=== PATIENT | male | born 1950 | race Caucasian/White ===

== ENCOUNTER 2020-06-23 15:31 | Outpatient (REF) | payer OTHER, SELFPAY | END 2020-06-23 15:32 | disposition home or self-care (01) | LOC: HO.LAB 15:31 | PROVIDERS: PCP Internal Medicine; Visit Provider Internal Medicine | DX: Z20.828 Contact with and (suspected) exposure to other viral communicable diseases (principal) | CPT/HCPCS: U0003 ==

== ENCOUNTER 2020-06-23 15:45 | Emergency (ER) | payer OTHER, SELFPAY ==
[2020-06-23 15:55] VITALS: BP 119/70; PULSE 88; RESP 16; TEMP 36.8; O2SAT 96; BMI 33.8
--- NOTE | 2020-06-23 16:21 | XR_ITS ---
EXAMINATION: XR CHEST CLINICAL INFORMATION: Cough. COMPARISON: 09/16/2019 chest radiograph. TECHNIQUE: Frontal view of the chest was obtained. FINDINGS: No significant abnormality is noted involving the heart, lungs, mediastinum, bony thorax or soft tissues. XR/XR chest 1V IMPRESSION: No acute cardiopulmonary process.
--- NOTE | 2020-06-23 16:28 | ED.GENADULT ---
HPI - General Adult General Chief complaint: General Medical Stated complaint: FLU LIKE SYMPTOMS Time Seen by Provider: 06/23/20 16:21 Related Data Allergies Allergy/AdvReac Type Severity Reaction Status Date / Time No Known Allergies Allergy Verified 06/23/20 16:03 [No Known Allergies*] [facility] Past Medical History Medical History (Updated 06/24/20 @ 00:00 by Background Daemon) Asthma Diabetic acidosis, type II High cholesterol HTN (hypertension) Insomnia Social History Social History Alcohol intake: never Smoked in Last 30 Days: No Use of substances other than those prescribed or required for medical reasons: No Advance Directives: No Advance Directives Information Provided: No Physical Exam Vital Signs: Vital Signs: Vital Signs Temp Pulse Resp BP Pulse Ox 06/23/20 15:55 98.3 F 88 16 119/70 96 Body Mass Index 33.8 Discharge Plan Discharge Clinical Impression: Acute viral syndrome Patient Disposition: Home, Self-Care Additional Instructions: Chest x-ray was normal We will call you with COVID test results Return to ER any time any worse condition or any concerns Interventions: ED Discharge Assessment Last Done: 06/23/20 17:26 Discharge Date/Time: 06/23/20 17:28
--- NOTE | 2020-06-23 17:20 | ED.GENADULT ---
HPI - General Adult General Chief complaint: General Medical Stated complaint: FLU LIKE SYMPTOMS Time Seen by Provider: 06/23/20 16:21 History of Present Illness HPI narrative: Patient complains of body ache, fatigue, intermittent mild dry cough for the last 3 days, no fever no chills no shortness of breath Related Data Allergies Allergy/AdvReac Type Severity Reaction Status Date / Time No Known Allergies Allergy Verified 06/23/20 16:03 [No Known Allergies*] Review of Systems Review of Systems: No chest pain no abdominal pain no nausea no vomiting no diarrhea no shortness of breath no difficulty breathing, cough is not productive, no headache Yes all other systems are reviewed and are negative PMFSH Past Medical History Source: nursing notes reviewed Medical History (Updated 06/23/20 @ 17:24 by RADHA Calhoun) Asthma Diabetic acidosis, type II High cholesterol HTN (hypertension) Insomnia Social History Social History Alcohol intake: never Smoked in Last 30 Days: No Use of substances other than those prescribed or required for medical reasons: No Advance Directives: No Advance Directives Information Provided: No Physical Exam Vital Signs: Vital Signs: Vital Signs Temp Pulse Resp BP Pulse Ox 06/23/20 15:55 98.3 F 88 16 119/70 96 Body Mass Index 33.8 Patient is A&O x3, no acute distress, comfortable in chair and ambulates easily The head is normocephalic atraumatic The neck is supple The pharynx is clear The chest is clear to auscultation with full symmetrical breath sounds bilaterally, no wheezing no adventitious sounds Cardiac no murmur auscultated Abdomen is soft nontender Extremities no edema, no calf tenderness Skin is normal Neuro A&O x3, no focal deficit Course Course Course Narrative: Patient's chest x-ray was negative with no evidence of pneumonia and was otherwise normal The patient remains comfortable ambulatory with stable vital signs in no distress, speaking full sentences and ambulates without shortness of breath or difficulty Discharge Plan Discharge Clinical Impression: Acute viral syndrome Patient Disposition: Home, Self-Care Additional Instructions: Chest x-ray was normal We will call you with COVID test results Return to ER any time any worse condition or any concerns Interventions: ED Discharge Assessment Last Done: 06/23/20 17:26 Discharge Date/Time: 06/23/20 17:28
== END 2020-06-23 17:28 | disposition home or self-care (01) ==
PROVIDERS: Emergency Provider Emergency Medicine; PCP Internal Medicine
DX: B34.9 Viral infection, unspecified (principal); R05 Cough; Z20.828 Contact with and (suspected) exposure to other viral communicable diseases
CPT/HCPCS: 71045; 99283

== ENCOUNTER 2020-07-11 10:29 | Outpatient (REF) | payer OTHER, SELFPAY | END 2020-07-11 10:30 | disposition home or self-care (01) | LOC: HO.LAB 10:29 | PROVIDERS: PCP Internal Medicine; Visit Provider Internal Medicine | DX: Z20.828 Contact with and (suspected) exposure to other viral communicable diseases (principal) | CPT/HCPCS: C9803; U0003 ==

== ENCOUNTER 2020-07-31 08:07 | Outpatient (REF) | payer MEDICARE, SELFPAY ==
[2020-07-31 09:41] LABS: Creatinine Urine 79.58 mg/dL; Microalbum/Creatinine Ratio Ur 20.1 ug/mg cr
== END 2020-07-31 08:08 | disposition home or self-care (01) ==
LOC: HO.LAB 08:07
PROVIDERS: PCP Internal Medicine; Visit Provider Internal Medicine
DX: E11.8 Type 2 diabetes mellitus with unspecified complications (principal)
CPT/HCPCS: 82043

== ENCOUNTER 2020-08-29 09:14 | Outpatient (REF) | payer MEDICARE, SELFPAY ==
[2020-08-29 10:47] LABS: Alanine Aminotransferase 22 U/L (0-40); Albumin Level 4.6 g/dL (3.5-5.0); Alkaline Phosphatase 80 U/L (39-117); Anion Gap 15 (12-20); Aspartate Amino Transferase 18 U/L (5-37); Bilirubin Total 0.4 mg/dL (0.0-1.0); Blood Urea Nitrogen 23 mg/dL (9-16); Calcium 9.4 mg/dL (8.4-10.2); Carbon Dioxide 24 mmol/L (22-29); Chloride 104 mmol/L (96-108); Cholesterol 207 mg/dL; Estimated Glomerular Filt Rate 53; Glucose Fasting 185 mg/dL (60-99); HDL Cholesterol 39 mg/dL; LDL Cholesterol Calculated 119 mg/dl; Potassium 4.6 mmol/l (3.3-5.1); Sodium 138 mmol/L (135-145); Total Protein 7.2 g/dL (6.5-8.0); Triglycerides 249 mg/dL
[2020-08-29 11:13] LABS: Creatinine Urine 94.99 mg/dL; Microalbum/Creatinine Ratio Ur 43.1 ug/mg cr
== END 2020-08-29 09:15 | disposition home or self-care (01) ==
LOC: HO.LAB 09:14
PROVIDERS: PCP Internal Medicine; Visit Provider Internal Medicine
DX: E11.9 Type 2 diabetes mellitus without complications (principal); E78.5 Hyperlipidemia, unspecified
CPT/HCPCS: 36415; 80053; 80061; 82043

== ENCOUNTER 2020-08-29 09:35 | Outpatient (REF) | payer MEDICARE, SELFPAY | END 2020-08-29 09:36 | disposition home or self-care (01) | LOC: HO.LAB 09:35 | PROVIDERS: Visit Provider Internal Medicine | DX: Z20.828 Contact with and (suspected) exposure to other viral communicable diseases (principal) | CPT/HCPCS: 36415; C9803; U0003 ==

== ENCOUNTER → 2020-10-05 07:40 | Outpatient (REF) | payer MEDICARE, SELFPAY ==
--- NOTE | ~2020-10-05 | NM_ITS ---
Exercise Myocardial perfusion study Indication: Chest pain to evaluate for myocardial ischemia Technique: The patient was brought in for an exercise perfusion study on 10/05/2020. Patient performed exercise as per Silvino protocol and was injected 25 mCi of sestamibi was given intravenously one target HR was achieved. Images were obtained using the SPECT gamma camera interlaced with the gating device. Images were obtained in supine position. Resting perfusion study was performed on 10/06/2020. Patient was administered 25 mCi of sestamibi intravenously at rest. Images were then obtained in supine position. Images obtained with and without CT attenuation. Total DLP 62 mGy-cm. Images were processed with the software and compared side to side in short axis, horizontal long axis and vertical long axis views. Findings: The stress perfusion study showed non attenuated images show moderately reduced uptake in the inferior wall of the LV myocardium. Remainder of the LV myocardium is normally perfused. Attenuation corrected images show normalized uptake in the inferior wall with moderately reduced uptake in the apex of the LV myocardium.. The gated study shows normal LV systolic function with calculated LVEF of 74%. LV cavity is normal in size. The gated study shows normal systolic wall thickening and contraction of all segments. There is no transient ischemic dilation. Resting study shows no change in perfusion pattern compared to stress perfusion study. Gating at rest reveals normal systolic wall motion with ejection fraction at 65%. The findings are consistent with no reversible defect suggestive of ischemia. Most likely suggestive normal myocardial perfusion. NM/NM johanna perf SPECT rest & str Impression: 1. Normal myocardial perfusion 2. Gated LVEF is 65% 3. Transient ischemic dilatation not present Stress EKG is negative for ischemia
--- NOTE | 2020-10-05 08:30 | CA_ITS ---
Acquisition Time: 2020-10-05 07:55:21 Total Exercise Time: 00:05:04 Test Indications: Dyspnea Medications: CITALOPRAM METFORMIN PANTOPRAZOLE PRAVASTATIN GABAPENTIN LORATADINE LOSARTAN Protocol: MAXIMILIANO Max HR: 131 BPM 86% of Pred: 152 BPM Max BP: 140/068 mmHG Max Work Load: 4.6 METS Stress nuclear using Maximiliano protocol Second stage held. Pt tolerated well, denies any anginal sx. METS 4.60, TAPHR up to 86%. EKG without any arrhythmias. No ischemic changes seen during exercise or in recovery. Nuclear images to follow. Normotensive response to exercise. Test reviewed with DR. Ortega Referred By: Mehul Kasper Overread By: Massimo Self
== END ==
LOC: HO.CARD 07:40
PROVIDERS: PCP Internal Medicine; Visit Provider Internal Medicine Cardiovascular Disease
DX: R07.9 Chest pain, unspecified (principal)
CPT/HCPCS: 78452; 93017; A9500; J0280; J2785

== ENCOUNTER → 2020-10-20 14:00 | Outpatient (BNVA) | payer MEDICARE, SELFPAY | PROVIDERS: PCP Internal Medicine; Visit Provider Internal Medicine Pulmonary Disease | DX: J45.30 Mild persistent asthma, uncomplicated (principal) | CPT/HCPCS: 99202 ==

== ENCOUNTER 2020-11-07 13:17 | Outpatient (REF) | payer MEDICARE, SELFPAY ==
--- NOTE | 2020-11-07 17:18 | PFT_ITS ---
Forced vital capacity, FEV1, PQS47-36, and MVV are all normal. Post bronchodilator therapy, there is no significant change. Total lung capacity and residual volume normal. Diffusion capacity normal. CONCLUSION: Normal pulmonary function test. No evidence of obstructive or restrictive pulmonary disorder. Enrico Arevalo MD MSB/MODL / [id number]
== END 2020-11-07 13:18 | disposition home or self-care (01) ==
LOC: HO.RESP 13:17
PROVIDERS: PCP Internal Medicine; Visit Provider Internal Medicine Pulmonary Disease
DX: J45.30 Mild persistent asthma, uncomplicated (principal)
CPT/HCPCS: 94060; 94727; 94729; 99212

== ENCOUNTER 2020-11-28 08:03 | Outpatient (REF) | payer MEDICARE, SELFPAY ==
[2020-11-28 08:38] LABS: MANUAL DIFF FLAG NO
[2020-11-28 08:45] LABS: Basophils Percent Auto 0.5 % (0-2); Eosinophils Absolute Auto 0.2 X10*3/uL (0.0-0.4); Eosinophils Percent Auto 3.2 % (0-4); Hematocrit 37.2 % (42-52); Imm Gran Abs Auto 0.01 X10*3/uL (0.00-0.03); Imm Gran Pct Auto 0.2 % (0.0-0.4); Lymphocytes Absolute Auto 1.8 X10*3/uL (1.2-4.9); Lymphocytes Percent Auto 29.4 % (20-40); Mean Corpuscular HGB Conc 32.3 g/dl (31.0-36.0); Mean Corpuscular Hemoglobin 28.9 pg (27.0-33.0); Mean Corpuscular Volume 89.6 fL (80-98); Monocytes Absolute Auto 0.6 X10*3/uL (0.1-1.2); Monocytes Percent Auto 9.3 % (2-11); Neutrophils Absolute Auto 3.5 X10*3/uL (2.0-8.3); Neutrophils Percent Auto 57.4 % (45-73); Platelet Count 241 X10*3/uL (160-400); Red Blood Count 4.15 X10*6/uL (4.60-5.80); Red Cell Distribution Width 13.7 % (11.0-16.0); White Blood Count 6.2 X10*3/uL (4.8-10.8)
[2020-11-28 09:03] LABS: Alanine Aminotransferase 20 U/L (0-40); Albumin Level 4.3 g/dL (3.5-5.0); Alkaline Phosphatase 75 U/L (39-117); Anion Gap 12 (12-20); Aspartate Amino Transferase 15 U/L (5-37); Bilirubin Total 0.5 mg/dL (0.0-1.0); Blood Urea Nitrogen 23 mg/dL (9-16); Calcium 9.1 mg/dL (8.4-10.2); Carbon Dioxide 27 mmol/L (22-29); Chloride 104 mmol/L (96-108); Cholesterol 156 mg/dL; Estimated Glomerular Filt Rate 52; Glucose Fasting 160 mg/dL (60-99); HDL Cholesterol 36 mg/dL; LDL Cholesterol Calculated 76 mg/dl; Potassium 4.3 mmol/L (3.3-5.1); Sodium 139 mmol/L (135-145); Total Protein 6.9 g/dL (6.5-8.0); Triglycerides 223 mg/dL
[2020-11-28 10:17] LABS: Folate 8.6 ng/mL (> or = 4.0); Vitamin B12 299 pg/mL (200-900)
[2020-11-28 10:23] LABS: Creatinine Urine 127.26 mg/dL; Microalbum/Creatinine Ratio Ur 31.4 ug/mg cr
[2020-12-04 12:51] LABS: Vitamin D 25-OH, D2 <4 ng/mL; Vitamin D 25-OH, D3 44 ng/mL; Vitamin D 25-OH, Total 44 ng/mL (30-100)
== END 2020-11-28 08:04 | disposition home or self-care (01) ==
LOC: HO.LAB 08:03
PROVIDERS: PCP Internal Medicine; Visit Provider Internal Medicine
DX: E11.9 Type 2 diabetes mellitus without complications (principal); R53.82 Chronic fatigue, unspecified; E55.9 Vitamin D deficiency, unspecified; E78.5 Hyperlipidemia, unspecified
CPT/HCPCS: 36415; 80053; 80061; 82043; 82306; 82607; 82746; 85025

== ENCOUNTER 2020-12-14 07:57 | Outpatient (REF) | payer MEDICARE, SELFPAY ==
--- NOTE | ~2020-12-14 | XR_ITS ---
EXAMINATION: XR LUMBAR SPINE CLINICAL INFORMATION: Low back pain COMPARISON: 05/27/2018 TECHNIQUE: AP and lateral views of the lumbar spine and lateral view of the lumbosacral junction. FINDINGS: Prominent facet arthropathy is evident at L5-S1. There is mild multilevel degenerative disc disease with prominent endplate osteophytes. Interbody disc heights appear relatively well preserved. No fractures. Vertebral body heights are normal. Bones are osteopenic. Mild osteoarthritis in the SI joints. Calcific atherosclerosis is present in the abdominal aorta and iliac arteries. XR/XR lumbar spine 2-3V IMPRESSION: Prominent facet arthropathy at L5-S1 and more mild multilevel degenerative disc disease in the lumbar spine. No acute fracture or spondylolisthesis.
== END 2020-12-14 07:58 | disposition home or self-care (01) ==
LOC: HO.XRAY 07:57
PROVIDERS: PCP Internal Medicine; Visit Provider Internal Medicine
DX: M54.5 Low back pain (principal)
CPT/HCPCS: 72100

== ENCOUNTER 2020-12-25 08:03 | Outpatient (REF) | payer MEDICARE, SELFPAY ==
[2020-12-25 08:39] LABS: MANUAL DIFF FLAG NO
[2020-12-25 08:56] LABS: Basophils Percent Auto 0.6 % (0-2); Eosinophils Absolute Auto 0.2 X10*3/uL (0.0-0.4); Eosinophils Percent Auto 2.7 % (0-4); Hematocrit 36.1 % (42-52); Hemoglobin 11.6 g/dl (14.0-18.0); Imm Gran Abs Auto 0.02 X10*3/uL (0.00-0.03); Imm Gran Pct Auto 0.3 % (0.0-0.4); Mean Corpuscular HGB Conc 32.1 g/dl (31.0-36.0); Mean Corpuscular Volume 90.3 fL (80-98); Mean Platelet Volume 10.7 fL (9.4-12.4); Monocytes Absolute Auto 0.6 X10*3/uL (0.1-1.2); Monocytes Percent Auto 7.9 % (2-11); Neutrophils Absolute Auto 4.2 X10*3/uL (2.0-8.3); Neutrophils Percent Auto 59.5 % (45-73); Platelet Count 220 X10*3/uL (160-400); Red Cell Distribution Width 13.9 % (11.0-16.0)
[2020-12-25 09:46] LABS: Folate 8.5 ng/mL (> or = 4.0); Vitamin B12 294 pg/mL (200-900)
[2020-12-25 10:00] LABS: Alanine Aminotransferase 15 U/L (0-40); Albumin Level 4.2 g/dL (3.5-5.0); Alkaline Phosphatase 79 U/L (39-117); Anion Gap 12 (12-20); Aspartate Amino Transferase 12 U/L (5-37); Bilirubin Total 0.4 mg/dL (0.0-1.0); Blood Urea Nitrogen 26 mg/dL (9-16); Calcium 9.4 mg/dL (8.4-10.2); Carbon Dioxide 25 mmol/L (22-29); Chloride 105 mmol/L (96-108); Cholesterol 157 mg/dL; Estimated Glomerular Filt Rate 47; Glucose Fasting 253 mg/dL (60-99); HDL Cholesterol 33 mg/dL; Iron 80 mcg/dL (45-160); LDL Cholesterol Calculated 67 mg/dl; Percent Iron Saturation 27 % (15-50); Sodium 138 mmol/L (135-145); Total Iron Binding Capacity 296 mcg/dL (228-428); Total Protein 6.7 g/dL (6.5-8.0); Triglycerides 288 mg/dL; Unsaturated Iron Binding 216 ug/dL
[2020-12-25 10:04] LABS: Creatinine Urine 205.16 mg/dL; Microalbum/Creatinine Ratio Ur 20.4 ug/mg cr
== END 2020-12-25 08:04 | disposition home or self-care (01) ==
LOC: HO.LAB 08:03
PROVIDERS: PCP Internal Medicine; Visit Provider Internal Medicine
DX: R53.82 Chronic fatigue, unspecified (principal); D64.9 Anemia, unspecified; E78.5 Hyperlipidemia, unspecified; E11.9 Type 2 diabetes mellitus without complications
CPT/HCPCS: 36415; 80053; 80061; 82043; 82607; 82746; 83540; 85025

== ENCOUNTER 2021-01-26 08:03 | Outpatient (REF) | payer MEDICARE, SELFPAY ==
--- NOTE | 2021-04-06 16:16 | HE.ONCSEC ---
Notes of the Meeting with Mr Mohamud Carpenter on 04/06/2021 at 2pm. Language - Maori - Car Rental Agent was present and her name is Robel Morales Mr. Carpenter scheduled to meet with me because he was not happy that Dr. De Los Santos had refused to sign his Insurance papers as he is an Oncology patient. I explained to Mr Carpenter that the reason why Dr De Los Santos did not sign his papers is because he was last in for anemia which was stable. Mr Carpenter then said that every doctor that he has seen since being Dr De Los Santos's patient says that he has cancer. I explained to Mr. 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 Since 2018, patient has been seeing his primary provider.
== END 2021-01-26 08:04 | disposition home or self-care (01) ==
LOC: HO.LAB 08:03
PROVIDERS: Visit Provider Internal Medicine
DX: M47.816 Spondylosis without myelopathy or radiculopathy, lumbar region (principal); G56.03 Carpal tunnel syndrome, bilateral upper limbs; M72.2 Plantar fascial fibromatosis; G62.9 Polyneuropathy, unspecified; Z20.822 Contact with and (suspected) exposure to COVID-19
CPT/HCPCS: 99202; C9803; U0003; U0005

== ENCOUNTER → 2021-03-09 11:05 | Outpatient (BNVA) | payer MEDICARE, SELFPAY | PROVIDERS: PCP Internal Medicine; Visit Provider Internal Medicine | DX: M47.816 Spondylosis without myelopathy or radiculopathy, lumbar region (principal); G56.03 Carpal tunnel syndrome, bilateral upper limbs; G62.9 Polyneuropathy, unspecified | CPT/HCPCS: 99212 ==

== ENCOUNTER → 2021-03-14 12:39 | Outpatient (BNVA) | payer MEDICARE, SELFPAY | PROVIDERS: PCP Internal Medicine; Visit Provider Internal Medicine Pulmonary Disease | DX: J45.30 Mild persistent asthma, uncomplicated (principal); G47.33 Obstructive sleep apnea (adult) (pediatric); Z99.89 Dependence on other enabling machines and devices | CPT/HCPCS: 99212 ==

== ENCOUNTER → 2021-03-28 13:03 | Outpatient (BNVA) | payer MEDICARE, SELFPAY | PROVIDERS: PCP Internal Medicine; Visit Provider Orthopaedic Surgery | DX: G56.01 Carpal tunnel syndrome, right upper limb (principal) | CPT/HCPCS: 99202 ==

== ENCOUNTER 2021-04-05 11:38 | Day surgery (SDC) | payer MEDICARE, SELFPAY ==
[2021-04-05 12:36] VITALS: BMI 33.8
[2021-04-05 12:37] VITALS: BP 126/60; PULSE 62; RESP 18; TEMP 36.7; O2SAT 97
[2021-04-05 12:44] LABS: Glucose, Whole Blood 187 mg/dL (60-115)
--- NOTE | 2021-04-05 14:58 | PC.NURSE ---
PATIENT TRANSFERRED TO PACU. DR. Papo CHENG GAVE THE BLOCK AT BEDSIDE. REPORT TO CONE CLASSIFIER TENDER.
--- NOTE | 2021-04-05 16:08 | MHC.SHP ---
Pre-Procedural Eval Section A Date of Service: 04/05/21 The patient is an INPATIENT: No Changes since office visit: No Cold of Flu in the past 2 weeks, No New Medical Problems, No Changes in Medication and No Patient answered all questions The History & Physical has been completed within 30 days and I have reviewed it.: Yes Section B Chief Complaint: Carpal Tunnel Syndrome Allergies: Allergies Allergy/AdvReac Type Severity Reaction Status Date / Time No Known Allergies Allergy Verified 03/28/21 13:46 [No Known Allergies*] Plan I have reviewed the history and physical and performed a pertinent physical examination on my patient. No changes have occurred unless specified.
--- NOTE | 2021-04-05 16:08 | W.PM.OPN ---
Operative Note Operative Note Date of Service: 04/05/21 Narrative: Preop diagnosis: 1. Right Carpal tunnel syndrome Postop diagnosis: same Procedure: 1. Right Carpal tunnel release Surgeon: Hortencia Lomas MD Anesthesia: local block using 1% lidocaine with epinephrine Findings: Thickened transverse carpal ligament. EBL: Less than 5 mL Specimens: None Complications: None Disposition: Brought to recovery room in stable condition Plan: Follow-up for 7-10 days for wound check and suture removal Indications: The patient is 70 years old, with right carpal tunnel syndrome that has been unresponsive to nonoperative management. The risks and benefits of operative treatment including but not limited to risk of damage to blood vessels, nerves, tendons, infection, persistent pain, persistent symptoms, or possible need for additional surgery were discussed with the patient and the patient wishes to proceed with surgery. Procedure: Once consent was obtained a local block was performed using a combination of 1% lidocaine with epinephrine. The patient was then brought back to the operating suite and placed on the operative table in supine position. A tourniquet was applied to the proximal aspect of the right upper extremity and the limb was prepped and draped in a standard surgical fashion. Once assured that we had a good block, a 1.5 cm longitudinal incision was made centered over the carpal tunnel. The incision was made through the skin to the subcutaneous tissues using a #15 blade. Dissection was made down to the level of the transverse carpal ligament with care being taken to protect the palmar cutaneous nerve. Once the transverse carpal ligament was clearly visualized, a longitudinal incision was made in the transverse carpal ligament 1st using a #15 blade, then using tenotomy scissors under direct visualization. Care was taken to look for and protect the motor branch of the median nerve when seen in this area. Once satisfied with our carpal tunnel release the wound was copiously irrigated with normal saline and hemostasis was obtained with a brief period of local pressure. The skin edges were reapproximated with some 5.0 nylon suture material and a sterile dressing was applied. The patient appears to have tolerated the procedure well and with no complications. All digits were well vascularized at the conclusion of the case.
[2021-04-05 16:35] VITALS: BP 117/78; PULSE 58; RESP 16; TEMP 36.7; O2SAT 96
[2021-04-05 16:55] VITALS: BP 125/69; PULSE 55; RESP 7; TEMP 36.6; O2SAT 98
== END 2021-04-05 17:08 | disposition home or self-care (01) ==
PROVIDERS: PCP Internal Medicine; Visit Provider Orthopaedic Surgery
PROC: (CPT 64721; principal; 2021-04-05 14:00)
DX: G56.01 Carpal tunnel syndrome, right upper limb (principal); I10 Essential (primary) hypertension; E11.10 Type 2 diabetes mellitus with ketoacidosis without coma; Z79.84 Long term (current) use of oral hypoglycemic drugs; J45.909 Unspecified asthma, uncomplicated; R53.82 Chronic fatigue, unspecified; Z86.16 Personal history of COVID-19
CPT/HCPCS: 64721; 82947

== ENCOUNTER → 2021-04-16 11:51 | Outpatient (BNVA) | payer MEDICARE, SELFPAY | PROVIDERS: PCP Internal Medicine; Visit Provider Orthopaedic Surgery | DX: Z09 Encounter for follow-up examination after completed treatment for conditions other than malignant neoplasm (principal); Z86.69 Personal history of other diseases of the nervous system and sense organs | CPT/HCPCS: 99212 ==

== ENCOUNTER 2021-05-01 11:18 | Outpatient (REF) | payer MEDICARE, SELFPAY | END 2021-05-01 11:19 | disposition home or self-care (01) | LOC: HO.LAB 11:18 | PROVIDERS: PCP Internal Medicine; Visit Provider Internal Medicine | DX: Z20.822 Contact with and (suspected) exposure to COVID-19 (principal) | CPT/HCPCS: C9803; U0003; U0005 ==

== ENCOUNTER 2021-05-15 07:04 | Outpatient (REF) | payer MEDICARE, SELFPAY ==
[2021-05-15 08:38] LABS: MANUAL DIFF FLAG NO
[2021-05-15 08:49] LABS: Basophils Percent Auto 0.6 % (0-2); Eosinophils Absolute Auto 0.3 X10*3/uL (0.0-0.4); Eosinophils Percent Auto 4.7 % (0-4); Hematocrit 38.9 % (42-52); Hemoglobin 12.5 g/dl (14.0-18.0); Imm Gran Abs Auto 0.02 X10*3/uL (0.00-0.03); Imm Gran Pct Auto 0.3 % (0.0-0.4); Lymphocytes Absolute Auto 1.9 X10*3/uL (1.2-4.9); Lymphocytes Percent Auto 28.5 % (20-40); Mean Corpuscular HGB Conc 32.1 g/dl (31.0-36.0); Mean Corpuscular Hemoglobin 28.5 pg (27.0-33.0); Mean Corpuscular Volume 88.8 fL (80-98); Mean Platelet Volume 10.9 fL (9.4-12.4); Monocytes Absolute Auto 0.7 X10*3/uL (0.1-1.2); Monocytes Percent Auto 10.2 % (2-11); Neutrophils Absolute Auto 3.8 X10*3/uL (2.0-8.3); Neutrophils Percent Auto 55.7 % (45-73); Platelet Count 262 X10*3/uL (160-400); Red Blood Count 4.38 X10*6/uL (4.60-5.80); Red Cell Distribution Width 13.5 % (11.0-16.0); White Blood Count 6.8 X10*3/uL (4.8-10.8)
[2021-05-15 09:08] LABS: Alanine Aminotransferase 21 U/L (0-40); Albumin Level 4.7 g/dL (3.5-5.0); Alkaline Phosphatase 88 U/L (39-117); Anion Gap 13 (12-20); Aspartate Amino Transferase 15 U/L (5-37); Bilirubin Total 0.6 mg/dL (0.0-1.0); Blood Urea Nitrogen 19 mg/dL (9-16); Calcium 9.9 mg/dL (8.4-10.2); Carbon Dioxide 25 mmol/L (22-29); Chloride 104 mmol/L (96-108); Cholesterol 202 mg/dL; Estimated Glomerular Filt Rate 42; Glucose Fasting 164 mg/dL (60-99); HDL Cholesterol 38 mg/dL; LDL Cholesterol Calculated 97 mg/dl; Potassium 4.3 mmol/L (3.3-5.1); Sodium 138 mmol/L (135-145); Total Protein 7.4 g/dL (6.5-8.0); Triglycerides 338 mg/dL
[2021-05-15 09:36] LABS: Creatinine Urine 87.26 mg/dL; Microalbum/Creatinine Ratio Ur 29.7 ug/mg cr
== END 2021-05-15 07:05 | disposition home or self-care (01) ==
LOC: HO.LAB 07:04
PROVIDERS: PCP Internal Medicine; Visit Provider Internal Medicine
DX: D64.9 Anemia, unspecified (principal); E11.9 Type 2 diabetes mellitus without complications; E78.5 Hyperlipidemia, unspecified
CPT/HCPCS: 36415; 80053; 80061; 82043; 85025

== ENCOUNTER 2021-06-30 13:57 | Emergency (ER) | payer MEDICARE, SELFPAY ==
--- NOTE | ~2021-06-30 | XR_ITS ---
EXAMINATION: XR SHOULDER, LEFT CLINICAL INFORMATION: Left shoulder pain with limited range of motion status post fall. COMPARISON: None TECHNIQUE: AP external rotation, Grashey, scapular Y, and axillary views of the left shoulder. FINDINGS: Moderate left acromioclavicular and mild left glenohumeral degenerative joint changes are seen. There is no acute fracture or dislocation. The soft tissues are unremarkable. XR/XR shoulder LT min 2V IMPRESSION: Degenerative joint changes without overt acute abnormality.
[2021-06-30 14:06] VITALS: BP 136/70; PULSE 99; RESP 19; TEMP 36.6; O2SAT 97; BMI 33.2
--- NOTE | 2021-06-30 15:50 | ED_ITS ---
HPI - Extremity Problem General Chief complaint: Extremity Injury, Upper Stated complaint: fall - arm injury Time Seen by Provider: 06/30/21 15:46 Related Data Previous Rx's Medication Instructions Recorded albuterol sulfate 90 mcg/actuation 2 puff INHALATION Q6H PRN 30 Days 10/25/20 aerosol inhaler #6.7 g alcohol swabs 1 pad TOPICAL DAILY 90 Days #100 ea 10/25/20 betamethasone valerate 0.1 % 1 appl TOPICAL BID 30 Days #45 g 10/25/20 topical cream blood sugar diagnostic #30 ea 10/25/20 citalopram 20 mg tablet 20 mg PO DAILY 90 Days #90 tab 10/25/20 lancets 33 gauge #100 ea 10/25/20 loratadine 10 mg tablet 10 mg PO DAILY 90 Days #90 tab 10/25/20 losartan 50 mg-hydrochlorothiazide 1 tab PO DAILY 90 Days #90 tab 10/25/20 12.5 mg tablet metformin 1,000 mg tablet 1,000 mg PO BID 90 Days #180 tab 10/25/20 pantoprazole 40 mg tablet,delayed 40 mg PO DAILY 90 Days #90 tab 10/25/20 release simethicone 125 mg chewable tablet 125 mg PO QID 90 Days #360 tab 10/25/20 fluticasone 250 mcg-salmeterol 50 1 inh INHALATION BID 30 Days #1 ea 11/07/20 mcg/dose blistr powdr for inhalation (Wixela Inhub) fenofibrate 54 mg tablet 54 mg PO DAILY 90 Days #90 tab 12/26/20 meloxicam 15 mg tablet 15 mg PO DAILY PRN #30 tab 01/21/21 pregabalin 150 mg capsule 150 mg PO BEDTIME #30 cap 03/09/21 hydrocodone 5 mg-acetaminophen 325 1 tab PO Q4-6H PRN #5 tab 04/05/21 mg tablet simvastatin 40 mg tablet 40 mg PO BEDTIME 90 Days #90 tab 05/13/21 diabetic shoes with inserts #1 ea 06/06/21 oxycodone-acetaminophen 5 mg-325 1 tab PO Q6H PRN #10 tab 06/30/21 mg tablet (Percocet) Allergies Allergy/AdvReac Type Severity Reaction Status Date / Time No Known Allergies Allergy Verified 05/21/21 16:15 [No Known Allergies*] [facility] Past Medical History Medical History (Updated 06/30/21 @ 15:52 by RADHA Araujo) Asthma Chronic fatigue CKD (chronic kidney disease) COVID-19 Diabetes mellitus Diabetic acidosis, type II GERD (gastroesophageal reflux disease) High cholesterol HTN (hypertension) Insomnia Lumbar pain Mixed hyperlipidemia Skin lesion Surgical History H/O prostate biopsy History of carpal tunnel surgery of right wrist (~03/2021) History of eye surgery History of knee replacement procedure of left knee Family History Family History (Updated 05/21/21 @ 15:59 by Taylor Scott Dina) Father Diabetes Hypertension Mother Diabetes Hypertension Maternal Grandmother Stomach cancer Social History Social History Housing: Apartment Alcohol intake: never Patient Tobacco Use Status: Never used Tobacco Second Hand Smoke Exposure: No Advance Directives: No service: No Current occupational status: retired and disabled Physical Exam Vital Signs: Vital Signs: Last Vital Signs Temp 98 F 06/30/21 14:06 Pulse 99 06/30/21 14:06 Resp 19 06/30/21 14:06 BP 136/70 06/30/21 14:06 Pulse Ox 97 06/30/21 14:06 Body Mass Index 33.2 Discharge Plan Discharge Clinical Impression: Sprain of left shoulder, Fall Patient Disposition: Home, Self-Care Instructions: Fall Prevention for Older Adults (ED), Shoulder Sprain (ED) Prescriptions: New oxycodone-acetaminophen [Percocet] 5-325 mg tablet 1 tab PO Q6H PRN (Reason: pain) Qty: 10 RF: 0 No Action albuterol sulfate 90 mcg/actuation HFA aerosol inhaler 2 puff inhalation Q6H PRN (Reason: shortness of breath or wheezing) 30 Days Qty: 6.7 RF: 4 alcohol swabs Pads, Medicated 1 pad topical DAILY 90 Days Qty: 100 RF: 3 betamethasone valerate 0.1 % cream 1 appl topical BID 30 Days Qty: 45 RF: 6 (DME) blood sugar diagnostic Strip See Rx Instructions ea .ROUTE DAILY Qty: 30 RF: 11 citalopram 20 mg tablet 20 mg PO DAILY 90 Days Qty: 90 RF: 3 (DME) lancets 33 gauge misc See Rx Instructions ea .ROUTE .MEDSUPPLY Qty: 100 RF: 11 loratadine 10 mg tablet 10 mg PO DAILY 90 Days Qty: 90 RF: 3 simethicone 125 mg tablet,chewable 125 mg PO QID 90 Days Qty: 360 RF: 3 pantoprazole 40 mg tablet,delayed release (DR/EC) 40 mg PO DAILY 90 Days Qty: 90 RF: 3 metformin 1,000 mg tablet 1,000 mg PO BID 90 Days Qty: 180 RF: 3 losartan-hydrochlorothiazide 50-12.5 mg tablet 1 tab PO DAILY 90 Days Qty: 90 RF: 3 meloxicam 15 mg tablet 15 mg PO DAILY PRN (Reason: for pain) Qty: 30 RF: 1 simvastatin 40 mg tablet 40 mg PO BEDTIME 90 Days Qty: 90 RF: 1 (DME) diabetic shoes with inserts 7.5 See Rx Instructions .Route .MEDSUPPLY Qty: 1 RF: 0 hydrocodone-acetaminophen 5-325 mg tablet 1 tab PO Q4-6H PRN (Reason: pain) Qty: 5 RF: 0 fenofibrate 54 mg tablet 54 mg PO DAILY 90 Days Qty: 90 RF: 3 fluticasone propion-salmeterol [Wixela Inhub] 250-50 mcg/dose blister with device 1 inh inhalation BID 30 Days Qty: 1 RF: 6 pregabalin 150 mg capsule 150 mg PO BEDTIME Qty: 30 RF: 0 Referrals: Clara Salgado MD [Primary Care Provider] - 2 days Print Language: [place]
--- NOTE | 2021-06-30 15:54 | ED.FALL ---
HPI - Fall General Chief Complaint: Extremity Injury, Upper Stated Complaint: fall - arm injury Time Seen by Provider: 06/30/21 15:46 Source: patient Mode of arrival: ambulatory Limitations: language barrier (Romanian-speaking) History of Present Illness MD complaint: fall Onset (ago): week(s) (One week ago) Fall from: other (Patient reports he had just got up from his bed and was dark in his room and his leg got call in the rug and he fell onto his left shoulder and since then has been having pain) Fall witnessed: no Place fall occurred: home Loss of consciousness: none Prolonged down time: no Symptoms prior to fall: none Context: tripped/slipped Location of injury - extremities: left: shoulder Severity: moderate Quality: aching Associated symptoms (after fall): denies Related Data Previous Rx's Medication Instructions Recorded albuterol sulfate 90 mcg/actuation 2 puff INHALATION Q6H PRN 30 Days 10/25/20 aerosol inhaler #6.7 g alcohol swabs 1 pad TOPICAL DAILY 90 Days #100 ea 10/25/20 betamethasone valerate 0.1 % 1 appl TOPICAL BID 30 Days #45 g 10/25/20 topical cream blood sugar diagnostic #30 ea 10/25/20 citalopram 20 mg tablet 20 mg PO DAILY 90 Days #90 tab 10/25/20 lancets 33 gauge #100 ea 10/25/20 loratadine 10 mg tablet 10 mg PO DAILY 90 Days #90 tab 10/25/20 losartan 50 mg-hydrochlorothiazide 1 tab PO DAILY 90 Days #90 tab 10/25/20 12.5 mg tablet metformin 1,000 mg tablet 1,000 mg PO BID 90 Days #180 tab 10/25/20 pantoprazole 40 mg tablet,delayed 40 mg PO DAILY 90 Days #90 tab 10/25/20 release simethicone 125 mg chewable tablet 125 mg PO QID 90 Days #360 tab 10/25/20 fluticasone 250 mcg-salmeterol 50 1 inh INHALATION BID 30 Days #1 ea 11/07/20 mcg/dose blistr powdr for inhalation (Wixela Inhub) fenofibrate 54 mg tablet 54 mg PO DAILY 90 Days #90 tab 12/26/20 meloxicam 15 mg tablet 15 mg PO DAILY PRN #30 tab 01/21/21 pregabalin 150 mg capsule 150 mg PO BEDTIME #30 cap 07/16/21 hydrocodone 5 mg-acetaminophen 325 1 tab PO Q4-6H PRN #5 tab 04/05/21 mg tablet simvastatin 40 mg tablet 40 mg PO BEDTIME 90 Days #90 tab 05/13/21 diabetic shoes with inserts #1 ea 06/06/21 oxycodone-acetaminophen 5 mg-325 1 tab PO Q6H PRN #10 tab 06/30/21 mg tablet (Percocet) Allergies Allergy/AdvReac Type Severity Reaction Status Date / Time No Known Allergies Allergy Verified 05/21/21 16:15 [No Known Allergies*] Review of Systems Review of Systems: Constitutional : No Weight loss, No Fever, No Chills, No Night Sweats, No Fatigue, No Malaise ENT/Mouth : No Hearing loss, No Ear Pain, No Nasal Congestion, No Sinus Pain, No Hoarseness, No sore throat, No Rhinorrhea, No Swallowing Difficulty Eyes: No Eye Pain, No Swelling, No Redness, No Foreign Body, No Discharge, No Vision Changes Cardiovascular : No Chest Pain, No SOB, No Dyspnea on Exertion, No Orthopnea, No Edema, No Palpitations Respiratory : No Cough, No Sputum, No Wheezing, No Smoke Exposure, No Dyspnea Gastrointestinal : No Nausea, No Vomiting, No Diarrhea, No Constipation, No abdominal Pain, No Hematochezia, No Melena Genitourinary : no irregular bleeding, No Dysuria, No Urinary Frequency, No Hematuria, No Urinary Incontinence, No Urgency, No Flank Pain, No Urinary Flow Changes, No Hesitancy Musculoskeletal : + left shoulder joint pain, No Myalgias, No Joint Swelling Skin : No Skin Lesions, No rash Neuro : No Weakness, No Numbness, No Paresthesias, No Loss of Consciousness, No Dizziness, No Headache Psych : No Anxiety/Panic, No Depression, No SI/HI/AH/VH, No Social Issues, Heme/Lymph: No Bruising, No Bleeding,No Lymphadenopathy Endocrine : No Polyuria, No Polydipsia, No Temperature Intolerance Yes all other systems are reviewed and are negative [facility] Past Medical History Attestation statement: The following information was validated with the patient. Medical History Asthma Chronic fatigue CKD (chronic kidney disease) COVID-19 Diabetes mellitus Diabetic acidosis, type II GERD (gastroesophageal reflux disease) High cholesterol HTN (hypertension) Insomnia Lumbar pain Mixed hyperlipidemia Skin lesion Surgical History H/O prostate biopsy History of carpal tunnel surgery of right wrist (~03/2021) History of eye surgery History of knee replacement procedure of left knee Family History Family History Father Diabetes Hypertension Mother Diabetes Hypertension Maternal Grandmother Stomach cancer Social History Social History Housing: Apartment Alcohol intake: never Patient Tobacco Use Status: Never used Tobacco Second Hand Smoke Exposure: No Advance Directives: No service: No Current occupational status: retired and disabled Physical Exam Vital Signs: Vital Signs: Last Vital Signs Temp 98 F 06/30/21 14:06 Pulse 99 06/30/21 14:06 Resp 19 06/30/21 14:06 BP 136/70 06/30/21 14:06 Pulse Ox 97 06/30/21 14:06 Body Mass Index 33.2 vital signs have been reviewed as normal and appeared to be correct. Blood pressure normal Heart rate normal. Respiration rate normal. Temperature normal. Oxygen saturation normal. Appearance: Alert. Oriented X3. No acute distress. Head: Normal external exam. Normocephalic. Atraumatic. Eyes: PERRLA. EOMI. Conjunctiva and sclera normal. Eyelids normal. ENT: Pharynx normal. Uvula midline. Moist mucous membranes. Neck: Normal inspection. Neck supple. FROM. CVS: Normal heart rate and rhythm. Respiratory: No respiratory distress. Painless inspiration. Skin: Skin warm and dry. Normal skin color. Normal skin turgor. No rashes/lesions/lacerations noted. Extremities: Patient with tenderness palpation to left AC joint with limited range of motion with flexion/hyper extension/abduction/adduction/outward rotation and inward rotation due to pain although patient reports this is not new. Otherwise all other Extremities exhibit normal range of motion and nontender. Neuro: Oriented X 3. No motor deficit. No sensory deficit. Reflexes normal. Normal steady gait. No focal neuro deficits noted. Vascular: + radial pulses/+ 2 distal pedal pulses/+2 dorsalis pedis b/l. Normal cap refill. No cyanosis noted to upper extremity nails and lower extremity toes nails. Course Course Course Narrative: 70-year-old male presenting to the ED with complaints of left shoulder pain after he had a mechanical fall in his house on 06/24/2021 were he tripped and fell on the rug in his house and landed on his left shoulder and since then has been having pain. He reports that he had chronic limited range of motion this is not new. He denies head injury or loss of consciousness. He is not on any blood thinners. He denies any other injury complaints or concerns at this time. X-ray revealed arthritis to the left shoulder otherwise no other acute processes. Therefore will DC home with symptomatic treatment instructions return if any new or worsening symptoms to follow up with primary care provider. Patient understands agrees with this plan. MDM - Fall Medical Records Attestation: I reviewed the patient's medical records. Imaging Data Left shoulder x-ray: Attestation: I personally reviewed and interpreted this imaging study as follows: Radiologist's impression: FINDINGS: Moderate left acromioclavicular and mild left glenohumeral degenerative joint changes are seen. There is no acute fracture or dislocation. The soft tissues are unremarkable. XR/XR shoulder LT min 2V IMPRESSION: Degenerative joint changes without overt acute abnormality. Discharge Plan Discharge Clinical Impression: Sprain of left shoulder, Fall, Degenerative arthritis of right shoulder region Patient Disposition: Home, Self-Care Instructions: Fall Prevention for Older Adults (ED), Shoulder Sprain (ED) Prescriptions: New oxycodone-acetaminophen [Percocet] 5-325 mg tablet 1 tab PO Q6H PRN (Reason: pain) Qty: 10 RF: 0 No Action albuterol sulfate 90 mcg/actuation HFA aerosol inhaler 2 puff inhalation Q6H PRN (Reason: shortness of breath or wheezing) 30 Days Qty: 6.7 RF: 4 alcohol swabs Pads, Medicated 1 pad topical DAILY 90 Days Qty: 100 RF: 3 betamethasone valerate 0.1 % cream 1 appl topical BID 30 Days Qty: 45 RF: 6 (DME) blood sugar diagnostic Strip See Rx Instructions ea .ROUTE DAILY Qty: 30 RF: 11 citalopram 20 mg tablet 20 mg PO DAILY 90 Days Qty: 90 RF: 3 (DME) lancets 33 gauge misc See Rx Instructions ea .ROUTE .MEDSUPPLY Qty: 100 RF: 11 loratadine 10 mg tablet 10 mg PO DAILY 90 Days Qty: 90 RF: 3 simethicone 125 mg tablet,chewable 125 mg PO QID 90 Days Qty: 360 RF: 3 pantoprazole 40 mg tablet,delayed release (DR/EC) 40 mg PO DAILY 90 Days Qty: 90 RF: 3 metformin 1,000 mg tablet 1,000 mg PO BID 90 Days Qty: 180 RF: 3 losartan-hydrochlorothiazide 50-12.5 mg tablet 1 tab PO DAILY 90 Days Qty: 90 RF: 3 meloxicam 15 mg tablet 15 mg PO DAILY PRN (Reason: for pain) Qty: 30 RF: 1 simvastatin 40 mg tablet 40 mg PO BEDTIME 90 Days Qty: 90 RF: 1 (DME) diabetic shoes with inserts 7.5 See Rx Instructions .Route .MEDSUPPLY Qty: 1 RF: 0 hydrocodone-acetaminophen 5-325 mg tablet 1 tab PO Q4-6H PRN (Reason: pain) Qty: 5 RF: 0 fenofibrate 54 mg tablet 54 mg PO DAILY 90 Days Qty: 90 RF: 3 fluticasone propion-salmeterol [Wixela Inhub] 250-50 mcg/dose blister with device 1 inh inhalation BID 30 Days Qty: 1 RF: 6 pregabalin 150 mg capsule 150 mg PO BEDTIME Qty: 30 RF: 0 Referrals: Clara Salgado MD [Primary Care Provider] - 2 days Print Language: Romanian
== END 2021-06-30 16:10 | disposition home or self-care (01) ==
PROVIDERS: Emergency Provider Emergency Medicine Emergency Medical Services; PCP Internal Medicine
DX: R51.9 Headache, unspecified (principal)
CPT/HCPCS: 73030; 99283

== ENCOUNTER 2021-08-08 06:07 | Outpatient (REF) | payer MEDICARE, SELFPAY ==
--- NOTE | ~2021-08-08 | FL_ITS ---
EXAMINATION: XR FLUOROSCOPY WITH IMAGES CLINICAL INFORMATION: M47.816 - Spondylosis without myelopathy or radiculopathy COMPARISON: Radiographs lumbar spine 12/14/2020 TECHNIQUE: Fluoroscopy performed by Dr. Samuel Gay. Fluoroscopy time: 0.2 minutes DAP: 3.09 Gycm2 Images: 2 FINDINGS: There are spinal needles overlying the outer left L4 and L5 neural foramen. The other projection demonstrates contrast in the nerve sheaths and paraspinal soft tissue. Some early transforaminal epidural extension is suggested. No visible vascular communication. There are degenerative changes spine with multilevel vertebral spurring. FL/FL guidance in treatment room IMPRESSION: Fluoroscopy for pain management procedures.
== END 2021-08-08 06:08 | disposition home or self-care (01) ==
LOC: HO.RADIR 06:07
PROVIDERS: Visit Provider Internal Medicine
DX: M47.816 Spondylosis without myelopathy or radiculopathy, lumbar region (principal)
CPT/HCPCS: 64493; 64494; Q9967

== ENCOUNTER → 2021-08-13 09:04 | Outpatient (BNVA) | payer MEDICARE, SELFPAY | PROVIDERS: PCP Internal Medicine; Visit Provider Internal Medicine | DX: M47.816 Spondylosis without myelopathy or radiculopathy, lumbar region (principal) | CPT/HCPCS: 99212 ==

== ENCOUNTER → 2021-09-05 13:13 | Outpatient (BNVA) | payer MEDICARE, SELFPAY | PROVIDERS: PCP Internal Medicine; Visit Provider Internal Medicine Pulmonary Disease | DX: J45.30 Mild persistent asthma, uncomplicated (principal); G47.33 Obstructive sleep apnea (adult) (pediatric); Z99.89 Dependence on other enabling machines and devices | CPT/HCPCS: 99212 ==

== ENCOUNTER 2021-09-25 08:08 | Outpatient (REF) | payer MEDICARE, SELFPAY ==
[2021-09-25 08:26] LABS: MANUAL DIFF FLAG NO
[2021-09-25 09:04] LABS: Basophils Percent Auto 0.6 % (0-2); Eosinophils Absolute Auto 0.3 X10*3/uL (0.0-0.4); Eosinophils Percent Auto 4.2 % (0-4); Hematocrit 38.3 % (42.0-52.0); Hemoglobin 12.2 g/dl (14.0-18.0); Imm Gran Abs Auto 0.01 X10*3/uL (0.00-0.03); Imm Gran Pct Auto 0.1 % (0.0-0.4); Lymphocytes Absolute Auto 1.9 X10*3/uL (1.2-4.9); Lymphocytes Percent Auto 26.8 % (20-40); Mean Corpuscular HGB Conc 31.9 g/dl (31.0-36.0); Mean Corpuscular Hemoglobin 28.7 pg (27.0-33.0); Mean Corpuscular Volume 90.1 fL (80.0-98.0); Mean Platelet Volume 10.6 fL (9.4-12.4); Monocytes Absolute Auto 0.6 X10*3/uL (0.1-1.2); Neutrophils Absolute Auto 4.1 x10*3/uL (2.0-8.3); Neutrophils Percent Auto 59.3 % (45-73); Platelet Count 230 X10*3/uL (160-400); Red Blood Count 4.25 X10*6/uL (4.60-5.80); Red Cell Distribution Width 13.7 % (11.0-16.0); White Blood Count 6.9 X10*3/uL (4.8-10.8)
[2021-09-25 09:24] LABS: Alanine Aminotransferase 17 U/L (0-40); Albumin Level 4.5 g/dL (3.5-5.0); Alkaline Phosphatase 78 U/L (39-117); Anion Gap 12 (12-20); Aspartate Amino Transferase 16 U/L (5-37); Bilirubin Total 0.4 mg/dL (0.0-1.0); Blood Urea Nitrogen 24 mg/dL (9-16); Calcium 9.8 mg/dL (8.4-10.2); Carbon Dioxide 26 mmol/L (22-29); Chloride 105 mmol/L (96-108); Cholesterol 198 mg/dL; Estimated Glomerular Filt Rate 59; Glucose Fasting 163 mg/dL (60-99); HDL Cholesterol 35 mg/dL; LDL Cholesterol Calculated 98 mg/dl; Potassium 4.4 mmol/L (3.3-5.1); Sodium 139 mmol/L (135-145); Total Protein 7.2 g/dL (6.5-8.0); Triglycerides 326 mg/dL
[2021-09-25 11:08] LABS: Creatinine Urine 96.44 mg/dL; Microalbum/Creatinine Ratio Ur 60.1 ug/mg cr
[2021-09-30 15:51] LABS: Vitamin D 25-OH, D2 <4 ng/mL; Vitamin D 25-OH, D3 48 ng/mL; Vitamin D 25-OH, Total 48 ng/mL (30-100)
== END 2021-09-25 08:09 | disposition home or self-care (01) ==
LOC: HO.LAB 08:08
PROVIDERS: PCP Internal Medicine; Visit Provider Internal Medicine
DX: D64.9 Anemia, unspecified (principal); E11.9 Type 2 diabetes mellitus without complications; E55.9 Vitamin D deficiency, unspecified; E78.5 Hyperlipidemia, unspecified
CPT/HCPCS: 36415; 80053; 80061; 82043; 82306; 85025

== ENCOUNTER 2021-10-10 05:59 | Outpatient (REF) | payer MEDICARE, SELFPAY ==
--- NOTE | ~2021-10-10 | FL_ITS ---
EXAMINATION: XR FLUOROSCOPY WITH IMAGES CLINICAL INFORMATION: M47.816 - Spondylosis without myelopathy or radiculopathy COMPARISON: Radiographs lumbar spine 12/14/2020 TECHNIQUE: Fluoroscopy performed by Dr. Samuel Gay. Fluoroscopy time: 0.5 minutes DAP: 5.12 Gycm2 Images: 3 FINDINGS: There are spinal needles overlying the bilateral outer L3, L4, and L5 neural foramen. There is contrast seen in the respective nerve sheaths. Some early transforaminal epidural extension is suggested. No visible vascular communication. Again, there are degenerative changes with variable mild disc narrowing and vertebral body spurring. FL/FL guidance in treatment room IMPRESSION: Fluoroscopy for pain management procedures.
== END 2021-10-10 06:00 | disposition home or self-care (01) ==
LOC: HO.RADIR 05:59
PROVIDERS: Visit Provider Internal Medicine
DX: M47.816 Spondylosis without myelopathy or radiculopathy, lumbar region (principal)
CPT/HCPCS: 64493; 64494

== ENCOUNTER 2021-10-17 12:49 | Outpatient (REF) | payer MEDICARE, SELFPAY ==
[2021-10-17 13:43] LABS: Hematocrit 37.2 % (42.0-52.0); Mean Corpuscular HGB Conc 32.3 g/dl (31.0-36.0); Mean Corpuscular Hemoglobin 28.7 pg (27.0-33.0); Mean Platelet Volume 10.7 fL (9.4-12.4); Platelet Count 248 X10*3/uL (160-400); Red Blood Count 4.18 X10*6/uL (4.60-5.80); Red Cell Distribution Width 14.1 % (11.0-16.0); White Blood Count 5.4 X10*3/uL (4.8-10.8)
[2021-10-17 14:09] LABS: Anion Gap 13 (12-20); Blood Urea Nitrogen 15 mg/dL (9-16); Carbon Dioxide 24 mmol/L (22-29); Chloride 105 mmol/L (96-108); Estimated Glomerular Filt Rate 54; Glucose Random 135 mg/dL (60-115); Potassium 4.4 mmol/L (3.3-5.1); Sodium 138 mmol/L (135-145)
[2021-10-17 15:15] LABS: Protein/Creatinine Ratio, Ur 0.16 (<0.2); Total Protein Urine Random 18 mg/dL (<12)
== END 2021-10-17 12:50 | disposition home or self-care (01) ==
LOC: HO.LAB 12:49
PROVIDERS: PCP Internal Medicine; Visit Provider Internal Medicine Hypertension Specialist
DX: E11.22 Type 2 diabetes mellitus with diabetic chronic kidney disease (principal); N18.31 Chronic kidney disease, stage 3a
CPT/HCPCS: 36415; 80048; 84156; 85027

== ENCOUNTER → 2021-11-09 10:33 | Outpatient (BNVA) | payer MEDICARE, SELFPAY | PROVIDERS: PCP Internal Medicine; Visit Provider Internal Medicine | DX: M47.816 Spondylosis without myelopathy or radiculopathy, lumbar region (principal); Z98.890 Other specified postprocedural states | CPT/HCPCS: Q3014 ==

== ENCOUNTER 2021-11-19 14:43 | Outpatient (REF) | payer OTHER, SELFPAY ==
[2021-11-19 15:11] LABS: COVID-19 Test Negative (Negative); IDNOW Serial# 08D9AD1C
== END 2021-11-19 14:44 | disposition home or self-care (01) ==
LOC: HO.LAB 14:43
PROVIDERS: Visit Provider Internal Medicine
DX: Z20.822 Contact with and (suspected) exposure to COVID-19 (principal)
CPT/HCPCS: 87635; C9803

== ENCOUNTER → 2021-12-06 12:42 | Outpatient (BNVA) | payer OTHER, SELFPAY | PROVIDERS: PCP Internal Medicine; Referring Provider Internal Medicine; Visit Provider Nurse Practitioner | DX: K59.04 Chronic idiopathic constipation (principal); D12.6 Benign neoplasm of colon, unspecified | CPT/HCPCS: 99202 ==

== ENCOUNTER → 2022-01-03 14:08 | Outpatient (BNVA) | payer OTHER, SELFPAY | PROVIDERS: PCP Internal Medicine; Referring Provider Internal Medicine; Visit Provider Nurse Practitioner | DX: K59.04 Chronic idiopathic constipation (principal); K21.9 Gastro-esophageal reflux disease without esophagitis; D12.6 Benign neoplasm of colon, unspecified | CPT/HCPCS: 99212 ==

== ENCOUNTER 2022-01-29 07:27 | Outpatient (REF) | payer OTHER, SELFPAY ==
[2022-01-29 07:36] LABS: MANUAL DIFF FLAG NO
[2022-01-29 08:17] LABS: Basophils Absolute Auto 0.1 X10*3/uL (0.0-0.2); Basophils Percent Auto 0.8 % (0-2); Eosinophils Absolute Auto 0.3 X10*3/uL (0.0-0.4); Eosinophils Percent Auto 4.8 % (0-4); Hematocrit 39.2 % (42.0-52.0); Hemoglobin 12.7 g/dl (14.0-18.0); Imm Gran Abs Auto 0.01 X10*3/uL (0.00-0.03); Imm Gran Pct Auto 0.2 % (0.0-0.4); Lymphocytes Percent Auto 32.2 % (20-40); Mean Corpuscular HGB Conc 32.4 g/dl (31.0-36.0); Mean Corpuscular Hemoglobin 29.5 pg (27.0-33.0); Mean Platelet Volume 10.7 fL (9.4-12.4); Monocytes Absolute Auto 0.7 X10*3/uL (0.1-1.2); Monocytes Percent Auto 10.7 % (2-11); Neutrophils Absolute Auto 3.2 x10*3/uL (2.0-8.3); Neutrophils Percent Auto 51.3 % (45-73); Platelet Count 243 X10*3/uL (160-400); Red Blood Count 4.31 X10*6/uL (4.60-5.80); Red Cell Distribution Width 13.9 % (11.0-16.0); White Blood Count 6.2 X10*3/uL (4.8-10.8)
[2022-01-29 08:39] LABS: Alanine Aminotransferase 24 U/L (0-40); Albumin Level 4.5 g/dL (3.5-5.0); Alkaline Phosphatase 86 U/L (39-117); Anion Gap 13 (12-20); Aspartate Amino Transferase 18 U/L (5-37); Bilirubin Total 0.3 mg/dL (0.0-1.0); Blood Urea Nitrogen 16 mg/dL (9-16); Calcium 9.8 mg/dL (8.4-10.2); Carbon Dioxide 25 mmol/L (22-29); Chloride 106 mmol/L (96-108); Cholesterol 244 mg/dL; Estimated Glomerular Filt Rate 51; Glucose Fasting 155 mg/dL (60-99); HDL Cholesterol 33 mg/dL; Potassium 4.8 mmol/L (3.3-5.1); Sodium 139 mmol/L (135-145); Total Protein 7.2 g/dL (6.5-8.0); Triglycerides 420 mg/dL
[2022-01-29 08:58] LABS: Creatinine Urine 126.03 mg/dL
== END 2022-01-29 07:28 | disposition home or self-care (01) ==
LOC: HO.LAB 07:27
PROVIDERS: PCP Internal Medicine; Visit Provider Internal Medicine
DX: E11.65 Type 2 diabetes mellitus with hyperglycemia (principal); D64.9 Anemia, unspecified; E78.5 Hyperlipidemia, unspecified
CPT/HCPCS: 36415; 80053; 80061; 82043; 85025

== ENCOUNTER → 2022-01-31 13:40 | Outpatient (BNVA) | payer OTHER, SELFPAY | PROVIDERS: PCP Internal Medicine; Referring Provider Internal Medicine; Visit Provider Nurse Practitioner | DX: K59.04 Chronic idiopathic constipation (principal); K21.9 Gastro-esophageal reflux disease without esophagitis; Z86.010 Personal history of colon polyps | CPT/HCPCS: 99212 ==

== ENCOUNTER 2022-02-14 11:04 | Outpatient (REF) | payer OTHER, SELFPAY ==
[2022-02-14 11:25] LABS: COVID-19 Test Positive (Negative); IDNOW Serial# 08D9AD1C
== END 2022-02-14 11:05 | disposition home or self-care (01) ==
LOC: HO.LAB 11:04
PROVIDERS: Visit Provider Internal Medicine
DX: Z20.822 Contact with and (suspected) exposure to COVID-19 (principal)
CPT/HCPCS: 87635; C9803

== ENCOUNTER 2022-03-05 12:21 | Outpatient (REF) | payer OTHER, SELFPAY ==
[2022-03-05 12:56] LABS: COVID-19 Test Negative (Negative)
== END 2022-03-05 12:22 | disposition home or self-care (01) ==
LOC: HO.LAB 12:21
PROVIDERS: Visit Provider Internal Medicine
DX: Z20.822 Contact with and (suspected) exposure to COVID-19 (principal)
CPT/HCPCS: 87635; C9803

== ENCOUNTER → 2022-03-06 12:44 | Outpatient (BNVA) | payer OTHER, SELFPAY | PROVIDERS: PCP Internal Medicine; Visit Provider Internal Medicine Pulmonary Disease | DX: J45.30 Mild persistent asthma, uncomplicated (principal); G47.33 Obstructive sleep apnea (adult) (pediatric); Z99.89 Dependence on other enabling machines and devices | CPT/HCPCS: 99212 ==

== ENCOUNTER → 2022-03-14 10:42 | Outpatient (BNVA) | payer OTHER, SELFPAY | PROVIDERS: PCP Internal Medicine; Visit Provider Nurse Practitioner | DX: K59.04 Chronic idiopathic constipation (principal); R14.0 Abdominal distension (gaseous); K21.9 Gastro-esophageal reflux disease without esophagitis; R10.13 Epigastric pain; E11.65 Type 2 diabetes mellitus with hyperglycemia; Z86.010 Personal history of colon polyps | CPT/HCPCS: 99212 ==

== ENCOUNTER 2022-04-19 10:07 | Outpatient (REF) | payer OTHER, SELFPAY ==
[2022-04-19 11:22] LABS: Alanine Aminotransferase 21 U/L (0-40); Albumin Level 4.4 g/dL (3.5-5.0); Alkaline Phosphatase 85 U/L (39-117); Anion Gap 14 (12-20); Aspartate Amino Transferase 15 U/L (5-37); Bilirubin Total 0.3 mg/dL (0.0-1.0); Blood Urea Nitrogen 19 mg/dL (9-16); Calcium 9.4 mg/dL (8.4-10.2); Carbon Dioxide 24 mmol/L (22-29); Chloride 106 mmol/L (96-108); Cholesterol 186 mg/dL; Estimated Glomerular Filt Rate 59; Glucose Fasting 145 mg/dL (60-99); HDL Cholesterol 39 mg/dL; LDL Cholesterol Calculated 115 mg/dl; Potassium 4.4 mmol/L (3.3-5.1); Sodium 140 mmol/L (135-145); Total Protein 7.2 g/dL (6.5-8.0); Triglycerides 164 mg/dL
[2022-04-19 12:20] LABS: Microalbum/Creatinine Ratio Ur 58.7 ug/mg cr
== END 2022-04-19 10:08 | disposition home or self-care (01) ==
LOC: HO.LAB 10:07
PROVIDERS: PCP Internal Medicine; Visit Provider Internal Medicine
DX: E11.65 Type 2 diabetes mellitus with hyperglycemia (principal); E78.5 Hyperlipidemia, unspecified
CPT/HCPCS: 36415; 80053; 80061; 82043

== ENCOUNTER 2022-06-26 11:32 | Outpatient (REF) | payer OTHER, SELFPAY ==
[2022-06-26 12:24] LABS: COVID-19 Test Negative (Negative); IDNOW Serial# 16C4AD1C
== END 2022-06-26 11:33 | disposition home or self-care (01) ==
LOC: HO.LAB 11:32
PROVIDERS: Visit Provider Internal Medicine
DX: Z20.822 Contact with and (suspected) exposure to COVID-19 (principal)
CPT/HCPCS: 87635; C9803

== ENCOUNTER 2022-08-28 10:11 | Outpatient (REF) | payer OTHER, SELFPAY ==
[2022-08-28 10:39] LABS: COVID-19 Test Negative (Negative); IDNOW Serial# 16C4AD1C
== END 2022-08-28 10:12 | disposition home or self-care (01) ==
LOC: HO.LAB 10:11
PROVIDERS: Visit Provider Internal Medicine
DX: Z20.822 Contact with and (suspected) exposure to COVID-19 (principal)
CPT/HCPCS: 87635; C9803

== ENCOUNTER 2022-09-17 08:23 | Outpatient (REF) | payer OTHER, SELFPAY ==
[2022-09-17 08:45] LABS: MANUAL DIFF FLAG NO
[2022-09-17 09:24] LABS: Basophils Absolute Auto 0.1 X10*3/uL (0.0-0.2); Eosinophils Absolute Auto 0.2 X10*3/uL (0.0-0.4); Eosinophils Percent Auto 3.4 % (0-4); Hematocrit 39.1 % (42.0-52.0); Hemoglobin 12.9 g/dl (14.0-18.0); Imm Gran Abs Auto 0.03 X10*3/uL (0.00-0.03); Imm Gran Pct Auto 0.5 % (0.0-0.4); Lymphocytes Absolute Auto 1.4 X10*3/uL (1.2-4.9); Lymphocytes Percent Auto 23.3 % (20-40); Mean Corpuscular Hemoglobin 29.1 pg (27.0-33.0); Mean Corpuscular Volume 88.3 fL (80.0-98.0); Mean Platelet Volume 10.7 fL (9.4-12.4); Monocytes Absolute Auto 0.6 X10*3/uL (0.1-1.2); Monocytes Percent Auto 9.2 % (2-11); Neutrophils Absolute Auto 3.9 x10*3/uL (2.0-8.3); Neutrophils Percent Auto 62.6 % (45-73); Platelet Count 246 X10*3/uL (160-400); Red Blood Count 4.43 X10*6/uL (4.60-5.80); Red Cell Distribution Width 13.6 % (11.0-16.0); White Blood Count 6.2 X10*3/uL (4.8-10.8)
[2022-09-17 10:17] LABS: Creatinine Urine 123.41 mg/dL
[2022-09-17 10:41] LABS: Alanine Aminotransferase 25 U/L (0-40); Albumin Level 4.4 g/dL (3.5-5.0); Alkaline Phosphatase 103 U/L (39-117); Anion Gap 14 (12-20); Aspartate Amino Transferase 22 U/L (5-37); Bilirubin Total 0.6 mg/dL (0.0-1.0); Blood Urea Nitrogen 20 mg/dL (9-16); Carbon Dioxide 25 mmol/L (22-29); Chloride 103 mmol/L (96-108); Cholesterol 219 mg/dL; Estimated Glomerular Filt Rate 47; Glucose Fasting 260 mg/dL (60-99); HDL Cholesterol 33 mg/dL; Iron 63 mcg/dL (45-160); LDL Cholesterol Calculated 121 mg/dl; Percent Iron Saturation 22 % (15-50); Potassium 4.4 mmol/L (3.3-5.1); Sodium 138 mmol/L (135-145); Total Iron Binding Capacity 286 mcg/dL (228-428); Triglycerides 326 mg/dL; Unsaturated Iron Binding 223 ug/dL; Vitamin D 25-OH Total 21.1 ng/mL (>30)
== END 2022-09-17 08:24 | disposition home or self-care (01) ==
LOC: HO.LAB 08:23
PROVIDERS: PCP Internal Medicine; Visit Provider Internal Medicine
DX: Z00.00 Encounter for general adult medical examination without abnormal findings (principal); E11.9 Type 2 diabetes mellitus without complications; E55.9 Vitamin D deficiency, unspecified; E78.5 Hyperlipidemia, unspecified; D64.9 Anemia, unspecified
CPT/HCPCS: 36415; 80053; 80061; 82043; 82306; 83540; 85025

== ENCOUNTER 2022-10-09 10:49 | Outpatient (REF) | payer OTHER, SELFPAY | END 2022-10-09 10:50 | disposition home or self-care (01) | LOC: HO.LNP 10:49 | PROVIDERS: PCP Internal Medicine; Visit Provider Surgery | DX: L98.9 Disorder of the skin and subcutaneous tissue, unspecified (principal) | CPT/HCPCS: 11102; 11422; 88304; 88305; 99202 ==

== ENCOUNTER → 2022-10-16 09:46 | Outpatient (BNVA) | payer OTHER, SELFPAY | PROVIDERS: PCP Internal Medicine; Visit Provider Surgery | DX: Z48.817 Encounter for surgical aftercare following surgery on the skin and subcutaneous tissue (principal); Z87.2 Personal history of diseases of the skin and subcutaneous tissue | CPT/HCPCS: 99211 ==

== ENCOUNTER → 2022-11-19 13:15 | Outpatient (BNVA) | payer OTHER, SELFPAY | PROVIDERS: PCP Internal Medicine; Visit Provider Internal Medicine Pulmonary Disease | DX: J45.30 Mild persistent asthma, uncomplicated (principal); G47.33 Obstructive sleep apnea (adult) (pediatric); Z99.89 Dependence on other enabling machines and devices | CPT/HCPCS: 99212 ==

== ENCOUNTER 2023-01-24 08:14 | Outpatient (REF) | payer OTHER, SELFPAY ==
[2023-01-24 09:37] LABS: Anion Gap 14 (12-20); Blood Urea Nitrogen 26 mg/dL (9-16); Carbon Dioxide 25 mmol/L (22-29); Chloride 105 mmol/L (96-108); Estimated Glomerular Filt Rate 37; Glucose Random 168 mg/dL (60-115); Potassium 4.1 mmol/L (3.3-5.1); Sodium 140 mmol/L (135-145)
== END 2023-01-24 08:15 | disposition home or self-care (01) ==
LOC: HO.LAB 08:14
PROVIDERS: Absent Provider Internal Medicine Hypertension Specialist; PCP Internal Medicine; Visit Provider Internal Medicine
DX: N18.31 Chronic kidney disease, stage 3a (principal)
CPT/HCPCS: 36415; 80048

== ENCOUNTER 2023-02-10 12:30 | Outpatient (REF) | payer OTHER, SELFPAY ==
--- NOTE | ~2023-02-10 | US_ITS ---
EXAMINATION: US RETROPERITONEAL LIMITED (RENAL ONLY) CLINICAL INFORMATION: Chronic kidney disease. COMPARISON: Renal ultrasound 11/07/2021 and 06/30/2015. X-ray abdomen KUB 05/05/2020. CT abdomen and pelvis 02/10/2016. TECHNIQUE: Real-time imaging of the kidneys. FINDINGS: RIGHT KIDNEY: 10.6 x 4.9 x 4.0 cm (SAG x AP x TRV). The kidney is normal in size, contour, and echogenicity. Renal cortical thickness is normal. There is a 4 mm lower pole nonobstructing calculus present. No stones were reportedly seen on the right kidney at the time of the prior CT. No focal parenchymal lesions or hydronephrosis. LEFT KIDNEY: 10.2 x 4.6 x 3.9 cm (SAG x AP x TRV). The kidney is normal in size, contour, and echogenicity. Renal cortical thickness is normal. There is a 4 mm lower pole nonobstructing calculus present. At the time of the prior CT scan, a 2 mm calculus was noted. No focal parenchymal lesions or hydronephrosis. US/US retroperitoneal limited IMPRESSION: Bilateral nonobstructing renal calculi.
== END 2023-02-10 12:31 | disposition home or self-care (01) ==
LOC: HO.US 12:30
PROVIDERS: PCP Internal Medicine; Visit Provider Internal Medicine Hypertension Specialist
DX: N18.30 Chronic kidney disease, stage 3 unspecified (principal)
CPT/HCPCS: 76775

== ENCOUNTER 2023-02-27 12:03 | Emergency (ER) | payer OTHER, SELFPAY ==
[2023-02-27 12:15] VITALS: BP 143/68; PULSE 101; RESP 18; TEMP 36.1; O2SAT 96; BMI 31.4
--- NOTE | 2023-02-27 12:16 | ED.GENADULT ---
HPI - General Adult General Chief complaint: Upper Respiratory Symptoms Stated complaint: unknown Time Seen by Provider: 02/27/23 13:01 History of Present Illness HPI narrative: patient complains of runny nose and coughs for several weeks, recently some mild headaches and body aches over the last week His primary doctor did prescribe him doxycycline for sinusitis it 2 weeks ago He has no shortness of breath or chest pain now no vomiting no diarrhea, headache is mild there is no accompanying dizziness no stiff neck, it is gradual onset, no confusion no numbness no weakness no dizziness Related Data Home Medications Medication Instructions Recorded Confirmed citalopram 20 mg tablet (Celexa) 20 mg PO DAILY 10/03/21 02/05/23 pregabalin 150 mg capsule (Lyrica) 150 mg PO BEDTIME 10/03/21 02/05/23 Previous Rx's Medication Instructions Recorded betamethasone valerate 0.1 % 1 appl topical BID 30 days #45 10/25/20 topical cream grams loratadine 10 mg tablet 10 mg PO DAILY 90 days #90 tabs 12/02/21 fenofibrate 160 mg tablet 160 mg PO BEDTIME 90 days #90 tabs 02/06/22 pantoprazole 40 mg tablet,delayed 40 mg PO DAILY 90 days #90 tabs 03/11/22 release losartan 50 mg-hydrochlorothiazide 1 tab PO DAILY 90 days #90 tabs 05/02/22 12.5 mg tablet plecanatide 3 mg tablet (Trulance) 3 mg PO DAILY #30 tabs 05/07/22 diabetic shoes with inserts #1 ea 06/26/22 alcohol swabs 1 pad topical DAILY 90 days #100 ea 08/02/22 blood sugar diagnostic #30 ea 08/02/22 lancets 33 gauge #100 ea 08/02/22 atorvastatin 80 mg tablet 80 mg PO BEDTIME 90 days #90 tabs 08/29/22 cholecalciferol (vitamin D3) 25 25 mcg PO DAILY 90 days #90 caps 09/19/22 mcg (1,000 unit) capsule albuterol sulfate 90 mcg/actuation 2 puff inhalation Q6H PRN 11/19/22 aerosol inhaler shortness of breath or wheezing 30 days #6.7 grams fluticasone 250 mcg-salmeterol 50 1 inh inhalation BID 30 days #1 ea 11/19/22 mcg/dose blistr powdr for inhalation (Wixela Inhub) ipratropium 0.5 mg-albuterol 3 mg 3 ml inhalation Q4-6H PRN wheezing 11/19/22 (2.5 mg base)/3 mL nebulization 30 days #180 mL soln famotidine 40 mg tablet (Pepcid) 40 mg PO BEDTIME #30 tabs 01/30/23 doxycycline hyclate 100 mg tablet 100 mg PO BID 5 days #10 tabs 02/05/23 dulaglutide 0.75 mg/0.5 mL 0.75 mg (0.5 mL) subcut QWEEK 90 02/05/23 subcutaneous pen injector days #6.5 mL (Trulicity) empagliflozin 25 mg tablet 25 mg PO DAILY 90 days #90 tabs 02/05/23 (Jardiance) Allergies Allergy/AdvReac Type Severity Reaction Status Date / Time No Known Allergies Allergy Verified 02/27/23 12:14 [No Known Allergies*] [facility] Past Medical History Source: nursing notes reviewed Medical History Anemia Asthma Chronic fatigue Chronic idiopathic constipation CKD (chronic kidney disease) COVID-19 Diabetes mellitus Diabetic acidosis, type II HTN (hypertension) Insomnia Lumbar pain Mixed hyperlipidemia Polyarthralgia Skin lesion Surgical History H/O colonoscopy H/O prostate biopsy History of carpal tunnel surgery of right wrist (~03/2021) History of eye surgery History of knee replacement procedure of left knee Family History Family History Father Diabetes Hypertension Mother Diabetes Hypertension Maternal Grandmother Stomach cancer Social History Social History Household Members: None Housing: Apartment Are you a primary rn homecare to a significant other at home: No Do you presently have visiting nurse or other home services: No Alcohol intake: former Patient Tobacco Use Status: Never used Tobacco e-Cigarette/Vaping Use: Never Used Second Hand Smoke Exposure: No Advance Directives: No service: No Current occupational status: retired and disabled Cognitive needs: No Hearing needs: No Vision needs: Yes Physical Exam ED Vital Signs: Vital Signs - 24 hr 02/27/23 12:15 Temperature 97 F Pulse Rate 101 H Respiratory Rate 18 Blood Pressure 143/68 H Pulse Oximetry 96 Oxygen Delivery Method Room Air BMI result Body Mass Index 31.4 general appearance is no acute distress Eyes no redness or discharge The neck is supple Voice is normal Chest is clear to auscultation bilateral no adventitious sounds, full symmetric equal breath sounds Heart no murmur Abdomen soft nontender Extremities no edema no calf tenderness or swelling Skin no rash Course Course Course Narrative: This is an RME: Additional HPI, ROS, PE not included below will be deferred to primary provider. This is a [id number] speaking male, with a past medical history of CKD, HTN, DM, and HLD, presenting to the emergency department with complaints of nasal congestion, and cough x 4 weeks. Seen by his primary care physician and was prescribed doxycycline four weeks ago which he completed however his symptoms have not improved. Has had bilateral eye burning and headaches over the last week. No LOC or head strike. Plan: COVID, cxr ordered Well-appearing patient was positive for COVID, chest x-ray negative Lungs were clear no respiratory distress, vitals were stable, pulse initially measured at 101 is repeated and is 95 Patient remains comfortable throughout ER visit, is discharged to follow with primary doctor to discuss whether not his home medications been be adjusted so he can take the Paxlovid Medical Decision Making Lab Data Labs: Lab Results 02/27/23 Range/Units 12:26 COVID-19 (JUANJO) Positive A (Negative) COVID-19 Clin Com See Note Discharge Plan Discharge Clinical Impression: COVID-19 Patient Disposition: Home, Self-Care Additional Instructions: you tested positive for COVID Chest x-ray did not show any pneumonia, your vital signs were normal and her exam was normal so no sign of any dangerous illness at this moment in time Return any time for difficulty breathing any worse condition or any concerns Call your primary doctor to discuss whether or not you should take Paxlovid, the medicine for COVID It has many drug interactions and sometimes the primary doctor can modify home medications so that you can take the Paxlovid, other times they cannot do this so call your primary doctor Prescriptions: No Action betamethasone valerate 0.1 % cream 1 appl topical BID 30 Days Qty: 45 6RF loratadine 10 mg tablet 10 mg PO DAILY 90 Days Qty: 90 3RF pantoprazole 40 mg tablet,delayed release (DR/EC) 40 mg PO DAILY 90 Days Qty: 90 3RF losartan-hydrochlorothiazide 50-12.5 mg tablet 1 tab PO DAILY 90 Days Qty: 90 3RF Trulance 3 mg tablet 3 mg PO DAILY Qty: 30 3RF (DME) diabetic shoes with inserts 7.5 See Rx Instructions .Route .MEDSUPPLY Qty: 1 0RF Rx Instructions: As directed alcohol swabs Pads, Medicated 1 pad topical DAILY 90 Days Qty: 100 3RF (DME) blood sugar diagnostic Strip See Rx Instructions .ROUTE DAILY Qty: 30 11RF Rx Instructions: Use 1 test strip once a day (DME) lancets 33 gauge misc See Rx Instructions .ROUTE .MEDSUPPLY Qty: 100 11RF Rx Instructions: Use 1 lancet once a day atorvastatin 80 mg tablet 80 mg PO BEDTIME 90 Days Qty: 90 1RF famotidine [Pepcid] 40 mg tablet 40 mg PO BEDTIME Qty: 30 6RF citalopram [Celexa] 20 mg tablet 20 mg PO DAILY pregabalin [Lyrica] 150 mg capsule 150 mg PO BEDTIME Trulicity 0.75 mg/0.5 mL pen injector 0.75 mg subcut QWEEK 90 Days Qty: 6.5 1RF Jardiance 25 mg tablet 25 mg PO DAILY 90 Days Qty: 90 1RF doxycycline hyclate 100 mg tablet 100 mg PO BID 5 Days Qty: 10 0RF fenofibrate 160 mg tablet 160 mg PO BEDTIME 90 Days Qty: 90 3RF cholecalciferol (vitamin D3) 25 mcg (1,000 unit) capsule 25 mcg PO DAILY 90 Days Qty: 90 1RF albuterol sulfate 90 mcg/actuation HFA aerosol inhaler 2 puff inhalation Q6H PRN (Reason: shortness of breath or wheezing) 30 Days Qty: 6.7 4RF fluticasone propion-salmeterol [Wixela Inhub] 250-50 mcg/dose blister with device 1 inh inhalation BID 30 Days Qty: 1 6RF ipratropium-albuterol 0.5 mg-3 mg(2.5 mg base)/3 mL solution for nebulization 3 ml inhalation Q4-6H PRN (Reason: wheezing) 30 Days Qty: 180 6RF
== END 2023-02-27 14:18 | disposition home or self-care (01) ==
PROVIDERS: Emergency Provider Emergency Medicine Emergency Medical Services; PCP Internal Medicine
DX: U07.1 COVID-19 (principal)
CPT/HCPCS: 71046; 87635; 99282; 99283

== ENCOUNTER 2023-03-17 11:25 | Outpatient (REF) | payer OTHER, SELFPAY ==
[2023-03-17 12:18] LABS: Anion Gap 10 (12-20); Blood Urea Nitrogen 25 mg/dL (9-16); Calcium 10.1 mg/dL (8.4-10.2); Carbon Dioxide 28 mmol/L (22-29); Chloride 105 mmol/L (96-108); Estimated Glomerular Filt Rate 46; Potassium 3.9 mmol/L (3.3-5.1); Sodium 139 mmol/L (135-145)
== END 2023-03-17 11:26 | disposition home or self-care (01) ==
LOC: HO.LAB 11:25
PROVIDERS: PCP Internal Medicine; Visit Provider Internal Medicine Hypertension Specialist
DX: N18.30 Chronic kidney disease, stage 3 unspecified (principal)
CPT/HCPCS: 36415; 80051; 82310; 82565; 84520

== ENCOUNTER 2023-03-24 13:43 | Outpatient (REF) | payer OTHER, SELFPAY ==
[2023-03-24 14:42] LABS: Creatinine Urine 70.76 mg/dL; Protein/Creatinine Ratio, Ur 0.14 (<0.2); Total Protein Urine Random 10 mg/dL (<12)
== END 2023-03-24 13:44 | disposition home or self-care (01) ==
LOC: HO.LAB 13:43
PROVIDERS: PCP Internal Medicine; Visit Provider Internal Medicine Hypertension Specialist
DX: N18.31 Chronic kidney disease, stage 3a (principal); R82.90 Unspecified abnormal findings in urine
CPT/HCPCS: 84156; 87086

== ENCOUNTER 2023-05-06 12:38 | Outpatient (AMB) | payer OTHER, SELFPAY ==
--- NOTE | 2023-05-06 12:51 | MHC.OFFVIS ---
Intake Vital Signs 05/06/23 12:52 Height 5 ft 1 in Weight 165 lb 5.547 oz BMI 31.2 BP 104/58 L Blood Pressure Location Lt brachial Position Sitting Pulse 81 Pulse Source Doppler Pulse Oximetry (%) 95 Oxygen Delivery Method Room Air Intake Visit Reasons: Ashtma Allergies No Known Allergies [No Known Allergies*] Allergy (Verified 05/06/23 12:54) HPI Ashtma HPI Details 72-year-old gentleman, nonsmoker, ?followed for underlying moderate persistent asthma and LUIGI on CPAP.? After the last office visit he has been restarted on Wixela and albuterol MDI, now with good control of his symptoms. He also continues to use his CPAP with good control of his underlying LUIGI symptoms. He denies any recent exacerbations. REPLACED BY [facility] Medical History Anemia Asthma Chronic fatigue Chronic idiopathic constipation CKD (chronic kidney disease) COVID-19 Diabetes mellitus Diabetic acidosis, type II HTN (hypertension) Insomnia Lumbar pain Mixed hyperlipidemia Polyarthralgia Skin lesion Surgical History H/O colonoscopy H/O prostate biopsy History of carpal tunnel surgery of right wrist (~03/2021) History of eye surgery History of knee replacement procedure of left knee Family History Father Diabetes Hypertension Mother Diabetes Hypertension Maternal Grandmother Stomach cancer Social History Household Members: None Housing: Apartment Are you a primary primary care nurse practitioner to a significant other at home: No Do you presently have visiting nurse or other home services: No Alcohol intake: former Patient Tobacco Use Status: Never used Tobacco e-Cigarette/Vaping Use: Never Used Second Hand Smoke Exposure: No service: No Current occupational status: retired and disabled Cognitive needs: No Hearing needs: No Vision needs: Yes Review of Systems Const Denies daytime sleepiness, Denies excessive sweating, Denies fatigue, Denies fever(s), Denies lethargy, Denies malaise, Denies night sweats, Denies snoring and Denies weight loss Eyes Denies blurry vision and Denies itchy eyes ENT Denies nasal congestion, Denies post nasal drip, Denies sinus pain, Denies sinus pressure and Denies other ( Thrush) Card Denies chest pain, Denies pedal edema, Denies dyspnea, Denies orthopnea and Denies paroxysmal nocturnal dyspnea Resp Denies cough, Denies hemoptysis, Denies excessive phlegm production, Denies dyspnea, Denies snoring and Denies wheezing GI Denies abdominal pain and Denies heartburn Musc Denies myalgias, Denies arthralgias and Denies joint swelling Skin/Breast Denies rash Neuro Denies memory loss and Denies seizure-like activity Psych Denies abnormal sleep pattern, Denies anxiety and Denies memory loss Endo Denies excessive sweating, Denies fatigue and Denies heat intolerance Winston/Lymph Denies easy bruising Aller/Immun Denies itchy eyes, Denies seasonal rhinorrhea and Denies wheezing Physical Exam Vital Signs: Last Vital Signs Pulse 81 05/06/23 12:52 BP 104/58 L 05/06/23 12:52 Pulse Ox 95 05/06/23 12:52 Oxygen Delivery Method Room Air 05/06/23 12:52 BMI result Body Mass Index 31.2 Const General: no acute distress and alert Nutritional Appearance: not obese Orientation/consciousness: Other orientation findings ( oriented) HEENT Head: Yes atraumatic Eyes General: appearance normal, both eyes and all related structures Sclerae: sclerae normal EOM: EOMs intact bilaterally Neck Neck: Yes supple Lymphatic: no lymphadenopathy noted Resp Effort & Inspection: normal respiratory effort and no use of accessory muscles Auscultation: clear to auscultation bilaterally Cardio Rate: regular rate Rhythm: regular rhythm Heart sounds: no gallops, no murmurs and no rubs Skin General skin exam: other ( warm) Extrem General: No clubbing, No cyanosis and No edema Assessment & Plan Assessment & Plan (1) Asthma: Code(s): J45.909 - Unspecified asthma, uncomplicated Qualifiers: Asthma severity: mild Asthma persistence: persistent Asthma complication type: uncomplicated Qualified Code(s): J45.30 - Mild persistent asthma, uncomplicated Plan: Well controlled on current regimen of Wixela and albuterol MDI. Continue current regimen. (2) LUIGI on CPAP: Code(s): G47.33 - Obstructive sleep apnea (adult) (pediatric); Z99.89 - Dependence on other enabling machines and devices Plan: Well controlled on current CPAP therapy. Continue current CPAP therapy. Orders: Orders XR chest 2V Today R05.9 - Cough, unspecified Quality Reporting (2019) Adult ([facility] 138/10/16/68) Smoking risk assessment performed?: Yes Patient Tobacco Use Status: Never used Tobacco Coding Level of Care Code Est Pt Level 4 (65715) Diagnoses Mild persistent asthma without complication J45.30 Asthma severity: mild Asthma persistence: persistent Asthma complication type: uncomplicated LUIGI on CPAP G47.33; Z99.89
[2023-05-06 12:52] VITALS: BP 104/58; PULSE 81; O2SAT 95; BMI 31.2
== END 2023-05-06 14:20 | disposition home or self-care (01) ==
PROVIDERS: PCP Internal Medicine; Visit Provider Internal Medicine Pulmonary Disease
DX: J45.30 Mild persistent asthma, uncomplicated (principal); G47.33 Obstructive sleep apnea (adult) (pediatric); Z99.89 Dependence on other enabling machines and devices
CPT/HCPCS: 99214

== ENCOUNTER 2023-05-06 12:38 | Outpatient (REF) | payer OTHER, SELFPAY ==
--- NOTE | ~2023-05-06 | XR_ITS ---
EXAMINATION: XR CHEST CLINICAL INFORMATION: Reason for Exam R05.9 - Cough, unspecified COMPARISON: Chest radiograph 02/27/2023 TECHNIQUE: 2 views of the chest FINDINGS: Lines and tubes: None. Streaky left basilar airspace opacities likely reflecting atelectasis. No pleural effusion. No pneumothorax. Unchanged cardiomediastinal silhouette. XR/XR chest 2V IMPRESSION: Streaky left basilar airspace opacities likely reflecting atelectasis.
== END 2023-05-06 12:39 | disposition home or self-care (01) ==
LOC: HO.XRAY 12:38
PROVIDERS: PCP Internal Medicine; Visit Provider Internal Medicine Pulmonary Disease
DX: J45.30 Mild persistent asthma, uncomplicated (principal); R05.9 Cough, unspecified
CPT/HCPCS: 71046; 99212

== ENCOUNTER 2023-06-04 08:21 | Outpatient (REF) | payer OTHER, SELFPAY ==
[2023-06-04 08:42] LABS: MANUAL DIFF FLAG NO
[2023-06-04 09:29] LABS: Basophils Absolute Auto 0.1 X10*3/uL (0.0-0.2); Basophils Percent Auto 0.8 % (0-2); Eosinophils Absolute Auto 0.3 X10*3/uL (0.0-0.4); Eosinophils Percent Auto 4.4 % (0-4); Hematocrit 41.7 % (42.0-52.0); Hemoglobin 13.2 g/dl (14.0-18.0); Imm Gran Abs Auto 0.01 X10*3/uL (0.00-0.03); Imm Gran Pct Auto 0.2 % (0.0-0.4); Lymphocytes Absolute Auto 1.8 X10*3/uL (1.2-4.9); Lymphocytes Percent Auto 27.7 % (20-40); Mean Corpuscular HGB Conc 31.7 g/dl (31.0-36.0); Mean Corpuscular Hemoglobin 29.2 pg (27.0-33.0); Mean Corpuscular Volume 92.3 fL (80.0-98.0); Mean Platelet Volume 10.7 fL (9.4-12.4); Monocytes Absolute Auto 0.7 X10*3/uL (0.1-1.2); Monocytes Percent Auto 9.8 % (2-11); Neutrophils Absolute Auto 3.8 x10*3/uL (2.0-8.3); Neutrophils Percent Auto 57.1 % (45-73); Platelet Count 281 X10*3/uL (160-400); Red Blood Count 4.52 X10*6/uL (4.60-5.80); Red Cell Distribution Width 14.2 % (11.0-16.0); White Blood Count 6.7 X10*3/uL (4.8-10.8)
[2023-06-04 10:01] LABS: Alanine Aminotransferase 21 U/L (0-40); Albumin Level 4.7 g/dL (3.5-5.0); Alkaline Phosphatase 78 U/L (39-117); Anion Gap 17 (12-20); Aspartate Amino Transferase 23 U/L (5-37); Bilirubin Total 0.5 mg/dL (0.0-1.0); Blood Urea Nitrogen 29 mg/dL (9-16); Calcium 10.7 mg/dL (8.4-10.2); Carbon Dioxide 23 mmol/L (22-29); Chloride 105 mmol/L (96-108); Cholesterol 167 mg/dL (<200); Estimated Glomerular Filt Rate 39; Glucose Fasting 133 mg/dL (60-99); HDL Cholesterol 41 mg/dL (>40); Iron 63 mcg/dL (45-160); LDL Cholesterol Calculated 101 mg/dL (<100); Percent Iron Saturation 21 % (15-50); Potassium 4.1 mmol/L (3.3-5.1); Sodium 141 mmol/L (135-145); Total Iron Binding Capacity 307 mcg/dL (228-428); Triglycerides 127 mg/dL (<150); Unsaturated Iron Binding 244 ug/dL
[2023-06-04 10:16] LABS: Vitamin D 25-OH Total 35.5 ng/mL (>30)
[2023-06-04 10:29] LABS: Folate 11.6 ng/mL (> or = 4.0); Vitamin B12 478 pg/mL (200-900)
[2023-06-04 11:17] LABS: Creatinine Urine 126.28 mg/dL; Microalbum/Creatinine Ratio Ur 28.5 ug/mg cr (<30)
== END 2023-06-04 08:22 | disposition home or self-care (01) ==
LOC: HO.LAB 08:21
PROVIDERS: PCP Internal Medicine; Visit Provider Internal Medicine
DX: D64.9 Anemia, unspecified (principal); E11.22 Type 2 diabetes mellitus with diabetic chronic kidney disease; N18.30 Chronic kidney disease, stage 3 unspecified; E78.5 Hyperlipidemia, unspecified; E55.9 Vitamin D deficiency, unspecified; E53.8 Deficiency of other specified B group vitamins
CPT/HCPCS: 36415; 80053; 80061; 82043; 82306; 82570; 82607; 82746; 83540; 85025

== ENCOUNTER 2023-06-09 13:12 | Outpatient (AMB) | payer OTHER, SELFPAY ==
[2023-06-09 13:17] VITALS: BP 110/72; PULSE 93; O2SAT 96; BMI 30.6
--- NOTE | 2023-06-09 13:17 | A.OFFPC_ITS ---
Vital Signs 06/09/23 13:17 Height 5 ft 1 in Weight 162 lb BMI 30.6 BP 110/72 Blood Pressure Location Lt brachial Position Sitting Pulse 93 Pulse Source Pulse Oximeter Pulse Oximetry (%) 96 Oxygen Delivery Method Room Air Intake Visit Reasons: dm Intake Note: Patient here for a follow up DM [employer] Curer Required: No Accompanied by: Self / Same As Patient Allergies No Known Allergies [No Known Allergies*] Allergy (Verified 06/09/23 13:36) Medication List - Last Reconciled 06/09/23 by Clara Amaral MD [adult diapers pull-ups Use 1 daiper 3 to 4 times a day] albuterol sulfate 90 mcg/actuation 2 puffs inhalation Q6H PRN 30 days alcohol swabs 1 pad topical DAILY 90 days amoxicillin 2,000 mg (4 x 500 mg) PO ONCE 1 day atorvastatin 80 mg PO BEDTIME 90 days betamethasone valerate 0.1% 1 appl topical BID 30 days blood sugar diagnostic Use 1 test strip once a day cholecalciferol (vitamin D3) 25 mcg PO DAILY 90 days citalopram (Celexa) 20 mg PO DAILY [diabetic shoes with inserts As directed] doxycycline hyclate 100 mg PO BID 5 days dulaglutide (Trulicity) 0.75 mg (0.5 mL) subcut QWEEK 90 days empagliflozin (Jardiance) 25 mg PO DAILY 90 days famotidine (Pepcid) 40 mg PO BEDTIME fenofibrate 160 mg PO BEDTIME 90 days fluticasone propion-salmeterol 250-50 mcg/dose (Wixela Inhub) 1 inh inhalation BID 30 days ipratropium-albuterol 0.5 mg-3 mg(2.5 mg base)/3 mL 3 mL inhalation Q4-6H PRN 30 days lancets Use 1 lancet once a day loratadine 10 mg PO DAILY 90 days losartan-hydrochlorothiazide 50-12.5 mg 1 tab PO DAILY 90 days pantoprazole 40 mg PO DAILY 90 days plecanatide (Trulance) 3 mg PO DAILY pregabalin (Lyrica) 150 mg PO BEDTIME Tobacco use date assessed: 09/19/22 Fall risk assessment: No Falls in past year Last assessed Fall Risk: 06/09/23 Dental Screening Dental Screen Date: 06/09/23 Did you have a dental visit in the last 12 months?: Yes Did you have a dental problem in the last 6 months where you did not have access to dental care?: No Was dental information given to patient?: Patient has dentist HPI HPI Comments History of Present Illness Details This is a 72-year-old male with diabetes mellitus type 2, hypertension, mixed hyperlipidemia and mild depression that comes today for follow-up on his conditions. A1c within goal. Blood pressure stable. LDL not on goal and was advised to follow a low-cholesterol diet. Depression well controlled with medications. No chest pain or shortness of breath. Has precancer in esophagus that is treated by Gastroenterology at [place]. [facility] Medical History Chronic idiopathic constipation Anemia Polyarthralgia CKD (chronic kidney disease) Skin lesion Lumbar pain COVID-19 Mixed hyperlipidemia Chronic fatigue Diabetes mellitus Insomnia HTN (hypertension) Asthma Diabetic acidosis, type II Surgical History H/O colonoscopy History of carpal tunnel surgery of right wrist (~03/2021) History of eye surgery History of knee replacement procedure of left knee H/O prostate biopsy Family History Father Diabetes Hypertension Mother Diabetes Hypertension Maternal Grandmother Stomach cancer Social History Household Members: None Housing: Apartment Are you a primary urgent care technician to a significant other at home: No Do you presently have visiting nurse or other home services: No Alcohol intake: former Patient Tobacco Use Status: Never used Tobacco e-Cigarette/Vaping Use: Never Used Second Hand Smoke Exposure: No service: No Current occupational status: retired and disabled Cognitive needs: No Hearing needs: No Vision needs: Yes Questionnaire Thrive Questionnaire Date Thrive assessed: 09/19/22 DICKSON-7 AMB Questionnaire DICKSON-7 Date DICKSON - 7 assessed: 09/19/22 Source: Developed by Drs. López Faust, Julieta Hurd, Ayo Contreras and colleagues, with an educational lindy from [employer]. Review of Systems Const All systems reviewed & are unremarkable except as noted in HPI and below Eyes Reports no additional complaints, Denies change in vision and Denies other visu al disturbances Card Denies chest pain at rest, Denies chest pain with activity, Denies edema, Denies irregular heart rhythm, Denies claudication, Denies dyspnea, Denies dyspnea on exertion, Denies orthopnea, Denies paroxysmal nocturnal dyspnea and Denies slow heart rate Resp Denies cough, Denies dyspnea and Denies dyspnea on exertion GI Denies abdominal pain, Denies change in bowel habits, Denies excessive flatus, Denies nausea and Denies vomiting Denies urinary hesitancy, Denies urinary incontinence and Denies urinary urgency Musc Denies abnormal gait, Denies atrophy, Denies deformity and Denies limited range of motion Skin/Breast Denies bleeding lesions, Denies changing lesions and Denies rash Neuro Denies abnormal gait and Denies lack of coordination Physical exam (Primary Care) Vital Signs: Last Vital Signs Pulse 93 06/09/23 13:17 BP 110/72 06/09/23 13:17 Pulse Ox 96 06/09/23 13:17 Oxygen Delivery Method Room Air 06/09/23 13:17 BMI result Body Mass Index 30.6 Tobacco/Smoking Status: Tobacco use Status Tobacco use date assessed 09/19/22 06/09/23 13:22 Patient Tobacco Use Status Never used Tobacco 06/09/23 13:22 e-Cigarette/Vaping Use Never Used 06/09/23 13:22 Thrive Assessment: Date of Thrive Assessment Date Thrive assessed 09/19/22 06/09/23 13:22 Eyes General: appearance normal, both eyes and all related structures Eyelids: Yes eyelids normal Conjunctivae: conjunctivae normal Neck Neck: Yes normal visual inspection and Yes supple Resp Effort & Inspection: normal respiratory effort Auscultation: clear to auscultation bilaterally Cardio Jugular venous distension: no JVD Rate: regular rate Rhythm: regular rhythm Heart sounds: S1 normal heart sound present and S2 normal heart sound present Extrem General: Yes full ROM Results AMB Hemoglobin A1c AMB Hemoglobin A1c 6.8 % Last Edit by DEBRA Lin on 06/09/23 13:3 0 Results Reviewed Results Reviewed: Laboratory Last Values Hgb A1c (Clinic) 6.8 % (4.0-6.0) H 06/09/23 13:16 Assessment and Plan Assessment & Plan (1) Mild recurrent major depression: Code(s): F33.0 - Major depressive disorder, recurrent, mild Plan: Continue citalopram. (2) Diabetes mellitus: Code(s): E11.9 - Type 2 diabetes mellitus without complications Qualifiers: Diabetes mellitus type: type 2 Diabetes mellitus [facility] insulin use: without [facility] use Diabetes mellitus complication status: with hyperglycemia Qualified Code(s): E11.65 - Type 2 diabetes mellitus with hyperglycemia Plan: Continue Trulicity and Jardiance. A1c goal is equal or less than 7%. (3) HTN (hypertension): Code(s): I10 - Essential (primary) hypertension Qualifiers: Hypertension type: essential hypertension Qualified Code(s): I10 - Essential (primary) hypertension Plan: Continue losartan-hydrochlorothiazide. Blood pressure goal is equal or less than 130/80. (4) Mixed hyperlipidemia: Code(s): E78.2 - Mixed hyperlipidemia Plan: Continue statins and fibrates. LDL goal is less than 70. Start low-cholesterol diet. Orders: Orders AMB Hemoglobin A1c Today E11.9 - Type 2 diabetes mellitus without complications Lipid Panel 4 Months E78.5 - Hyperlipidemia, unspecified Microalbumin, Random (w Creat) 4 Months E11.9 - Type 2 diabetes mellitus without complications Comprehensive [place]. Panel Fast 4 Months N18.30 - Chronic kidney disease, stage 3 unspecified Medications: Refilled [diabetic shoes with inserts] As directed 1 ea 0RF E11.65 - Type 2 diabetes mellitus with hyperglycemia Coding Level of Care Code Est Pt Level 4 (89311) Diagnoses Mild recurrent major depression F33.0 Type 2 diabetes mellitus with hyperglycemia, without long-term current use of insulin E11.65 Diabetes mellitus type: type 2 Diabetes mellitus [facility] insulin use: without terminal gauger supervisor use Diabetes mellitus complication status: with hyperglycemia Essential hypertension I10 Hypertension type: essential hypertension Mixed hyperlipidemia E78.2 Time Spent (min) 23
== END 2023-06-09 13:43 | disposition home or self-care (01) ==
PROVIDERS: PCP Internal Medicine; Visit Provider Internal Medicine
DX: F33.0 Major depressive disorder, recurrent, mild (principal); E11.65 Type 2 diabetes mellitus with hyperglycemia; I10 Essential (primary) hypertension; E78.2 Mixed hyperlipidemia; E11.9 Type 2 diabetes mellitus without complications
CPT/HCPCS: 83036; 99214

== ENCOUNTER 2023-07-24 15:13 | Outpatient (REF) | payer OTHER, SELFPAY ==
[2023-07-24 17:16] LABS: Influenza A PCR NEGATIVE (Negative); Influenza B PCR NEGATIVE (Negative); Resp Syncy Virus RNA Qual PCR NEGATIVE (Negative); SARS COV2 PCR INHOUSE NEGATIVE (Negative)
== END 2023-07-24 15:14 | disposition home or self-care (01) ==
LOC: HO.LAB 15:13
PROVIDERS: Absent Provider Internal Medicine; PCP Internal Medicine; Visit Provider Internal Medicine Hypertension Specialist
DX: Z11.52 Encounter for screening for COVID-19 (principal); R09.89 Other specified symptoms and signs involving the circulatory and respiratory systems; Z20.822 Contact with and (suspected) exposure to COVID-19; E83.52 Hypercalcemia; I12.9 Hypertensive chronic kidney disease with stage 1 through stage 4 chronic kidney disease, or unspecified chronic kidney disease; N18.30 Chronic kidney disease, stage 3 unspecified
CPT/HCPCS: 0241U; 99212

== ENCOUNTER 2023-07-24 15:13 | Outpatient (AMB) | payer OTHER, SELFPAY ==
--- NOTE | 2023-07-24 15:14 | HO.NEPHOV ---
HPI HPI Comments History of Present Illness Details 72-year-old male with diabetes mellitus type 2, hypertension, mixed hyperlipidemia and mild depression with CKD is here for follow up. Recently Jardiance has been added. He is experiencing increased urination. No polydipsia. [facility] Medical History Chronic idiopathic constipation Anemia Polyarthralgia CKD (chronic kidney disease) Skin lesion Lumbar pain COVID-19 Mixed hyperlipidemia Chronic fatigue Diabetes mellitus Insomnia HTN (hypertension) Asthma Diabetic acidosis, type II Surgical History H/O colonoscopy History of carpal tunnel surgery of right wrist (~03/2021) History of eye surgery History of knee replacement procedure of left knee H/O prostate biopsy Family History Father Diabetes Hypertension Mother Diabetes Hypertension Maternal Grandmother Stomach cancer Social History Household Members: None Housing: Apartment Are you a primary doggy daycare activities director to a significant other at home: No Do you presently have visiting nurse or other home services: No Alcohol intake: former Patient Tobacco Use Status: Never used Tobacco e-Cigarette/Vaping Use: Never Used Second Hand Smoke Exposure: No service: No Current occupational status: retired and disabled Cognitive needs: No Hearing needs: No Vision needs: Yes Vital Signs 07/24/23 15:15 Height 5 ft 1 in Weight 162 lb BMI 30.6 BP 118/62 Blood Pressure Location Lt brachial Position Sitting Pulse 73 Pulse Source Pulse Oximeter Pulse Oximetry (%) 97 Oxygen Delivery Method Room Air Physical Exam Vital Signs: Last Vital Signs Pulse 73 07/24/23 15:15 BP 118/62 07/24/23 15:15 Pulse Ox 97 07/24/23 15:15 Oxygen Delivery Method Room Air 07/24/23 15:15 BMI result Body Mass Index 30.6 Const General: comfortable; No acute distress Orientation/consciousness: patient oriented x3 Eyes General: appearance normal, both eyes and all related structures Visual Gonzales: normal visual gonzales by confrontation Neck Neck: Yes supple and Yes no JVD Resp Effort & Inspection: normal respiratory effort and respiratory effort not decreased Auscultation: rhonchi Cardio Palpation: no palpable S3 and no palpable S4 Heart sounds: no rubs GI Inspection: Yes normal to inspection Palpation (GI): Soft to palpation Percussion: Yes normal to percussion Auscultation: normal bowel sounds General: Yes no CVA tenderness Back/Spine/Pelvis Back: no CVA tenderness Skin General skin exam: no petechiae and no purpura Neuro General: patient oriented x3 and no focal motor deficits Extrem General: No clubbing and No edema Results Reviewed Results Reviewed: Results reviewed. Serum creatinine is bumped up to 1.7 Assessment & Plan Assessment & Plan (1) CKD (chronic kidney disease) stage 3, GFR 30-59 ml/min: Code(s): N18.30 - Chronic kidney disease, stage 3 unspecified Plan: CKD in a setting of hypertension diabetes mellitus. Patient prednisone 1.4-1.3 mg/dL. Has been a bump in serum creatinine to 1.7-1.8. This is most likely due to hypoperfusion. The blood pressure is relatively low. I suspect after the addition of Jardiance he is probably volume depleted. I will discontinue hydrochlorothiazide. Change to losartan hydrochlorothiazide to losartan 20 mg q.d.. (2) HTN (hypertension): Code(s): I10 - Essential (primary) hypertension Qualifiers: Hypertension type: essential hypertension Qualified Code(s): I10 - Essential (primary) hypertension Plan: Blood pressure control. Stay on low-sodium diet. Medication changes as above. (3) Hypercalcemia: Code(s): E83.52 - Hypercalcemia Plan: Gastro is 1-10.7. This is a new finding. I will recheck calcium again if elevated needs further workup including PTH and electrophoresis. Coding Level of Care Code Est Pt Level 4 (41542) Diagnoses CKD (chronic kidney disease) stage 3, GFR 30-59 ml/min N18.30 Essential hypertension I10 Hypertension type: essential hypertension Hypercalcemia E83.52
[2023-07-24 15:15] VITALS: BP 118/62; PULSE 73; O2SAT 97; BMI 30.6
== END 2023-07-24 15:37 | disposition home or self-care (01) ==
LOC: HO.HKA 15:13
PROVIDERS: PCP Internal Medicine; Visit Provider Internal Medicine Hypertension Specialist
DX: N18.30 Chronic kidney disease, stage 3 unspecified (principal); I10 Essential (primary) hypertension; E83.52 Hypercalcemia
CPT/HCPCS: 99214

== ENCOUNTER 2023-09-15 12:54 | Outpatient (AMB) | payer OTHER, SELFPAY ==
--- NOTE | 2023-09-15 13:04 | MHC.PC.OV ---
Vital Signs 09/15/23 13:13 Height 5 ft 1 in Weight 152 lb BMI 28.7 BP 120/64 Blood Pressure Location Lt brachial Position Sitting Intake Visit Reasons: physical exam Intake Note: Patient here for a physical exam Clinical Engineering Manager Required: No Accompanied by: Self / Same As Patient Allergies No Known Allergies [No Known Allergies*] Allergy (Verified 09/15/23 13:45) Medication List - Last Reconciled 09/15/23 by Clara Amaral MD [adult diapers pull-ups Use 1 daiper 3 to 4 times a day] albuterol sulfate 90 mcg/actuation 2 puffs inhalation Q6H PRN 30 days alcohol swabs 1 pad topical DAILY 90 days alum-mag hydroxide-simeth 200-200-20 mg/5 mL (Antacid-[place]ig[place]) mL PO atorvastatin 80 mg PO BEDTIME 90 days betamethasone valerate 0.1% 1 appl topical BID 30 days blood sugar diagnostic Use 1 test strip once a day cholecalciferol (vitamin D3) 25 mcg PO DAILY 90 days citalopram (Celexa) 20 mg PO DAILY [diabetic shoes with inserts As directed] dulaglutide (Trulicity) 0.75 mg (0.5 mL) subcut QWEEK 90 days empagliflozin (Jardiance) 25 mg PO DAILY 90 days fenofibrate 160 mg PO BEDTIME 90 days fluticasone propion-salmeterol 250-50 mcg/dose (Wixela Inhub) 1 inh inhalation BID 30 days ipratropium-albuterol 0.5 mg-3 mg(2.5 mg base)/3 mL 3 mL inhalation Q4-6H PRN 30 days lancets Use 1 lancet once a day loratadine 10 mg PO DAILY 90 days losartan 25 mg PO DAILY pantoprazole 40 mg PO DAILY 90 days plecanatide (Trulance) 3 mg PO DAILY pregabalin (Lyrica) 150 mg PO BEDTIME sucralfate mL PO Tobacco use date assessed: 09/15/23 Fall risk assessment: No Falls in past year Last assessed Fall Risk: 09/15/23 Dental Screening Dental Screen Date: 09/15/23 Did you have a dental visit in the last 12 months?: Yes Did you have a dental problem in the last 6 months where you did not have access to dental care?: No Was dental information given to patient?: Patient has dentist HPI HPI Comments History of Present Illness Details This is a 72-year-old male with diabetes mellitus type 2 that comes for his physical exam. A1c within goal. Last diabetic eye exam was less than a year ago. Last colonoscopy was less than a year ago at [facility] as per patient. Denies any chest pain or shortness of breath. [facility] Medical History (Updated 09/15/23 @ 14:00 by Clara Amaral MD) Mild recurrent major depression Chronic idiopathic constipation Anemia Polyarthralgia CKD (chronic kidney disease) Skin lesion Lumbar pain COVID-19 Mixed hyperlipidemia Chronic fatigue Diabetes mellitus Insomnia HTN (hypertension) Asthma Diabetic acidosis, type II Surgical History H/O colonoscopy History of carpal tunnel surgery of right wrist (~03/2021) History of eye surgery History of knee replacement procedure of left knee H/O prostate biopsy Family History Father Diabetes Hypertension Mother Diabetes Hypertension Maternal Grandmother Stomach cancer Social History Household Members: None Housing: Apartment Are you a primary social worker palliative care to a significant other at home: No Do you presently have visiting nurse or other home services: No Alcohol intake: former Patient Tobacco Use Status: Never used Tobacco e-Cigarette/Vaping Use: Never Used Second Hand Smoke Exposure: No service: No Current occupational status: retired and disabled Cognitive needs: No Hearing needs: No Vision needs: Yes Questionnaire PHQ-9 Over the last 2 weeks, how often have you been bothered by any of the following problems? 1. Little interest or pleasure in doing things: not at all 2. Feeling down, depressed, or hopeless: several days 3. Trouble falling or staying asleep, or sleeping too much: not at all 4. Feeling tired or having little energy: not at all 5. Poor appetite or overeating: not at all 6. Feeling bad about yourself - or that you are a failure or have let yourself or your family down: not at all 7. Trouble concentrating on things, such as reading the newspaper or watching television: not at all 8. Moving or speaking so slowly that other people could have noticed. Or the opposite - being so fidgety or restless that you have been moving around a lot more than usual: not at all 9. Thoughts that you would be better off or of hurting yourself in some way: not at all Total score: 1 Depression Screening Interpretation: Negative Depression Screening Done: Yes 94698 - PHQ-9 Billing: Yes Source: Developed by Drs. López Faust, Julieta Hurd, Ayo Contreras and colleagues, with an educational lindy from [email or web address]. Thrive Questionnaire Date Thrive assessed: 09/15/23 I am a: Patient What is your living situation today?: I have a steady place to live Within the past 12 months, did the food you bought not last and you didn't have the money to get more?: Never true Within the past 12 months, did you worry whether your food would run out before you got money to buy more?: Never true Do you have trouble paying for medicines?: No Do you have trouble getting transportation to medical appointments?: No Do you have trouble paying your heating and electricity bill?: No Do you have trouble taking care of your child, family member or friend?: No Do you have trouble with day-to-day activities such as bathing, preparing meals, shopping, managing finances, etc.?: No Are you currently unemployed and looking for a job?: No Are you interested in more education?: No Please select the resources that you would like help with: None Currently or been in a relationship where the following occur: no concerns reported THRIVE Score: 0 AUDIT C Alcohol Use Questionnaire (AUDIT-C) 1. How often do you have a drink containing alcohol?: Monthly or less 2. How many drinks containing alcohol do you have on a typical day when you are drinking?: 1 or 2 3. How often do you have six or more drinks on one occasion?: Never Total Score: 1 DICKSON-7 AMB Questionnaire DICKSON-7 Date DICKSON - 7 assessed: 09/15/23 Feeling nervous, anxious, or on edge: 1 = Several days Not being able to stop or control worryin = Not at all Worrying too much about different things: 0 = Not at all Trouble relaxin = Not at all Being so restless that it is hard to sit still: 0 = Not at all Becoming easily annoyed or irritable: 0 = Not at all Feeling afraid as if something awful might happen: 0 = Not at all Total DICKSON-7 score (0-4 normal; 5-9 mild; 10-14 moderate; 15-21 severe): 1 Source: Developed by Drs. López Faust, Julieta Hurd, Ayo Contreras and colleagues, with an educational lindy from [email or web address]. DICKSON-7 Assessment Billing DICKSON-7 Assessment Tool: DICKSON-7 Assessment 04840 Review of Systems Const All systems reviewed & are unremarkable except as noted in HPI and below Eyes Reports no additional complaints, Denies change in vision and Denies other visual disturbances Card Denies chest pain at rest, Denies chest pain with activity, Denies edema, Denies irregular heart rhythm, Denies claudication, Denies dyspnea, Denies dyspnea on exertion, Denies orthopnea, Denies paroxysmal nocturnal dyspnea and Denies slow heart rate Resp Denies cough, Denies dyspnea and Denies dyspnea on exertion GI Denies abdominal pain, Denies change in bowel habits, Denies excessive flatus, Denies nausea and Denies vomiting Denies urinary hesitancy, Denies urinary incontinence and Denies urinary urgency Musc Denies abnormal gait, Denies atrophy, Denies deformity and Denies limited range of motion Skin/Breast Denies bleeding lesions, Denies changing lesions and Denies rash Neuro Denies abnormal gait, Denies behavioral changes, Denies confusion and Denies lack of coordination Psych Denies behavioral changes and Denies confusion Physical exam (Primary Care) Vital Signs: Last Vital Signs BP 120/64 09/15/23 13:13 BMI result Body Mass Index 28.7 Tobacco/Smoking Status: Tobacco use Status Tobacco use date assessed 09/15/23 09/15/23 13:19 Patient Tobacco Use Status Never used Tobacco 09/15/23 13:19 e-Cigarette/Vaping Use Never Used 09/15/23 13:19 PHQ-9: PHQ-9 Score PHQ-9: Total score 1 09/15/23 13:47 Depression Screening Interpretation: Negative Thrive Assessment: Date of Thrive Assessment Date Thrive assessed 09/15/23 09/15/23 13:19 Currently or been in a relationship where the following occur: no concerns reported Const General: No confusion Orientation/consciousness: patient oriented x3 and No confusion HENMT Head: Yes normal to inspection, Yes normocephalic and Yes atraumatic Ears: external ears normal Eyes General: appearance normal, both eyes and all related structures Eyelids: Yes eyelids normal Conjunctivae: conjunctivae normal Neck Neck: Yes normal visual inspection and Yes supple Resp Effort & Inspection: normal respiratory effort Auscultation: clear to auscultation bilaterally Cardio Jugular venous distension: no JVD Rate: regular rate Rhythm: regular rhythm Heart sounds: S1 normal heart sound present and S2 normal heart sound present GI Inspection: Yes normal to inspection Palpation (GI): Soft to palpation and nontender Auscultation: normal bowel sounds Skin General skin exam: no rashes or lesions noted Neuro General: patient oriented x3, no focal motor deficits and No confusion Extrem General: Yes full ROM Psych Appearance: grossly normal Results AMB Hemoglobin A1c AMB Hemoglobin A1c 6.4 % Last Edit by DEBRA Lin on 09/15/23 13:21 Results Reviewed Results Reviewed: Laboratory Last Values Hgb A1c (Clinic) 6.4 % (4.0-6.0) H 09/15/23 13:04 Assessment and Plan Assessment & Plan (1) Physical exam: Code(s): Z00.00 - Encounter for general adult medical examination without abnormal findings Plan: Repeat in a year. (2) Diabetes mellitus: Code(s): E11.9 - Type 2 diabetes mellitus without complications Qualifiers: Diabetes mellitus type: type 2 Diabetes mellitus shelter insulin use: without intermediate teacher use Diabetes mellitus complication status: with hyperglycemia Qualified Code(s): E11.65 - Type 2 diabetes mellitus with hyperglycemia Plan: Continue Trulicity and Jardiance. A1c goal is equal or less than 7%. Orders: Orders AMB Hemoglobin A1c Today E11.9 - Type 2 diabetes mellitus without complications Complete Blood Count Auto Diff 4 Months D64.9 - Anemia, unspecified IRON PROFILE 4 Months D64.9 - Anemia, unspecified Vitamin D 25-OH Total 4 Months E55.9 - Vitamin D deficiency, unspecified Vitamin B12 and Folate 4 Months E53.8 - Deficiency of other specified B group vitamins Lipid Panel 4 Months E78.5 - Hyperlipidemia, unspecified Microalbumin, Random (w Creat) 4 Months E11.9 - Type 2 diabetes mellitus without complications Comprehensive [place]. Panel Fast 4 Months N18.30 - Chronic kidney disease, stage 3 unspecified Coding Level of Care Code Est Pt Prev Care >65y(43054) Diagnoses Physical exam Z00.00 Type 2 diabetes mellitus with hyperglycemia, without long-term current use of insulin E11.65 Diabetes mellitus type: type 2 Diabetes mellitus intermediate teacher insulin use: without intermediate teacher use Diabetes mellitus complication status: with hyperglycemia Additional Codes DICKSON-7 Assessment Billing - DICKSON-7 Assessment Tool: DICKSON-7 Assessment 78083 ([id number]) Time Spent (min) 31
[2023-09-15 13:13] VITALS: BP 120/64; BMI 28.7
== END 2023-09-15 13:54 | disposition home or self-care (01) ==
PROVIDERS: PCP Internal Medicine; Visit Provider Internal Medicine
DX: Z00.00 Encounter for general adult medical examination without abnormal findings (principal); E11.65 Type 2 diabetes mellitus with hyperglycemia; E11.9 Type 2 diabetes mellitus without complications
CPT/HCPCS: 83036; 99397

== ENCOUNTER 2023-10-22 13:13 | Outpatient (AMB) | payer OTHER, SELFPAY ==
[2023-10-22 13:16] VITALS: BP 112/62; BMI 29.5
--- NOTE | 2023-10-22 13:16 | MHC.PC.OV ---
Vital Signs 10/22/23 13:16 Height 5 ft 1 in Weight 156 lb BMI 29.5 BP 112/62 Blood Pressure Location Lt brachial Position Sitting Intake Visit Reasons: dm Intake Note: Patient here for a follow up DM Care Management Coordinator Required: No Accompanied by: Self / Same As Patient Allergies No Known Allergies [No Known Allergies*] Allergy (Verified 10/22/23 13:46) Medication List - Last Reconciled 10/22/23 by Clara Amaral MD [adult diapers pull-ups Use 1 daiper 3 to 4 times a day] albuterol sulfate 90 mcg/actuation 2 puffs inhalation Q6H PRN 30 days alcohol swabs 1 pad topical DAILY 90 days alum-mag hydroxide-simeth 200-200-20 mg/5 mL (Antacid-[place]igas) mL PO atorvastatin 80 mg PO BEDTIME 90 days betamethasone valerate 0.1% 1 appl topical BID 30 days blood sugar diagnostic Use 1 test strip once a day cholecalciferol (vitamin D3) 25 mcg PO DAILY 90 days citalopram (Celexa) 20 mg PO DAILY [diabetic shoes with inserts As directed] dulaglutide (Trulicity) 0.75 mg (0.5 mL) subcut QWEEK 90 days empagliflozin (Jardiance) 25 mg PO DAILY 90 days fenofibrate 160 mg PO BEDTIME 90 days fluticasone propion-salmeterol 250-50 mcg/dose 1 ea PO BID ipratropium-albuterol 0.5 mg-3 mg(2.5 mg base)/3 mL 3 mL inhalation Q4-6H PRN 30 days lancets Use 1 lancet once a day loratadine 10 mg PO DAILY 90 days losartan 25 mg PO DAILY pantoprazole 40 mg PO DAILY 90 days plecanatide (Trulance) 3 mg PO DAILY pregabalin (Lyrica) 150 mg PO BEDTIME sucralfate mL PO Tobacco use date assessed: 09/15/23 Fall risk assessment: No Falls in past year Last assessed Fall Risk: 10/22/23 Dental Screening Dental Screen Date: 10/22/23 Did you have a dental visit in the last 12 months?: No Did you have a dental problem in the last 6 months where you did not have access to dental care?: No Was dental information given to patient?: Patient has dentist HPI HPI Comments History of Present Illness Details This is a 72-year-old male with hypertension, diabetes mellitus type 2, mixed hyperlipidemia and mild major depression that comes today for follow-up on his conditions. Blood pressure stable. A1c within goal. Last LDL was elevated and lipid panel will be repeated. Depression somewhat stable with citalopram. No chest pain or shortness of breath. He said he has been treated on audrey for precancer of the esophagus. I have no receive any papers. [facility] Medical History (Updated 10/22/23 @ 15:09 by Clara Amaral MD) CKD (chronic kidney disease) stage 3, GFR 30-59 ml/min Mild recurrent major depression Chronic idiopathic constipation Anemia Polyarthralgia CKD (chronic kidney disease) Skin lesion Lumbar pain COVID-19 Mixed hyperlipidemia Chronic fatigue Diabetes mellitus Insomnia HTN (hypertension) Asthma Diabetic acidosis, type II Surgical History H/O colonoscopy History of carpal tunnel surgery of right wrist (~03/2021) History of eye surgery History of knee replacement procedure of left knee H/O prostate biopsy Family History Father Diabetes Hypertension Mother Diabetes Hypertension Maternal Grandmother Stomach cancer Social History Household Members: None Housing: Apartment Are you a primary manager care management to a significant other at home: No Do you presently have visiting nurse or other home services: No Alcohol intake: former Patient Tobacco Use Status: Never used Tobacco e-Cigarette/Vaping Use: Never Used Second Hand Smoke Exposure: No service: No Current occupational status: retired and disabled Cognitive needs: No Hearing needs: No Vision needs: Yes Questionnaire Thrive Questionnaire Date Thrive assessed: 09/15/23 DICKSON-7 AMB Questionnaire DICKSON-7 Date DICKSON - 7 assessed: 09/15/23 Source: Developed by Drs. López Faust, Julieta Hurd, Ayo Contreras and colleagues, with an educational lindy from [employer] Review of Systems Const All systems reviewed & are unremarkable except as noted in HPI and below Eyes Reports no additional complaints, Denies change in vision and Denies other visual disturbances Card Denies chest pain at rest, Denies chest pain with activity, Denies edema, Denies irregular heart rhythm, Denies claudication, Denies dyspnea, Denies dyspnea on exertion, Denies orthopnea, Denies paroxysmal nocturnal dyspnea and Denies slow heart rate Resp Denies cough, Denies dyspnea and Denies dyspnea on exertion GI Denies abdominal pain, Denies change in bowel habits, Denies excessive flatus, Denies nausea and Denies vomiting Denies urinary hesitancy, Denies urinary incontinence and Denies urinary urgency Musc Denies abnormal gait, Denies atrophy, Denies deformity and Denies limited range of motion Skin/Breast Denies bleeding lesions, Denies changing lesions and Denies rash Neuro Denies abnormal gait and Denies lack of coordination Physical exam (Primary Care) Vital Signs: Last Vital Signs BP 112/62 10/22/23 13:16 BMI result Body Mass Index 29.5 Tobacco/Smoking Status: Tobacco use Status Tobacco use date assessed 09/15/23 10/22/23 13:21 Patient Tobacco Use Status Never used Tobacco 10/22/23 13:21 e-Cigarette/Vaping Use Never Used 10/22/23 13:21 Thrive Assessment: Date of Thrive Assessment Date Thrive assessed 09/15/23 10/22/23 13:21 Eyes General: appearance normal, both eyes and all related structures Eyelids: Yes eyelids normal Conjunctivae: conjunctivae normal Neck Neck: Yes normal visual inspection and Yes supple Resp Effort & Inspection: normal respiratory effort Auscultation: clear to auscultation bilaterally Cardio Jugular venous distension: no JVD Rate: regular rate Rhythm: regular rhythm Heart sounds: S1 normal heart sound present and S2 normal heart sound present Extrem General: Yes full ROM Assessment and Plan Assessment & Plan (1) Diabetes mellitus: Code(s): E11.9 - Type 2 diabetes mellitus without complications Qualifiers: Diabetes mellitus type: type 2 Diabetes mellitus assisted insulin use: without assisted use Diabetes mellitus complication status: with hyperglycemia Qualified Code(s): E11.65 - Type 2 diabetes mellitus with hyperglycemia Plan: Continue Jardiance and Trulicity. A1c goal is equal or less than 7%. (2) HTN (hypertension): Code(s): I10 - Essential (primary) hypertension Qualifiers: Hypertension type: essential hypertension Qualified Code(s): I10 - Essential (primary) hypertension Plan: Continue losartan. Blood pressure goal is equal or less than 130/80. (3) Mixed hyperlipidemia: Code(s): E78.2 - Mixed hyperlipidemia Plan: Continue statins. Repeat lipid panel. LDL goal is less than 70. (4) Mild recurrent major depression: Code(s): F33.0 - Major depressive disorder, recurrent, mild Plan: Continue citalopram. Coding Level of Care Code Est Pt Level 4 (42135) Diagnoses Type 2 diabetes mellitus with hyperglycemia, without long-term current use of insulin E11.65 Diabetes mellitus type: type 2 Diabetes mellitus lobsterman insulin use: without lobsterman use Diabetes mellitus complication status: with hyperglycemia Essential hypertension I10 Hypertension type: essential hypertension Mixed hyperlipidemia E78.2 Mild recurrent major depression F33.0 Time Spent (min) 23
== END 2023-10-22 13:54 | disposition home or self-care (01) ==
PROVIDERS: PCP Internal Medicine; Visit Provider Internal Medicine
DX: E11.65 Type 2 diabetes mellitus with hyperglycemia (principal); I10 Essential (primary) hypertension; E78.2 Mixed hyperlipidemia; F33.0 Major depressive disorder, recurrent, mild
CPT/HCPCS: 99214

== ENCOUNTER 2023-11-06 12:42 | Outpatient (AMB) | payer OTHER, SELFPAY ==
--- NOTE | 2023-11-06 12:51 | A.OFFVIS_ITS ---
Intake Vital Signs 11/06/23 12:53 Height 5 ft 1 in Weight 158 lb BMI 29.9 BP 108/62 Blood Pressure Location Rt brachial Position Sitting Pulse 81 Pulse Source Doppler Pulse Oximetry (%) 97 Oxygen Delivery Method Room Air Intake Visit Reasons: 6 mth f/u asthma News Technical Director Required: Yes News Technical Director Name: Meme Tae Blair Allergies No Known Allergies [No Known Allergies*] Allergy (Verified 11/06/23 12:56) HPI 6 mth f/u asthma HPI Details 73-year-old gentleman, nonsmoker, ?follo wed for underlying moderate persistent asthma and LUIGI on CPAP.? Continue on Wixela and albuterol MDI, now with good control of his symptoms. He also continues to use his CPAP with good control of his underlying LUIGI symptoms. He denies any recent exacerbations. He does complain of some allergy symptoms that he thinks are related to dust in his carpet. [facility] Medical History (Updated 11/06/23 @ 13:09 by Yuri Encarnacion MD) CKD (chronic kidney disease) stage 3, GFR 30-59 ml/min Mild recurrent major depression Chronic idiopathic constipation Anemia Polyarthralgia CKD (chronic kidney disease) Skin lesion Lumbar pain COVID-19 Mixed hyperlipidemia Chronic fatigue Diabetes mellitus Insomnia HTN (hypertension) Asthma Diabetic acidosis, type II Surgical History H/O colonoscopy History of carpal tunnel surgery of right wrist (~03/2021) History of eye surgery History of knee replacement procedure of left knee H/O prostate biopsy Family History Father Diabetes Hypertension Mother Diabetes Hypertension Maternal Grandmother Stomach cancer Social History Household Members: None Housing: Apartment Are you a primary healthcare consulting manager to a significant other at home: No Do you presently have visiting nurse or other home services: No Alcohol intake: former Patient Tobacco Use Status: Never used Tobacco e-Cigarette/Vaping Use: Never Used Second Hand Smoke Exposure: No service: No Current occupational status: retired and disabled Cognitive needs: No Hearing needs: No Vision needs: Yes Review of Systems Const Denies daytime sleepiness, Denies excessive sweating, Denies fatigue, Denies fever(s), Denies lethargy, Denies malaise, Denies night sweats, Denies snoring and Denies weight loss Eyes Denies blurry vision and Denies itchy eyes ENT Denies nasal congestion, Denies post nasal drip, Denies sinus pain, Denies sinus pressure and Denies other ( Thrush) Card Denies chest pain, Denies pedal edema, Denies dyspnea, Denies orthopnea and Denies paroxysmal nocturnal dyspnea Resp Denies cough, Denies hemoptysis, Denies excessive phlegm production, Denies dyspnea, Denies snoring and Denies wheezing GI Denies abdominal pain and Denies heartburn Musc Denies myalgias, Denies arthralgias and Denies joint swelling Skin/Breast Denies rash Neuro Denies memory loss and Denies seizure-like activity Psych Denies abnormal sleep pattern, Denies anxiety and Denies memory loss Endo Denies excessive sweating, Denies fatigue and Denies heat intolerance Winston/Lymph Denies easy bruising Aller/Immun Denies itchy eyes, Denies seasonal rhinorrhea and Denies wheezing Physical Exam Vital Signs: Last Vital Signs Pulse 81 11/06/23 12:53 BP 108/62 11/06/23 12:53 Pulse Ox 97 11/06/23 12:53 Oxygen Delivery Method Room Air 11/06/23 12:53 BMI result Body Mass Index 29.9 Const General: no acute distress and alert Nutritional Appearance: not obese Orientation/consciousness: Other orientation findings ( oriented) HEENT Head: Yes atraumatic Eyes General: appearance normal, both eyes and all related structures Sclerae: sclerae normal EOM: EOMs intact bilaterally Neck Neck: Yes supple Lymphatic: no lymphadenopathy noted Resp Effort & Inspection: normal respiratory effort and no use of accessory muscles Auscultation: clear to auscultation bilaterally Cardio Rate: regular rate Rhythm: regular rhythm Heart sounds: no gallops, no murmurs and no rubs Skin General skin exam: other ( warm) Extrem General: No clubbing, No cyanosis and No edema Assessment & Plan Assessment & Plan (1) Environmental allergies: Code(s): Z91.09 - Other allergy status, other than to drugs and biological substances Plan: Will check IgE level and RAST panel for further evaluation. (2) LUIGI on CPAP: Code(s): G47.33 - Obstructive sleep apnea (adult) (pediatric); Z99.89 - Dependence on other enabling machines and devices Plan: Well controlled on current CPAP therapy. Continue CPAP therapy. (3) Asthma: Code(s): J45.909 - Unspecified asthma, uncomplicated Qualifiers: Asthma severity: mild Asthma persistence: persistent Asthma complication type: uncomplicated Qualified Code(s): J45.30 - Mild persistent asthma, uncomplicated Plan: Well controlled on Wixela and albuterol MDI. Continue current regimen. Orders: Orders Resp Allergy Profile Region I Today J45.30 - Mild persistent asthma, uncomplicated Quality Reporting (2019) Adult ([facility] 138/10/16/68) Smoking risk assessment performed?: Yes Patient Tobacco Use Status: Never used Tobacco Coding Level of Care Code Est Pt Level 4 (47967) Diagnoses Environmental allergies Z91.09 LUIGI on CPAP G47.33; Z99.89 Mild persistent asthma without complication J45.30 Asthma severity: mild Asthma persistence: persistent Asthma complication type: uncomplicated
[2023-11-06 12:53] VITALS: BP 108/62; PULSE 81; O2SAT 97; BMI 29.9
== END 2023-11-06 13:09 | disposition home or self-care (01) ==
PROVIDERS: PCP Internal Medicine; Visit Provider Internal Medicine Pulmonary Disease
DX: Z91.09 Other allergy status, other than to drugs and biological substances (principal); G47.33 Obstructive sleep apnea (adult) (pediatric); Z99.89 Dependence on other enabling machines and devices; J45.30 Mild persistent asthma, uncomplicated
CPT/HCPCS: 99214

== ENCOUNTER 2023-11-06 12:42 | Outpatient (REF) | payer OTHER, SELFPAY ==
[2023-11-06 13:24] LABS: MANUAL DIFF FLAG NO
[2023-11-06 14:14] LABS: Basophils Percent Auto 0.7 % (0-2); Eosinophils Absolute Auto 0.2 X10*3/uL (0.0-0.4); Eosinophils Percent Auto 3.4 % (0-4); Hemoglobin 12.5 g/dl (14.0-18.0); Imm Gran Abs Auto 0.02 X10*3/uL (0.00-0.03); Imm Gran Pct Auto 0.3 % (0.0-0.4); Lymphocytes Absolute Auto 1.8 X10*3/uL (1.2-4.9); Lymphocytes Percent Auto 28.5 % (20-40); Mean Corpuscular HGB Conc 32.9 g/dl (31.0-36.0); Mean Corpuscular Hemoglobin 29.2 pg (27.0-33.0); Mean Corpuscular Volume 88.8 fL (80.0-98.0); Mean Platelet Volume 10.3 fL (9.4-12.4); Monocytes Absolute Auto 0.7 X10*3/uL (0.1-1.2); Monocytes Percent Auto 10.6 % (2-11); Neutrophils Absolute Auto 3.5 x10*3/uL (2.0-8.3); Neutrophils Percent Auto 56.5 % (45-73); Platelet Count 255 X10*3/uL (160-400); Red Blood Count 4.28 X10*6/uL (4.60-5.80); Red Cell Distribution Width 14.1 % (11.0-16.0); White Blood Count 6.2 X10*3/uL (4.8-10.8)
[2023-11-06 14:46] LABS: Alanine Aminotransferase 15 U/L (0-40); Albumin Level 4.6 g/dL (3.5-5.0); Alkaline Phosphatase 59 U/L (39-117); Anion Gap 13 (12-20); Aspartate Amino Transferase 16 U/L (5-37); Bilirubin Total 0.4 mg/dL (0.0-1.0); Blood Urea Nitrogen 22 mg/dL (9-16); Calcium 10.4 mg/dL (8.4-10.2); Carbon Dioxide 25 mmol/L (22-29); Chloride 107 mmol/L (96-108); Cholesterol 131 mg/dL (<200); Estimated Glomerular Filt Rate 46; Glucose Fasting 108 mg/dL (60-99); HDL Cholesterol 50 mg/dL (>40); Iron 73 mcg/dL (45-160); LDL Cholesterol Calculated 63 mg/dL (<100); Percent Iron Saturation 23 % (15-50); Potassium 4.1 mmol/L (3.3-5.1); Sodium 141 mmol/L (135-145); Total Iron Binding Capacity 319 mcg/dL (228-428); Total Protein 7.4 g/dL (6.5-8.0); Triglycerides 94 mg/dL (<150); Unsaturated Iron Binding 246 ug/dL
[2023-11-06 15:01] LABS: Vitamin D 25-OH Total 23.9 ng/mL (>30)
[2023-11-06 15:09] LABS: Creatinine Urine 79.86 mg/dL
[2023-11-06 15:17] LABS: Folate 8.3 ng/mL (> or = 4.0); Vitamin B12 353 pg/mL (200-900)
== END 2023-11-06 12:43 | disposition home or self-care (01) ==
LOC: HO.LAB 12:42
PROVIDERS: PCP Internal Medicine; Visit Provider Internal Medicine Pulmonary Disease
DX: J45.40 Moderate persistent asthma, uncomplicated (principal); G47.33 Obstructive sleep apnea (adult) (pediatric); E55.9 Vitamin D deficiency, unspecified; E53.8 Deficiency of other specified B group vitamins; E11.22 Type 2 diabetes mellitus with diabetic chronic kidney disease; E11.9 Type 2 diabetes mellitus without complications; E78.5 Hyperlipidemia, unspecified; N18.30 Chronic kidney disease, stage 3 unspecified; D63.1 Anemia in chronic kidney disease; Z91.09 Other allergy status, other than to drugs and biological substances; Z99.89 Dependence on other enabling machines and devices
CPT/HCPCS: 36415; 80053; 80061; 82043; 82306; 82570; 82607; 82746; 83540; 85025; 99212

== ENCOUNTER 2023-11-20 12:39 | Outpatient (AMB) | payer OTHER, SELFPAY ==
--- NOTE | 2023-11-20 12:41 | HO.NEPHOV_ITS ---
HPI HPI Comments History of Present Illness Details 72-year-old male with diabetes mellitus type 2, hypertension, mixed hyperlipidemia and mild depression with CKD is here for follow up. Recently Jardiance has been added. He is experiencing increased urination. No polydipsia. Off the diuretic. No new issues [facility] Medical History (Updated 11/06/23 @ 13:09 by Yuri Encarnacion MD) CKD (chronic kidney disease) stage 3, GFR 30-59 ml/min Mild recurrent major depression Chronic idiopathic constipation Anemia Polyarthralgia CKD (chronic kidney disease) Skin lesion Lumbar pain COVID-19 Mixed hyperlipidemia Chronic fatigue Diabetes mellitus Insomnia HTN (hypertension) Asthma Diabetic acidosis, type II Surgical History H/O colonoscopy History of carpal tunnel surgery of right wrist (~03/2021) History of eye surgery History of knee replacement procedure of left knee H/O prostate biopsy Family History Father Diabetes Hypertension Mother Diabetes Hypertension Maternal Grandmother Stomach cancer Social History Household Members: None Housing: Apartment Are you a primary career development counselor to a significant other at home: No Do you presently have visiting nurse or other home services: No Alcohol intake: former Patient Tobacco Use Status: Never used Tobacco e-Cigarette/Vaping Use: Never Used Second Hand Smoke Exposure: No service: No Current occupational status: retired and disabled Cognitive needs: No Hearing needs: No Vision needs: Yes Vital Signs 11/20/23 12:42 Height 5 ft 1 in Weight 159 lb BMI 30.0 BP 110/78 Blood Pressure Location Lt brachial Position Sitting Pulse 76 Pulse Source Pulse Oximeter Pulse Oximetry (%) 98 Oxygen Delivery Method Room Air Physical Exam Vital Signs: Last Vital Signs Pulse 76 11/20/23 12:42 BP 110/78 11/20/23 12:42 Pulse Ox 98 11/20/23 12:42 Oxygen Delivery Method Room Air 11/20/23 12:42 BMI result Body Mass Index 30.0 Const General: comfortable; No acute distress Orientation/consciousness: patient oriented x3 Eyes General: appearance normal, both eyes and all related structures Visual Gonzales: normal visual gonzales by confrontation Neck Neck: Yes supple and Yes no JVD Resp Effort & Inspection: normal respiratory effort and respiratory effort not decreased Auscultation: rhonchi Cardio Palpation: no palpable S3 and no palpable S4 Heart sounds: no rubs GI Inspection: Yes normal to inspection Palpation (GI): Soft to palpation Percussion: Yes normal to percussion Auscultation: normal bowel sounds General: Yes no CVA tenderness Back/Spine/Pelvis Back: no CVA tenderness Skin General skin exam: no petechiae and no purpura Neuro General: patient oriented x3 and no focal motor deficits Extrem General: No clubbing and No edema Assessment & Plan Assessment & Plan (1) CKD (chronic kidney disease) stage 3, GFR 30-59 ml/min: Code(s): N18.30 - Chronic kidney disease, stage 3 unspecified Plan: CKD in a setting of hypertension diabetes mellitus. Patient prednisone 1.4-1.3 mg/dL. Has been a bump in serum creatinine to 1.7-1.8. This is most likely due to hypoperfusion. Improved after stopping HCTZ- Cr down to 1.5 The blood pressure is well controlled No need for hydrochlorothiazide. Keep losartan 25 mg q.d.. (2) HTN (hypertension): Code(s): I10 - Essential (primary) hypertension Qualifiers: Hypertension type: essential hypertension Qualified Code(s): I10 - Essential (primary) hypertension Plan: Blood pressure controlled. Stay on low-sodium diet. (3) Hypercalcemia: Code(s): E83.52 - Hypercalcemia Plan: Ca is 1-10.5 On Vit D3 I will recheck calcium again, including PTH and electrophoresis. Orders: Orders Phosphorus 4 Months N18.9 - Chronic kidney disease, unspecified UA and rflx microscopic 4 Months N18.9 - Chronic kidney disease, unspecified Comprehensive Met. Panel 4 Months N18.9 - Chronic kidney disease, unspecified Parathyroid Hormone Intact 4 Months N18.9 - Chronic kidney disease, unspecified Protein Electrophoresis, Serum 4 Months E83.52 - Hypercalcemia Coding Level of Care Code Est Pt Level 4 (64139) Diagnoses CKD (chronic kidney disease) stage 3, GFR 30-59 ml/min N18.30 Essential hypertension I10 Hypertension type: essential hypertension Hypercalcemia E83.52 Results Reviewed Nephrology Results: Hgb 12.5 g/dl (14.0-18.0) L 11/06/23 WBC 6.2 X10*3/uL (4.8-10.8) 11/06/23 Plt Count 255 X10*3/uL (160-400) 11/06/23 Sodium 141 mmol/L (135-145) 11/06/23 Potassium 4.1 mmol/L (3.3-5.1) 11/06/23 Chloride 107 mmol/L (96-108) 11/06/23 Carbon Dioxide 25 mmol/L (22-29) 11/06/23 BUN 22 mg/dL (9-16) H 11/06/23 Creatinine 1.50 mg/dL (0.5-1.4) H 11/06/23 Calcium 10.4 mg/dL (8.4-10.2) H 11/06/23 Urine Creatinine 79.86 mg/dL 11/06/23 Protein/Creatinin Ratio 0.14 (<0.2) 03/24/23
[2023-11-20 12:42] VITALS: BP 110/78; PULSE 76; O2SAT 98
== END 2023-11-20 12:59 | disposition home or self-care (01) ==
PROVIDERS: PCP Internal Medicine; Visit Provider Internal Medicine Hypertension Specialist
DX: N18.30 Chronic kidney disease, stage 3 unspecified (principal); I10 Essential (primary) hypertension; E83.52 Hypercalcemia
CPT/HCPCS: 99214

== ENCOUNTER → 2023-11-20 12:39 | Outpatient (BNVA) | payer OTHER, SELFPAY | PROVIDERS: PCP Internal Medicine; Visit Provider Internal Medicine Hypertension Specialist | DX: I12.9 Hypertensive chronic kidney disease with stage 1 through stage 4 chronic kidney disease, or unspecified chronic kidney disease (principal); N18.30 Chronic kidney disease, stage 3 unspecified; E83.52 Hypercalcemia | CPT/HCPCS: 99212 ==

== ENCOUNTER 2024-02-09 07:38 | Outpatient (REF) | payer OTHER, SELFPAY ==
[2024-02-09 08:57] LABS: Alanine Aminotransferase 19 U/L (0-40); Albumin Level 4.4 g/dL (3.5-5.0); Alkaline Phosphatase 58 U/L (39-117); Anion Gap 11 (12-20); Aspartate Amino Transferase 21 U/L (5-37); Bilirubin Total 0.4 mg/dL (0.0-1.0); Blood Urea Nitrogen 26 mg/dL (9-16); Calcium 10.2 mg/dL (8.4-10.2); Carbon Dioxide 27 mmol/L (22-29); Chloride 108 mmol/L (96-108); Cholesterol 138 mg/dL (<200); Estimated Glomerular Filt Rate 49; Glucose Fasting 102 mg/dL (60-99); HDL Cholesterol 43 mg/dL (>40); LDL Cholesterol Calculated 76 mg/dL (<100); Potassium 4.3 mmol/L (3.3-5.1); Sodium 142 mmol/L (135-145); Total Protein 7.2 g/dL (6.5-8.0); Triglycerides 97 mg/dL (<150)
[2024-02-09 09:13] LABS: Vitamin D 25-OH Total 26.3 ng/mL (>30)
[2024-02-09 09:54] LABS: Creatinine Urine 50.71 mg/dL; Microalbum/Creatinine Ratio Ur 25.6 ug/mg cr (<30)
== END 2024-02-09 07:39 | disposition home or self-care (01) ==
LOC: HO.LAB 07:38
PROVIDERS: PCP Internal Medicine; Visit Provider Internal Medicine
DX: N18.30 Chronic kidney disease, stage 3 unspecified (principal); E78.5 Hyperlipidemia, unspecified; E11.9 Type 2 diabetes mellitus without complications; E55.9 Vitamin D deficiency, unspecified
CPT/HCPCS: 36415; 80053; 80061; 82043; 82306; 82570

== ENCOUNTER 2024-02-19 14:36 | Outpatient (AMB) | payer OTHER, SELFPAY ==
--- NOTE | 2024-02-19 14:41 | A.OFFPC_ITS ---
Vital Signs 02/19/24 14:42 Height 5 ft 1 in Weight 157 lb BMI 29.7 BP 110/72 Blood Pressure Location Lt brachial Position Sitting Intake Visit Reasons: dm Intake Note: Patient here for a follow up DM Surgical Clinical Reviewer Required: No Accompanied by: Self / Same As Patient Allergies No Known Allergies [No Known Allergies*] Allergy (Verified 02/19/24 14:54) Medication List - Last Reconciled 02/19/24 by Clara Amaral MD acetaminophen-codeine 120-12 mg/5 mL 5 mL PO Q6-8H [adult diapers pull-ups Use 1 daiper 3 to 4 times a day] albuterol sulfate 90 mcg/actuation 2 puffs inhalation Q6H PRN 30 days alcohol swabs 1 pad topical DAILY 90 days alum-mag hydroxide-simeth 200-200-20 mg/5 mL (Antacid-[place]) mL PO atorvastatin 80 mg PO BEDTIME 90 days betamethasone valerate 0.1% 1 appl topical BID 30 days blood sugar diagnostic Use 1 test strip once a day cholecalciferol (vitamin D3) 25 mcg PO DAILY 90 days citalopram (Celexa) 20 mg PO DAILY [diabetic shoes with inserts As directed] dulaglutide (Trulicity) 0.75 mg (0.5 mL) subcut QWEEK 90 days famotidine 40 mg PO BEDTIME 30 days fenofibrate 160 mg PO BEDTIME 90 days fluticasone propion-salmeterol 250-50 mcg/dose 1 ea PO BID ipratropium-albuterol 0.5 mg-3 mg(2.5 mg base)/3 mL 3 mL inhalation Q4-6H PRN 30 days lancets Use 1 lancet once a day loratadine 10 mg PO DAILY 90 days losartan 25 mg PO DAILY pantoprazole 40 mg PO DAILY 90 days plecanatide (Trulance) 3 mg PO DAILY pregabalin (Lyrica) 150 mg PO BEDTIME sucralfate 10 mL PO Tobacco use date assessed: 09/15/23 Fall risk assessment: No Falls in past year Last assessed Fall Risk: 02/19/24 Dental Screening Dental Screen Date: 10/22/23 HPI HPI Comments History of Present Illness Details This is a 73-year-old male with diabetes mellitus type 2, hypertension, mixed hyperlipidemia, chronic kidney disease stage 3 and mild major depression that comes today for follow-up on his conditions. A1c within goal. Blood pressure stable. LDL close to goal. Last GFR of 49 which has been stable. Depression also stable with citalopram. Complains of allergic rhinitis and asthma exacerbated by his carpet at home. [facility] Medical History (Updated 02/19/24 @ 16:19 by Clara Amaral MD) CKD (chronic kidney disease) stage 3, GFR 30-59 ml/min Mild recurrent major depression Chronic idiopathic constipation Anemia Polyarthralgia CKD (chronic kidney disease) Skin lesion Lumbar pain COVID-19 Mixed hyperlipidemia Chronic fatigue Diabetes mellitus Insomnia HTN (hypertension) Asthma Diabetic acidosis, type II Surgical History H/O colonoscopy History of carpal tunnel surgery of right wrist (~03/2021) History of eye surgery History of knee replacement procedure of left knee H/O prostate biopsy Family History Father Diabetes Hypertension Mother Diabetes Hypertension Maternal Grandmother Stomach cancer Social History Household Members: None Housing: Apartment Are you a primary client care specialist to a significant other at home: No Do you presently have visiting nurse or other home services: No Alcohol intake: former Patient Tobacco Use Status: Never used Tobacco e-Cigarette/Vaping Use: Never Used Second Hand Smoke Exposure: No service: No Current occupational status: retired and disabled Cognitive needs: No Hearing needs: No Vision needs: Yes Questionnaire Thrive Questionnaire Date Thrive assessed: 09/15/23 DICKSON-7 AMB Questionnaire DICKSON-7 Date DICKSON - 7 assessed: 09/15/23 Source: Developed by Drs. López Faust, Julieta Hurd, Ayo Contreras and colleagues, with an educational lindy from [employer]. Review of Systems Const All systems reviewed & are unremarkable except as noted in HPI and below Card Denies chest pain at rest, Denies chest pain with activity, Denies edema, Denies irregular heart rhythm, Denies claudication, Denies dyspnea, Denies dyspnea on exertion, Denies orthopnea, Denies paroxysmal nocturnal dyspnea and Denies slow heart rate Resp Denies cough, Denies dyspnea and Denies dyspnea on exertion Physical exam (Primary Care) Vital Signs: Last Vital Signs BP 110/72 02/19/24 14:42 BMI result Body Mass Index 29.7 Tobacco/Smoking Status: Tobacco use Status Tobacco use date assessed 09/15/23 02/19/24 14:49 Patient Tobacco Use Status Never used Tobacco 02/19/24 14:49 e-Cigarette/Vaping Use Never Used 02/19/24 14:49 Thrive Assessment: Date of Thrive Assessment Date Thrive assessed 09/15/23 02/19/24 14:49 Resp Effort & Inspection: normal respiratory effort Auscultation: clear to auscultation bilaterally Cardio Jugular venous distension: no JVD Rate: regular rate Rhythm: regular rhythm Heart sounds: S1 normal heart sound present and S2 normal heart sound present Extrem General: Yes full ROM Results AMB Hemoglobin A1c AMB Hemoglobin A1c 6.2 % Last Edit by DEBRA Lin on 02/19/24 14:5 4 Results Reviewed Results Reviewed: Laboratory Last Values Hgb A1c (Clinic) 6.2 % (4.0-6.0) H 02/19/24 14:41 Assessment and Plan Assessment & Plan (1) Mild recurrent major depression: Code(s): F33.0 - Major depressive disorder, recurrent, mild Plan: Continue citalopram. (2) CKD (chronic kidney disease) stage 3, GFR 30-59 ml/min: Code(s): N18.30 - Chronic kidney disease, stage 3 unspecified Qualifiers: Chronic kidney disease stage 3 subtype: stage 3a (GFR 45-59) Qualified Code(s): N18.31 - Chronic kidney disease, stage 3a Plan: Avoid NSAIDs. Keep blood pressure less than 130/80. (3) Diabetes mellitus: Code(s): E11.9 - Type 2 diabetes mellitus without complications Qualifiers: Diabetes mellitus type: type 2 Diabetes mellitus halfway insulin use: without halfway use Diabetes mellitus complication status: with hyperglycemia Qualified Code(s): E11.65 - Type 2 diabetes mellitus with hyperglycemia Plan: Continue Trulicity. A1c goal is equal or less than 7%. (4) HTN (hypertension): Code(s): I10 - Essential (primary) hypertension Qualifiers: Hypertension type: essential hypertension Qualified Code(s): I10 - Essential (primary) hypertension Plan: Continue losartan. Blood pressure goal is equal or less than 130/80. (5) Mixed hyperlipidemia: Code(s): E78.2 - Mixed hyperlipidemia Plan: Continue statins and fibrates. LDL goal is less than 70. Orders: Orders AMB Hemoglobin A1c Today E11.65 - Type 2 diabetes mellitus with hyperglycemia Medications: New blood-glucose meter (FreeStyle Lite Meter kit) As directed 1 ea 0RF E11.65 - Type 2 diabetes mellitus with hyperglycemia Refilled cholecalciferol (vitamin D3) 25 mcg PO DAILY 90 caps 1RF 90 days dulaglutide (Trulicity) 0.75 mg (0.5 mL) subcut QWEEK 6.5 mL 1RF 90 days E11.9 - Type 2 diabetes mellitus without complications Coding Level of Care Code Est Pt Level 4 (17376) Complex EM visit Add On G2211 Diagnoses Mild recurrent major depression F33.0 Stage 3a chronic kidney disease N18.31 Chronic kidney disease stage 3 subtype: stage 3a (GFR 45-59) Type 2 diabetes mellitus with hyperglycemia, without long-term current use of insulin E11.65 Diabetes mellitus type: type 2 Diabetes mellitus long term care pharmacist insulin use: without halfway use Diabetes mellitus complication status: with hyperglycemia Essential hypertension I10 Hypertension type: essential hypertension Mixed hyperlipidemia E78.2 Time Spent (min) 23
[2024-02-19 14:42] VITALS: BP 110/72; BMI 29.7
== END 2024-02-19 15:05 | disposition home or self-care (01) ==
PROVIDERS: PCP Internal Medicine; Visit Provider Internal Medicine
DX: F33.0 Major depressive disorder, recurrent, mild (principal); I12.9 Hypertensive chronic kidney disease with stage 1 through stage 4 chronic kidney disease, or unspecified chronic kidney disease; N18.31 Chronic kidney disease, stage 3a; E11.65 Type 2 diabetes mellitus with hyperglycemia; E78.2 Mixed hyperlipidemia
CPT/HCPCS: 83036; 99214; G2211

== ENCOUNTER 2024-04-11 14:05 | Emergency (ER) | payer OTHER, SELFPAY ==
--- NOTE | ~2024-04-11 | XR_ITS ---
EXAMINATION: XR CHEST CLINICAL INFORMATION: Cough COMPARISON: Chest x-ray on 05/06/2023 TECHNIQUE: 2 views of the chest were obtained. FINDINGS: No significant abnormality is noted involving the heart, lungs, mediastinum, bony thorax or soft tissues. XR/XR chest 2V IMPRESSION: Unremarkable examination.
--- NOTE | 2024-04-11 14:06 | ECG_ITS ---
Test Reason : CHEST PAIN Blood Pressure : / mmHG Vent. Rate : 090 BPM Atrial Rate : 090 BPM P-R Int : 128 ms QRS Dur : 094 ms QT Int : 358 ms P-R-T Axes : 017 097 021 degrees QTc Int : 437 ms Normal sinus rhythm Rightward axis Borderline ECG When compared with ECG of 16-SEP-2019 20:24, QRS axis Shifted right Criteria for Inferior infarct are no longer Present Referred By: Generic ED Physician Electronically Signed By:RAFAEL CRUZ
[2024-04-11 14:19] VITALS: BP 116/75; PULSE 86; RESP 18; TEMP 37.2; O2SAT 98; BMI 29.0
[2024-04-11 14:35] LABS: MANUAL DIFF FLAG NO
[2024-04-11 14:36] LABS: Basophils Percent Auto 0.4 % (0-2); Eosinophils Absolute Auto 0.2 X10*3/uL (0.0-0.4); Eosinophils Percent Auto 2.3 % (0-4); Hemoglobin 12.5 g/dl (14.0-18.0); Imm Gran Abs Auto 0.03 X10*3/uL (0.00-0.03); Imm Gran Pct Auto 0.4 % (0.0-0.4); Lymphocytes Percent Auto 13.4 % (20-40); Mean Corpuscular HGB Conc 32.9 g/dl (31.0-36.0); Mean Corpuscular Hemoglobin 30.1 pg (27.0-33.0); Mean Corpuscular Volume 91.6 fL (80.0-98.0); Mean Platelet Volume 9.6 fL (9.4-12.4); Monocytes Absolute Auto 1.1 X10*3/uL (0.1-1.2); Monocytes Percent Auto 14.3 % (2-11); Neutrophils Absolute Auto 5.2 x10*3/uL (2.0-8.3); Neutrophils Percent Auto 69.2 % (45-73); Platelet Count 221 X10*3/uL (160-400); Red Blood Count 4.15 X10*6/uL (4.60-5.80); White Blood Count 7.5 X10*3/uL (4.8-10.8)
[2024-04-11 14:52] LABS: Alanine Aminotransferase 19 U/L (0-40); Albumin Level 4.7 g/dL (3.5-5.0); Alkaline Phosphatase 68 U/L (39-117); Anion Gap 17 (12-20); Aspartate Amino Transferase 21 U/L (5-37); Bilirubin Total 0.6 mg/dL (0.0-1.0); Blood Urea Nitrogen 27 mg/dL (9-16); Calcium 10.6 mg/dL (8.4-10.2); Carbon Dioxide 21 mmol/L (22-29); Chloride 106 mmol/L (96-108); Creatinine Clr Calc Pharmacy 29.3; Estimated Glomerular Filt Rate 35; Glucose Random 98 mg/dL (60-115); Potassium 4.2 mmol/L (3.3-5.1); Sodium 140 mmol/L (135-145); Total Protein 7.7 g/dL (6.5-8.0)
[2024-04-11 15:12] LABS: Influenza A PCR NEGATIVE (Negative); Influenza B PCR NEGATIVE (Negative); Resp Syncy Virus RNA Qual PCR NEGATIVE (Negative); SARS COV2 PCR INHOUSE POSITIVE (Negative)
--- NOTE | 2024-04-11 15:33 | ED.GENADULT ---
HPI - General Adult General Chief complaint: Upper Respiratory Symptoms Stated complaint: chest pain Time Seen by Provider: 04/11/24 15:06 Source: patient and RN notes reviewed Mode of arrival: ambulatory Limitations: no limitations History of Present Illness ED Provider: Nereyda Quesada PA-C HPI narrative: This is a 73-year-old male, with a history of CKD, GERD, hypertension, and diabetes, who presents emergency department complaints of cough, congestion, headache, chest pain x 3 days. Patient reports that he was recently exposed to COVID. He states that he has been taking Tylenol with some relief. He states that the cough has been keeping him up at night. States that he does not actively have chest pain right now. He states that the chest pain only occurs with coughing. He states that he last had chest pain last night. He denies any palpitations, shortness for breath, abdominal pain, nausea, vomiting or diarrhea. No other complaints or concerns at this time. MD complaint: Cough, congestion, chest pain Onset (ago): day(s) Relieving factors: none Exacerbating factors: none Associated symptoms: denies other symptoms Treatments prior to arrival: none Related Data Home Medications ?Medication ?Instructions ?Recorded ?Confirmed citalopram 20 mg tablet (Celexa) 20 mg PO DAILY 10/03/21 02/19/24 pregabalin 150 mg capsule (Lyrica) 150 mg PO BEDTIME 10/03/21 02/19/24 aluminum-mag hydroxide-simethicone ml PO 09/15/23 02/19/24 200 mg-200 mg-20 mg/5 mL oral susp (Antacid-Antigas) sucralfate 100 mg/mL oral 10 ml PO 11/20/23 02/19/24 suspension acetaminophen 120 mg-codeine 12 5 ml PO Q6-8H 02/19/24 02/19/24 mg/5 mL oral solution Previous Rx's ?Medication ?Instructions ?Recorded betamethasone valerate 0.1 % 1 appl topical BID 30 days #45 10/25/20 topical cream grams plecanatide 3 mg tablet (Trulance) 3 mg PO DAILY #30 tabs 05/07/22 alcohol swabs 1 pad topical DAILY 90 days #100 ea 08/02/22 albuterol sulfate 90 mcg/actuation 2 puff inhalation Q6H PRN 11/19/22 aerosol inhaler shortness of breath or wheezing 30 days #6.7 grams ipratropium 0.5 mg-albuterol 3 mg 3 ml inhalation Q4-6H PRN wheezing 11/19/22 (2.5 mg base)/3 mL nebulization 30 days #180 mL soln adult diapers pull-ups #120 ea 04/10/23 loratadine 10 mg tablet 10 mg PO DAILY 90 days #90 tabs 04/14/23 pantoprazole 40 mg tablet,delayed 40 mg PO DAILY 90 days #90 tabs 04/28/23 release diabetic shoes with inserts #1 ea 06/09/23 blood sugar diagnostic #30 ea 08/05/23 lancets 33 gauge #100 ea 08/05/23 fluticasone 250 mcg-salmeterol 50 1 ea PO BID #60 ea 10/22/23 mcg/dose blistr powdr for inhalation atorvastatin 80 mg tablet 80 mg PO BEDTIME 90 days #90 tabs 11/05/23 fenofibrate 160 mg tablet 160 mg PO BEDTIME 90 days #90 tabs 11/05/23 losartan 25 mg tablet 25 mg PO DAILY #30 tabs 12/15/23 famotidine 40 mg tablet 40 mg PO BEDTIME 30 days #30 tabs 01/07/24 blood-glucose meter (FreeStyle #1 ea 02/19/24 Lite Meter kit) cholecalciferol (vitamin D3) 25 25 mcg PO DAILY 90 days #90 caps 02/19/24 mcg (1,000 unit) capsule dulaglutide 0.75 mg/0.5 mL 0.75 mg (0.5 mL) subcut QWEEK 90 02/19/24 subcutaneous pen injector days #6.5 mL (Trulicity) benzonatate 100 mg capsule 100 mg PO TID PRN cough #14 caps 04/11/24 Allergies Allergy/AdvReac Type Severity Reaction Status Date / Time No Known Allergies Allergy Verified 04/11/24 14:20 [No Known Allergies*] Review of Systems Review of Systems: Yes all other systems are reviewed and are negative Constitutional: Constitutional: Reports as per [facility] Past Medical History Attestation statement: The following information was validated with the patient. Medical History CKD (chronic kidney disease) stage 3, GFR 30-59 ml/min Mild recurrent major depression Chronic idiopathic constipation Anemia Polyarthralgia CKD (chronic kidney disease) Skin lesion Lumbar pain COVID-19 Mixed hyperlipidemia Chronic fatigue Diabetes mellitus Insomnia HTN (hypertension) Asthma Diabetic acidosis, type II Surgical History H/O colonoscopy History of carpal tunnel surgery of right wrist (~03/2021) History of eye surgery History of knee replacement procedure of left knee H/O prostate biopsy Family History Family History Father Diabetes Hypertension Mother Diabetes Hypertension Maternal Grandmother Stomach cancer Social History Social History Household Members: None Housing: Apartment Are you a primary lead care manager to a significant other at home: No Do you presently have visiting nurse or other home services: No Alcohol intake: former Patient Tobacco Use Status: Never used Tobacco e-Cigarette/Vaping Use: Never Used Second Hand Smoke Exposure: No Advance Directives: Yes Advance Directives Information Provided: Yes Advance Directives on File: No service: No Current occupational status: retired and disabled Cognitive needs: No Hearing needs: No Vision needs: Yes Physical Exam ED Vital Signs: Vital Signs - 24 hr 04/11/24 14:19 04/11/24 18:15 Temperature 98.9 F 98 F Pulse Rate 86 80 Respiratory Rate 18 18 Blood Pressure 116/75 131/56 L Pulse Oximetry 98 97 Oxygen Delivery Method Room Air Room Air BMI result Body Mass Index 29.0 Const General: cooperative, comfortable and no acute distress Orientation/consciousness: patient oriented x3 Limitations: no limitations HENMT Head: Yes normal to inspection, Yes normocephalic and Yes atraumatic Ears: hearing grossly normal bilaterally and TM's normal bilaterally General nose exam: Normal external nose present Face and sinus: Yes normal facial exam Mouth: Normal oral and palatal mucosa present, oropharynx normal and moist mucous membranes Throat: Yes posterior oropharynx normal Eyes General: appearance normal, both eyes and all related structures Eyelids: Yes eyelids normal Conjunctivae: conjunctivae normal Sclerae: sclerae normal Pupils: Equal, round and reactive pupils present EOM: EOMs intact bilaterally Neck Neck: Yes normal visual inspection, Yes full ROM and Yes no lymphadenopathy Lymphatic: no lymphadenopathy noted Chest Chest palpation & inspection: normal inspection of the chest Resp Effort & Inspection: normal respiratory effort and able to speak in complete sentences Auscultation: clear to auscultation bilaterally, no crackles, no rales, no rhonchi and no wheezes Cardio Rate: regular rate Rhythm: regular rhythm Heart sounds: S1 normal heart sound present and S2 normal heart sound present GI Inspection: Yes normal to inspection Skin General skin exam: no rashes or lesions noted Trauma: no lacerations or abrasions Wounds: no wounds Neuro General: patient oriented x3 and moves all extremities Cranial nerves: Yes Equal, round and reactive pupils present Extrem General: Yes normal to inspection Right upper extremity: normal to inspection Left upper extremity: normal to inspection Right lower extremity: normal to inspection Left lower extremity: normal to inspection Medical Decision Making Medical Decision Making [facility] Narrative: This is a 73-year-old male, with a history of diabetes GERD, hypertension, asthma, CKD, who presents emergency department with complaints of cough, congestion, headache, runny nose for the last 3 days. On arrival, vital signs within normal limits. He is under no acute distress. He is not have active chest pain, chest pain only occurs with coughing. Differential diagnoses include viral syndrome, COVID, pneumonia, ACS-unlikely. Labs were obtained, he has no leukocytosis, H&H revealing normocytic anemia, similar to previous. Creatinine is 1.91, baseline around 1.7 through 1.8. Patient tested positive for COVID. Chest x-ray unremarkable, EKG normal sinus rhythm at a ventricular rate of 90 beats per minute, no ST elevation or depression. Discussed findings with patient. Discussed strict return precautions. He understands and agrees with plan. Patient stable for discharge Differential Diagnosis Differential Diagnoses: The differential diagnosis associated with the presentation includes See above Admission/Observation Consideration of admission/observation: Escalation of care including admission/observation considered Lab Data [facility] Lab Attestation statement: I reviewed the patient's lab results. See [facility] 04/11/24 14:31 04/11/24 14:31 Labs: Lab Results 04/11/24 Range/Units 14:31 WBC 7.5 (4.8-10.8) X10*3/uL RBC 4.15 L (4.60-5.80) X10*6/uL Hgb 12.5 L (14.0-18.0) g/dl Hct 38.0 L (42.0-52.0) % MCV 91.6 (80.0-98.0) fL MCH 30.1 (27.0-33.0) pg MCHC 32.9 (31.0-36.0) g/dl RDW 14.0 (11.0-16.0) % Plt Count 221 (160-400) X10*3/uL MPV 9.6 (9.4-12.4) fL Immature Gran % (Auto) 0.4 (0.0-0.4) % Neut % (Auto) 69.2 (45-73) % Lymph % (Auto) 13.4 L (20-40) % [place] % (Auto) 14.3 H (2-11) % Eos % (Auto) 2.3 (0-4) % Baso % (Auto) 0.4 (0-2) % Lymph # (Auto) 1.0 L (1.2-4.9) X10*3/uL [place] # (Auto) 1.1 (0.1-1.2) X10*3/uL Eos # (Auto) 0.2 (0.0-0.4) X10*3/uL Baso # (Auto) 0.0 (0.0-0.2) X10*3/uL Abs Immat Gran (auto) 0.03 (0.00-0.03) X10*3/uL Absolute Neuts (auto) 5.2 (2.0-8.3) x10*3/uL Absolute Nucleated RBC 0.000 (0.0-0.012) X10*3/uL Nucleated RBC % (auto) 0.0 (0.0-0.2) /100WBC Sodium 140 (135-145) mmol/L Potassium 4.2 (3.3-5.1) mmol/L Chloride 106 (96-108) mmol/L Carbon Dioxide 21 L (22-29) mmol/L Anion Gap 17 (12-20) BUN 27 H (9-16) mg/dL Creatinine 1.91 H (0.5-1.4) mg/dL Estim Creat Clear Calc 29.3 Estimated GFR 35 Random Glucose 98 (60-115) mg/dL Calcium 10.6 H (8.4-10.2) mg/dL Total Bilirubin 0.6 (0.0-1.0) mg/dL AST 21 (5-37) U/L ALT 19 (0-40) U/L Alkaline Phosphatase 68 (39-117) U/L Total Protein 7.7 (6.5-8.0) g/dL Albumin 4.7 (3.5-5.0) g/dL Influenza Type A (PCR) NEGATIVE (Negative) Influenza Type B (PCR) NEGATIVE (Negative) RSV RNA Qual (PCR) NEGATIVE (Negative) SARS-CoV-2 RNA (RT-PCR) POSITIVE A (Negative) Independent Interpretation I performed an independent interpretation of an: EKG Interpretation: See MDM Radiology Impression Discussion of test interpretation with radiology: I have reviewed the radiologist's reading. Radiologist Impression: EXAMINATION: XR CHEST CLINICAL INFORMATION: Cough COMPARISON: Chest x-ray on 05/06/2023 TECHNIQUE: 2 views of the chest were obtained. FINDINGS: No significant abnormality is noted involving the heart, lungs, mediastinum, bony thorax or soft tissues. XR/XR chest 2V IMPRESSION: Unremarkable examination. Dictated By: Hoa Lombardi MD Discharge Plan Discharge Clinical Impression: COVID-19 Patient Disposition: Home, Self-Care Instructions: COVID-19 (Coronavirus Disease 2019) (ED) Additional Instructions: You tested positive for COVID today. Your blood work was reassuring. Your EKG was normal. Your chest x-ray does not show a pneumonia. Please drink plenty of fluids and get plenty of rest. Continue taking Tylenol as needed for pain and fevers. You may take Tessalon as needed for cough. Take only as prescribed. If any new or worsening symptoms occur including but not limited to severe chest pain, shortness breath, please return for re-evaluation. Prescriptions: New benzonatate 100 mg capsule 100 mg PO TID PRN (Reason: cough) Qty: 14 0RF No Action betamethasone valerate 0.1 % cream 1 appl topical BID 30 Days Qty: 45 6RF Trulance 3 mg tablet 3 mg PO DAILY Qty: 30 3RF alcohol swabs Pads, Medicated 1 pad topical DAILY 90 Days Qty: 100 3RF (DME) adult diapers pull-ups medium See Rx Instructions .Route .MEDSUPPLY Qty: 120 11RF Rx Instructions: Use 1 daiper 3 to 4 times a day loratadine 10 mg tablet 10 mg PO DAILY 90 Days Qty: 90 3RF pantoprazole 40 mg tablet,delayed release (DR/EC) 40 mg PO DAILY 90 Days Qty: 90 3RF (DME) lancets 33 gauge misc See Rx Instructions .ROUTE .MEDSUPPLY Qty: 100 11RF Rx Instructions: Use 1 lancet once a day (DME) blood sugar diagnostic Strip See Rx Instructions .ROUTE DAILY Qty: 30 11RF Rx Instructions: Use 1 test strip once a day fluticasone propion-salmeterol 250-50 mcg/dose blister with device 1 ea PO BID Qty: 60 6RF atorvastatin 80 mg tablet 80 mg PO BEDTIME 90 Days Qty: 90 1RF fenofibrate 160 mg tablet 160 mg PO BEDTIME 90 Days Qty: 90 3RF losartan 25 mg tablet 25 mg PO DAILY Qty: 30 3RF famotidine 40 mg tablet 40 mg PO BEDTIME 30 Days Qty: 30 6RF citalopram [Celexa] 20 mg tablet 20 mg PO DAILY pregabalin [Lyrica] 150 mg capsule 150 mg PO BEDTIME (DME) diabetic shoes with inserts 7.5 See Rx Instructions .Route .MEDSUPPLY Qty: 1 0RF Rx Instructions: As directed alum-mag hydroxide-simeth [Antacid-Antigas] 200-200-20 mg/5 mL suspension PO sucralfate 100 mg/mL suspension 10 ml PO acetaminophen-codeine 120-12 mg/5 mL solution 5 ml PO Q6-8H cholecalciferol (vitamin D3) 25 mcg (1,000 unit) capsule 25 mcg PO DAILY 90 Days Qty: 90 1RF (DME) blood-glucose meter [FreeStyle Lite Meter] Kit See Rx Instructions .Route Qty: 1 0RF Rx Instructions: As directed Trulicity 0.75 mg/0.5 mL pen injector 0.75 mg subcut QWEEK 90 Days Qty: 6.5 1RF albuterol sulfate 90 mcg/actuation HFA aerosol inhaler 2 puff inhalation Q6H PRN (Reason: shortness of breath or wheezing) 30 Days Qty: 6.7 4RF ipratropium-albuterol 0.5 mg-3 mg(2.5 mg base)/3 mL solution for nebulization 3 ml inhalation Q4-6H PRN (Reason: wheezing) 30 Days Qty: 180 6RF Interventions: ED Discharge Assessment Last Done: 04/11/24 18:15 Discharge Date/Time: 04/11/24 18:16 Print Language: Yoruba
[2024-04-11 18:15] VITALS: BP 131/56; PULSE 80; RESP 18; TEMP 36.6; O2SAT 97
== END 2024-04-11 18:16 | disposition home or self-care (01) ==
PROVIDERS: Emergency Provider Emergency Medicine; PCP Internal Medicine
DX: U07.1 COVID-19 (principal); R07.89 Other chest pain; I10 Essential (primary) hypertension; R05.9 Cough, unspecified; R51.9 Headache, unspecified
CPT/HCPCS: 0241U; 71046; 80053; 85025; 93005; 99284

== ENCOUNTER 2024-04-16 07:23 | Outpatient (REF) | payer OTHER, SELFPAY ==
[2024-04-16 08:22] LABS: Appearance Urine Clear; Color Urine Yellow; Glucose Urine UA >=1000 mg/dL (Negative); Leukocyte Esterase Urine Negative (Negative); Nitrite Urine Negative (Negative); UMIC TRIGGER UA YES; Urine Blood Negative (Negative); Urine Ketones Negative (Negative); Urine Protein Negative (Neg-Trace)
[2024-04-16 08:30] LABS: Alanine Aminotransferase 20 U/L (0-40); Albumin Level 4.3 g/dL (3.5-5.0); Alkaline Phosphatase 71 U/L (39-117); Anion Gap 12 (12-20); Aspartate Amino Transferase 22 U/L (5-37); Bilirubin Total 0.2 mg/dL (0.0-1.0); Blood Urea Nitrogen 17 mg/dL (9-16); Calcium 9.8 mg/dL (8.4-10.2); Carbon Dioxide 23 mmol/L (22-29); Chloride 112 mmol/L (96-108); Estimated Glomerular Filt Rate 49; Glucose Random 88 mg/dL (60-115); Phosphorus 2.6 mg/dL (2.7-4.5); Potassium 4.2 mmol/L (3.3-5.1); Sodium 143 mmol/L (135-145)
[2024-04-16 08:32] LABS: Bacteria Urine None Seen (None Seen); Hyaline Casts Urine 0-2 /LPF (0-2); RBC Urine 0-2 /HPF (0-2); Squamous Epithelial Cell Urine 0-2 /HPF (0-2); WBC Urine 0-5 /HPF (0-5)
[2024-04-16 08:38] LABS: Parathyroid Hormone Intact 37.7 pg/mL (8.7-77.1)
[2024-04-19 23:04] LABS: Prot Elec - Alpha1 0.3 g/dL (0.2-0.3); Prot Elec - Alpha2 0.9 g/dL (0.5-0.9); Prot Elec - Beta 1 0.4 g/dL (0.4-0.6); Prot Elec - Beta 2 0.4 g/dL (0.2-0.5); Prot Elec - Gamma 0.7 g/dL (0.8-1.7); Prot Elec - Total Protein 6.6 g/dL (6.1-8.1)
== END 2024-04-16 07:24 | disposition home or self-care (01) ==
LOC: HO.LAB 07:23
PROVIDERS: PCP Internal Medicine; Visit Provider Internal Medicine Hypertension Specialist
DX: N18.9 Chronic kidney disease, unspecified (principal); E83.52 Hypercalcemia
CPT/HCPCS: 36415; 80053; 81001; 83970; 84100; 84165

== ENCOUNTER 2024-04-23 10:34 | Outpatient (AMB) | payer OTHER, SELFPAY ==
[2024-04-23 10:52] VITALS: PULSE 74; BMI 29.3
--- NOTE | 2024-04-23 10:52 | HO.NEPHOV ---
Vital Signs 04/23/24 10:52 Height 5 ft 1 in Weight 155 lb BMI 29.3 Blood Pressure Location Lt brachial Position Sitting Pulse 74 Intake Visit Reasons: 5 Months/ Conf Intake Note: 5 month follow-up feeling ok Rod Tape Operator Required: Yes Rod Tape Operator Services: Rod Tape Operator Present Rod Tape Operator Name: Meka castellano Allergies No Known Allergies [No Known Allergies*] Allergy (Verified 04/11/24 14:20) Medication List - Last Reconciled 04/23/24 by Saqib Shipley MD acetaminophen-codeine 120-12 mg/5 mL 5 mL PO Q6-8H [adult diapers pull-ups Use 1 daiper 3 to 4 times a day] albuterol sulfate 90 mcg/actuation 2 puffs inhalation Q6H PRN 30 days alcohol swabs 1 pad topical DAILY 90 days alum-mag hydroxide-simeth 200-200-20 mg/5 mL (Antacid-Antigas) mL PO atorvastatin 80 mg PO BEDTIME 90 days benzonatate 100 mg PO TID PRN betamethasone valerate 0.1% 1 appl topical BID 30 days blood sugar diagnostic Use 1 test strip once a day blood-glucose meter (FreeStyle Lite Meter kit) As directed cholecalciferol (vitamin D3) 25 mcg PO DAILY 90 days citalopram (Celexa) 20 mg PO DAILY [diabetic shoes with inserts As directed] dulaglutide (Trulicity) 0.75 mg (0.5 mL) subcut QWEEK 90 days famotidine 40 mg PO BEDTIME 30 days fenofibrate 160 mg PO BEDTIME 90 days fluticasone propion-salmeterol 250-50 mcg/dose 1 ea PO BID ipratropium-albuterol 0.5 mg-3 mg(2.5 mg base)/3 mL 3 mL inhalation Q4-6H PRN 30 days lancets Use 1 lancet once a day loratadine 10 mg PO DAILY 90 days losartan 25 mg PO DAILY nirmatrelvir-ritonavir 300 mg (150 mg x 2)-100 mg (Paxlovid) 3 ea PO PER PKG DIR 5 days pantoprazole 40 mg PO DAILY 90 days plecanatide (Trulance) 3 mg PO DAILY pregabalin (Lyrica) 150 mg PO BEDTIME sucralfate 10 mL PO HPI Comments Details: 72-year-old male with diabetes mellitus type 2, hypertension, mixed hyperlipidemia and mild depression with CKD is here for follow up. He is experiencing increased urination. No polydipsia. Here for regular follow-up. He had COVID 2 weeks ago. He has occasional leg swelling. No shortness of breath. [facility], [facility] Medical History CKD (chronic kidney disease) stage 3, GFR 30-59 ml/min Mild recurrent major depression Chronic idiopathic constipation Anemia Polyarthralgia CKD (chronic kidney disease) Skin lesion Lumbar pain COVID-19 Mixed hyperlipidemia Chronic fatigue Diabetes mellitus Insomnia HTN (hypertension) Asthma Diabetic acidosis, type II Surgical History H/O colonoscopy History of carpal tunnel surgery of right wrist (~03/2021) History of eye surgery History of knee replacement procedure of left knee H/O prostate biopsy Family History Father Diabetes Hypertension Mother Diabetes Hypertension Maternal Grandmother Stomach cancer Social History Household Members: None Housing: Apartment Are you a primary urgent care nurse practitioner to a significant other at home: No Do you presently have visiting nurse or other home services: No Alcohol intake: former Patient Tobacco Use Status: Never used Tobacco e-Cigarette/Vaping Use: Never Used Second Hand Smoke Exposure: No service: No Current occupational status: retired and disabled Cognitive needs: No Hearing needs: No Vision needs: Yes Physical Exam Vital Signs: Last Vital Signs Pulse 74 04/23/24 10:52 BMI result Body Mass Index 29.3 Const General: comfortable; No acute distress Orientation/consciousness: patient oriented x3 Eyes General: appearance normal, both eyes and all related structures Visual Barrett: normal visual barrett by confrontation Neck Neck: Yes supple and Yes no JVD Resp Effort & Inspection: normal respiratory effort and respiratory effort not decreased Auscultation: rhonchi Cardio Palpation: no palpable S3 and no palpable S4 Heart sounds: no rubs GI Inspection: Yes normal to inspection Palpation (GI): Soft to palpation Percussion: Yes normal to percussion Auscultation: normal bowel sounds General: Yes no CVA tenderness Back/Spine/Pelvis Back: no CVA tenderness Skin General skin exam: no petechiae and no purpura Neuro General: patient oriented x3 and no focal motor deficits Extrem General: No clubbing and No edema Results Reviewed Nephrology Results: Hgb 12.5 g/dl (14.0-18.0) L 04/11/24 WBC 7.5 X10*3/uL (4.8-10.8) 04/11/24 Plt Count 221 X10*3/uL (160-400) 04/11/24 Sodium 143 mmol/L (135-145) 04/16/24 Potassium 4.2 mmol/L (3.3-5.1) 04/16/24 Chloride 112 mmol/L (96-108) H 04/16/24 Carbon Dioxide 23 mmol/L (22-29) 04/16/24 BUN 17 mg/dL (9-16) H 04/16/24 Creatinine 1.42 mg/dL (0.5-1.4) H 04/16/24 Calcium 9.8 mg/dL (8.4-10.2) 04/16/24 Phosphorus 2.6 mg/dL (2.7-4.5) L 04/16/24 PTH Intact 37.7 pg/mL (8.7-77.1) 04/16/24 Urine Protein Negative mg/dL (Neg-Trace) 04/16/24 Urine Creatinine 50.71 mg/dL 02/09/24 Assessment & Plan Assessment & Plan (1) CKD (chronic kidney disease) stage 3, GFR 30-59 ml/min: Code(s): N18.30 - Chronic kidney disease, stage 3 unspecified Category: Medical Qualifiers: Chronic kidney disease stage 3 subtype: stage 3a (GFR 45-59) Qualified Code(s): N18.31 - Chronic kidney disease, stage 3a Plan: CKD in a setting of hypertension diabetes mellitus. Patient prednisone 1.4-1.3 mg/dL. Has been a bump in serum creatinine to 1.7-1.8. This is most likely due to hypoperfusion. Improved after stopping HCTZ- Cr down to 1.5 The blood pressure is well controlled Keep losartan (2) HTN (hypertension): Code(s): I10 - Essential (primary) hypertension Category: Medical Qualifiers: Hypertension type: essential hypertension Qualified Code(s): I10 - Essential (primary) hypertension Plan: Blood pressure controlled. Stay on low-sodium diet. (3) Hypercalcemia: Code(s): E83.52 - Hypercalcemia Category: Medical Plan: Ca is 1-10.5 On Vit D3 Repeat calcium was normal. No monoclonal gammopathy Orders: Orders Basic Metabolic Panel 5 Months N18.31 - Chronic kidney disease, stage 3a Coding Level of Care Code Est Pt Level 4 (08067) Diagnoses Stage 3a chronic kidney disease N18.31 Chronic kidney disease stage 3 subtype: stage 3a (GFR 45-59) Essential hypertension I10 Hypertension type: essential hypertension Hypercalcemia E83.52
== END 2024-04-23 11:04 | disposition home or self-care (01) ==
PROVIDERS: PCP Internal Medicine; Visit Provider Internal Medicine Hypertension Specialist
DX: N18.31 Chronic kidney disease, stage 3a (principal); I10 Essential (primary) hypertension; E83.52 Hypercalcemia
CPT/HCPCS: 99214

== ENCOUNTER → 2024-04-23 10:34 | Outpatient (BNVA) | payer OTHER, SELFPAY | PROVIDERS: PCP Internal Medicine; Visit Provider Internal Medicine Hypertension Specialist | DX: E11.22 Type 2 diabetes mellitus with diabetic chronic kidney disease (principal); I12.9 Hypertensive chronic kidney disease with stage 1 through stage 4 chronic kidney disease, or unspecified chronic kidney disease; N18.31 Chronic kidney disease, stage 3a; E78.5 Hyperlipidemia, unspecified; E83.52 Hypercalcemia | CPT/HCPCS: 99212 ==

== ENCOUNTER 2024-05-19 12:28 | Outpatient (AMB) | payer OTHER, SELFPAY ==
[2024-05-19 13:06] VITALS: BP 98/58; PULSE 80; O2SAT 97; BMI 29.5
--- NOTE | 2024-05-19 13:06 | A.OFFVIS_ITS ---
Vital Signs 05/19/24 13:06 Height 5 ft 1 in Weight 156 lb BMI 29.5 BP 98/58 L Blood Pressure Location Rt brachial Position Sitting Pulse 80 Pulse Source Doppler Pulse Oximetry (%) 97 Oxygen Delivery Method Room Air Intake Visit Reasons: Asthma Threshing Department Supervisor Required: Yes Threshing Department Supervisor Name: Meme Strong Johnnie Allergies No Known Allergies [No Known Allergies*] Allergy (Verified 05/19/24 13:11) HPI HPI Asthma: Details: 73-year-old gentleman, nonsmoker, ?followed for underlying moderate persistent asthma and LUIGI on CPAP.? Continue on Wixela and albuterol MDI, now with good control of his symptoms. He also continues to use his CPAP with good control of his underlying LUIGI symptoms, when he can use his machine, unfortunately he does get it off at night unknowningly a lot. He denies any recent exacerbations. He does complain of some allergy symptoms that he thinks are related to dust in his carpet. He did not complete his RAST testing. Patient is undergoing radiation therapy for esophageal cancer and is now complain of chest tightness and difficulty breathing. [facility] Medical History CKD (chronic kidney disease) stage 3, GFR 30-59 ml/min Mild recurrent major depression Chronic idiopathic constipation Anemia Polyarthralgia CKD (chronic kidney disease) Skin lesion Lumbar pain COVID-19 Mixed hyperlipidemia Chronic fatigue Diabetes mellitus Insomnia HTN (hypertension) Asthma Diabetic acidosis, type II Surgical History H/O colonoscopy History of carpal tunnel surgery of right wrist (~03/2021) History of eye surgery History of knee replacement procedure of left knee H/O prostate biopsy Family History Father Diabetes Hypertension Mother Diabetes Hypertension Maternal Grandmother Stomach cancer Social History Household Members: None Housing: Apartment Are you a primary career technical education teacher to a significant other at home: No Do you presently have visiting nurse or other home services: No Alcohol intake: former Patient Tobacco Use Status: Never used Tobacco e-Cigarette/Vaping Use: Never Used Second Hand Smoke Exposure: No service: No Current occupational status: retired and disabled Cognitive needs: No Hearing needs: No Vision needs: Yes Review of Systems Const Denies daytime sleepiness, Denies excessive sweating, Denies fatigue, Denies fever(s), Denies lethargy, Denies malaise, Denies night sweats, Denies snoring and Denies weight loss Eyes Denies blurry vision and Denies itchy eyes ENT Denies nasal congestion, Denies post nasal drip, Denies sinus pain, Denies sinus pressure and Denies other ( Thrush) Card Denies chest pain, Denies pedal edema, Reports dyspnea, Denies orthopnea, Denies paroxysmal nocturnal dyspnea and Reports other ( Chest tightness) Resp Denies cough, Denies hemoptysis, Denies excessive phlegm production, Reports dyspnea, Denies snoring and Denies wheezing GI Denies abdominal pain and Denies heartburn Musc Denies myalgias, Denies arthralgias and Denies joint swelling Skin/Breast Denies rash Neuro Denies memory loss and Denies seizure-like activity Psych Denies abnormal sleep pattern, Denies anxiety and Denies memory loss Endo Denies excessive sweating, Denies fatigue and Denies heat intolerance Winston/Lymph Denies easy bruising Aller/Immun Denies itchy eyes, Denies seasonal rhinorrhea and Denies wheezing Physical Exam Vital Signs: Last Vital Signs Pulse 80 05/19/24 13:06 BP 98/58 L 05/19/24 13:06 Pulse Ox 97 05/19/24 13:06 Oxygen Delivery Method Room Air 05/19/24 13:06 BMI result Body Mass Index 29.5 Const General: no acute distress and alert Nutritional Appearance: not obese Orientation/consciousness: Other orientation findings ( oriented) HEENT Head: Yes atraumatic Eyes General: appearance normal, both eyes and all related structures Sclerae: sclerae normal EOM: EOMs intact bilaterally Neck Neck: Yes supple Lymphatic: no lymphadenopathy noted Resp Effort & Inspection: normal respiratory effort and no use of accessory muscles Auscultation: clear to auscultation bilaterally Cardio Rate: regular rate Rhythm: regular rhythm Heart sounds: no gallops, no murmurs and no rubs Skin General skin exam: other ( warm) Extrem General: No clubbing, No cyanosis and No edema Quality Reporting (2019) Adult ([facility] 138/10/16/68) Smoking risk assessment performed?: Yes Patient Tobacco Use Status: Never used Tobacco Assessment & Plan Assessment & Plan (1) Asthma: Code(s): J45.909 - Unspecified asthma, uncomplicated Category: Medical Qualifiers: Asthma severity: mild Asthma persistence: persistent Asthma complication type: uncomplicated Qualified Code(s): J45.30 - Mild persistent asthma, uncomplicated Plan: well controlled on current regimen of Wixela, duo nebs, and albuterol MDI. Continue current regimen. (2) LUIGI on CPAP: Code(s): G47.33 - Obstructive sleep apnea (adult) (pediatric); Z99.89 - Dependence on other enabling machines and devices Category: Medical Plan: Well controlled on CPAP therapy when patient is able to use CPAP. Patient has been encouraged to use his CPAP consistently. (3) Environmental allergies: Code(s): Z91.09 - Other allergy status, other than to drugs and biological substances Category: Medical Plan: Suboptimal control. Pending RAST testing. (4) Dyspnea: Code(s): R06.00 - Dyspnea, unspecified Category: Medical Plan: With recent initiation of radiation therapy for underlying esophageal cancer in development of chest tightness and dyspnea. Will obtain CT chest and CT neck soft tissue for further evaluation. Orders: Orders CT chest wo IV con Today R06.00 - Dyspnea, unspecified PFT pulmonary function test Today R06.00 - Dyspnea, unspecified CT soft tissue neck wo IV con Today R06.00 - Dyspnea, unspecified Coding Level of Care Code Est Pt Level 4 (31423) Diagnoses Mild persistent asthma without complication J45.30 Asthma severity: mild Asthma persistence: persistent Asthma complication type: uncomplicated LUIGI on CPAP G47.33; Z99.89 Environmental allergies Z91.09 Dyspnea R06.00
== END 2024-05-19 13:25 | disposition home or self-care (01) ==
PROVIDERS: PCP Internal Medicine; Visit Provider Internal Medicine Pulmonary Disease
DX: J45.30 Mild persistent asthma, uncomplicated (principal); G47.33 Obstructive sleep apnea (adult) (pediatric); Z99.89 Dependence on other enabling machines and devices; Z91.09 Other allergy status, other than to drugs and biological substances; R06.00 Dyspnea, unspecified
CPT/HCPCS: 99214

== ENCOUNTER 2024-05-19 12:28 | Outpatient (REF) | payer OTHER, SELFPAY ==
[2024-05-21 22:23] LABS: Class Alternaria alternata 0; Class Aspergillus fumigatus 0; Class Bermuda Grass 0; Class Birch 0; Class Cat Dander 0; Class Cladosporium herbarum 0; Class Cockroach 0; Class Common Ragweed 0; Class Cottonwood 0; Class Derm. pterony 0; Class Dermatophagoides farinae 0; Class Dog Dander 0; Class Elm 0; Class Maple Box Elder 0; Class Mountain Cedar 0; Class Mouse Urine Protein 0; Class Mugwort 0; Class Oak 0; Class Penicillium crysogenum 0; Class Rough Pigweed 0; Class Sheep Sorrel 0; Class Sycamore 0; Class Timothy Grass 0; Class Walnut Tree 0; Class White Ash 0; Class White Mulberry 0; D001 IgE D pteronyssinus <0.10 kU/L; D002 - IgE D farinae <0.10 kU/L; E001 - IgE Cat Dander <0.10 kU/L; E005 - IgE Dog Dander <0.10 kU/L; E072-IgE Mouse Urine <0.10 kU/L; G002 IgE Bermuda Grass <0.10 kU/L; G006 - IgE Timothy Grass <0.10 kU/L; I006-IgE Cockroach, German <0.10 kU/L; Immunoglobulin E 27 kU/L (<OR=114); M001 IgE Penicillium chrysogen <0.10 kU/L; M002 - IgE Cladosporium herbar <0.10 kU/L; M003 - IgE Aspergillus fumigat <0.10 kU/L; M006 - IgE Alternaria alternat <0.10 kU/L; T001 IgE Maple/Box Elder <0.10 kU/L; T003 IgE Common Silver Birch <0.10 kU/L; T006 - IgE Cedar, Mountain <0.10 kU/L; T007 - IgE Oak, White <0.10 kU/L; T008 IgE Elm, American <0.10 kU/L; T010 - IgE Walnut <0.10 kU/L; T011 - IgE Maple Leaf Sycamore <0.10 kU/L; T014 - IgE Cottonwood <0.10 kU/L; T015 - IgE Ash, White <0.10 kU/L; T070 - IgE White Mulberry <0.10 kU/L; W001 - IgE Ragweed, Short <0.10 kU/L; W006 - IgE Mugwort <0.10 kU/L; W014 IgE Pigweed, Common <0.10 kU/L; W018 IgE Sheep Sorrel <0.10 kU/L
== END 2024-05-19 12:29 | disposition home or self-care (01) ==
LOC: HO.LAB 12:28
PROVIDERS: PCP Internal Medicine; Visit Provider Internal Medicine Pulmonary Disease
DX: J45.30 Mild persistent asthma, uncomplicated (principal); G47.33 Obstructive sleep apnea (adult) (pediatric); Z99.89 Dependence on other enabling machines and devices; Z91.09 Other allergy status, other than to drugs and biological substances; R06.00 Dyspnea, unspecified
CPT/HCPCS: 36415; 82785; 86003; 99212

== ENCOUNTER 2024-06-17 12:43 | Outpatient (REF) | payer OTHER, SELFPAY ==
--- NOTE | 2024-06-17 13:05 | PFT_ITS ---
Flows: FEV1: 123 % of predicted at 2.73 L FVC: 119 % of predicted at 3.42 L FEV1/FVC: 80 % Bronchodilator response: Not performed Volumes: Total lung capacity: 101 % of predicted at 5.03 L Residual volume: 86 % of predicted at 1.60 L Slow vital capacity: 110 % of predicted at 3.43 L Expiratory reserve volume: 111 % of predicted at 0.81 L Diffusion capacity: Normal Impression: No obstructive or restrictive ventilatory defect. Bronchodilator testing was not performed. Essentially normal pulmonary function test. MTDD
== END 2024-06-17 12:44 | disposition home or self-care (01) ==
LOC: HO.RESP 12:43
PROVIDERS: PCP Internal Medicine; Visit Provider Hospitalist
DX: R06.00 Dyspnea, unspecified (principal)
CPT/HCPCS: 94010; 94640; 94727; 94729

== ENCOUNTER → 2024-06-17 13:05 | Outpatient (BNV) | payer OTHER, SELFPAY | PROVIDERS: PCP Internal Medicine; Visit Provider Internal Medicine Pulmonary Disease | DX: R06.00 Dyspnea, unspecified (principal) | CPT/HCPCS: 94060; 94727; 94729 ==

== ENCOUNTER 2024-07-02 13:55 | Outpatient (REF) | payer OTHER, SELFPAY ==
--- NOTE | ~2024-07-02 | CT_ITS ---
. EXAMINATION: CT SOFT TISSUE NECK WITHOUT IV CONTRAST.. CLINICAL INFORMATION: Shortness of breath, unspecified. COMPARISON: No priors. TECHNIQUE: Contiguous axial images through the soft tissue neck from the skull base to thoracic inlet using 2 mm collimation without the IV contrast administration. Sagittal and coronal reformatted images acquired. DLP: 321 mG-cm. FINDINGS: Submitted for interpretation on July 29, 2024. Limited examination of the soft tissue structures due to lack of IV contrast. Skull base, nasopharynx, retropharynx, oropharynx, hypopharynx and larynx demonstrated soft tissue fullness centered in the right piriform sinus extending into the posterior para glottic fat.. Oral cavity, sublingual and submandibular compartments demonstrated no gross masses, calcifications or fluid collections. Commissioned Fire Officer spaces, parapharyngeal and carotid compartments demonstrated no gross mass or fluid collection. The thyroid gland is not enlarged. No gross lymphadenopathy. Salivary glands demonstrated no calcifications or gross enlargement.. Calcified plaques in the aortic arch and its main branches. Calcified plaques in the carotid bulbs and both ICA. Multilevel cervical thoracic spondylosis resulting in grade 1 anterolisthesis, C4-5, C5-6 levels. Calcified plaques in the cavernous supracavernous segments both ICA. Calcified plaques in the V4 segments of the vertebral arteries. Multifocal old lacunar infarcts in patchy deep periventricular white matter hypodensities. Poor dentition. CT/CT soft tissue neck wo IV con IMPRESSION: Concerning soft tissue lesion, right piriform sinus. Recommend direct infection. Small vessel occlusive disease. Electronically signed by: Doug Quiroga MD 07/29/2024 03:48 PM LAYLA
--- NOTE | ~2024-07-02 | CT_ITS ---
EXAMINATION: CT CHEST WITHOUT CONTRAST CLINICAL INFORMATION: Dyspnea, unspecified. COMPARISON: None available. TECHNIQUE: Multidetector volumetric CT imaging of the chest was done. Axial MIP volume rendering provided. Sagittal and coronal reformatted images were obtained. This CT examination was performed using dose optimization techniques as appropriate, variously including the following: *Automated exposure control *Adjustment of mA and/or kV according to patient size (this includes techniques or standardized protocols for targeted exams where dose is matched to indication/reason for exam; i.e. extremities or head) *Use of iterative reconstruction technique DLP: 279 mGy-cm FINDINGS: Submitted for interpretation on July 29, 2024. Limited evaluation of the mediastinal structures due to lack of IV contrast. Linear and patchy opacities in the lingula, right middle lobe and lung bases. No gross consolidation, pleural effusion or pneumothorax. No bronchiectasis. No honeycombing. 4 mm thin wall cyst in the apical segment right upper lobe. No gross pulmonary nodule. No gross lymphadenopathy, mediastinum. No aneurysm, thoracic aorta. Calcified plaques in the thoracic aorta wall extending branches and the coronary arteries. No pericardial effusion. The thyroid gland is not enlarged. Multilevel cervical thoracic and upper lumbar spondylosis. There is diffuse syndesmophyte formation and desiccation the anterior longitudinal ligament throughout the axial skeleton. No acute fracture or listhesis. No lytic or blastic lesions. There is a nodular surface of the liver. Small hiatal hernia. Abundant food contents in the stomach. Small accessory spleen. Calcified plaque abdominal aorta wall and the included mesenteric arteries and renal arteries. CT/CT chest wo IV con IMPRESSION: No acute airspace disease. No gross lymphadenopathy. Atherosclerosis disease and coronary artery disease. Concerning hepatocellular disease versus cirrhosis. Fleischner guidelines were followed. Electronically signed by: Doug Quiroga MD 07/29/2024 03:57 PM EST
== END 2024-07-02 13:56 | disposition home or self-care (01) ==
LOC: HO.CT 13:55
PROVIDERS: PCP Internal Medicine; Visit Provider Internal Medicine Pulmonary Disease
DX: R06.00 Dyspnea, unspecified (principal)
CPT/HCPCS: 70490; 71250

== ENCOUNTER → 2024-07-02 13:58 | Outpatient (BNV) | payer OTHER, SELFPAY | PROVIDERS: PCP Internal Medicine; Visit Provider Radiology Diagnostic Radiology | DX: R06.02 Shortness of breath (principal); R06.00 Dyspnea, unspecified | CPT/HCPCS: 70490; 71250 ==

== ENCOUNTER 2024-07-12 12:14 | Outpatient (AMB) | payer OTHER, SELFPAY ==
--- NOTE | 2024-07-12 12:16 | A.OFFPC_ITS ---
Vital Signs 07/12/24 12:20 Height 5 ft 1 in Weight 164 lb BMI 31.0 BP 122/60 Blood Pressure Location Lt brachial Position Sitting Pulse 83 Pulse Source Pulse Oximeter Pulse Oximetry (%) 96 Oxygen Delivery Method Room Air Intake Visit Reasons: 4mth f/u Intake Note: Patient here for a 4 month follow up Paver Layer Required: No Accompanied by: Self / Same As Patient Allergies No Known Allergies [No Known Allergies*] Allergy (Verified 07/12/24 12:47) Medication List - Last Reconciled 07/12/24 by Clara Amaral MD acetaminophen-codeine 120-12 mg/5 mL 5 mL PO Q6-8H [adult diapers pull-ups Use 1 daiper 3 to 4 times a day] albuterol sulfate 90 mcg/actuation 2 puffs inhalation Q6H PRN 30 days alcohol swabs 1 pad topical DAILY 90 days alum-mag hydroxide-simeth 200-200-20 mg/5 mL (Antacid-[place]) mL PO atorvastatin 80 mg PO BEDTIME 90 days betamethasone valerate 0.1% 1 appl topical BID 30 days blood sugar diagnostic Use 1 test strip once a day blood-glucose meter (FreeStyle Lite Meter kit) As directed cholecalciferol (vitamin D3) 25 mcg PO DAILY 90 days citalopram (Celexa) 20 mg PO DAILY [diabetic shoes with inserts As directed] dulaglutide (Trulicity) 0.75 mg (0.5 mL) subcut QWEEK 90 days famotidine 40 mg PO BEDTIME 30 days fenofibrate 160 mg PO BEDTIME 90 days fluticasone propion-salmeterol 250-50 mcg/dose 1 ea PO BID ipratropium-albuterol 0.5 mg-3 mg(2.5 mg base)/3 mL 3 mL inhalation Q4-6H PRN 30 days lancets Use 1 lancet once a day latex gloves (Latex Gloves, Large) As directed loratadine 10 mg PO DAILY 90 days losartan 25 mg PO DAILY pantoprazole 40 mg PO DAILY 90 days plecanatide (Trulance) 3 mg PO DAILY pregabalin (Lyrica) 150 mg PO BEDTIME sucralfate 10 mL PO [wipes As directed] Tobacco use date assessed: 09/15/23 Fall risk assessment: No Falls in past year Last assessed Fall Risk: 07/12/24 Dental Screening Dental Screen Date: 10/22/23 Did you have a dental visit in the last 12 months?: No Did you have a dental problem in the last 6 months where you did not have access to dental care?: No Was dental information given to patient?: Patient has dentist HPI HPI Comments History of Present Illness Details The patient is a 73-year-old male presenting with concerns regarding medication management and ongoing monitoring of chronic health conditions. He is currently managing several chronic conditions, including Type 2 Diabetes Mellitus, with an optimal A1c of 5.6. The patient is on atorvastatin for hy perlipidemia, famotidine and pantoprazole for GERD, and losartan for hypertension. He reports using various inhalers, including albuterol on an as- needed basis, approximately twice a month. He also uses other inhalers daily for respiratory management. Additionally, the patient has a history of Anderson's and pre-cancerous esophageal lesions, for which he is under the care of a neonatal surgeon with a follow-up scheduled. He denies chest pain or dyspnea, suggesting arthritis as a potential source of discomfort. There is ongoing management for dry mouth and insomnia, which he mentions could be related to his medication regimen. He has complained about polypharmacy and the resulting dryness. His medical review includes recent ophthalmologic and pulmonary evaluations as part of his diabetes management and chronic disease surveillance. He also has mild recurrent major depression stable with citalopram and has chronic kidney disease stage 3 in which last GFR was 49 which was markedly impro kari. [facility] Medical History CKD (chronic kidney disease) stage 3, GFR 30-59 ml/min Mild recurrent major depression Chronic idiopathic constipation Anemia Polyarthralgia CKD (chronic kidney disease) Skin lesion Lumbar pain COVID-19 Mixed hyperlipidemia Chronic fatigue Diabetes mellitus Insomnia HTN (hypertension) Asthma Diabetic acidosis, type II Surgical History H/O colonoscopy History of carpal tunnel surgery of right wrist (~03/2021) History of eye surgery History of knee replacement procedure of left knee H/O prostate biopsy Family History Father Diabetes Hypertension Mother Diabetes Hypertension Maternal Grandmother Stomach cancer Social History Household Members: None Housing: Apartment Are you a primary healthcare insurance sales agent to a significant other at home: No Do you presently have visiting nurse or other home services: No Alcohol intake: former Patient Tobacco Use Status: Never used Tobacco e-Cigarette/Vaping Use: Never Used Second Hand Smoke Exposure: No service: No Current occupational status: retired and disabled Cognitive needs: No Hearing needs: No Vision needs: Yes Questionnaire Thrive Questionnaire Date Thrive assessed: 09/15/23 DICKSON-7 AMB Questionnaire DICKSON-7 Date DICKSON - 7 assessed: 09/15/23 Source: Developed by Drs. López Faust, Julieta Hurd, Ayo Contreras and colleagues, with an educational lindy from [employer]. Review of Systems Const All systems reviewed & are unremarkable except as noted in HPI and below Card Denies chest pain at rest, Denies chest pain with activity, Denies edema, Denies irregular heart rhythm, Denies claudication, Denies dyspnea, Denies dyspnea on exertion, Denies orthopnea, Denies paroxysmal nocturnal dyspnea and Denies slow heart rate Resp Denies cough, Denies dyspnea and Denies dyspnea on exertion GI Denies abdominal pain, Denies change in bowel habits, Denies excessive flatus, Denies nausea and Denies vomiting Physical exam (Primary Care) Vital Signs: Last Vital Signs Pulse 83 07/12/24 12:20 BP 122/60 07/12/24 12:20 Pulse Ox 96 07/12/24 12:20 Oxygen Delivery Method Room Air 07/12/24 12:20 BMI result Body Mass Index 31.0 Tobacco/Smoking Status: Tobacco use Status Tobacco use date assessed 09/15/23 07/12/24 12:18 Patient Tobacco Use Status Never used Tobacco 07/12/24 12:18 e-Cigarette/Vaping Use Never Used 07/12/24 12:18 Thrive Assessment: Date of Thrive Assessment Date Thrive assessed 09/15/23 07/12/24 12:18 Resp Effort & Inspection: normal respiratory effort Auscultation: clear to auscultation bilaterally Cardio Jugular venous distension: no JVD Rate: regular rate Rhythm: regular rhythm Heart sounds: S1 normal heart sound present and S2 normal heart sound present Extrem General: Yes full ROM Results AMB Hemoglobin A1c AMB Hemoglobin A1c 5.6 % Last Edit by DEBRA Lin on 07/12/24 12:3 8 Results Reviewed Results Reviewed: Laboratory Last Values Hgb A1c (Clinic) 5.6 % (4.0-6.0) 07/12/24 12:24 Coding Level of Care Code Est Pt Level 4 (83583) Complex EM visit Add On G2211 Diagnoses Stage 3a chronic kidney disease N18.31 Chronic kidney disease stage 3 subtype: stage 3a (GFR 45-59) Mild recurrent major depression F33.0 Type 2 diabetes mellitus with hyperglycemia, without long-term current use of insulin E11.65 Diabetes mellitus type: type 2 Diabetes mellitus longterm insulin use: without longterm use Diabetes mellitus complication status: with hyperglycemia Essential hypertension I10 Hypertension type: essential hypertension Gastroesophageal reflux disease, unspecified whether esophagitis present K21.9 Esophagitis presence: esophagitis presence not specified Time Spent (min) 23 Assessment & Plan Assessment & Plan (1) CKD (chronic kidney disease) stage 3, GFR 30-59 ml/min: Code(s): N18.30 - Chronic kidney disease, stage 3 unspecified Category: Medical Qualifiers: Chronic kidney disease stage 3 subtype: stage 3a (GFR 45-59) Qualified Code(s): N18.31 - Chronic kidney disease, stage 3a Plan: Avoid NSAIDs. Follow-up with nephrology. Keep blood pressure less than 130/80. (2) Mild recurrent major depression: Code(s): F33.0 - Major depressive disorder, recurrent, mild Category: Medical Plan: Continue citalopram. (3) Diabetes mellitus: Code(s): E11.9 - Type 2 diabetes mellitus without complications Category: Medical Qualifiers: Diabetes mellitus type: type 2 Diabetes mellitus termite treater helper insulin use: without longterm use Diabetes mellitus complication status: with hyperglycemia Qualified Code(s): E11.65 - Type 2 diabetes mellitus with hyperglycemia Plan: Continue Jardiance. A1c goal is equal or less than 7%. (4) HTN (hypertension): Code(s): I10 - Essential (primary) hypertension Category: Medical Qualifiers: Hypertension type: essential hypertension Qualified Code(s): I10 - Essential (primary) hypertension Plan: Continue losartan. Blood pressure goal is equal or less than 130/80. (5) GERD (gastroesophageal reflux disease): Code(s): K21.9 - Gastro-esophageal reflux disease without esophagitis Category: Medical Qualifiers: Esophagitis presence: esophagitis presence not specified Qualified Code(s): K21.9 - Gastro-esophageal reflux disease without esophagitis Plan: Continue PPIs. Plan - Type 2 Diabetes Mellitus: Continue current medication regimen, including Trulicity and Jardiance. Regular monitoring of blood glucose levels and appropriate lifestyle modifications are recommended. - Hyperlipidemia: Continue atorvastatin and dietary adjustments as previously advised. - GERD: Maintain current medication plan with famotidine and pantoprazole, and follow any dietary restrictions as recommended. - Hypertension: Maintain losartan regimen, monitor blood pressure regularly. - Respiratory Issues: Continue daily inhaler use as prescribed, albuterol to be used as needed for acute episodes. - Pre-cancerous Esophageal Lesions: Continue follow-up with gastroenterology, next appointment scheduled. - Polypharmacy: Discuss possible medication adjustments with specialists if dry mouth and insomnia persist. - Arthritis: Manage symptoms as necessary with [id number] pain relief if applicable. Patient was informed and verbally consented to the use of an ambient scribe for clinic note documentation during this visit. During the visit, we reviewed the patient's current chronic health condition management, particularly focusing on medication efficacy and side effects, such as dryness of the mouth associated with polypharmacy. We discussed the maintenance of blood glucose levels, reflecting on an optimal A1c level of 5.6, indicating well-controlled diabetes. Additionally, the necessity of continuous follow-ups with the neonatal surgeon and hay sorter was emphasized. The patient was informed about ongoing laboratory tests to monitor kidney, liver, and cholesterol levels. Discussions included the potential influence of his medication regimen on reported symptoms of insomnia and dry mouth, and the possibility of needing adjustments. We also talked about the effective use of rescue inhalers for respiratory issues and the continuation of current medications for hypertension and hyperlipidemia. Orders: Orders Lipid Panel Today E78.5 - Hyperlipidemia, unspecified Microalbumin, Random (w Creat) Today R80.9 - Proteinuria, unspecified Comprehensive [place]. Panel Fast Today N18.31 - Chronic kidney disease, stage 3a Vitamin D 25-OH Total Today E55.9 - Vitamin D deficiency, unspecified AMB Hemoglobin A1c Today E11.65 - Type 2 diabetes mellitus with hyperglycemia Medications: New empagliflozin (Jardiance) 25 mg PO DAILY 90 days 90 tabs 1RF Patient Instructions: - Continue all prescribed medications as directed. - Use the rescue inhaler as needed, but no more than advised by your horizontal boring mill operator. - Complete upcoming lab tests for kidney, liver, and cholesterol monitoring. - Follow dietary recommendations to manage GERD symptoms. - Attend follow-up gastroenterology appointment as scheduled. - Monitor blood pressure and blood glucose levels regularly. - Contact for further evaluation if new symptoms arise or if existing symptoms are exacerbated.
[2024-07-12 12:20] VITALS: BP 122/60; PULSE 83; O2SAT 96; BMI 31.0
== END 2024-07-12 12:57 | disposition home or self-care (01) ==
PROVIDERS: PCP Internal Medicine; Visit Provider Internal Medicine
DX: N18.31 Chronic kidney disease, stage 3a (principal); F33.0 Major depressive disorder, recurrent, mild; E11.65 Type 2 diabetes mellitus with hyperglycemia; I10 Essential (primary) hypertension; K21.9 Gastro-esophageal reflux disease without esophagitis

== ENCOUNTER → 2024-07-12 12:14 | Outpatient (BNVA) | payer OTHER, SELFPAY | PROVIDERS: PCP Internal Medicine; Visit Provider Internal Medicine | DX: I12.9 Hypertensive chronic kidney disease with stage 1 through stage 4 chronic kidney disease, or unspecified chronic kidney disease (principal); E11.22 Type 2 diabetes mellitus with diabetic chronic kidney disease; N18.31 Chronic kidney disease, stage 3a; F33.0 Major depressive disorder, recurrent, mild; K21.9 Gastro-esophageal reflux disease without esophagitis | CPT/HCPCS: 83036; 99212 ==

== ENCOUNTER 2024-07-16 12:40 | Outpatient (AMB) | payer OTHER, SELFPAY ==
[2024-07-16 12:59] VITALS: BP 119/58; PULSE 83; O2SAT 96; BMI 30.8
--- NOTE | 2024-07-16 12:59 | MHC.OFFVIS ---
Vital Signs 07/16/24 12:59 Height 5 ft 1 in Weight 163 lb BMI 30.8 BP 119/58 L Blood Pressure Location Lt brachial Position Sitting Pulse 83 Pulse Source Doppler Pulse Oximetry (%) 96 Oxygen Delivery Method Room Air Intake Visit Reasons: Asthma Test Desk Trouble Locator Required: Yes Test Desk Trouble Locator Name: Meme JamesonDanielleRoberto Allergies No Known Allergies [No Known Allergies*] Allergy (Verified 07/16/24 13:05) HPI HPI Asthma: Details: 73-year-old gentleman, nonsmoker, ?followed for underlying moderate persistent asthma and LUIGI on CPAP.? Continue on Wixela and albuterol MDI, now with good control of his symptoms. He also continues to use his CPAP with good control of his underlying LUIGI symptoms. He denies any recent exacerbations. He does complain of some allergy symptoms that he thinks are related to dust in his carpet. His immunologic testing was essentially negative. Patient is undergoing radiation therapy for esophageal cancer and is now complain of chest tightness and difficulty breathing. [facility] Medical History CKD (chronic kidney disease) stage 3, GFR 30-59 ml/min Mild recurrent major depression Chronic idiopathic constipation Anemia Polyarthralgia CKD (chronic kidney disease) Skin lesion Lumbar pain COVID-19 Mixed hyperlipidemia Chronic fatigue Diabetes mellitus Insomnia HTN (hypertension) Asthma Diabetic acidosis, type II Surgical History H/O colonoscopy History of carpal tunnel surgery of right wrist (~03/2021) History of eye surgery History of knee replacement procedure of left knee H/O prostate biopsy Family History Father Diabetes Hypertension Mother Diabetes Hypertension Maternal Grandmother Stomach cancer Social History Household Members: None Housing: Apartment Are you a primary respiratory care program director to a significant other at home: No Do you presently have visiting nurse or other home services: No Alcohol intake: former Patient Tobacco Use Status: Never used Tobacco e-Cigarette/Vaping Use: Never Used Second Hand Smoke Exposure: No service: No Current occupational status: retired and disabled Cognitive needs: No Hearing needs: No Vision needs: Yes Review of Systems Const Denies daytime sleepiness, Denies excessive sweating, Denies fatigue, Denies fever(s), Denies lethargy, Denies malaise, Denies night sweats, Denies snoring and Denies weight loss Eyes Denies blurry vision and Denies itchy eyes ENT Denies nasal congestion, Denies post nasal drip, Denies sinus pain, Denies sinus pressure and Denies other ( Thrush) Card Denies chest pain, Denies pedal edema, Denies dyspnea, Denies orthopnea and Denies paroxysmal nocturnal dyspnea Resp Denies cough, Denies hemoptysis, Denies excessive phlegm production, Denies dyspnea, Denies snoring and Denies wheezing GI Denies abdominal pain and Denies heartburn Musc Denies myalgias, Denies arthralgias and Denies joint swelling Skin/Breast Denies rash Neuro Denies memory loss and Denies seizure-like activity Psych Denies abnormal sleep pattern, Denies anxiety and Denies memory loss Endo Denies excessive sweating, Denies fatigue and Denies heat intolerance Winston/Lymph Denies easy bruising Aller/Immun Denies itchy eyes, Denies seasonal rhinorrhea and Denies wheezing Physical Exam Vital Signs: Last Vital Signs Pulse 83 07/16/24 12:59 BP 119/58 L 07/16/24 12:59 Pulse Ox 96 07/16/24 12:59 Oxygen Delivery Method Room Air 07/16/24 12:59 BMI result Body Mass Index 30.8 Const General: no acute distress and alert Nutritional Appearance: not obese Orientation/consciousness: Other orientation findings ( oriented) HEENT Head: Yes atraumatic Eyes General: appearance normal, both eyes and all related structures Sclerae: sclerae normal EOM: EOMs intact bilaterally Neck Neck: Yes supple Lymphatic: no lymphadenopathy noted Resp Effort & Inspection: normal respiratory effort and no use of accessory muscles Auscultation: clear to auscultation bilaterally Cardio Rate: regular rate Rhythm: regular rhythm Heart sounds: no gallops, no murmurs and no rubs Skin General skin exam: other ( warm) Extrem General: No clubbing, No cyanosis and No edema Quality Reporting (2019) Adult ([facility] 138/10/16/68) Smoking risk assessment performed?: Yes Patient Tobacco Use Status: Never used Tobacco Assessment & Plan Assessment & Plan (1) Asthma: Code(s): J45.909 - Unspecified asthma, uncomplicated Category: Medical Qualifiers: Asthma severity: mild Asthma persistence: persistent Asthma complication type: uncomplicated Qualified Code(s): J45.30 - Mild persistent asthma, uncomplicated Plan: Well controlled on current regimen of Wixela, duo nebs, and albuterol MDI. Continue current regimen. (2) LUIGI on CPAP: Code(s): G47.33 - Obstructive sleep apnea (adult) (pediatric); Z99.89 - Dependence on other enabling machines and devices Category: Medical Plan: Well controlled on current CPAP therapy. Continue CPAP therapy. Medications: Refilled albuterol sulfate 90 mcg/actuation 2 puffs inhalation Q6H PRN 6.7 grams 4RF shortness of breath or wheezing 30 days Coding Level of Care Code Est Pt Level 4 (94850) Diagnoses Mild persistent asthma without complication J45.30 Asthma severity: mild Asthma persistence: persistent Asthma complication type: uncomplicated LUIGI on CPAP G47.33; Z99.89
== END 2024-07-16 13:21 | disposition home or self-care (01) ==
PROVIDERS: PCP Internal Medicine; Visit Provider Internal Medicine Pulmonary Disease
DX: J45.30 Mild persistent asthma, uncomplicated (principal); G47.33 Obstructive sleep apnea (adult) (pediatric); Z99.89 Dependence on other enabling machines and devices
CPT/HCPCS: 99214

== ENCOUNTER → 2024-07-16 12:40 | Outpatient (BNVA) | payer OTHER, SELFPAY | PROVIDERS: PCP Internal Medicine; Visit Provider Internal Medicine Pulmonary Disease | DX: J45.30 Mild persistent asthma, uncomplicated (principal); G47.33 Obstructive sleep apnea (adult) (pediatric); Z99.89 Dependence on other enabling machines and devices | CPT/HCPCS: 99212 ==

== ENCOUNTER 2024-08-12 13:29 | Outpatient (AMB) | payer OTHER, SELFPAY ==
[2024-08-12 13:32] VITALS: BP 118/58; PULSE 77; O2SAT 99; BMI 31.2
--- NOTE | 2024-08-12 13:32 | MHC.OFFVIS ---
Vital Signs 08/12/24 13:32 Height 5 ft 1 in Weight 165 lb BMI 31.2 BP 118/58 L Blood Pressure Location Rt brachial Position Sitting Pulse 77 Pulse Source Doppler Pulse Oximetry (%) 99 Oxygen Delivery Method Room Air Intake Visit Reasons: Asthma Streetsweeper Operator Required: Yes Streetsweeper Operator Name: Meme Strong SedaRoberto Allergies No Known Allergies [No Known Allergies*] Allergy (Verified 08/12/24 13:36) HPI HPI Asthma: Details: 73-year-old gentleman, nonsmoker, ?followed for underlying moderate persistent asthma and LUIGI on CPAP.? Continue on Wixela and albuterol MDI, now with good control of his symptoms. He also continues to use his CPAP with good control of his underlying LUIGI symptoms. He complains of a mild bronchitic exacerbation symptomatic with cough productive of greenish sputum. He does complain of some allergy symptoms that he thinks are related to dust in his carpet. His immunologic testing was essentially negative. Patient is undergoing radiation therapy for esophageal cancer and is now complain of chest tightness and difficulty breathing. CT soft tissue source an echo was obtained and piriform sinus lesion was noted. Patient now has ENT evaluation pending. [facility] History CKD (chronic kidney disease) stage 3, GFR 30-59 ml/min Mild recurrent major depression Chronic idiopathic constipation Anemia Polyarthralgia CKD (chronic kidney disease) Skin lesion Lumbar pain COVID-19 Mixed hyperlipidemia Chronic fatigue Diabetes mellitus Insomnia HTN (hypertension) Asthma Diabetic acidosis, type II Surgical History H/O colonoscopy History of carpal tunnel surgery of right wrist (~03/2021) History of eye surgery History of knee replacement procedure of left knee H/O prostate biopsy Family History Father Diabetes Hypertension Mother Diabetes Hypertension Maternal Grandmother Stomach cancer Social History Household Members: None Housing: Apartment Are you a primary health care analyst to a significant other at home: No Do you presently have visiting nurse or other home services: No Alcohol intake: former Patient Tobacco Use Status: Never used Tobacco e-Cigarette/Vaping Use: Never Used Second Hand Smoke Exposure: No service: No Current occupational status: retired and disabled Cognitive needs: No Hearing needs: No Vision needs: Yes Review of Systems Const Denies daytime sleepiness, Denies excessive sweating, Denies fatigue, Denies fever(s), Denies lethargy, Denies malaise, Denies night sweats, Denies snoring and Denies weight loss Eyes Denies blurry vision and Denies itchy eyes ENT Denies nasal congestion, Denies post nasal drip, Denies sinus pain, Denies sinus pressure and Denies other ( Thrush) Card Denies chest pain, Denies pedal edema, Denies dyspnea, Denies orthopnea and Denies paroxysmal nocturnal dyspnea Resp Reports cough, Denies hemoptysis, Reports excessive phlegm production, Denies dyspnea, Denies snoring and Denies wheezing GI Denies abdominal pain and Denies heartburn Musc Denies myalgias, Denies arthralgias and Denies joint swelling Skin/Breast Denies rash Neuro Denies memory loss and Denies seizure-like activity Psych Denies abnormal sleep pattern, Denies anxiety and Denies memory loss Endo Denies excessive sweating, Denies fatigue and Denies heat intolerance Winston/Lymph Denies easy bruising Aller/Immun Denies itchy eyes, Denies seasonal rhinorrhea and Denies wheezing Physical Exam Vital Signs: Last Vital Signs Pulse 77 08/12/24 13:32 BP 118/58 L 08/12/24 13:32 Pulse Ox 99 08/12/24 13:32 Oxygen Delivery Method Room Air 08/12/24 13:32 BMI result Body Mass Index 31.2 Const General: no acute distress and alert Nutritional Appearance: not obese Orientation/consciousness: Other orientation findings ( oriented) HEENT Head: Yes atraumatic Eyes General: appearance normal, both eyes and all related structures Sclerae: sclerae normal EOM: EOMs intact bilaterally Neck Neck: Yes supple Lymphatic: no lymphadenopathy noted Resp Effort & Inspection: normal respiratory effort and no use of accessory muscles Auscultation: clear to auscultation bilaterally Cardio Rate: regular rate Rhythm: regular rhythm Heart sounds: no gallops, no murmurs and no rubs Skin General skin exam: other ( warm) Extrem General: No clubbing, No cyanosis and No edema Quality Reporting (2019) Adult ([facility] 138/10/16/68) Smoking risk assessment performed?: Yes Patient Tobacco Use Status: Never used Tobacco Assessment & Plan Assessment & Plan (1) Asthma: Code(s): J45.909 - Unspecified asthma, uncomplicated Category: Medical Qualifiers: Asthma severity: mild Asthma persistence: persistent Asthma complication type: uncomplicated Qualified Code(s): J45.30 - Mild persistent asthma, uncomplicated Plan: Baseline controlled on Wixela, duo nebs and albuterol MDI. Will treat bronchitic exacerbation with a course of Levaquin. (2) LUIGI on CPAP: Code(s): G47.33 - Obstructive sleep apnea (adult) (pediatric); Z99.89 - Dependence on other enabling machines and devices Category: Medical Plan: Patient has difficulties using his CPAP as he does not have replacement water chamber and is not sure which company provides his supplies. Patient advised on establishing who his DME supplier is. Medications: New levofloxacin 750 mg PO DAILY 7 tabs 0RF Refilled ipratropium-albuterol 0.5 mg-3 mg(2.5 mg base)/3 mL 3 mL inhalation Q4-6H 30 days PRN 180 mL 6RF wheezing Coding Level of Care Code Est Pt Level 4 (15630) Complex EM visit Add On G2211 Diagnoses Mild persistent asthma without complication J45.30 Asthma severity: mild Asthma persistence: persistent Asthma complication type: uncomplicated LUIGI on CPAP G47.33; Z99.89
== END 2024-08-12 14:02 | disposition home or self-care (01) ==
PROVIDERS: PCP Internal Medicine; Visit Provider Internal Medicine Pulmonary Disease
DX: J45.30 Mild persistent asthma, uncomplicated (principal); G47.33 Obstructive sleep apnea (adult) (pediatric); Z99.89 Dependence on other enabling machines and devices
CPT/HCPCS: 99214; G2211

== ENCOUNTER → 2024-08-12 13:29 | Outpatient (BNVA) | payer OTHER, SELFPAY | PROVIDERS: PCP Internal Medicine; Visit Provider Internal Medicine Pulmonary Disease | DX: J45.30 Mild persistent asthma, uncomplicated (principal); G47.33 Obstructive sleep apnea (adult) (pediatric); Z99.89 Dependence on other enabling machines and devices | CPT/HCPCS: 99212 ==

== ENCOUNTER 2024-09-14 07:04 | Outpatient (REF) | payer OTHER, SELFPAY ==
[2024-09-14 07:53] LABS: Alanine Aminotransferase 21 U/L (0-40); Albumin Level 4.6 g/dL (3.5-5.0); Alkaline Phosphatase 63 U/L (39-117); Anion Gap 11 (12-20); Aspartate Amino Transferase 23 U/L (5-37); Bilirubin Total 0.5 mg/dL (0.0-1.0); Blood Urea Nitrogen 31 mg/dL (9-16); Calcium 9.1 mg/dL (8.4-10.2); Carbon Dioxide 23 mmol/L (22-29); Chloride 110 mmol/L (96-108); Cholesterol 155 mg/dL (<200); Estimated Glomerular Filt Rate 47; Glucose Fasting 114 mg/dL (60-99); HDL Cholesterol 52 mg/dL (>40); LDL Cholesterol Calculated 82 mg/dL (<100); Potassium 3.8 mmol/L (3.3-5.1); Sodium 140 mmol/L (135-145); Total Protein 7.6 g/dL (6.5-8.0); Triglycerides 106 mg/dL (<150)
[2024-09-14 08:02] LABS: Appearance Urine Clear; Color Urine Yellow; Glucose Urine UA >=1000 mg/dL (Negative); Leukocyte Esterase Urine Negative (Negative); Nitrite Urine Negative (Negative); PH 5.5 (5.0-9.0); Specific Gravity - Urine 1.025 (1.005-1.025); UMIC TRIGGER UA YES; Urine Blood Negative (Negative); Urine Ketones Negative (Negative); Urine Protein Negative (Neg-Trace)
[2024-09-14 08:05] LABS: Vitamin D 25-OH Total 31.2 ng/mL (>30)
[2024-09-14 08:07] LABS: Bacteria Urine None Seen (None Seen); Hyaline Casts Urine 0-2 /LPF (0-2); RBC Urine 0-2 /HPF (0-2); Squamous Epithelial Cell Urine 0-2 /HPF (0-2); WBC Urine 0-5 /HPF (0-5)
[2024-09-14 08:47] LABS: Creatinine Urine 74.92 mg/dL; Microalbum/Creatinine Ratio Ur 50.7 ug/mg cr (<30)
== END 2024-09-14 07:05 | disposition home or self-care (01) ==
LOC: HO.LAB 07:04
PROVIDERS: Internal Medicine Hypertension Specialist; PCP Internal Medicine; Visit Provider Internal Medicine
DX: E11.65 Type 2 diabetes mellitus with hyperglycemia (principal); N18.31 Chronic kidney disease, stage 3a; E78.5 Hyperlipidemia, unspecified; E55.9 Vitamin D deficiency, unspecified
CPT/HCPCS: 36415; 80053; 80061; 81001; 81003; 82043; 82306; 82570

== ENCOUNTER 2024-09-15 11:12 | Outpatient (REF) | payer OTHER, SELFPAY ==
[2024-09-15 12:39] LABS: Appearance Urine Clear; Color Urine Yellow; Glucose Urine UA >=1000 mg/dL (Negative); Leukocyte Esterase Urine Negative (Negative); Nitrite Urine Negative (Negative); PH 5.5 (5.0-9.0); Specific Gravity - Urine 1.025 (1.005-1.025); UMIC TRIGGER UA YES; Urine Blood Negative (Negative); Urine Ketones Negative (Negative); Urine Protein Negative (Neg-Trace)
[2024-09-15 12:45] LABS: Bacteria Urine None Seen (None Seen); Hyaline Casts Urine 0-2 /LPF (0-2); RBC Urine 0-2 /HPF (0-2); Squamous Epithelial Cell Urine 0-2 /HPF (0-2); WBC Urine 0-5 /HPF (0-5)
--- OUTSIDE RECORDS SUMMARY | 2024-09-15 12:48 | XMS_ITS | Clinical Summary ---
Author Organization [facility] Address [address] [place] [address] Care Team Providers Care Office Worker Name Role Phone Wilfredo De Jesus MD Primary Care Provider [phone] Allergies No known active allergies Medications Medication Sig Dispensed Refills Start Date End Date Status albuterol (PROVENTIL HFA; VENTOLIN HFA) 108 (90 Base) MCG/ACT inhaler INHALE 2 PUFFS EVERY 6 HOURS NEEDED FOR WHEEZING AND SHORTNESS OF BREATH. 04/29/2023 Active betamethasone dipropionate (DIPROLENE) 0.05 % cream Apply topically as needed. 04/29/2023 Active Vitamin D High Potency 25 MCG (1000 UT) capsule Take by mouth every morning. 03/24/2023 Active citalopram (CeleXA) 20 MG tablet Take 1 tablet (20 mg total) by mouth every morning. 04/29/2023 Active Trulicity 0.75 MG/0.5ML prefilled pen injection Inject under the skin once a week. Wednesdays04/21/2023 Active Jardiance 25 MG tablet Take 1 tablet (25 mg total) by mouth every morning. 04/29/2023 Active fenofibrate (TRIGLIDE) 160 MG tablet Take 1 tablet (160 mg total) by mouth nightly. 03/24/2023 Active fluticasone-salmet rome (ADVAIR) 250-50 mcg/inh diskus inhaler INHALE 1 PUFF BY MOUTH TWICE DAILY. RINSE MOUTH AFTER USING. 04/29/2023 Active losartan-hydroCHLO ROthiazide (HYZAAR) 50-12.5 MG per tablet Take 1 tablet by mouth every morning. 04/29/2023 Active Myrbetriq 50 MG ER tablet Take 1 tablet (50 mg total) by mouth nightly. 04/21/2023 Active pregabalin (LYRICA) 150 MG capsule Take 1 capsule (150 mg total) by mouth every morning. Active PANTOprazole (PROTONIX) 40 MG EC tabletIndications: Anderson's esophagus with high grade dysplasia,Gastroes ophageal reflux disease, unspecified whether esophagitis present Take 1 tablet (40 mg total) by mouth 2 (two) times a day before breakfast and dinner. 180 tablet 3 05/29/2023 Active Additional Information Patient taking differently:40 mg OralEvery morning, Reason: Other, Informant: Self, Reported on 07/24/2023 atorvastatin (LIPITOR) 80 MG tablet Take 1 tablet (80 mg total) by mouth nightly. 01/01/2023 Active sucralfate (CARAFATE) 1 GM/10ML suspensionIndicati ons:Anderson's esophagus with high grade dysplasia,Gastroes ophageal reflux disease, unspecified whether esophagitis present Take 10 mL (1 g total) by mouth 4 (four) times a day before meals and nightly. On an empty stomach. 420 mL 3 10/07/2023 Active FREESTYLE LITE strip USE DIRECTED TO TEST BLOOD SUGAR EVERY DAY 09/29/2023 Discontinue d(Patient Discharge) Active Problems No known active problems Family History Medical History Relation Name Comments Stomach cancer Brother Throat cancer Brother Diabetes Father Stomach cancer Father Diabetes Mother Stomach cancer Mother Relation Name Status Comments Brother Father Mother Social History Tobacco Use Types Packs/Day Years Used Date Smoking Tobacco: Never Smokeless Tobacco: Never Tobacco Cessation:Counseling Given: Not Answered Alcohol Use Standard Drinks/Week Comments Not Currently 0 (1 standard drink = 0.6 oz pur e alcohol) AUDIT-C Answer Date Recorded Q1: How often do you have a drink containing alcohol? Never 11/27/2023 Q2: How many drinks containi ng alcohol do you have on a typical day when you are drinking? Patient does not drink Q3: How often do you have si x or more drinks on one occasion? Never 11/27/2023 Sex and Gender Information Value Date Recorded Sex Assigned at Male 07/29/2023 7:31 AM EST Gender Identity Male 07/29/2023 7:31 AM EST Sexual Orientation Heterosexual (straight) 07/29 7:31 AM EST Last Filed Vital Signs Vital Sign Reading Time Taken Comments Blood Pressure 126/61 10/07/2023 1:11 PM EST Pulse 64 10/07/2023 1:12 PM EST Temperature 36.3 ??C (97.3 ??F) 10/07/2023 11:[address] Respiratory Rate 18 10/07/2023 1:11 PM EST Oxygen Saturation 95% 10/07/2023 1:12 PM EST Inhaled Oxygen Concentration - - Weight 71.2 kg (157 lb) 11/27/2023 11:20 AM EDT Height 154.9 cm (5' 1 ) 11/27/2023 11:20 AM EDT Body Mass Index 29.66 11/27/2023 11:20 AM EDT Plan of Treatment Health Maintenance Due Date Last Done Comments Hepatitis C Virus Screening 1950 DTaP/Tdap/Td Vaccines (1 - Tdap) 10/31/1970 Colonoscopy 10/31/1996 Pneumococcal Vaccines 50+ (1 of 1 - PCV) 10/31/2001 Zoster (Shingles) Vaccine (1 of 2) 10/31/2001 RSV Vaccine 60 years and older and Patients (1 - Risk 60-74 years 1-dose series) 2011 Influenza Vaccine 03/25/2024 COVID-19 Vaccine ( - 2023-2 5 season) 2024 11/21/2020, 10/24/2020 Hepatitis B Vaccines Aged Out No long er eligible based on patient's age to complete this topic Medical Devices Implanted Type Area Rod Pointer Device Identifier Shelf Expiration Date Model / Serial / Lot Joint Prosthesis Joint Prosthesis Knee Description:left Care Teams Office Worker Relationship Specialty Start Date End Date Wilfredo De Jesus MD [address] [place] [id number] PCP - General 05/07/23
--- OUTSIDE RECORDS SUMMARY | 2024-09-15 12:48 | XMS_ITS | Encounter Summary ---
Author Organization [facility] Address [address] [place] [address] Care Team Providers Care Category Analyst Name Role Phone Wilfredo De Jesus MD Primary Care Provider [phone] Reason for Visit * Reason Comments Med Change Request Encounter Details Date Type Department Care Team (Late st Contact Info) Description 05/30/2023 Refill [facility] [address] [facility] [address] [place] [address] Aleksandr Hill MD [address] [place] [address] [address] [place], [place] [id number] Anderson's esophagus with high grade dysplasia Social History Tobacco Use Types Packs/Day Years Used Date Smoking Tobacco: Never Smokeless Tobacco: Never Alcohol Use Standard Drinks/Week Comments Not Currently 0 (1 standard drink = 0.6 oz pur e alcohol) Sex and Gender Information Value Date Recorded Sex Assigned at Male 07/29/2023 7:31 AM EST Gender Identity Male 07/29/2023 7:31 AM EST Sexual Orientation Heterosexual (straight) 07/29 7:31 AM EST documented as of this encounter Miscellaneous Notes * Telephone Encounter - Rehana Shell MA - 06/02/2023 3:46 PM EDT Spoke with Chela (Pharmacist) at [facility] in [place], [place] stated that Patient's insurance will NOT cover the Maalox Liquid suspension. Patient would have to get it over the counter for $ 8.00. Patient was notified documented in this encounter Plan of Treatment Not on file documented as of this encounter Visit Diagnoses Diagnosis Anderson's esophagus with high grade dysplasia documented in this encounter Care Teams Category Analyst Relationship Specialty Start Date End Date Wilfredo De Jesus MD [address] [place] [id number] PCP - General 05/07/23 documented as of this encounter
--- OUTSIDE RECORDS SUMMARY | 2024-09-15 12:48 | XMS_ITS | Encounter Summary ---
Author Organization [employer] [facility] Address [address] [facility] [address] [place] [address] Care Team Providers Care Toter Name Role Phone Unavailable Primary Care Provider Unavailabl e Encounter Details Date Type Department Care Team (Latest Contact Info) Description 12/18/2018 Abstract C CONVERSIONS Dental, Provider, DDS Social History Tobacco Use Types Packs/Day Years Used Date Smoking Tobacco: Never Assessed Sex and Gender Information Value Date Recorded Sex Assigned at Male 06/24/2022 10:22 AM EDT Legal Sex Male 10:22 AM EDT Gender Identity Male 06/24/2022 10:22 AM EDT Sexual Orientation Straight 06/24/2022 10 :22 AM EDT documented as of this encounter Plan of Treatment Not on file documented as of this encounter Visit Diagnoses Not on filedocumented in this encounter
--- OUTSIDE RECORDS SUMMARY | 2024-09-15 12:48 | XMS_ITS | Encounter Summary ---
Author Organization [facility] Address [address] [place] [address] Care Team Providers Care Records Supervisor Name Role Phone Wilfredo De Jesus MD Primary Care Provider [phone] Encounter Details Date Type Department Care Team (Late st Contact Info) Description 07/10/2023 Telephone [facility] [address] [facility] [place] [address] Aleksandr Hill MD [address] [place] [address] [address] Social History Tobacco Use Types Packs/Day Years [...] encounter Miscellaneous Notes * Telephone Encounter - Nestor Palacios - 07/10/2023 2:02 PM EST Good Afternoon I spoke to Linden Patel At [facility] We are not in network with this plan. This plan ismostly for [place] providers and when being done out of state a prior authorization is required. I submitted auth form faxed to [phone] w/ consult there is a 14 day turn around time.He stated patient may deny and need to see an in state provider. CALL CALL REF # [id number] Please have patient sign an out of network waiver. Thank you documented in this encounter Plan of Treatment Not on file documented as of this encounter Visit Diagnoses Not on filedocumented in this encounter Care Teams Records Supervisor Relationship Specialty Start Date End Date Wilfredo De Jesus MD [address] [place] [id number] PCP - General 05/07/23 documented as of this encounter
--- OUTSIDE RECORDS SUMMARY | 2024-09-15 12:48 | XMS_ITS | Clinical Summary ---
Author Organization [facility] Address [address] [place] [address] [address] [place] [address] Care Team Providers Care Pebble Mill Operator Name Role Phone Unavailable Primary Care Provider Unavailabl e Social History Tobacco Use Types Packs/Day Years Used Date Smoking Tobacco: Never Assessed Sex and Gender Information Value Date Recorded Sex Assigned at Male 06/24/2022 10:22 AM EDT Legal Sex Male 10:22 AM EDT Gender Identity Male 06/24/2022 10:22 AM EDT Sexual Orientation Straight 06/24/2022 10 :22 AM EDT Plan of Treatment Health Maintenance Due Date Last Done Comments CT Colonography 1950 Colonoscopy 1950 Colorectal Cancer Screening 1950 Dental X-Ray: Full Mouth 1950 Depression Screening 1950 FIT DNA/Cologuard 1950 FIT 1950 FOBT 1950 Lipid Panel 1950 SDOH Screening 1950 Sigmoidoscopy 1950 Alcohol/Substance Use Screening 1963 Tobacco Screening 1963 Hepatitis C Screening 10/31/1969 RSV Patients and Patients Aged 60 years or older (1 - Risk 60-74 years 1-dose series) 2011 Dental Oral Exam 07/23/2019 01/19/2019, , 07/05/2016, Additional history exists Dental X-Ray: Bitewings 10/26/2021 10/26/19, 01/19/2019, 06/19/2018, Additional history exists Dental Prophylaxis 08/15/2022 02/12/2022, 0 05/16/2021, 10/25/2020, Additional history exists COVID-19 Vaccine ( season) 2024 01/01/2022, 05/29/2021, 11/21/2020, Additional history exists Influenza Vaccine (#1) 2024 2, 05/01/2021, 05/05/2020, Additional history exists DTaP/Tdap/Td Vaccines (2 - Td or Tdap) 03/21/2027 03/21/2017 Pneumococcal Vaccine: 65+ Years Completed 06/05/2018, 03/21/2017, 05/26/2012 Zoster Vaccines Completed 08/31/2021, 06/22/2021 HIB Vaccines Aged Out No longer eligi ble based on patient's age to complete this topic HPV Vaccines Aged Out No longer eligi ble based on patient's age to complete this topic Hepatitis A Vaccines Aged Out No long er eligible based on patient's age to complete this topic Hepatitis B Vaccines Aged Out No long er eligible based on patient's age to complete this topic IPV Vaccines Aged Out No longer eligi ble based on patient's age to complete this topic Meningococcal Vaccine Aged Out No remedios delvin eligible based on patient's age to complete this topic RSV under 20 months Aged Out No longe r eligible based on patient's age to complete this topic Rotavirus Vaccines Aged Out No longer eligible based on patient's age to complete this topic Procedures Procedure Name Priority Date/Time Associated Diagnosis Comments PROPHYLAXIS - ADULT Routine 02/12/2022 1 2:00 AM EDT BITEWINGS - 4 RADIOGRAPHIC IMAGES Routine 10/25/2020 12:00 AM EST PERIODIC ORAL EVALUATION - ESTABLISHED PATIENT Routine 01/19/2019 12:00 AM EDT from Last 3 Months or Most Recently Relevant to Health Maintenance Insurance DENTAL - [facility] DENTAL - [facility]
--- OUTSIDE RECORDS SUMMARY | 2024-09-15 12:48 | XMS_ITS | Encounter Summary ---
Author Organization [employer] [facility] Address [address] [facility] [address] [place] [address] Care Team Providers Care Spring Clipper Name Role Phone Unavailable Primary Care Provider Unavailabl e Encounter Details Date Type Department Care Team (Latest Contact Info) Description 10/25/2020 Abstract [facility] CONVERSIONS Dental, Provider, DDS Social History Tobacco [...]
--- OUTSIDE RECORDS SUMMARY | 2024-09-15 12:49 | XMS_ITS | Data Portability ---
Author Organization [place] - [facility], Allergy Address [address] [facility] [address] [place] [id number] Assessment Encounter Date Assessment Date Assessment LastModified by Organization Details LastModified Time 08/13/2024 08/13/2024 73 yo M never smoker, currently being treated for esophageal cancer, presents for evaluation of the throat. He had a CT scan of the neck with contrast last month at [facility] showing soft tissue fullness centered in the right piriform sinus extending into the posterior paraglottic fat. I do not have the images to review today. I do not see any ulcerative or friable mass in the piriform sinus, including with provocative maneuvers. However given the concern and his history of the esophageal cancer, I recommended further imaging of this area with MRI. If this is also concerning for mass, would recommend EUA with possible biopsy. [email or web address] Not available 08/19/2024 07:22:21 Plan of Treatment Reminders Order Date Submit Date Provider Last Modified By Organization Details Last Modified Time Details Appointments None recorded. Lab None recorded. Referral None recorded. Procedures None recorded. Surgeries None recorded. Imaging MRI, neck, w/ contrast - attn right piriform sinus, swelling noted on CT at [place], not appreciat ed on physical exam 2023 [email or web address] ([facility]), [address], [place], [address], 4 10:24:16 Medication Orders None recorded. Patient TargetsNo targets recorded. Patient InstructionsNo instructions recorded. Reason for Referral None Reported. Results Created Date Observation Date Name Description Value Unit Range Abnormal Flag Note LastModifiedBy Organization Detail LastModifiedTime 09/01/19 25 08/28/2024 MRI, head + neck + orbit s, w/wo contr ast [facility] Access ion Number : [id number] Sandra chan Name: Mohamud Tovar Record Number : [id number] Date of : 1950 Date of Exam: 2024 Referr ing Physic clem: Cordell Gomez [facility] n [place] [address], [place] [address] [facility] [place] [address] Exam: MR Orbits , Face, Neck (C-/C+ ) CPT 49317 Room Descri ption: [place] Siem Verio 3.0T HISTOR Y: Right pirifo rm sinus lesion . TECHNI QUE: Multip lanar multis equenc e MRI of the neck was obtain ed before and after the admini strati on of 15 cc of Dotare m. COMPAR PHYLLIS: CT scan of the neck 024 perfor med at [facility] . FINDIN GS: * The left pirifo rm sinus remain s better aerate d than the right pirifo rm sinus, but there is no defini te mucosa l or submuc osal mass involv ing the right pirifo rm sinus. There is asymme trical fullne ss of the muscul ature medial to the superi or cornua of the thyroi d cartil age withou t abnorm al enhanc ement. This is normal in signal on the axial T2-shandra ghted images . The nasoph arynx, oral cavity , oropha rynx, and laryng eal struct ures are unrema rkable . The mastic ator space, paraph arynge al space, subman dibula r space, and viscer al space are unrema rkable . There is no cervic al lympha denopa thy or inflam matory change s of the neck. The subman dibula r and paroti d glands are unrema rkable . No marrow edema is noted. The visual ized brain parenc hyma is unrema rkable . Fluid is presen t within the maxill tiffanie sinuse s. IMPRES CAITLYN: 1. There is no discre te mass within the right pirifo rm sinus which remain s efface d. There is asymme trical fullne ss of the right magento web developer ior pharyn geal muscul ature adjace nt to the medial margin of the greate r cornu of the thyroi d cartil age. If there is persis tent pain or sympto matolo gy relate d to this region , follow -up edna samantha is recomm ended. 2. No cervic al lympha denopa thy. 3. Fluid within the maxill tiffanie sinuse s is nonspe cific, but could repres ent acute sinusi tis in the [facility]p [facility]. Electr onical ly Signed By: Donny Bolanos MD [facility] ([facility]) [address], [place], [address], 09/09/2024 09:08:49 Result Notes None recorded. 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 Procedures Surgical History Date Name Laterality Status Provider Name and Address Organization Details Recorded Time 08/13/20 24 Fiberoptic Laryngoscopy (Comprehensive) completed CORDELL RAMIREZ MD [address] [place] [address],[address], [phone], [facility] 08/19/2024 07:19:29 Imaging Results Imaging Date Name Status LastModified by Organiz ation Details LastModified Time 08/28/2024 MRI, head + neck + orbits, w/wo contrast completed [facility] ([facility]) [address], [place], [address], 09/09/2024 09:08:49 Procedure Notes None recorded. Medical Equipment None Reported. Medications Name Sig Start Date Stop Date Status Note LastModified by Organization Details LastModified Time fluticasone 250 mcg-salmete rol 50 mcg/dose blistr powdr for inhalation INHALE 1 PUFF BY MOUTH TWICE DAILY active Not Available Not Available No t Available atorvastati n 80 mg tablet TAKE 1 TABLET BY MOUTH EVERY DAY AT BEDTIME active Not Available Not Available No t Available ipratropium 0.5 mg-albutero l 3 mg (2.5 mg base)/3 mL nebulizatio n soln active Not Available Not Available Not Available acetaminoph en 120 mg-codeine 12 mg/5 mL oral solution TAKE 5 ML BY MOUTH EVERY 6 HOURS NEEDED FOR PAIN DO NOT EXCEED 4000 MG acetamino phen PER DAY TAKE DESPUES ENDOSCOPI A] active Not Available Not Available No t Available sucralfate 100 mg/mL oral suspension TAKE 10 ML BY MOUTH FOUR TIMES DAILY FOR 21 DAYS AFTER endoscopi a active Not Available Not Available No t Available famotidine 40 mg tablet TAKE 1 TABLET BY MOUTH EVERY DAY AT BEDTIME active Not Available Not Available No t Available citalopram 20 mg tablet TAKE 1 TABLET BY MOUTH EVERY DAY active Not Available Not Available No t Available benzonatate 100 mg capsule TAKE 1 CAPSULE BY MOUTH THREE TIMES DAILY NEEDED FOR COUGH 08/13 completed Not Available Not Available Not Available pantoprazol e 40 mg tablet,kim yed release TAKE 1 TABLET BY MOUTH TWICE DAILY active Not Available Not Available No t Available losartan 25 mg tablet TAKE 1 TABLET BY MOUTH EVERY DAY active Not Available Not Available No t Available betamethaso ne dipropionat e 0.05 % topical cream APPLY A THIN LAYER TO AFFECTED AREA(S) TWICE DAILY DIRECTED active Not Available Not Available No t Available lidocaine HCl 2 % mucosal solution TAKE 7.5ml BY MOUTH FOUR TIMES DAILY (EVERY 6 HOURS) NEEDED FOR MILD PAIN WITH maalox active Not Available Not Available No t Available levofloxaci n 750 mg tablet active Not Available Not Available Not Available albuterol sulfate HFA 90 mcg/actuati on aerosol inhaler INHALE 2 PUFFS BY MOUTH EVERY 6 HOURS NEEDED FOR WHEEZING OR SHORTNESS OF BREATH active Not Available Not Available No t Available loratadine 10 mg tablet TAKE 1 TABLET BY MOUTH ONCE DAILY active Not Available Not Available No t Available Vitamin D3 25 mcg (1,000 unit) capsule TAKE 1 CAPSULE BY MOUTH EVERY DAY active Not Available Not Available No t Available fenofibrate 160 mg tablet TAKE 1 TABLET BY MOUTH EVERY DAY AT BEDTIME active Not Available Not Available No t Available FreeStyle Lite Strips USE DIRECTED TO TEST BLOOD SUGAR EVERY DAY active Not Available Not Available No t Available FreeStyle [place] Lite kit USE DIRECTED TO TEST BLOOD SUGAR active Not Available Not Available No t Available Antacid-Ant igas 200 mg-200 mg-20 mg/5 mL oral suspension TAKE 7.5ml BY MOUTH FOUR TIMES DAILY (EVERY 6 HOURS) NEEDED FOR HEARTBURN WITH lidocaine active Not Available Not Available No t Available Myrbetriq 50 mg tablet,exte nded release TAKE 1 TABLET BY MOUTH AT BEDTIME active Not Available Not Available No t Available TRUEplus Lancets 33 gauge USE DIRECTED TO TEST BLOOD SUGAR EVERY DAY active Not Available Not Available No t Available Jardiance 25 mg tablet TAKE 1 TABLET BY MOUTH EVERY DAY active Not Available Not Available No t Available Trulicity 0.75 mg/0.5 mL subcutaneou s pen injector INJECT ONE PEN (=0.75MG) SUBCUTANE OUSLY ONCE A WEEK DIRECTED active Not Available Not Available No t Available Paxlovid 300 mg (150 mg x 2)-100 mg tablets in a dose pack TAKE 2 TABLETS (300 MG) OF NIRMATREL VIR & 1 TABLET (100 MG) OF RITONAVIR BY MOUTH TWICE DAILY FOR 5 DAYS 08/13 completed Not Available Not Available Not Available Vitals Date Recorded Body height Body mass index (BMI) Body weight Provider Name and Address Organization Details Last Updated DateTime 08/13/2024 154.94 cm 31.2 kg/m2 37189.74 g Katie Lindquist [place] - [facility] 08/13/2024 12:58:49 Social History None recorded. Functional Status None recorded. Mental Status None recorded. Family History Nothing Reported Notes:mother - DM father-DM Medical History Condition Response Cancer Y Asthma Y Sleep Disorder Y Past Encounters Encounter ID Performer Location Encounter Start Date Encounter Closed Date Diagnosis/Indication Diagnosis SNOMED-CT Code Diagnosis ICD10 Code Diagnosis Note [id number] CORDELL RAMIREZ MD [facility] [address] [id number] 08/13/2024 12:32:26 08/13/2024 13:22:11 Neoplasm of uncertain behavior of pharynx 62864432 D37.05 Health Concerns Section Related Observation LastModified by Organization Detai ls LastModified Time None Recorded Concern Status LastModified by Organization Details LastModified Time None Recorded Advance Directives Directive None Recorded Payers Encounter Date Sequence Insurance Name Policy Number Policy Dunaway Covered Member ID Dunaway Member ID Guarantor Name 08/13/2024 1 [facility] - DOS ON OR AFTER 2022 - MEDICARE [place]VANTAGE [place] (MEDICARE REPLACEMENT/ADV ANTAGE - PPO) Mohamud Carpenter [id number] Mohamud Carpenter Notes Date Note Type Note Provider Name and Address Organization Details Recorded Time 08/13/2024 text/html 73 yo M presents for evaluation of the throat. He had a CT scan of the neck with contrast last month showing soft tissue fullness centered in the right piriform sinus extending into the posterior paraglottic fat. He has esophageal cancer, has been getting radiation. 08/20/24 scheduled for endoscopy with radiation, related to [place] Some sore throat, has globus. Needs to clear throat. Occasional ear pain. Sometimes trouble swallowing. CORDELL RAMIREZ MD [address] [place] [address], [phone], [place] - [facility] 08/19/2024 07:23:40
--- OUTSIDE RECORDS SUMMARY | 2024-09-15 12:49 | XMS_ITS | Clinical Summary ---
Author Organization [facility] Address [address] [place] [address] Phone Care Team Providers Care On Site Coordinator Name Role Phone Clara Salgado MD Primary Care Provider [phone] Allergies No known active allergies Medications acetaminophen (TYLENOL) 325 MG tablet TAKE 2 TABLETS EVERY 6 HOURS NEEDED FOR PAIN 0 Active albuterol (2.5 MG/3ML) 0.083% nebulizer solution Inhale 2.5 mg 8 Active betamethasone valerate (VALISONE) 0.1 % ointment APPLY TO THE AFFECTED AREA(S) SPARINGLY TWICE DAILY 9 Active citalopram (CeleXA) 20 MG tablet Take 20 mg by mouth 1 (one) time each day 8 Active loratadine (CLARITIN) 10 MG tablet Take 10 mg by mouth 1 (one) time each day 8 Active fluticasone-sa lmeterol (ADVAIR DISKUS) 250-50 MCG/DOSE diskus inhaler INHALE 1 PUFF BY MOUTH TWICE DAILY. RINSE MOUTH AFTER USING. 2 Active pantoprazole (PROTONIX) 40 MG EC tablet Take 40 mg by mouth 1 (one) time each day 2 Active Trulance 3 MG tablet Take 1 tablet by mouth 1 (one) time each day 2 Active atorvastatin (LIPITOR) 80 MG tablet Take 80 mg by mouth at bed time 3 Active Vitamin D High Potency 25 MCG (1000 UT) capsule Take 1 capsule by mouth 1 (one) time each day 3 Active Jardiance 10 MG tablet Take 10 mg by mouth 1 (one) time each day 3 Active famotidine (PEPCID) 40 MG tablet Take 40 mg by mouth at bed time 3 Active fenofibrate (TRIGLIDE) 160 MG tablet Take 160 mg by mouth at bed time 3 Active pregabalin (LYRICA) 150 MG capsule Take 150 mg by mouth at bed time Active Trulicity 0.75 MG/0.5ML solution pen-injector INJECT ONE PEN (=0.75MG) SUBCUTANEOUSLY ONCE A WEEK DIRECTED 3 Active Active Problems Problem Noted Date Diagnosed Date Asthma 10/09/2021 Chronic kidney disease stage 3 10/09/2021 Insomnia 10/09/2021 Abdominal bloating 09/24/2021 Bilateral myopia of eyes 09/24/2021 Depressive disorder 09/24/2021 Overview (09/24/2021): Follows with Dr. Perez from psychiatry Epigastric discomfort 09/24/2021 Hypertension 09/24/2021 Hypercholesterolemia 09/24/2021 History of gastroesophageal reflux disease 09/24 Rectal hemorrhage 09/24/2021 Gastro-esophageal reflux disease without esophag itis 09/17/2019 Nodule of lung 09/02/2019 Overview (09/24/2021): CT chest pending 08/2019 Mild persistent asthma with acute exacerbation 0 03/17/2018 Atypical chest pain 12/01/2017 Overview (09/24/2021): Normal TTE 11/2017, follows with [facility]. Follows on a 6-month basis. Body mass index 30+ - obesity 11/05/2017 Anderson's esophagus 05/15/2017 Overview (09/24/2021): EGD 12/2017: No dysplasia. Next endoscopy indicated approximately 2020. 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 Rec f/u 5-7 yrs Osteoarthritis 05/15/2017 Overview (09/24/2021): C5-C7, R shoulder complete rotator cuff tear- unrepairable Obstructive sleep apnea syndrome 03/21/2017 Overview (09/24/2021): No diagnostic study on file. [facility] Polysomnogram treatment study. Date 08/16/2017. SE 64% SM 71 %; spent 10 % of the study in REM. At the optimal pressure of CPAP @ 11; RDI 0.9 (AHI 0.9), Central apneas 0; Obstructive apneas 1; Mixed apneas 0; hypopneas 0; RERAs 0; and, average oxygen saturation was 95%. For the entire study, PLMs ~52. Normocytic anemia 02/24/2017 Overview (09/24/2021): Normal iron studies, normal folate and B12. 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 02/24/2017 Overview (09/24/2021): Parasthesias of hands, h/o carpal tunnel History of alcohol abuse 02/21/2017 Overview (09/24/2021): Last drink 2013 Resolved Problems Problem Noted Date Diagnosed Date Resolved Date Type 2 diabetes mellitus without complication 09/24/19 22 01/30/2023 Immunizations Name Administration Dates Next Due Influenza Split High Dose Preservative Free IM 1 Moderna SARS-COV-2 11/21/2020,10/24/2020 Pneumococcal Conjugate 13-Valent 06/05/2018 Pneumococcal Polysaccharide 03/21/2017 Tdap 03/21/2017 Family History Medical History Relation Comments Diabetes Father Hypertension Father Cancer Maternal Grandmother Diabetes Mother Hypertension Mother Relation Status Comments Father Maternal Grandmother Mother Social History Tobacco Use Types Packs/Day Years Used Date Smoking Tobacco: Never Smokeless Tobacco: Never Tobacco Cessation:Counseling Given: Not Answered Alcohol Use Standard Drinks/Week Comments Never 0 (1 standard drink = 0.6 oz pur e alcohol) Sex and Gender Information Value Date Recorded Sex Assigned at Not on file Legal Sex Male 4:35 PM EST Gender Identity Not on file Sexual Orientation Not on file Last Filed Vital Signs Vital Sign Reading Time Taken Comments Blood Pressure 139/65 03/24/2023 1:27 PM EDT Pulse 74 03/24/2023 1:27 PM EDT Temperature - - Respiratory Rate - - Oxygen Saturation 98% 03/24/2023 1:27 PM EDT Inhaled Oxygen Concentration - - Weight 74.8 kg (164 lb 12.8 oz) 03/24/2023 1:27 PM EDT Height - - Body Mass Index - - Plan of Treatment Health Maintenance Due Date Last Done Comments Colorectal Cancer Screening: Annual FOBT 10/31/2000 Colorectal Cancer Screening: Colonoscopy 10/31/2000 Colorectal Cancer Screening: Sigmoidoscopy 10/31/2000 Diabetes: Hemoglobin A1C 08/30/2021 Diabetes: Pedal Pulse Checked 08/30/2021 Diabetes: Sensory Foot Exam 08/30/2021 Diabetes: Visual Foot Exam 08/30/2021 Diabetes: Ophthalmology Exam 12/03/202305/2023, 05/10/2022, 11/05/2021, Additional history exists Influenza Vaccine (#1) 2024 06/05/2018 Pneumococcal Vaccine: 65+ Years Completed 06/05/2018, 03/21/2017 Hepatitis B Vaccine Aged Out No longe r eligible based on patient's age to complete this topic Insurance [facility] ([id number]) [facility] ([id number]) Care Teams On Site Coordinator Relationship Specialty Start Date End Date Clara Salgado MD [address] [place], [place] PCP - General Internal Medicine 08/30/21
[2024-09-15 13:57] LABS: Creatinine Urine 58.25 mg/dL; Microalbum/Creatinine Ratio Ur 56.6 ug/mg cr (<30)
== END 2024-09-15 11:13 | disposition home or self-care (01) ==
LOC: HO.LAB 11:12
PROVIDERS: PCP Internal Medicine; Visit Provider Internal Medicine Hypertension Specialist
DX: E11.9 Type 2 diabetes mellitus without complications (principal)
CPT/HCPCS: 81001; 82043; 82570

== ENCOUNTER 2024-09-16 14:14 | Outpatient (AMB) | payer OTHER, SELFPAY ==
[2024-09-16 14:25] VITALS: BP 126/62; BMI 31.6
--- NOTE | 2024-09-16 14:25 | A.OFFPC_ITS ---
Vital Signs 09/16/24 14:25 Height 5 ft 1 in Weight 167 lb BMI 31.6 BP 126/62 Blood Pressure Location Lt brachial Position Sitting Intake Visit Reasons: Annual Exam Intake Note: Patient here for an annual physical exam Doll Dresser Required: Yes Doll Dresser Language: Watch Parts Grinder Name: Clara Amaral MD Information Interpreted: non-clinical & clinical Accompanied by: Daughter Allergies No Known Allergies [No Known Allergies*] Allergy (Verified 09/16/24 14:45) Medication List - Last Reconciled 09/16/24 by Clara Amaral MD acetaminophen-codeine 120-12 mg/5 mL 5 mL PO Q6-8H [adult diapers pull-ups Use 1 daiper 3 to 4 times a day] albuterol sulfate 90 mcg/actuation 2 puffs inhalation Q6H PRN 30 days alcohol swabs 1 pad topical DAILY 90 days alum-mag hydroxide-simeth 200-200-20 mg/5 mL (Antacid-Antigas) mL PO atorvastatin 80 mg PO BEDTIME 90 days betamethasone valerate 0.1% 1 appl topical BID 30 days blood sugar diagnostic Use 1 test strip once a day blood-glucose meter (FreeStyle Lite Meter kit) As directed cholecalciferol (vitamin D3) 25 mcg PO DAILY 90 days citalopram (Celexa) 20 mg PO DAILY [diabetic shoes with inserts As directed] dulaglutide (Trulicity) 0.75 mg (0.5 mL) subcut QWEEK 90 days empagliflozin (Jardiance) 25 mg PO DAILY 90 days famotidine 40 mg PO BEDTIME 30 days fenofibrate 160 mg PO BEDTIME 90 days fluticasone propion-salmeterol 250-50 mcg/dose 1 ea PO BID ipratropium-albuterol 0.5 mg-3 mg(2.5 mg base)/3 mL 3 mL inhalation Q4-6H PRN 30 days lancets Use 1 lancet once a day latex gloves (Latex Gloves, Large) As directed levofloxacin 750 mg PO DAILY loratadine 10 mg PO DAILY 90 days losartan 25 mg PO DAILY pantoprazole 40 mg PO DAILY 90 days plecanatide (Trulance) 3 mg PO DAILY pregabalin (Lyrica) 150 mg PO BEDTIME sucralfate 10 mL PO [wipes As directed] Tobacco use date assessed: 09/16/24 Fall risk assessment: No Falls in past year Last assessed Fall Risk: 09/16/24 Dental Screening Dental Screen Date: 09/16/24 Did you have a dental visit in the last 12 months?: No Did you have a dental problem in the last 6 months where you did not have access to dental care?: No Was dental information given to patient?: Patient has dentist HPI HPI Comments History of Present Illness Details The patient is a 73-year-old male presenting with for his physical exam. The patient has a history of type 2 diabetes mellitus, currently managed with Trulicity 0.75 mg once weekly and Jardiance 25 mg. The patient's hyperlipidemia is treated with fenofibrate, and his hypertension is controlled with losartan 25 mg. The patient also reports a history of carpal tunnel syndrome, which was previously surgically corrected. In terms of renal health, the patient's GFR has been stable at 47, with a previous decline to 35, and he asserts having a birthing nurse for kidney function monitoring. Additionally, there is a history of GERD, for which famotidine is utilized. The patient underwent an MRI at the ENT regarding sinusitis concerns, noting symptoms more prevalent on the right side. He maintains regular urology consultations as part of ongoing care. The patient's LDL level is documented at 82, and hemoglobin remains stable at 12.5. No new symptoms or changes in his chronic conditions have been noted. The patient's parents had a history of diabetes and hypertension. Depression and anxiety are managed with Citalopram. There have been no significant new events exacerbating chronic conditions, and the medicat ion regimen has remained stable. He has Anderson's esophagus with dysplasia treated by [facility]. Has chronic kidney disease with last GFR of 47 which is stage III. This will be monitor. Last colonoscopy was 2018 and was normal. Patient up-to-date with his vaccines including pneumonia, Tdap and zoster. He complains of paresthesias but more prominent in the left hand that has been present for few months. Nerve conduction study will be ordered. - Pneumonia and tetanus vaccines are cur rent. - Colonoscopy completed in 2018; next co lonoscopy due in 2028. - Vitamin D levels are normal and supple mentation is ongoing. - Hemoglobin stable at 12.5. - Recent MRI performed with no acute fac ial abnormalities. Sinus findings noted. - GFR is 47, monitored at nephrology johanne ointments. - LDL cholesterol measured at 82, closel y monitored. [facility] Medical History CKD (chronic kidney disease) stage 3, GFR 30-59 ml/min Mild recurrent major depression Chronic idiopathic constipation Anemia Polyarthralgia CKD (chronic kidney disease) Skin lesion Lumbar pain COVID-19 Mixed hyperlipidemia Chronic fatigue Diabetes mellitus Insomnia HTN (hypertension) Asthma Diabetic acidosis, type II Surgical History H/O colonoscopy History of carpal tunnel surgery of right wrist (~03/2021) History of eye surgery History of knee replacement procedure of left knee H/O prostate biopsy Family History Father Diabetes Hypertension Mother Diabetes Hypertension Maternal Grandmother Stomach cancer Social History Household Members: None Housing: Apartment Are you a primary nursing care attendant to a significant other at home: No Do you presently have visiting nurse or other home services: No Alcohol intake: former Patient Tobacco Use Status: Never used Tobacco e-Cigarette/Vaping Use: Never Used Second Hand Smoke Exposure: No service: No Current occupational status: retired and disabled Cognitive needs: No Hearing needs: No Vision needs: Yes Questionnaire PHQ-9 Over the last 2 weeks, how often have you been bothered by any of the following problems? 1. Little interest or pleasure in doing things: not at all 2. Feeling down, depressed, or hopeless: not at all 3. Trouble falling or staying asleep, or sleeping too much: not at all 4. Feeling tired or having little energy: not at all 5. Poor appetite or overeating: not at all 6. Feeling bad about yourself - or that you are a failure or have let yourself or your family down: not at all 7. Trouble concentrating on things, such as reading the newspaper or watching television: not at all 8. Moving or speaking so slowly that other people could have noticed. Or the opposite - being so fidgety or restless that you have been moving around a lot more than usual: not at all 9. Thoughts that you would be better off or of hurting yourself in some way: not at all Total score: 0 Depression Screening Interpretation: Negative Depression Screening Done: Yes 93956 - PHQ-9 Billing: Yes Source: Developed by Drs. López Faust, Julieta Hurd, Ayo Contreras and colleagues, with an educational lindy from [employer]. Thrive Questionnaire Date Thrive assessed: 09/16/24 I am a: Patient What is your living situation today?: I have a steady place to live Within the past 12 months, did the food you bought not last and you didn't have the money to get more?: Never true Within the past 12 months, did you worry whether your food would run out before you got money to buy more?: Never true Do you have trouble paying for medicines?: No Do you have trouble getting transportation to medical appointments?: No Do you have trouble paying your heating and electricity bill?: No Do you have trouble taking care of your child, family member or friend?: No Do you have trouble with day-to-day activities such as bathing, preparing meals, shopping, managing finances, etc.?: No Are you currently unemployed and looking for a job?: No Are you interested in more education?: No Please select the resources that you would like help with: None Currently or been in a relationship where the following occur: No concerns reported THRIVE Score: 0 AUDIT C Alcohol Use Questionnaire (AUDIT-C) 1. How often do you have a drink containing alcohol?: Never Total Score: 0 Score Reviewed/Action Taken: No DICKSON-7 AMB Questionnaire DICKSON-7 Date DICKSON - 7 assessed: 09/16/24 Feeling nervous, anxious, or on edge: 0 = Not at all Not being able to stop or control worryin = Not at all Worrying too much about different things: 0 = Not at all Trouble relaxin = Not at all Being so restless that it is hard to sit still: 0 = Not at all Becoming easily annoyed or irritable: 0 = Not at all Feeling afraid as if something awful might happen: 0 = Not at all Total DICKSON-7 score (0-4 normal; 5-9 mild; 10-14 moderate; 15-21 severe): 0 Source: Developed by Drs. López Faust, Julieta Hurd, Ayo Contreras and colleagues, with an educational lindy from [employer]. DICKSON-7 Assessment Billing DICKSON-7 Assessment Tool: DICKSON-7 Assessment 93335 Review of Systems Const All systems reviewed & are unremarkable except as noted in HPI and below Card Denies chest pain at rest, Denies chest pain with activity, Denies edema, Denies irregular heart rhythm, Denies claudication, Denies dyspnea, Denies dyspnea on exertion, Denies orthopnea, Denies paroxysmal nocturnal dyspnea and Denies slow heart rate Resp Denies cough, Denies dyspnea and Denies dyspnea on exertion Neuro Denies lack of coordination Physical exam (Primary Care) Vital Signs: Last Vital Signs BP 126/62 09/16/24 14:25 BMI result Body Mass Index 31.6 BMI Assessment/Plan discussion: High BMI High, discussed plan: lifestyle, weight reduction, dietary and physical activity Tobacco/Smoking Status: Tobacco use Status Tobacco use date assessed 09/16/24 09/16/24 14:30 Patient Tobacco Use Status Never used Tobacco 09/16/24 14:30 e-Cigarette/Vaping Use Never Used 09/16/24 14:30 PHQ-9: PHQ-9 Score PHQ-9: Total score 0 09/16/24 14:48 Depression Screening Interpretation: Negative Thrive Assessment: Date of Thrive Assessment Date Thrive assessed 09/16/24 09/16/24 14:30 Currently or been in a relationship where the following occur: No concerns reported [facility] Head: Yes normal to inspection, Yes normocephalic and Yes atraumatic Ears: external ears normal Eyes General: appearance normal, both eyes and all related structures Eyelids: Yes eyelids normal Conjunctivae: conjunctivae normal Neck Neck: Yes normal visual inspection and Yes supple Resp Effort & Inspection: normal respiratory effort Auscultation: clear to auscultation bilaterally Cardio Jugular venous distension: no JVD Rate: regular rate Rhythm: regular rhythm Heart sounds: S1 normal heart sound present and S2 normal heart sound present GI Inspection: Yes normal to inspection Palpation (GI): Soft to palpation and nontender Auscultation: normal bowel sounds Skin General skin exam: no rashes or lesions noted Neuro General: no focal motor deficits Extrem General: Yes full ROM Psych Appearance: grossly normal Coding Level of Care Code Est Pt Level 4 (52569) Est Pt Prev Care >65y(49514) Diagnoses Physical exam Z00.00 Type 2 diabetes mellitus with hyperglycemia, without long-term current use of insulin E11.65 Diabetes mellitus type: type 2 Diabetes mellitus truck terminal manager insulin use: without chcf use Diabetes mellitus complication status: with hyperglycemia Mild recurrent major depression F33.0 Stage 3a chronic kidney disease N18.31 Chronic kidney disease stage 3 subtype: stage 3a (GFR 45-59) Paresthesia R20.2 Additional Codes DICKSON-7 Assessment Billing - DICKSON-7 Assessment Tool: DICKSON-7 Assessment 28680 ([id number]) PHQ-9 - 46313 - PHQ-9 Billing: Yes ([id number]) Time Spent (min) 38 Assessment & Plan Assessment & Plan (1) Physical exam: Code(s): Z00.00 - Encounter for general adult medical examination without abnormal findings Category: Medical (2) Diabetes mellitus: Code(s): E11.9 - Type 2 diabetes mellitus without complications Category: Medical Qualifiers: Diabetes mellitus type: type 2 Diabetes mellitus truck terminal manager insulin use: without chcf use Diabetes mellitus complication status: with hyperglycemia Qualified Code(s): E11.65 - Type 2 diabetes mellitus with hyperglycemia (3) Mild recurrent major depression: Code(s): F33.0 - Major depressive disorder, recurrent, mild Category: Medical (4) CKD (chronic kidney disease) stage 3, GFR 30-59 ml/min: Code(s): N18.30 - Chronic kidney disease, stage 3 unspecified Category: Medical Qualifiers: Chronic kidney disease stage 3 subtype: stage 3a (GFR 45-59) Qualified Code(s): N18.31 - Chronic kidney disease, stage 3a (5) Paresthesia: Code(s): R20.2 - Paresthesia of skin Category: Medical Plan - Continue current medications for diabetes: Trulicity and Jardiance. - Maintain fenofibrate for hyperlipidemia, reassess lipid panel as needed. - Losartan to continue for hypertension management. - Monitor renal function closely, continue nephrology consultations. - Famotidine for GERD to be continued. - Vitamin D supplementation to be maintained for bone health. - Psychological support for depression and anxiety; ongoing assessment of treatment response. - Follow-up MRI results for sinusitis; may require ENT re-evaluation if symptoms persist. - Regular follow-up with all specialists recommended to ensure comprehensive management of chronic conditions. Patient was informed and verbally consented to the use of an ambient scribe for clinic note documentation during this visit. During this visit, I discussed with the patient the importance of maintaining adherence to the current medication regimen, which is effectively managing his chronic conditions. We reviewed the stability in renal function and the significance of ongoing nephrology appointments. I explained the importance of following the specialist's recommendations, particularly concerning diabetes, hypertension, and lipid levels. We reviewed the role of regular monitoring through lab tests and imaging studies, emphasizing the necessity of routine evaluations. The risks and benefits of current therapies were outlined, and the patient expressed understanding and agreement with the current management strategy. We confirmed timely completion of preventative health measures such as vaccinations and screenings, with plans for future tests appropriately scheduled. Orders: Orders Lipid Panel 4 Months E78.5 - Hyperlipidemia, unspecified Vitamin D 25-OH Total 4 Months E55.9 - Vitamin D deficiency, unspecified Comprehensive [place]. Panel Fast 4 Months N18.31 - Chronic kidney disease, stage 3a NE nerve conduction velocity Today R20.2 - Paresthesia of skin Microalbumin, Random (w Creat) 4 Months R80.9 - Proteinuria, unspecified Patient Instructions: - Continue all medications as prescribed. - Take Vitamin D supplements regularly. - Follow up with your birthing nurse as previously scheduled. - Schedule and attend your next colonoscopy in 2028. - Maintain routine ENT evaluations for sinus symptoms. - Monitor for any new symptoms or changes in health. - Ensure to follow up with specialists as advised.
== END 2024-09-16 15:00 | disposition home or self-care (01) ==
PROVIDERS: PCP Internal Medicine; Visit Provider Internal Medicine
DX: Z00.00 Encounter for general adult medical examination without abnormal findings (principal); E11.65 Type 2 diabetes mellitus with hyperglycemia; F33.0 Major depressive disorder, recurrent, mild; N18.31 Chronic kidney disease, stage 3a; R20.2 Paresthesia of skin

== ENCOUNTER → 2024-09-16 14:14 | Outpatient (BNVA) | payer OTHER, SELFPAY | PROVIDERS: PCP Internal Medicine; Visit Provider Internal Medicine | DX: Z00.00 Encounter for general adult medical examination without abnormal findings (principal); E11.65 Type 2 diabetes mellitus with hyperglycemia; F33.0 Major depressive disorder, recurrent, mild; N18.31 Chronic kidney disease, stage 3a; R20.2 Paresthesia of skin | CPT/HCPCS: 96127; 99397 ==

== ENCOUNTER 2024-09-23 09:13 | Outpatient (AMB) | payer OTHER, SELFPAY ==
[2024-09-23 09:16] VITALS: BP 112/52; PULSE 95; O2SAT 90; BMI 31.4
--- NOTE | 2024-09-23 09:16 | HO.NEPHOV ---
Vital Signs 09/23/24 09:16 Height 5 ft 1 in Weight 166 lb BMI 31.4 BP 112/52 L Blood Pressure Location Lt brachial Position Sitting Pulse 95 Pulse Source Pulse Oximeter Pulse Oximetry (%) 90 L Oxygen Delivery Method Room Air Intake Visit Reasons: CKD/ Conf Forestry Farm Laborer Required: Yes Forestry Farm Laborer Name: manas [id number] Accompanied by: Self / Same As Patient Allergies No Known Allergies [No Known Allergies*] Allergy (Verified 09/23/24 09:18) Medication List - Last Reconciled 09/23/24 by Saqib Shipley MD acetaminophen-codeine 120-12 mg/5 mL 5 mL PO Q6-8H [adult diapers pull-ups Use 1 daiper 3 to 4 times a day] albuterol sulfate 90 mcg/actuation 2 puffs inhalation Q6H PRN 30 days alcohol swabs 1 pad topical DAILY 90 days alum-mag hydroxide-simeth 200-200-20 mg/5 mL (Antacid-Antigas) mL PO atorvastatin 80 mg PO BEDTIME 90 days betamethasone valerate 0.1% 1 appl topical BID 30 days blood sugar diagnostic Use 1 test strip once a day blood-glucose meter (FreeStyle Lite Meter kit) As directed cholecalciferol (vitamin D3) 25 mcg PO DAILY 90 days citalopram (Celexa) 20 mg PO DAILY [diabetic shoes with inserts As directed] dulaglutide (Trulicity) 0.75 mg (0.5 mL) subcut QWEEK 90 days empagliflozin (Jardiance) 25 mg PO DAILY 90 days famotidine 40 mg PO BEDTIME 30 days fenofibrate 160 mg PO BEDTIME 90 days fluticasone propion-salmeterol 250-50 mcg/dose 1 ea PO BID ipratropium-albuterol 0.5 mg-3 mg(2.5 mg base)/3 mL 3 mL inhalation Q4-6H PRN 30 days lancets Use 1 lancet once a day latex gloves (Latex Gloves, Large) As directed levofloxacin 750 mg PO DAILY loratadine 10 mg PO DAILY 90 days losartan 25 mg PO DAILY pantoprazole 40 mg PO DAILY 90 days plecanatide (Trulance) 3 mg PO DAILY pregabalin (Lyrica) 150 mg PO BEDTIME sucralfate 10 mL PO [wipes As directed] HPI Comments Details: 72-year-old male with diabetes mellitus type 2, hypertension, mixed hyperlipidemia and mild depression with CKD is here for follow up. He is experiencing increased urination. No polydipsia. Here for regular follow-up. He has occasional leg swelling. No shortness of breath. 09/23/24 Had vague back pain - resolved No related urinary symptoms PFSH Medical History CKD (chronic kidney disease) stage 3, GFR 30-59 ml/min Mild recurrent major depression Chronic idiopathic constipation Anemia Polyarthralgia CKD (chronic kidney disease) Skin lesion Lumbar pain COVID-19 Mixed hyperlipidemia Chronic fatigue Diabetes mellitus Insomnia HTN (hypertension) Asthma Diabetic acidosis, type II Surgical History H/O colonoscopy History of carpal tunnel surgery of right wrist (~03/2021) History of eye surgery History of knee replacement procedure of left knee H/O prostate biopsy Family History Father Diabetes Hypertension Mother Diabetes Hypertension Maternal Grandmother Stomach cancer Social History Household Members: None Housing: Apartment Are you a primary medical care manager to a significant other at home: No Do you presently have visiting nurse or other home services: No Alcohol intake: former Patient Tobacco Use Status: Never used Tobacco e-Cigarette/Vaping Use: Never Used Second Hand Smoke Exposure: No service: No Current occupational status: retired and disabled Cognitive needs: No Hearing needs: No Vision needs: Yes Physical Exam Vital Signs: Last Vital Signs Pulse 95 09/23/24 09:16 BP 112/52 L 09/23/24 09:16 Pulse Ox 90 L 09/23/24 09:16 Oxygen Delivery Method Room Air 09/23/24 09:16 BMI result Body Mass Index 31.4 Comfortable Neck supple no JVD. Lungs entry equal no rales. Heart S1-S2 heard no gallop or rub. Abdomen soft nontender. Neuro alert awake oriented. No asterixis. Extremities no edema. Results Reviewed Nephrology Results: Sodium 140 mmol/L (135-145) 09/14/24 Potassium 3.8 mmol/L (3.3-5.1) 09/14/24 Chloride 110 mmol/L (96-108) H 09/14/24 Carbon Dioxide 23 mmol/L (22-29) 09/14/24 BUN 31 mg/dL (9-16) H 09/14/24 Creatinine 1.46 mg/dL (0.5-1.4) H 09/14/24 Calcium 9.1 mg/dL (8.4-10.2) 09/14/24 Urine Protein Negative mg/dL (Neg-Trace) 09/15/24 Urine Creatinine 58.25 mg/dL 09/15/24 Assessment & Plan Assessment & Plan (1) CKD (chronic kidney disease) stage 3, GFR 30-59 ml/min: Code(s): N18.30 - Chronic kidney disease, stage 3 unspecified Category: Medical Qualifiers: Chronic kidney disease stage 3 subtype: stage 3a (GFR 45-59) Qualified Code(s): N18.31 - Chronic kidney disease, stage 3a Plan: CKD in a setting of hypertension diabetes mellitus. Baselien creatinine is around 1.4-1.3 mg/dL. Microalbumin Cr ration of 56 Had been a bump in serum creatinine to 1.7-1.8. This is most likely due to hypoperfusion. Improved after stopping HCTZ- Cr down to 1.5 The blood pressure is well controlled Keep losartan and Jardiance for cardiorenal protection (2) HTN (hypertension): Code(s): I10 - Essential (primary) hypertension Category: Medical Qualifiers: Hypertension type: essential hypertension Qualified Code(s): I10 - Essential (primary) hypertension Plan: Blood pressure controlled. Stay on low-sodium diet. (3) Hypercalcemia: Code(s): E83.52 - Hypercalcemia Category: Medical Plan: Ca was 10.5 Repeat calcium was normal. No monoclonal gammopathy (4) Anemia: Code(s): D64.9 - Anemia, unspecified Category: Medical Plan: Mild and stable No indication for Epogen. Orders: Orders Basic Metabolic Panel 4 Months N18.31 - Chronic kidney disease, stage 3a Coding Level of Care Code Est Pt Level 4 (49355) Diagnoses Stage 3a chronic kidney disease N18.31 Chronic kidney disease stage 3 subtype: stage 3a (GFR 45-59) Essential hypertension I10 Hypertension type: essential hypertension Hypercalcemia E83.52 Anemia D64.9
--- OUTSIDE RECORDS SUMMARY | 2024-09-23 12:17 | XMS_ITS | Encounter Summary ---
Author Organization [facility] Address [address] [place] [address] Care Team Providers Care Ton Container Filler Name Role Phone Community, Pcp Unavailable Unavailable Wilfredo De Jesus MD Primary Care Provider [phone] Encounter Details Date Type Department Care Team Description 08/14/2023 Dancer Or Choreographer Report Medical Records [address] [place] [id number] Oralia French PA-C Social History Tobacco Use Types Packs/Day Years Used Date Smoking Tobacco: Never Smokeless Tobacco: Never Alcohol Use Standard Drinks/Week Comments No 0 (1 standard drink = 0.6 oz pure alcohol) used to be an alcohol (last EtoH was 2013) Sex Assigned at Date Recorded Not on file Job Start Date Occupation Industry Not on file Not on file Not on file documented as of this encounter Plan of Treatment Not on file documented as of this encounter Visit Diagnoses Not on filedocumented in this encounter Care Teams Ton Container Filler Relationship Specialty Start Date End Date Wilfredo De Jesus MD [address] [place] [address] [id number] PCP - General Internal Medicine 09/01/19 [facility], Pcp Internal Medicine 11/23/16 documented as of this encounter
--- OUTSIDE RECORDS SUMMARY | 2024-09-23 12:17 | XMS_ITS | Encounter Summary ---
Author Organization [facility] Address [address] [place] [address] Care Team Providers Care Health And Safety Tech Name Role Phone Community, Pcp Unavailable Unavailable Wilfredo De Jesus MD Primary Care Provider [phone] Encounter Details Date Type Department Care Team Description 07/29/2023 Hospital Medical Records [address] [place] [address] Abstract, Provider Social History Tobacco Use Types Packs/Day Years [...] on filedocumented in this encounter Care Teams Health And Safety Tech Relationship Specialty Start Date End Date Wilfredo De Jesus MD [address] [place] [address] [id number] PCP - General Internal Medicine 09/01/19 [facility], Pcp Internal Medicine 11/23/16 documented as of this encounter
--- OUTSIDE RECORDS SUMMARY | 2024-09-23 12:17 | XMS_ITS | Encounter Summary ---
Author Organization [facility] Address [address] [place] [address] Care Team Providers Care Blood Bank Manager Name Role Phone Claudio Quach MD Primary Care Provider [phone] Community, Pcp Unavailable Unavailable Valeria George MD Primary Care Provider Unavail able Negrita Rehman MD Primary Care Provider Un available Valeria George MD Primary Care Provider Unavail able Wilfredo De Jesus MD Primary Care Provider [phone] Encounter Details Date Type Department Care Team Description 02/24/2017 Refill Adult Medicine [address] [id number] Claudio Quach MD [address] [place] [phone] Social History Tobacco Use Types Packs/Day Years Used Date Smoking Tobacco: Never Alcohol Use Standard Drinks/Week Comments [...] on filedocumented in this encounter Care Teams Blood Bank Manager Relationship Specialty Start Date End Date Claudio Quach MD [address] [place] [address] [id number] PCP - General Internal Medicine 11/23/16 06/05/17 Valeria George MD [address] [place] [id number] PCP - General Internal Medicine 06/06/17 10/26/18 Negrita Rehman MD [address] [place] [address] PCP - General Internal Medicine 10/27/18 12/09/18 Valeria George MD [address] [place] [address] PCP - General Internal Medicine 12/10/18 08/31/19 Wilfredo De Jesus MD [address] [place] [address] PCP - General Internal Medicine 09/01/19 [facility] [place] [address] Internal Medicine 11/23/16 documented as of this encounter
--- OUTSIDE RECORDS SUMMARY | 2024-09-23 12:17 | XMS_ITS | Encounter Summary ---
Author Organization [facility] Address [address] [place] [address] Care Team Providers Care Content Development Manager Name Role Phone Community, Pcp Unavailable Unavailable Wilfredo De Jesus MD Primary Care Provider [phone] Encounter Details Date Type Department Care Team Description 12/12/2022 Hospital Medical Records [address] [place] [address] Ritika Mclain MD [address] [place], [place] [id number] Social History Tobacco Use Types Packs/Day Years Used Date Smoking Tobacco: Never Smokeless Tobacco: Never Alcohol Use Standard Drinks/Week Comments No 0 (1 standard drink = 0.6 oz pure alcohol) used to be an alcohol (last EtoH was 2013) Sex Assigned at Date Recorded Not on file Job Start Date Occupation Industry Not on file Not on file Not on file COVID-19 Exposure Response Date Recorded In the last 10 days, have yo u been in contact with someone who was confirmed or suspected to have Coronavirus/COVID-19? No / Unsure 11/22/2022 12:16 PM EDT documented as of this encounter Plan of Treatment Not on file documented as of this encounter Visit Diagnoses Not on filedocumented in this encounter Care Teams Content Development Manager Relationship Specialty Start Date End Date Wilfredo De Jesus MD [address] [place] [id number] PCP - General Internal Medicine 09/01/19 [facility], Pcp Internal Medicine 11/23/16 documented as of this encounter
--- OUTSIDE RECORDS SUMMARY | 2024-09-23 12:17 | XMS_ITS | Encounter Summary ---
Author Organization [facility] Address [address] [place] [address] Care Team Providers Care Rn Circulating Name Role Phone Community, Pcp Unavailable Unavailable Wilfredo De Jesus MD Primary Care Provider [phone] Reason for Visit * Reason Onset Date Comments APPOINTMENT 09/03/2019 Encounter Details Date Type Department Care Team Description 09/03/2019 Telephone Gastroenterology - [address] [place] [address] Bryce Power MD APPOINTMENT Social History Tobacco Use Types Packs/Day Years [...] on file documented as of this encounter Miscellaneous Notes * Telephone Encounter - Kassie Alvarado - 09/06/2019 10:13 AM EST Called patient and left a voice message to call office to schedule followup appointment. 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 My notes indicate follow-up endoscopy is not indicateduntil next year. Please schedule this patient for an office visit with me routinely to discuss this. * Telephone Encounter - Valentina Rangel - 09/03/2019 1:55 PM EST Please advise and let me know if patient needs the EGD. * Telephone Encounter - Tessie Goodson - 09/03/2019 1:26 PM EST Follow up appointment not available. Please call patient to book-no open NON PUBLIC SLOTS. Appointment needed Patient states that Dr. Power did his colonoscopy in March 2019, states that they were suppose to do his upper GI as well but they were unable to do it the same day. He stopped in by the office because he would like this scheduled. Please call and advise. Patient is spanishspeaking will need an tax accounting assistant. documented in this encounter Plan of Treatment Not on file documented as of this encounter Visit Diagnoses Not on filedocumented in this encounter Care Teams Rn Circulating Relationship Specialty Start Date End Date Wilfredo De Jesus MD [address] [place] [address] [phone] PCP - General Internal Medicine 09/01/19 [facility], Pcp Internal Medicine 11/23/16 documented as of this encounter
--- OUTSIDE RECORDS SUMMARY | 2024-09-23 12:17 | XMS_ITS | Encounter Summary ---
Author Organization [facility] Address [address] [place] [address] Care Team Providers Care Hospital Clinic Assistant Name Role Phone Community, Pcp Unavailable Unavailable Valeria George MD Primary Care Provider Unavail able Negrita Rehman MD Primary Care Provider Un available Valeria George MD Primary Care Provider Unavail able Wilfredo De Jesus MD Primary Care Provider [phone] Reason for Referral * Non JACK (Routine) - Authorized/Booked Specialty Diagnoses / Procedures Referred By Contac t Referred To Contact Pulmonology Procedures REFERRAL TO PULMONOLOGY Valeria George MD [address] [place] [address] [place] [address] Referral ID Status Reason Start Date Expiration Date V isits Requested Visits Authorized [id number] Authorized/B ooked 08/27/2017 08/27/2018 1 1 Encounter Details Date Type Department Care Team Description 08/27/2017 [place] [address] Valeria George MD Social History Tobacco Use Types Packs/Day Years [...] on filedocumented in this encounter Care Teams Hospital Clinic Assistant Relationship Specialty Start Date End Date Valeria George MD PCP - General Internal Medicine 06/06/17 10/26/18 Negrita Rehman MD PCP - General Internal Medicine 10/27/18 Valeria George MD PCP - General Internal Medicine 12/10/18 08/31/19 Wilfredo De Jesus MD [address] [place] [id number] PCP - General Internal Medicine 09/01/19 [facility], Pcp Internal Medicine 11/23/16 documented as of this encounter
--- OUTSIDE RECORDS SUMMARY | 2024-09-23 12:17 | XMS_ITS | Encounter Summary ---
Author Organization [facility] Address [address] [place] [address] Care Team Providers Care Leasing Representative Name Role Phone Community, Pcp Unavailable Unavailable Wilfredo De Jesus MD Primary Care Provider Encounter Details Date Type Department Care Team Description 09/30/2019 Hospital Medical Records [address] [place] [address] Ritika Mclain MD [address] [place] [address] [id number] Social History Tobacco Use Types Packs/Day Years [...] on filedocumented in this encounter Care Teams Leasing Representative Relationship Specialty Start Date End Date Wilfredo De Jesus MD [address] [place] [address] [phone] PCP - General Internal Medicine 09/01/19 [facility], Pcp Internal Medicine 11/23/16 documented as of this encounter
--- OUTSIDE RECORDS SUMMARY | 2024-09-23 12:17 | XMS_ITS | Encounter Summary ---
Author Organization [facility] Address [address] [place] [address] Care Team Providers Care Library Services Assistant Name Role Phone Community, Pcp Unavailable Unavailable Wilfredo De Jesus MD Primary Care Provider [phone] Encounter Details Date Type Department Care Team Description 02/09/2020 Online Merchandising Manager Report Medical Records [address] [place] [address] Mehul Kasper MD Social History Tobacco Use Types Packs/Day [...] on filedocumented in this encounter Care Teams Library Services Assistant Relationship Specialty Start Date End Date Wilfredo De Jesus MD [address] [place] [address] [id number] PCP - General Internal Medicine 09/01/19 [facility], Pcp Internal Medicine 11/23/16 documented as of this encounter
--- OUTSIDE RECORDS SUMMARY | 2024-09-23 12:17 | XMS_ITS | Encounter Summary ---
Author Organization [facility] Address [address] [place] [address] Care Team Providers Care Superintendent Greens Name Role Phone Community, Pcp Unavailable Unavailable iWlfredo De Jesus MD Primary Care Provider [phone] Encounter Details Date Type Department Care Team Description 05/16/2020 Splicing Technician Report Medical Records [address] [place] [address] Sravan Leon, PARMJITC Social History Tobacco Use Types Packs/Day Years [...] on filedocumented in this encounter Care Teams Superintendent Greens Relationship Specialty Start Date End Date Wilfredo De Jesus MD [address] [place] [address] [id number] PCP - General Internal Medicine 09/01/19 [facility], Pcp Internal Medicine 11/23/16 documented as of this encounter
--- OUTSIDE RECORDS SUMMARY | 2024-09-23 12:17 | XMS_ITS | Encounter Summary ---
Author Organization [facility] Address [address] [place] [address] Care Team Providers Care Culinary Artist Name Role Phone Community, Pcp Unavailable Unavailable Valeria George MD Primary Care Provider Unavail able Negrita Rehman MD Primary Care Provider Un available Valeria George MD Primary Care Provider Unavail able Wilfredo De Jesus MD Primary Care Provider [phone] Encounter Details Date Type Department Care Team Description 01/14/2018 Landscape Drafter Report Medical Records [address] [place] [address] Abstract, Provider Social History Tobacco Use Types [...] on filedocumented in this encounter Care Teams Culinary Artist Relationship Specialty Start Date End Date Valeria George MD PCP - General Internal Medicine 06/06/17 10/26/18 Negrita Rehman MD PCP - General Internal Medicine 10/27/18 Valeria George MD PCP - General Internal Medicine 12/10/18 08/31/19 Wilfredo De Jesus MD [address] [place] [address] [id number] PCP - General Internal Medicine 09/01/19 [facility], Pcp Internal Medicine 11/23/16 documented as of this encounter
--- OUTSIDE RECORDS SUMMARY | 2024-09-23 12:17 | XMS_ITS | Encounter Summary ---
Author Organization [facility] Address [address] [place] [address] Care Team Providers Care State Editor Name Role Phone Claudio Quach MD Primary Care Provider [phone] Community, Pcp Unavailable Unavailable Valeria George MD Primary Care Provider Unavail able Negrita Rehman MD Primary Care Provider Un available Valeria George MD Primary Care Provider Unavail able Wilfredo De Jesus MD Primary Care Provider [phone] Encounter Details Date Type Department Care Team Description 02/27/2017 Release of Information Medical Records [address] [place] [id number] Abstract, Provider Social History Tobacco Use Types [...] on filedocumented in this encounter Care Teams State Editor Relationship Specialty Start Date End Date Claudio Quach MD [address] [place] [address] [id number] PCP - General Internal Medicine 11/23/16 06/05/17 Valeria George MD [address] [place] [id number] PCP - General Internal Medicine 06/06/17 10/26/18 Negrita Rehman MD [address] [place] [id number] PCP - General Internal Medicine 10/27/18 12/09/18 Valeria George MD [address] [place] [address] PCP - General Internal Medicine 12/10/18 08/31/19 Wilfredo De Jesus MD [address] [place] [address] PCP - General Internal Medicine 09/01/19 [facility], [place] [address] Internal Medicine 11/23/16 documented as of this encounter
--- OUTSIDE RECORDS SUMMARY | 2024-09-23 12:17 | XMS_ITS | Encounter Summary ---
Author Organization [facility] Address [address] [place] [address] Care Team Providers Care Hot Metal Mixer Operator Name Role Phone Community, Pcp Unavailable Unavailable Wilfredo De Jesus MD Primary Care Provider [phone] Encounter Details Date Type Department Care Team Description 03/15/2020 Personal Security Specialist Report Medical Records [address] [place] [address] Mehul Kasper MD Social History Tobacco Use [...] on filedocumented in this encounter Care Teams Hot Metal Mixer Operator Relationship Specialty Start Date End Date Wilfredo De Jesus MD [address] [place] [address] [id number] PCP - General Internal Medicine 09/01/19 [facility], Pcp Internal Medicine 11/23/16 documented as of this encounter
--- OUTSIDE RECORDS SUMMARY | 2024-09-23 12:17 | XMS_ITS | Encounter Summary ---
Author Organization [facility] Address [address] [place] [address] Care Team Providers Care Analytical Technician Name Role Phone Community, Pcp Unavailable Unavailable Wilfredo De Jesus MD Primary Care Provider [phone] Encounter Details Date Type Department Care Team Description 10/20/2020 Coal Mine Inspector Report Medical Records [address] [place] [address] Mehul Kasper MD Social History Tobacco Use [...] on filedocumented in this encounter Care Teams Analytical Technician Relationship Specialty Start Date End Date Wilfredo De Jesus MD [address] [place] [address] [id number] PCP - General Internal Medicine 09/01/19 [facility], Pcp Internal Medicine 11/23/16 documented as of this encounter
--- OUTSIDE RECORDS SUMMARY | 2024-09-23 12:17 | XMS_ITS | Encounter Summary ---
Author Organization [facility] Address [address] [place] [address] Care Team Providers Care Pitch Flaker Name Role Phone Community, Pcp Unavailable Unavailable Valeria George MD Primary Care Provider Unavail able Negrita Rehman MD Primary Care Provider Un available aVleria George MD Primary Care Provider Unavail able Wilfredo De Jesus MD Primary Care Provider [phone] Reason for Visit * Reason Onset Date Comments refill request 04/21/2018 Encounter Details Date Type Department Care Team Description 04/21/2018 Refill Gastroenterology - [address] [phone] Bryce Power MD refill request Social History Tobacco Use Types Packs/Day Years [...] on filedocumented in this encounter Care Teams Pitch Flaker Relationship Specialty Start Date End Date Valeria George MD PCP - General Internal Medicine 06/06/17 10/26/18 Negrita Rehman MD PCP - General Internal Medicine 10/27/18 Valeria George MD PCP - General Internal Medicine 12/10/18 08/31/19 Wilfredo De Jesus MD [address] [place] [id number] PCP - General Internal Medicine 09/01/19 [facility], Pcp Internal Medicine 11/23/16 documented as of this encounter
--- OUTSIDE RECORDS SUMMARY | 2024-09-23 12:17 | XMS_ITS | Encounter Summary ---
Author Organization [facility] Address [address] [place] [address] Care Team Providers Care Dry Color Mixer Name Role Phone Community, Pcp Unavailable Unavailable Valeria George MD Primary Care Provider Unavail able Negrita Rehman MD Primary Care Provider Un available Valeria George MD Primary Care Provider Unavail able Wilfredo De Jesus MD Primary Care Provider Encounter Details Date Type Department Care Team Description 09/08/2018 Licensed Esthetician Report Medical Records [address] [place] [address] Nathanael Mcneil MD Social History Tobacco Use Types Packs/Day [...] on filedocumented in this encounter Care Teams Dry Color Mixer Relationship Specialty Start Date End Date Valeria George MD PCP - General Internal Medicine 06/06/17 10/26/18 Negrita Rehman MD PCP - General Internal Medicine 10/27/18 Valeria George MD PCP - General Internal Medicine 12/10/18 08/31/19 Wilfredo De Jesus MD [address] [place] [address] [id number] PCP - General Internal Medicine 09/01/19 [facility], Pcp Internal Medicine 11/23/16 documented as of this encounter
--- OUTSIDE RECORDS SUMMARY | 2024-09-23 12:17 | XMS_ITS | Encounter Summary ---
Author Organization [facility] Address [address] [place] [address] Care Team Providers Care Dental Equipment Repairer Name Role Phone Community, Pcp Unavailable Unavailable Valeria George MD Primary Care Provider Unavail able Negrita Rehman MD Primary Care Provider Un available Valeria George MD Primary Care Provider Unavail able Wilfredo De Jesus MD Primary Care Provider [phone] Encounter Details Date Type Department Care Team Description 03/04/2018 Technical Solutions Consultant Report Medical Records [address] [place] [address] Mehul Kasper MD Social History Tobacco Use [...] on filedocumented in this encounter Care Teams Dental Equipment Repairer Relationship Specialty Start Date End Date Valeria George MD PCP - General Internal Medicine 06/06/17 10/26/18 Negrita Rehman MD PCP - General Internal Medicine 10/27/18 Valeria George MD PCP - General Internal Medicine 12/10/18 08/31/19 Wilfredo De Jesus MD [address] [place] [address] [id number] PCP - General Internal Medicine 09/01/19 [facility], Pcp Internal Medicine 11/23/16 documented as of this encounter
--- OUTSIDE RECORDS SUMMARY | 2024-09-23 12:17 | XMS_ITS | Encounter Summary ---
Author Organization [facility] Address [address] [place] [address] Care Team Providers Care Insole And Heel Stiffener Name Role Phone Community, Pcp Unavailable Unavailable Wilfredo De Jesus MD Primary Care Provider [phone] Encounter Details Date Type Department Care Team Description 09/20/2020 Blank Driller Report Medical Records [address] [place] [address] Mehul Kasper MD Social History Tobacco Use [...] on filedocumented in this encounter Care Teams Insole And Heel Stiffener Relationship Specialty Start Date End Date Wilfredo De Jesus MD [address] [place] [address] [id number] PCP - General Internal Medicine 09/01/19 [facility], Pcp Internal Medicine 11/23/16 documented as of this encounter
--- OUTSIDE RECORDS SUMMARY | 2024-09-23 12:17 | XMS_ITS | Encounter Summary ---
Author Organization [facility] Address [address] [place] [address] Care Team Providers Care De Icer Kit Assembler Name Role Phone Community, Pcp Unavailable Unavailable Valeria George MD Primary Care Provider Unavail able Negrita Rehman MD Primary Care Provider Un available Valeria George MD Primary Care Provider Unavail able Wilfredo De Jesus MD Primary Care Provider [phone] Encounter Details Date Type Department Care Team Description 06/24/2018 Boat Builder And Repairer Report Medical Records [address] [place] [address] Mehul Kasper MD Social History Tobacco Use [...] on filedocumented in this encounter Care Teams De Icer Kit Assembler Relationship Specialty Start Date End Date Valeria George MD PCP - General Internal Medicine 06/06/17 10/26/18 Negrita Rehman MD PCP - General Internal Medicine 10/27/18 Valeria George MD PCP - General Internal Medicine 12/10/18 08/31/19 Wilfredo De Jesus MD [address] [place] [address] [id number] PCP - General Internal Medicine 09/01/19 [facility], Pcp Internal Medicine 11/23/16 documented as of this encounter
--- OUTSIDE RECORDS SUMMARY | 2024-09-23 12:17 | XMS_ITS | Encounter Summary ---
Author Organization [facility] Address [address] [place] [address] Care Team Providers Care Vamp Cut Out Worker Name Role Phone Community, Pcp Unavailable Unavailable Valeria George MD Primary Care Provider Unavail able Negrita Rehman MD Primary Care Provider Un available Valeria George MD Primary Care Provider Unavail able Wilfredo De Jesus MD Primary Care Provider [phone] Reason for Visit * Reason Onset Date Comments REFERRAL 01/13/2018 Provider Call Back 01/13/2018 Encounter Details Date Type Department Care Team Description 01/13/2018 Telephone Adult Medicine [address] [phone] Valeria George MD REFERRAL; Provider Call Back Social History Tobacco Use Types Packs/Day Years [...] encounter Miscellaneous Notes * Telephone Encounter - Valeria George MD - 01/13/2018 3:22 PM EDT Referral placed * Telephone Encounter - Kenna Crain M.A. - 01/13/2018 3:12 PM EDT Pt is scheduled to see pcp 02/02/18, will you refer pt to derm? * Telephone Encounter - Lisa Garcia - 01/13/2018 3:05 PM EDT Caller requesting call back from provider: Is the caller the patient? YES If caller is not the patient, what is the callers name? N/A Callers relationship to patient? N/A If person calling is not the patient themselves, is there a verbal release in FYI or permanent comments for this person: YES Reason for call back: Patient asking for a Referral to Derm either in 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 Message forwarded to nurse. documented in this encounter Plan of Treatment Not on file documented as of this encounter Visit Diagnoses Not on filedocumented in this encounter Care Teams Vamp Cut Out Worker Relationship Specialty Start Date End Date Valeria George MD PCP - General Internal Medicine 06/06/17 10/26/18 Negrita Rehman MD PCP - General Internal Medicine 10/27/18 Valeria George MD PCP - General Internal Medicine 12/10/18 08/31/19 Wilfredo De Jesus MD [address] [place] [id number] PCP - General Internal Medicine 09/01/19 [facility] Pcp Internal Medicine 11/23/16 documented as of this encounter
--- OUTSIDE RECORDS SUMMARY | 2024-09-23 12:17 | XMS_ITS | Encounter Summary ---
Author Organization [facility] [employer] [facility] Address [address] [facility] [address] [place] [address] Care Team Providers Care Serging Machine Operator Name Role Phone Unavailable Primary Care [...]
--- OUTSIDE RECORDS SUMMARY | 2024-09-23 12:17 | XMS_ITS | Clinical Summary ---
Author Organization [facility] Address [address] [place] [address] [address] [place] [address] Care Team Providers Care Treatment Coordinator Name Role Phone Unavailable Primary Care Provider [...] Td or Tdap) 03/21/2027 03/21/2017 Pneumococcal Vaccine: 50+ Years Completed 06/05/2018, 03/21/2017, 05/26/2012 Zoster Vaccines [...] Relevant to Health Maintenance Insurance DENTAL - [facility] DENTAL - [facility]
--- OUTSIDE RECORDS SUMMARY | 2024-09-23 12:17 | XMS_ITS | Encounter Summary ---
Author Organization [facility] Address [address] [place] [address] Care Team Providers Care Drive Shaft And Steering Post Repairer Name Role Phone Community, Pcp Unavailable Unavailable Cj George MD Primary Care Provider Unavail able Negrita Rehman MD Primary Care Provider Un available Cj George MD Primary Care Provider Unavail able Wilfredo De Jesus MD Primary Care Provider [phone] Reason for Visit * Reason Onset Date Comments numbness 04/15/2018 Encounter Details Date Type Department Care Team Description 04/15/2018 Telephone Adult Medicine [address] [id number] Cj George MD numbness Social History Tobacco Use Types Packs/Day Years [...] encounter Miscellaneous Notes * Telephone Encounter - Herzog Zach CostaNLizandro - 04/15/2018 3:56 PM EDT Telephone Information: Work Phone Not on file. Spoke with Steffany from [facility] she wants a sooner appt for patient he told her at times he has headachesand for the past few month when is bed he feels paralyzed for a few seconds unable to move Called patient appt moved to 04/21 at 2:[address] Lema date and time was provided in senegalese * Telephone Encounter - Analilia Vivar - 04/15/2018 3:48 PM EDT Steffany returning call. * Telephone Encounter - Mino Serrano L.P.N. - 04/15/2018 1:56 PM EDT Called Steffany Left a message for her to call triage nurse * Telephone Encounter - Geni Mccollum - 04/15/2018 1:15 PM EDT Symptoms patient is presenting: the pt is havng headaches and numbness in his extremeties he has a tumor and setffany from [facility] is wondering if it could be growing pt needs to be seen by CJ LEMA If pain or injury related was it due to an accident at work or from a motor vehicle accident? NO If yes, gather 3rd libertarian insurance information Date of accident/Injury: How long has patient had these symptoms?: PCP: CJ LEMA Payor: [facility] MCR / Plan: HMO $0 [facility] [id number] / Product Type: HMO [id number] documented in this encounter Plan of Treatment Not on file documented as of this encounter Visit Diagnoses Not on filedocumented in this encounter Care Teams Drive Shaft And Steering Post Repairer Relationship Specialty Start Date End Date Cj George MD PCP - General Internal Medicine 06/06/17 10/26/18 Negrita Rehman MD PCP - General Internal Medicine 10/27/18 Cj George MD PCP - General Internal Medicine 12/10/18 08/31/19 Wilfredo De Jesus MD [address] [place] [id number] PCP - General Internal Medicine 09/01/19 [facility], Pcp Internal Medicine 11/23/16 documented as of this encounter
--- OUTSIDE RECORDS SUMMARY | 2024-09-23 12:17 | XMS_ITS ---
Author Name [facility] Organization Unknown History of Medication Use Medication Directions Dispensed Refills Start Date End Date Stat us citalopram (CeleXA) 20 MG tablet Take 1 tablet (20 mg total) by mouth every morning. 04/29/2023 active FREESTYLE LITE strip USE DIRECTED TO TEST BLOOD SUGAR EVERY DAY 09/29/2023 active aluminum-magnesium hydroxide (MAALOX) 200-200 mg/5 mL suspension Take 7.5 mL by mouth 4 times daily (every 6 hours) as needed for heartburn. Take 15ml maalox and lidocaine mixture q6hrs prn 05/29/2023 10/15/2023 active Jardiance 25 MG tablet Take 1 tablet by mouth daily. 04/29/2023 active PANTOprazole (PROTONIX) 40 MG EC tablet Take 1 tablet (40 mg total) by mouth 2 (two) times a day before breakfast and dinner. 04/29/2023 05/29/2023 active Vitamin D High Potency 25 MCG (1000 UT) capsule Take by mouth every morning. 03/24/2023 active clotrimazole (MYCELEX) 10 MG phyllis DISSOLVE 1 LOZENGE IN MOUTH FIVE TIMES DAILY FOR 10 DAYS 04/09/2023 active
--- OUTSIDE RECORDS SUMMARY | 2024-09-23 12:17 | XMS_ITS | Encounter Summary ---
Author Organization [facility] Address [address] [place] [address] Care Team Providers Care Brewer Helper Name Role Phone Community, Pcp Unavailable Unavailable Valeria George MD Primary Care Provider Unavail able Wilfredo De Jesus MD Primary Care Provider [phone] Reason for Visit * Reason Onset Date Comments Prior Authorization 01/06/2019 colonoscopy Encounter Details Date Type Department Care Team Description 01/06/2019 Telephone Gastroenterology - [place] [address] [facility] [address] [place] [address] Bryce Power MD Prior Authorization (colonoscopy) Social History Tobacco Use Types Packs/Day Years [...] encounter Miscellaneous Notes * Telephone Encounter - Chela Kinsey - 01/06/2019 2:48 PM EDT Pre-auth needed Patient is scheduled for an Colonoscopy on 04/21/19 Patients insurance: [employer] Appointment is with Bryce Power MD Code to process pre-auth for: [id number] Location of procedure: [facility] documented in this encounter Plan of Treatment Not on file documented as of this encounter Visit Diagnoses Not on filedocumented in this encounter Care Teams Brewer Helper Relationship Specialty Start Date End Date Valeria George MD PCP - General Internal Medicine 12/10/18 08/31/19 Wilfredo De Jesus MD [address] [place] [address] PCP - General Internal Medicine 09/01/19 [facility], [facility] Internal Medicine 11/23/16 documented as of this encounter
--- OUTSIDE RECORDS SUMMARY | 2024-09-23 12:17 | XMS_ITS | Data Portability ---
Author Organization [place] [facility], Allergy Address [address] [facility] [address] [place] [address] Assessment Encounter Date Assessment Date Assessment LastModified by Organization Details LastModified Time 08/13/2024 08/13/2024 73 yo M never smoker, currently being treated for esophageal cancer, presents for evaluation of the throat. He had a CT scan of the neck with contrast last month at [facility] showing soft tissue fullness centered in the [...] piriform sinus, swelling noted on CT at [facility], not appreciat ed on physical exam 2023 [facility] ([facility]), [address] [facility], [place], [address], 4 10:24:16 Medication Orders None recorded. Patient TargetsNo targets recorded. Patient InstructionsNo instructions recorded. Reason for Referral None Reported. Results Created Date Observation Date Name Description Value Unit Range Abnormal Flag Note LastModifiedBy Organization Detail LastModifiedTime 09/01/19 25 08/28/2024 MRI, head + neck + orbit s, w/wo contr ast [facility] Access ion Number : [id number] Sandra chan Name: Mohamud Tovar Record Number : [id number] Date of : 1950 Date of Exam: 2024 Referr ing Physic clem: Cordell Gomez [facility] [place] [address], [place] [address] [place] [address] Exam: MR Orbits , Face, Neck (C-/C+ ) CPT 95200 Room Descri ption: Pyatt Siem Verio 3.0T HISTOR Y: Right pirifo rm sinus lesion . TECHNI QUE: Multip lanar multis equenc e MRI of the neck was obtain ed before and after the admini strati on of 15 cc of Dotare m. COMPAR PHYLLIS: CT scan of the neck 024 perfor med at [facility] . FINDIN GS: * The [...] asymme trical fullne ss of the right helpdesk analyst ior pharyn geal muscul ature adjace nt [...] ent acute sinusi tis [facility] lakeisha singh. Electr onical ly Signed By: Donny Bolanos MD [facility] ([facility]) [address], [place], [address], 09/09/2024 09:08:49 Result Notes None recorded. 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 Procedures Surgical History Date Name Laterality Status Provider Name and Address Organization Details Recorded Time 08/13/20 24 Fiberoptic Laryngoscopy (Comprehensive) completed CORDELL RAMIREZ MD [address] [place] [address],[address], [address], [facility] 08/19/2024 07:19:29 Imaging Results Imaging Date Name Status LastModified by Organiz ation Details LastModified Time 08/28/2024 MRI, head + neck + orbits, w/wo contrast completed [facility] ([facility]) [address], [place], [address], 09/09/2024 09:08:49 Procedure Notes None recorded. Medical [...] Available Not Available No t Available FreeStyle [place] Lite kit USE DIRECTED TO TEST BLOOD [...] Updated DateTime 08/13/2024 154.94 cm 31.2 kg/m2 26935.74 g Katie Lindquist [place] - [facility] 08/13/2024 12:58:49 Social History None recorded. Functional Status None recorded. Mental Status None recorded. 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 Sometimes trouble swallowing. CORDELL RAMIREZ MD [address] [place] [address], [phone], [place] - [facility] 08/19/2024 07:23:40
--- OUTSIDE RECORDS SUMMARY | 2024-09-23 12:17 | XMS_ITS | Encounter Summary ---
Author Organization [facility] Address [address] [place] [address] Care Team Providers Care Diploma Dental Assistant Name Role Phone Community, Pcp Unavailable Unavailable Valeria George MD Primary Care Provider Unavail able Wilfredo De Jesus MD Primary Care Provider [phone] Encounter Details Date Type Department Care Team Description 03/25/2019 Trading Manager Report Medical Records [address] [place] [address] Nathanael Mcneil MD Social History Tobacco Use [...] on filedocumented in this encounter Care Teams Diploma Dental Assistant Relationship Specialty Start Date End Date Valeria George MD PCP - General Internal Medicine 12/10/18 08/31/19 Wilfredo De Jesus MD [address] [place] [address] [id number] PCP - General Internal Medicine 09/01/19 Community, [facility] Internal Medicine 11/23/16 documented as of this encounter
--- OUTSIDE RECORDS SUMMARY | 2024-09-23 12:17 | XMS_ITS | Encounter Summary ---
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) Social History Tobacco Use Types Packs/Day Years [...] as of this encounter Visit Diagnoses Diagnosis Diabetes mellitus type 2 with neurological manifestations (HCC)- Primary Type II or unspecified type diabetes mellitus with neurological manifestations, not stated as uncontrolled documented in this encounter Care Teams Tool Maker Bench Relationship Specialty Start Date End Date Valeria George MD PCP - General Internal Medicine 06/06/17 10/26/18 Negrita Rehman MD PCP - General Internal Medicine 10/27/18 Valeria George MD PCP - General Internal Medicine 12/10/18 08/31/19 Wilfredo De Jesus MD [address] [place] [address] PCP - General Internal Medicine 09/01/19 [facility], Pcp Internal Medicine 11/23/16 documented as of this encounter
--- OUTSIDE RECORDS SUMMARY | 2024-09-23 12:17 | XMS_ITS | Encounter Summary ---
Author Organization [facility] Address [address] [place] [address] Care Team Providers Care Wrecking Crane Engine Operator Name Role Phone Community, Pcp Unavailable Unavailable Valeria George MD Primary Care Provider Unavail able Negrita Rehman MD Primary Care Provider Un available Valeria George MD Primary Care Provider Unavail able Wilfredo De Jesus MD Primary Care Provider Encounter Details Date Type Department Care Team Description 01/26/2018 Orders Only Adult Medicine [address] [phone] Valeria George MD Social History Tobacco Use [...] on filedocumented in this encounter Care Teams Wrecking Crane Engine Operator Relationship Specialty Start Date End Date Valeria George MD PCP - General Internal Medicine 06/06/17 10/26/18 Negrita Rehman MD PCP - General Internal Medicine 10/27/18 Valeria George MD PCP - General Internal Medicine 12/10/18 08/31/19 Wilfredo De Jesus MD [address] [place] [address] [phone] PCP - General Internal Medicine 09/01/19 Community, Pcp Internal Medicine 11/23/16 documented as of this encounter
--- OUTSIDE RECORDS SUMMARY | 2024-09-23 12:17 | XMS_ITS | Encounter Summary ---
Author Organization [facility] Address [address] [place] [address] Care Team Providers Care Used Car Manager Name Role Phone Community, Pcp Unavailable Unavailable Valeria George MD Primary Care Provider Unavail able Negrita Rehman MD Primary Care Provider Un available Valeria George MD Primary Care Provider Unavail able Wilfredo De Jesus MD Primary Care Provider [phone] Reason for Referral * EXTERNAL (Priority) - Closed Specialty Diagnoses / Procedures Referred By Abdirizak chan Referred To Contact Dermatology Procedures REFERRAL TO DERMATOLOGY Valeria George MD [address] [place] [address] External Dermatology Referral ID Status Reason Start Date Expiration Date V isits Requested Visits Authorized SEE REVIEW 01/15/2018 Closed 01/13/2018 1 1 Encounter Details Date Type Department Care Team Description 01/13/2018 Orders Only Adult Medicine [address] [address] Valeria George MD Social History Tobacco Use [...] on filedocumented in this encounter Care Teams Used Car Manager Relationship Specialty Start Date End Date Valeria George MD PCP - General Internal Medicine 06/06/17 10/26/18 Negrita Rehman MD PCP - General Internal Medicine 10/27/18 Valeria George MD PCP - General Internal Medicine 12/10/18 08/31/19 Wilfredo De Jesus MD [address] [place] [address] PCP - General Internal Medicine 09/01/19 [facility], Pcp Internal Medicine 11/23/16 documented as of this encounter
--- OUTSIDE RECORDS SUMMARY | 2024-09-23 12:17 | XMS_ITS | Encounter Summary ---
Author Organization [facility] Address [address] [place] [address] Care Team Providers Care Property Management Specialist Name Role Phone Wilfredo De Jesus MD Primary Care Provider [phone] Reason for Visit * Reason Comments Med Change Request Encounter Details Date Type Department Care Team (Late st Contact Info) Description 05/30/2023 Refill [facility] [address] [facility] [address] [place] [address] Aleksandr Hill MD [address] [place] [address] [address] [place], [place] [id number] Anderson's esophagus with high grade dysplasia Social [...] PM EDT Spoke with Chela (Pharmacist) at [facility] in [place], [place] stated that Patient's insurance will NOT cover the Maalox Liquid suspension. Patient would have to get it over the counter for $ 8.00. Patient was notified documented in this encounter Plan of Treatment Not on file documented as of this encounter Visit Diagnoses Diagnosis Anderson's esophagus with high grade dysplasia documented in this encounter Care Teams Property Management Specialist Relationship Specialty Start Date End Date Wilfredo De Jesus MD [address] [place] [id number] PCP - General 05/07/23 documented as of this encounter
--- OUTSIDE RECORDS SUMMARY | 2024-09-23 12:17 | XMS_ITS | Encounter Summary ---
Author Organization [facility] Address [address] [place] [address] Care Team Providers Care Director Of Corporate Strategy Name Role Phone Community, Pcp Unavailable Unavailable Valeria George MD Primary Care Provider Unavail able Wilfredo De Jesus MD Primary Care Provider [phone] Reason for Visit * Reason Onset Date Comments Provider Call Back 01/20/2019 REFERRAL 01/20/2019 Encounter Details Date Type Department Care Team Description 01/20/2019 Telephone Adult Medicine [address] [address] Valeria George MD Provider Call Back; REFERRAL Social History Tobacco Use Types Packs/Day Years [...] encounter Miscellaneous Notes * Telephone Encounter - Belle Willoughby M.A. - 01/20/2019 2:58 PM EDT Spoke with pt and he stated that he was seen in [facility] office about a year ago does not remember the doctor name, just remembers that doctor wanted pt to have carpal tunnel surgery and he did not want to proceed with surgery. Was notified to look around to see where he wanted to be seen and make sure they accept his insurance then contact the office with the information. * Telephone Encounter - Belle Willoughby M.A. - 01/20/2019 2:39 PM EDT Please read message below and advise * Telephone Encounter - Valeria George MD - 01/20/2019 2:27 PM EDT Referral was placed 01/11 has he already followed up with them or is it that he does not want to follow with reagan. Our cylinder inspector and tester has retired. They accept his insurance. * Telephone Encounter - Elaine Riley M.A. - 01/20/2019 2:[address] George. Will you changed referral? * Telephone Encounter - Gayatri Herron - 01/20/2019 2:03 PM EDT Pt states he was referred to [facility] and he is requesting for it to be another office because he does not want to see that provider again. Pt only speaks amharic. documented in this encounter Plan of Treatment Not on file documented as of this encounter Visit Diagnoses Not on filedocumented in this encounter Care Teams Director Of Corporate Strategy Relationship Specialty Start Date End Date Valeria George MD PCP - General Internal Medicine 12/10/18 08/31/19 Wilfredo De Jesus MD [address] [place] [address] PCP - General Internal Medicine 09/01/19 [facility] Pcp Internal Medicine 11/23/16 documented as of this encounter
--- OUTSIDE RECORDS SUMMARY | 2024-09-23 12:17 | XMS_ITS | Encounter Summary ---
Author Organization [facility] Address [address] [facility] 7[address] [place] [address] Care Team Providers Care Quality Control Inspector Heading Name Role Phone Unavailable Primary Care Provider [...]
--- OUTSIDE RECORDS SUMMARY | 2024-09-23 12:17 | XMS_ITS | Encounter Summary ---
Author Organization [facility] Address [address] [place] [address] Care Team Providers Care General Foreman Name Role Phone Community, Pcp Unavailable Unavailable Wilfredo De Jesus MD Primary Care Provider [phone] Encounter Details Date Type Department Care Team Description 05/29/2023 Sandwich Artist Report Medical Records [address] [place] [address] Aleksandr Hill MD Social History Tobacco Use Types Packs/Day [...] on filedocumented in this encounter Care Teams General Foreman Relationship Specialty Start Date End Date Wilfredo De Jesus MD [address] [place] [address] [id number] PCP - General Internal Medicine 09/01/19 [facility], Pcp Internal Medicine 11/23/16 documented as of this encounter
--- OUTSIDE RECORDS SUMMARY | 2024-09-23 12:17 | XMS_ITS | Encounter Summary ---
Author Organization [facility] Address [address] [place] [address] Care Team Providers Care Marker Machine Name Role Phone Community, Pcp Unavailable Unavailable Wilfredo De Jesus MD Primary Care Provider [phone] Encounter Details Date Type Department Care Team Description 10/07/2023 Hospital Medical Records [address] [place] [address] Aleksandr Hill MD Social History Tobacco Use [...] on filedocumented in this encounter Care Teams Marker Machine Relationship Specialty Start Date End Date Wilfredo De Jesus MD [address] [place] [address] [id number] PCP - General Internal Medicine 09/01/19 [facility], Pcp Internal Medicine 11/23/16 documented as of this encounter
--- OUTSIDE RECORDS SUMMARY | 2024-09-23 12:17 | XMS_ITS | Encounter Summary ---
Author Organization [facility] Address [address] [place] [address] Care Team Providers Care Cable Tool Driller Name Role Phone Wilfredo De Jesus MD Primary Care Provider [phone] Encounter Details Date Type Department Care Team (Late st Contact Info) Description 07/10/2023 Telephone [facility] [address] [facility] [place] [address] Aleksandr Hill MD [address] [place] [address] [address] Social History Tobacco Use Types Packs/Day Years [...] Afternoon I spoke to Linden Patel At [facility] We are not in network with this plan. This plan ismostly for [place] providers and when being done out of state a prior authorization is required. I submitted auth form faxed to [phone] w/ consult there is a 14 day turn around time.He stated patient may deny and need to see an in state provider. CALL CALL REF # [id number] Please have patient sign an out of network waiver. Thank you documented in this encounter Plan of Treatment Not on file documented as of this encounter Visit Diagnoses Not on filedocumented in this encounter Care Teams Cable Tool Driller Relationship Specialty Start Date End Date Wilfredo De Jesus MD [address] [place] [address] PCP - General 05/07/23 documented as of this encounter
--- OUTSIDE RECORDS SUMMARY | 2024-09-23 12:17 | XMS_ITS | Encounter Summary ---
Author Organization [facility] Address [address] [place] [address] Care Team Providers Care Go Go Dancer Name Role Phone Community, Pcp Unavailable Unavailable Valeria George MD Primary Care Provider Unavail able Wilfredo De Jesus MD Primary Care Provider [phone] Encounter Details Date Type Department Care Team Description 04/23/2019 Orders Only Medical Records [address] [place] [address] Bryce Power MD Social History Tobacco Use Types Packs/Day [...] on file documented as of this encounter Procedures Procedure Name Priority Date/Time Associated Diagnosis Comments OUTSIDE PATHOLOGY Routine 04/21/2019 documented in this encounter Results * OUTSIDE PATHOLOGY (04/21/2019) Bryce Power MD OUTSIDE LAB documented in this encounter Visit Diagnoses Not on filedocumented in this encounter Care Teams Go Go Dancer Relationship Specialty Start Date End Date Valeria George MD PCP - General Internal Medicine 12/10/18 08/31/19 Wilfredo De Jesus MD [address] [place] [address] PCP - General Internal Medicine 09/01/19 [facility], [facility] Internal Medicine 11/23/16 documented as of this encounter
--- OUTSIDE RECORDS SUMMARY | 2024-09-23 12:17 | XMS_ITS | Encounter Summary ---
Author Organization [facility] Address [address] [place] [address] Care Team Providers Care Awning Assembler Name Role Phone Claudio Quach MD Primary Care Provider [phone] Community, Pcp Unavailable Unavailable Valeria George MD Primary Care Provider Unavail able Negrita Rehman MD Primary Care Provider Un available Valeria George MD Primary Care Provider Unavail able Wilfredo De Jesus MD Primary Care Provider [phone] Encounter Details Date Type Department Care Team Description 02/24/2017 Orders Only Adult Medicine [address] [phone] Valeria George MD Social History Tobacco Use [...] on filedocumented in this encounter Care Teams Awning Assembler Relationship Specialty Start Date End Date Claudio Quach MD [address] [place] [address] [phone] PCP - General Internal Medicine 11/23/16 06/05/17 Valeria George MD [address] [place] [address] PCP - General Internal Medicine 06/06/17 10/26/18 Negrita Rehman MD [address] [place] [address] PCP - General Internal Medicine 10/27/18 12/09/18 Valeria George MD [address] [place] [address] PCP - General Internal Medicine 12/10/18 08/31/19 Wilfredo De Jesus MD [address] [place] [address] PCP - General Internal Medicine 09/01/19 [facility], [place] [address] Internal Medicine 11/23/16 documented as of this encounter
--- OUTSIDE RECORDS SUMMARY | 2024-09-23 12:18 | XMS_ITS | Encounter Summary ---
Author Organization [facility] Address [address] [place] [address] Care Team Providers Care Consumer Studies Professor Name Role Phone Community, Pcp Unavailable Unavailable Wilfredo De Jesus MD Primary Care Provider [phone] Encounter Details Date Type Department Care Team Description 08/03/2021 Reversing Mill Roller Report Medical Records [address] [place] [address] Dale Zapien Social History Tobacco Use Types Packs/Day Years [...] on filedocumented in this encounter Care Teams Consumer Studies Professor Relationship Specialty Start Date End Date Wilfredo De Jesus MD [address] [place] [address] [phone] PCP - General Internal Medicine 09/01/19 [facility], Pcp Internal Medicine 11/23/16 documented as of this encounter
--- OUTSIDE RECORDS SUMMARY | 2024-09-23 12:18 | XMS_ITS | Clinical Summary ---
Author Organization [facility] Address [address] [place] [address] Phone Care Team Providers Care Industrial Education Teacher Name Role Phone Clara Salgado MD Primary Care Provider [phone] Allergies No known active allergies Medications acetaminophen [...] Overview (09/24/2021): Normal TTE 11/2017, follows with [facility]. Follows on a 6-month basis. Body [...] Overview (09/24/2021): No diagnostic study on file. [facility] Polysomnogram treatment study. Date 08/16/2017. SE 64% [...] patient's age to complete this topic Insurance [facility] ([id number]) [facility] ([id number]) Care Teams Industrial Education Teacher Relationship Specialty Start Date End Date Clara Salgado MD [address] [place], [place] PCP - General Internal Medicine 08/30/21
--- OUTSIDE RECORDS SUMMARY | 2024-09-23 12:18 | XMS_ITS | Clinical Summary ---
Author Organization [facility] Address [address] [place] [address] Care Team Providers Care Ophthalmic Dispenser Name Role Phone Wilfredo De Jesus MD Primary Care Provider [phone] Allergies No known active allergies Medications Medication [...] this topic Medical Devices Implanted Type Area Cage Supervisor Device Identifier Shelf Expiration Date Model / Serial / Lot Joint Prosthesis Joint Prosthesis Knee Description:left Care Teams Ophthalmic Dispenser Relationship Specialty Start Date End Date Wilfredo De Jesus MD [address] [place] [address] PCP - General 05/07/23
== END 2024-09-23 09:29 | disposition home or self-care (01) ==
PROVIDERS: PCP Internal Medicine; Visit Provider Internal Medicine Hypertension Specialist
DX: N18.31 Chronic kidney disease, stage 3a (principal); I10 Essential (primary) hypertension; E83.52 Hypercalcemia; D64.9 Anemia, unspecified
CPT/HCPCS: 99214

== ENCOUNTER → 2024-09-23 09:13 | Outpatient (BNVA) | payer OTHER, SELFPAY | PROVIDERS: PCP Internal Medicine; Visit Provider Internal Medicine Hypertension Specialist | DX: E11.22 Type 2 diabetes mellitus with diabetic chronic kidney disease (principal); I12.9 Hypertensive chronic kidney disease with stage 1 through stage 4 chronic kidney disease, or unspecified chronic kidney disease; E78.2 Mixed hyperlipidemia; N18.31 Chronic kidney disease, stage 3a; E83.52 Hypercalcemia; D63.1 Anemia in chronic kidney disease | CPT/HCPCS: 99212 ==

== ENCOUNTER 2024-10-26 10:37 | Outpatient (AMB) | payer OTHER, SELFPAY ==
--- NOTE | 2024-10-26 10:46 | A.OFFVIS_ITS ---
Vital Signs 10/26/24 10:57 Height 5 ft 1 in Weight 166 lb BMI 31.4 Intake Visit Reasons: Newpro-CTS left hand/wrist pain Intake Note: Mohamud 73 yr old right hand dominant Faroese speaking male presents today for a new problem visit for his left hand CTS. States symptoms started about 1 year ago and has not improved. States CTS occurs daily, on and off through out the d ay and worse at night time. EMG done. Right CTS surgery on 04/24/[address] Lomas. Patient is diabetic. On 07/12/24 his A1C was at 5.6. States he has cancer in his esophagus and is receiving radiation every 3 months. 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 He complains of numbness in his left median nerve distribution. Symptoms intermittent, but daily, worse at night. He has a Hx of a right carpal tunnel release, DOS: 04/05/21. He says his sensation improved and he is happy with the results of his surgery. He is a Diabetic, he says this is well-controlled. He has esophageal cancer and receives radiation treatment every 3 months. His next is scheduled for 11/30/24. [facility] Medical History CKD (chronic kidney disease) stage 3, GFR 30-59 ml/min Mild recurrent major depression Chronic idiopathic constipation Anemia Polyarthralgia CKD (chronic kidney disease) Skin lesion Lumbar pain COVID-19 Mixed hyperlipidemia Chronic fatigue Diabetes mellitus Insomnia HTN (hypertension) Asthma Diabetic acidosis, type II Surgical History H/O colonoscopy History of carpal tunnel surgery of right wrist (~03/2021) History of eye surgery History of knee replacement procedure of left knee H/O prostate biopsy Family History Father Diabetes Hypertension Mother Diabetes Hypertension Maternal Grandmother Stomach cancer Social History Household Members: None Housing: Apartment Are you a primary overnight caregiver to a significant other at home: No Do you presently have visiting nurse or other home services: No Alcohol intake: former Patient Tobacco Use Status: Never used Tobacco e-Cigarette/Vaping Use: Never Used Second Hand Smoke Exposure: No service: No Current occupational status: retired and disabled Cognitive needs: No Hearing needs: No Vision needs: Yes Review of Systems Const All systems reviewed & are unremarkable except as noted in HPI and below Physical Exam Vital Signs: BMI result Body Mass Index 31.4 Const General: no acute distress and alert Orientation/consciousness: patient oriented x3 Neuro General: patient oriented x3 Extrem Other: Evaluation of Left Upper Extremity: The patient is alert, oriented, and in no acute distress Neuro: Normal sensation in the median nerve distribution today in clinic. 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 Roberto Zimmerman MD Psych Appearance: grossly normal Affect: normal affect Attitude: cooperative Quality Reporting (2019) Adult ([facility] 138/10/16/68) Smoking risk assessment performed?: Yes Patient Tobacco Use Status: Never used Tobacco Assessment & Plan Assessment & Plan (1) Carpal tunnel syndrome of left wrist: Code(s): G56.02 - Carpal tunnel syndrome, left upper limb Category: Medical (2) CKD (chronic kidney disease) stage 3, GFR 30-59 ml/min: Code(s): N18.30 - Chronic kidney disease, stage 3 unspecified Category: Medical Qualifiers: Chronic kidney disease stage 3 subtype: stage 3a (GFR 45-59) Qualified Code(s): N18.31 - Chronic kidney disease, stage 3a (3) Diabetes mellitus: Code(s): E11.9 - Type 2 diabetes mellitus without complications Category: Medical Qualifiers: Diabetes mellitus complication status: with hyperglycemia Diabetes mellitus manager intermediate insulin use: without senior care use Diabetes mellitus type: type 2 Qualified Code(s): E11.65 - Type 2 diabetes mellitus with hyperglycemia Plan Assessment and plan: 1. Left carpal tunnel syndrome, moderate-severe Symptoms intermittent, but daily, worse at night I educated her about this condition I discussed operative and non-operative treatment options The patient would like to proceed with surgery The risks and benefits of operative treatment were discussed with the patient and the patient wishes to proceed with surgery. These risks include, but are not limited to risk of damage to blood vessels, nerves, tendons, infection, recurrence, incomplete relief of preoperative symptoms, persistent pain, possible need for further surgery and the risks associated with regional blocks and anesthesia. The plan is to take the patient to the operating room sometime in the next few months for the following procedures: 1. Left carpal tunnel release, under local All of the preoperative paperwork including the consent was reviewed today. All the patient's questions were answered. The patient understands that they will be contacted by our maintenance scheduler soon to schedule this procedure. Due to his radiation therapy he would like this to be done no sooner than December or perhaps January. He denies blood thinners, asthma, heart, lung issues He has esophageal cancer and receives radiation treatment every 3 months.His next is scheduled for 11/30/24. He is a Diabetic, his most recent HgA1c was 5.6% on 07/12/24. An updated HgA1c we will need to be <8.1% in order to proceed with surgery, and they expressed understanding He would like to wait until December or January for surgery. He has CKD-III 2. Right carpal tunnel syndrome, S/P release DOS: 04/24/21 Preoperatively with dense numbness and early thenar wasting Now with improving but not yet normal sensation Scribe Plan - Not visible on output: Scribed for Hortencia Lomas MD by Timur Salinas, medical record technician, on [ ] at [ ], EST. Coding Level of Care Code Est Pt Level 4 (89842) Diagnoses Carpal tunnel syndrome of left wrist G56.02 Stage 3a chronic kidney disease N18.31 Chronic kidney disease stage 3 subtype: stage 3a (GFR 45-59) Type 2 diabetes mellitus with hyperglycemia, without long-term current use of insulin E11.65 Diabetes mellitus complication status: with hyperglycemia Diabetes mellitus senior care insulin use: without senior care use Diabetes mellitus type: type 2
[2024-10-26 10:57] VITALS: BMI 31.4
--- OUTSIDE RECORDS SUMMARY | 2024-10-26 12:58 | XMS_ITS | Encounter Summary ---
Author Organization [facility] Address [address] [place] [address] Care Team Providers Care Packaging Operator Name Role Phone Wilfredo De Jesus MD Primary Care Provider [phone] Encounter Details Date Type Department Care Team (Late st Contact Info) Description 07/10/2023 Telephone [facility] [address] [place] [address] Aleksandr Hill MD [address] [place] [address] [address] Social History Tobacco Use Types Packs/Day Years [...] Afternoon I spoke to Linden Patel At [facility] We are not in network with this plan. This plan ismostly for [place] providers and when being done out of state a prior authorization is required. I submitted auth form faxed to [phone] w/ consult there is a 14 day turn around time.He stated patient may deny and need to see an in state provider. CALL CALL REF # [id number] Please have patient sign an out of network waiver. Thank you documented in this encounter Plan of Treatment Not on file documented as of this encounter Visit Diagnoses Not on filedocumented in this encounter Care Teams Packaging Operator Relationship Specialty Start Date End Date Wilfredo De Jesus MD [address] [place] [address] PCP - General 05/07/23 documented as of this encounter
--- OUTSIDE RECORDS SUMMARY | 2024-10-26 12:58 | XMS_ITS | Encounter Summary ---
Author Organization [employer] [facility] Address [address] 7t [place] [address] Care Team Providers Care Metal Roofing Mechanic Name Role Phone Unavailable Primary Care Provider [...]
--- OUTSIDE RECORDS SUMMARY | 2024-10-26 12:58 | XMS_ITS | Clinical Summary ---
Author Organization [facility] Address [address] [place] [address] Phone Care Team Providers Care Planned Giving Officer Name Role Phone Clara Salgado MD Primary Care Provider [phone] Allergies No known active allergies Medications acetaminophen [...] Overview (09/24/2021): Normal TTE 11/2017, follows with [facility]. Follows on a 6-month basis. Body [...] Overview (09/24/2021): No diagnostic study on file. [facility] Polysomnogram treatment study. Date 08/16/2017. SE 64% [...] patient's age to complete this topic Insurance [facility] ([id number]) [facility] ([id number]) Care Teams Planned Giving Officer Relationship Specialty Start Date End Date Clara Salgado MD [address] [place], [place] PCP - General Internal Medicine 08/30/21
--- OUTSIDE RECORDS SUMMARY | 2024-10-26 12:58 | XMS_ITS | Encounter Summary ---
Author Organization [facility] [employer] Address [address] [facility] 7t [place] [address] Care Team Providers Care Social Media Community Manager Name Role Phone Unavailable Primary Care Provider [...]
--- OUTSIDE RECORDS SUMMARY | 2024-10-26 12:58 | XMS_ITS | Clinical Summary ---
Author Organization [facility] Address [address] [place] [address] 7t [place] [address] Care Team Providers Care Director Of Operations Home Health Name Role Phone Unavailable Primary Care Provider [...] Relevant to Health Maintenance Insurance [facility]ENTAL - [facility] DENTAL - [facility]
--- OUTSIDE RECORDS SUMMARY | 2024-10-26 12:58 | XMS_ITS | Data Portability ---
Author Organization [place] [facility] Address [address] [facility] [address] [place] [address] Assessment Encounter Date Assessment Date Assessment LastModified by Organization Details LastModified Time 08/13/2024 08/13/2024 73 yo M never smoker, currently being treated for esophageal cancer, presents for evaluation of the throat. He had a CT scan of the neck with contrast last month at [facility] showing soft tissue fullness centered in the [...] piriform sinus, swelling noted on CT at [place], not appreciat ed on physical exam 2023 [facility] ([facility]), [address], [place], [address], 10:24:16 Medication Orders None recorded. Patient TargetsNo targets recorded. Patient InstructionsNo instructions recorded. Reason for Referral None Reported. Results Created Date Observation Date Name Description Value Unit Range Abnormal Flag Note LastModifiedBy Organization Detail LastModifiedTime 09/01/19 25 08/28/2024 MRI, head + neck + orbit s, w/wo contr ast [facility] Access ion Number : [id number] Sandra chan Name: Mohamud Tovar Record Number : [id number] Date of : 1950 Date of Exam: 2024 Referr ing Physic clem: Cordell Gomez [facility] [place] [address], [place] [address] [facility] [place] [address] Exam: MR Orbits , Face, Neck (C-/C+ ) CPT 65645 Room Descri ption: [place] Siem Verio 3.0T HISTOR Y: Right pirifo rm sinus lesion . TECHNI QUE: Multip lanar multis equenc e MRI of the neck was obtain ed before and after the admini strati on of 15 cc of Dotare m. COMPAR PHYLLIS: CT scan of the neck 024 perfor med at [facility] . FINDIN GS: * The left [...] asymme trical fullne ss of the right seasonal tax preparer ior pharyn geal muscul ature adjace nt [...] ent acute sinusi tis [facility]isha singh. Electr onical ly Signed By: Donny Bolanos MD [facility] ([facility]) [address], [place], [address], 09/09/2024 09:08:49 Result Notes None recorded. 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 Procedures Surgical History Date Name Laterality Status Provider Name and Address Organization Details Recorded Time 08/13/20 24 Fiberoptic Laryngoscopy (Comprehensive) completed CORDELL RAMIREZ MD [address] [place] [address],[address], [phone], [facility] 08/19/2024 07:19:29 Imaging Results Imaging Date Name Status LastModified by Organiz ation Details LastModified Time 08/28/2024 MRI, head + neck + orbits, w/wo contrast completed [facility] ([facility]) [address], [place], [address], 09/09/2024 09:08:49 Procedure Notes None recorded. Medical [...] Available Not Available No t Available FreeStyle Orick Lite kit USE DIRECTED TO TEST BLOOD [...] Updated DateTime 08/13/2024 154.94 cm 31.2 kg/m2 65871.74 g Katie Lindquist [place] - [facility] 08/13/2024 12:58:49 Social History None recorded. Functional Status None recorded. Mental Status None recorded. 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 Sometimes trouble swallowing. CORDELL RAMIREZ MD [address] [place] [address], [phone], [place] - [facility] 08/19/2024 07:23:40
--- OUTSIDE RECORDS SUMMARY | 2024-10-26 12:58 | XMS_ITS | Clinical Summary ---
Author Organization [facility] Address [address] [place] [address] Care Team Providers Care Junior Account Manager Name Role Phone Wilfredo De Jesus MD Primary Care Provider [phone] Allergies No known active allergies Medications Medication [...] this topic Medical Devices Implanted Type Area Wire Mill Operator Device Identifier Shelf Expiration Date Model / Serial / Lot Joint Prosthesis Joint Prosthesis Knee Description:left Care Teams Junior Account Manager Relationship Specialty Start Date End Date Wilfredo De Jesus MD [address] [place] [address] PCP - General 05/07/23
--- OUTSIDE RECORDS SUMMARY | 2024-10-26 12:58 | XMS_ITS | Encounter Summary ---
Author Organization [facility] Address [address] [place] [address] Care Team Providers Care Dye Tub Tender Name Role Phone Wilfredo De Jesus MD Primary Care Provider [phone] Reason for Visit * Reason Comments Med Change Request Encounter Details Date Type Department Care Team (Late st Contact Info) Description 05/30/2023 Refill [facility] [address] [facility] [address] [place] [address] Aleksandr Hill MD [address] [place] [address] [address] [place], [place] [id number] Anderson's esophagus with high grade dysplasia Social [...] PM EDT Spoke with Chela (Pharmacist) at [facility] in [place], [place] stated that Patient's insurance will NOT cover the Maalox Liquid suspension. Patient would have to get it over the counter for $ 8.00. Patient was notified documented in this encounter Plan of Treatment Not on file documented as of this encounter Visit Diagnoses Diagnosis Anderson's esophagus with high grade dysplasia documented in this encounter Care Teams Dye Tub Tender Relationship Specialty Start Date End Date Wilfredo De Jesus MD [address] [place] [address] PCP - General 05/07/23 documented as of this encounter
== END 2024-10-26 11:22 | disposition home or self-care (01) ==
PROVIDERS: PCP Internal Medicine; Visit Provider Orthopaedic Surgery
DX: G56.02 Carpal tunnel syndrome, left upper limb (principal); N18.31 Chronic kidney disease, stage 3a; E11.65 Type 2 diabetes mellitus with hyperglycemia
CPT/HCPCS: 99214

== ENCOUNTER → 2024-10-26 10:37 | Outpatient (BNVA) | payer OTHER, SELFPAY | PROVIDERS: PCP Internal Medicine; Visit Provider Orthopaedic Surgery | DX: G56.02 Carpal tunnel syndrome, left upper limb (principal); I12.9 Hypertensive chronic kidney disease with stage 1 through stage 4 chronic kidney disease, or unspecified chronic kidney disease; E11.22 Type 2 diabetes mellitus with diabetic chronic kidney disease; N18.31 Chronic kidney disease, stage 3a; E11.65 Type 2 diabetes mellitus with hyperglycemia | CPT/HCPCS: 99212 ==

== ENCOUNTER 2024-11-04 07:40 | Outpatient (REF) | payer OTHER, SELFPAY ==
--- OUTSIDE RECORDS SUMMARY | 2024-11-04 07:46 | XMS_ITS | Encounter Summary ---
Author Organization [facility] Address [address] [place] [address] Care Team Providers Care Md Ophthalmologist Name Role Phone Wilfredo De Jesus MD Primary Care Provider Unavaila ble Reason for Visit * Reason Comments Med Change Request Encounter Details Date Type Department Care Team ([facility] st Contact Info) Description 05/30/2023 [address]ill [facility] [facility] [address] [facility] [address] [place] [address] Aleksandr Hill MD [address] [facility] [address] [place], [place] [id number] Anderson's esophagus with high grade dysplasia Social [...] EDT Spoke with Chela (Pharmacist) at [facility] in [place], [place] stated that Patient's insurance will NOT cover the Maalox Liquid suspension. Patient would have to get it over the counter for $ 8.00. Patient was notified documented in this encounter Plan of Treatment Not on file documented as of this encounter Visit Diagnoses Diagnosis Anderson's esophagus with high grade dysplasia documented in this encounter Care Teams Md Ophthalmologist Relationship Specialty Start Date End Date Wilfredo De Jesus MD PCP - General 05/07/23 documented as of this encounter
--- OUTSIDE RECORDS SUMMARY | 2024-11-04 07:46 | XMS_ITS | Clinical Summary ---
Author Organization [facility] Address [address] [place] [address] Care Team Providers Care Adjunct Political Science Instructor Name Role Phone Wilfredo De Jesus MD Primary Care Provider Unavaila ble Allergies No known active allergies Medications Medication [...] series) 2011 Influenza Vaccine 03/25/2024 COVID-19 Vaccine (3 - 2023-2 5 season) 2024 11/21/2020, 10/24/2020 Hepatitis B Vaccines Aged Out No long er eligible based on patient's age to complete this topic Medical Devices Implanted Type Area Roll Scale Worker Device Identifier Shelf Expiration Date Model / Serial / Lot Joint Prosthesis Joint Prosthesis Knee Description:left Care Teams Adjunct Political Science Instructor Relationship Specialty Start Date End Date Wilfredo De Jesus MD PCP - General 05/07/23
--- OUTSIDE RECORDS SUMMARY | 2024-11-04 07:46 | XMS_ITS | Encounter Summary ---
Author Organization [facility] Address [address] [place] [address] Care Team Providers Care Dust Operator Name Role Phone Wilfredo De Jesus MD Primary Care Provider Sabrina adame Encounter Details Date Type Department Care Team (Late st Contact Info) Description 07/10/2023 Telephone [facility], [address] [place] [phone] Aleksandr Hill MD [address] [place] [address] [address] Social History Tobacco Use Types Packs/Day Years [...] Miscellaneous Notes * Telephone Encounter - Nestor Suzanne - 07/10/2023 2:02 PM EST Good Afternoon I spoke to Linden Patel At [facility] We are not in network with this plan. This plan ismostly for [place] providers and when being done out of state a prior authorization is required. I submitted auth form faxed to [phone] w/ consult there is a 14 day turn around time.He stated patient may deny and need to see an in state provider. CALL CALL REF # [id number] Please have patient sign an out of network waiver. Thank you documented in this encounter Plan of Treatment Not on file documented as of this encounter Visit Diagnoses Not on filedocumented in this encounter Care Teams Dust Operator Relationship Specialty Start Date End Date Wilfredo De Jesus MD PCP - General 05/07/23 documented as of this encounter
--- OUTSIDE RECORDS SUMMARY | 2024-11-04 07:46 | XMS_ITS | Clinical Summary ---
Author Organization [facility] Address [address] [place] [address] 7t [place] [address] Care Team Providers Care Hot Press Operator Name Role Phone Unavailable Primary Care [...] Relevant to Health Maintenance Insurance [facility] - [facility] DENTAL - [facility]
--- OUTSIDE RECORDS SUMMARY | 2024-11-04 07:46 | XMS_ITS | Encounter Summary ---
Author Organization [employer] [facility] Address [address] [facility] 7t [place] [address] Care Team Providers Care Car Usher Name Role Phone Unavailable Primary Care Provider [...]
--- OUTSIDE RECORDS SUMMARY | 2024-11-04 07:46 | XMS_ITS | Clinical Summary ---
Author Organization [facility] Address [address] [place] [address] Phone Care Team Providers Care Travel Registered Nurse Pacu Name Role Phone Clara Salgado MD Primary Care Provider [phone] Allergies No known active allergies Medications acetaminophen [...] Overview (09/24/2021): Normal TTE 11/2017, follows with [facility]. Follows on a 6-month basis. Body [...] Overview (09/24/2021): No diagnostic study on file. [facility] Polysomnogram treatment study. Date 08/16/2017. SE 64% [...] patient's age to complete this topic Insurance [facility] ([id number]) [facility] ([id number]) Care Teams Travel Registered Nurse Pacu Relationship Specialty Start Date End Date Clara Salgado MD [address] [place], [place] PCP - General Internal Medicine 08/30/21
--- OUTSIDE RECORDS SUMMARY | 2024-11-04 07:46 | XMS_ITS | Data Portability ---
Author Organization [place] [facility], [facility] Address [address] [facility] [address] [place] [address] Assessment Encounter Date Assessment Date Assessment LastModified by Organization Details LastModified Time 08/13/2024 08/13/2024 73 yo M never smoker, currently being treated for esophageal cancer, presents for evaluation of the throat. He had a CT scan of the neck with contrast last month at [facility] showing soft tissue fullness centered in the [...] piriform sinus, swelling noted on CT at [place], not appreciat ed on physical exam 2023 [facility] ([facility]), [address] [facility] [facility], [place], [address], 4 10:24:16 Medication Orders None recorded. Patient TargetsNo targets recorded. Patient InstructionsNo instructions recorded. Reason for Referral None Reported. Results Created Date Observation Date Name Description Value Unit Range Abnormal Flag Note LastModifiedBy Organization Detail LastModifiedTime 09/01/19 25 08/28/2024 MRI, head + neck + orbit s, w/wo contr ast [facility] Access ion Number : [id number] Sandra chan Name: Mohamud Tovar Record Number : [id number] Date of : 1950 Date of Exam: 2024 Referr ing Physic clem: Cordell Gomez [facility] n [place] [address], [place] [address] [place] [address] Exam: MR Orbits , Face, Neck (C-/C+ ) CPT 47775 Room Descri ption: [place] Siem Verio 3.0T HISTOR Y: Right pirifo rm sinus lesion . TECHNI QUE: Multip lanar multis equenc e MRI of the neck was obtain ed before and after the admini strati on of 15 cc of Dotare m. COMPAR PHYLLIS: CT scan of the neck 024 perfor med at [facility] . FINDIN GS: * The [...] asymme trical fullne ss of the right a p manager ior pharyn geal muscul ature adjace nt [...] ent acute sinusi tis [facility] the [facility]. Electr onical ly Signed By: Donny Bolanos MD [facility] ([facility]) [address], [place], [address], 09/09/2024 09:08:49 Result Notes None recorded. 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 Procedures Surgical History Date Name Laterality Status Provider Name and Address Organization Details Recorded Time 08/13/20 24 Fiberoptic Laryngoscopy (Comprehensive) completed CORDELL RAMIREZ MD [address] [place] [address],[address], [phone], [facility] 08/19/2024 07:19:29 Imaging Results Imaging Date Name Status LastModified by Organiz ation Details LastModified Time 08/28/2024 MRI, head + neck + orbits, w/wo contrast completed [facility] ([facility]) [address], [place], [address], 09/09/2024 09:08:49 Procedure Notes None recorded. Medical [...] Available Not Available No t Available FreeStyle Madeline Lite kit USE DIRECTED TO TEST BLOOD [...] Updated DateTime 08/13/2024 154.94 cm 31.2 kg/m2 83979.74 g Katie Lindquist [place] - [facility] 08/13/2024 12:58:49 Social History None recorded. Functional Status None recorded. Mental Status None recorded. 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 Sometimes trouble swallowing. CORDELL RAMIREZ MD [address] [place] [address], [phone], [place] - [facility] 08/19/2024 07:23:40
--- OUTSIDE RECORDS SUMMARY | 2024-11-04 07:46 | XMS_ITS | Encounter Summary ---
Author Organization [facility] [facility] Address [address] [facility] 7t [place] [address] Care Team Providers Care Principal Examiner Name Role Phone Unavailable Primary Care Provider [...]
[2024-11-04 08:44] LABS: Appearance Urine Clear; Color Urine Yellow; Glucose Urine UA Negative (Negative); Leukocyte Esterase Urine Negative (Negative); Nitrite Urine Negative (Negative); Specific Gravity - Urine 1.015 (1.005-1.025); Urine Blood Negative (Negative); Urine Ketones Negative (Negative); Urine Protein Trace mg/dL (Neg-Trace)
[2024-11-04 09:16] LABS: Alanine Aminotransferase 28 U/L (0-40); Albumin Level 4.4 g/dL (3.5-5.0); Alkaline Phosphatase 61 U/L (39-117); Anion Gap 11 (12-20); Aspartate Amino Transferase 24 U/L (5-37); Bilirubin Total 0.5 mg/dL (0.0-1.0); Blood Urea Nitrogen 21 mg/dL (9-16); Calcium 9.9 mg/dL (8.4-10.2); Carbon Dioxide 24 mmol/L (22-29); Chloride 110 mmol/L (96-108); Cholesterol 160 mg/dL (<200); Estimated Glomerular Filt Rate 45; Glucose Fasting 116 mg/dL (60-99); HDL Cholesterol 51 mg/dL (>40); LDL Cholesterol Calculated 87 mg/dL (<100); Potassium 4.1 mmol/L (3.3-5.1); Sodium 141 mmol/L (135-145); Total Protein 7.5 g/dL (6.5-8.0); Triglycerides 110 mg/dL (<150)
[2024-11-04 09:32] LABS: Vitamin D 25-OH Total 32.5 ng/mL (>30)
[2024-11-04 09:39] LABS: Creatinine Urine 137.82 mg/dL; Microalbum/Creatinine Ratio Ur 38.4 ug/mg cr (<30)
== END 2024-11-04 07:41 | disposition home or self-care (01) ==
LOC: HO.LAB 07:40
PROVIDERS: Internal Medicine Hypertension Specialist; PCP Internal Medicine; Visit Provider Internal Medicine
DX: N18.9 Chronic kidney disease, unspecified (principal); E78.5 Hyperlipidemia, unspecified; N18.30 Chronic kidney disease, stage 3 unspecified; E55.9 Vitamin D deficiency, unspecified; R80.9 Proteinuria, unspecified
CPT/HCPCS: 36415; 80053; 80061; 81003; 82043; 82306; 82570

== ENCOUNTER 2024-11-10 15:12 | Outpatient (AMB) | payer OTHER, SELFPAY ==
--- NOTE | 2024-11-10 15:17 | A.OFFPC_ITS ---
Vital Signs 11/10/24 15:18 Height 5 ft 1 in Weight 167 lb BMI 31.6 BP 132/70 Blood Pressure Location Lt brachial Position Sitting Intake Visit Reasons: dm Intake Note: Patient here for a follow up DM Cardiovascular Sonographer Required: Yes Cardiovascular Sonographer Language: Tool Programmer Name: Clara Amaral MD Information Interpreted: non-clinical & clinical Accompanied by: Self / Same As Patient Allergies No Known Allergies [No Known Allergies*] Allergy (Verified 11/10/24 15:31) Medication List - Last Reconciled 11/10/24 by Clara Amaral MD acetaminophen-codeine 120-12 mg/5 mL 5 mL PO Q6-8H [adult diapers pull-ups Use 1 daiper 3 to 4 times a day] albuterol sulfate 90 mcg/actuation 2 puffs inhalation Q6H PRN 30 days alcohol swabs 1 pad topical DAILY 90 days alum-mag hydroxide-simeth 200-200-20 mg/5 mL (Antacid-Antigas) mL PO atorvastatin 80 mg PO BEDTIME 90 days betamethasone valerate 0.1% 1 appl topical BID 30 days blood sugar diagnostic Use 1 test strip once a day blood-glucose meter (FreeStyle Lite Meter kit) As directed cholecalciferol (vitamin D3) 25 mcg PO DAILY 90 days citalopram (Celexa) 20 mg PO DAILY [diabetic shoes with inserts As directed] dulaglutide (Trulicity) 0.75 mg (0.5 mL) subcut QWEEK 90 days empagliflozin (Jardiance) 25 mg PO DAILY 90 days famotidine 40 mg PO BEDTIME 30 days fenofibrate 160 mg PO BEDTIME 90 days fluticasone propion-salmeterol 250-50 mcg/dose 1 ea PO BID ipratropium-albuterol 0.5 mg-3 mg(2.5 mg base)/3 mL 3 mL inhalation Q4-6H PRN 30 days lancets Use 1 lancet once a day latex gloves (Latex Gloves, Large) As directed levofloxacin 750 mg PO DAILY loratadine 10 mg PO DAILY 90 days losartan 25 mg PO DAILY pantoprazole 40 mg PO DAILY 90 days plecanatide (Trulance) 3 mg PO DAILY pregabalin (Lyrica) 150 mg PO BEDTIME sucralfate 10 mL PO [wipes As directed] Tobacco use date assessed: 09/16/24 Fall risk assessment: No Falls in past year Last assessed Fall Risk: 11/10/24 Dental Screening Dental Screen Date: 09/16/24 HPI HPI Comments History of Present Illness Details The patient is a 74-year-old male presenting for a follow-up appointment for chronic condition management. He has Type 2 Diabetes Mellitus, recently reflected by an A1c of 6.8%, requiring a potential dose adjustment of Trulicity. Chronic Renal Disease presents with a stable GFR at 45, necessitating continuous monitoring. Hyperlipidemia is managed with atorvastatin, but current LDL levels slightly exceed target parameters. The patient's hypertension is stable under current treatment. He continues management for Major Depressive Disorder and Anxiety Disorder, alongside GERD with Anderson's Esophagus without recent medication changes. Anemia is noted, but no specific interventions were discussed. Overall, the patient's current medication regimen involves several medications, including vitamin supplements and various other antihypertensives and lipid-lowering agents. [facility] Medical History CKD (chronic kidney disease) stage 3, GFR 30-59 ml/min Mild recurrent major depression Chronic idiopathic constipation Anemia Polyarthralgia CKD (chronic kidney disease) Skin lesion Lumbar pain COVID-19 Mixed hyperlipidemia Chronic fatigue Diabetes mellitus Insomnia HTN (hypertension) Asthma Diabetic acidosis, type II Surgical History H/O colonoscopy History of carpal tunnel surgery of right wrist (~03/2021) History of eye surgery History of knee replacement procedure of left knee H/O prostate biopsy Family History Father Diabetes Hypertension Mother Diabetes Hypertension Maternal Grandmother Stomach cancer Social History Household Members: None Housing: Apartment Are you a primary manager home healthcare to a significant other at home: No Do you presently have visiting nurse or other home services: No Alcohol intake: former Patient Tobacco Use Status: Never used Tobacco e-Cigarette/Vaping Use: Never Used Second Hand Smoke Exposure: No service: No Current occupational status: retired and disabled Cognitive needs: No Hearing needs: No Vision needs: Yes Questionnaire Thrive Questionnaire Date Thrive assessed: 09/16/24 DICKSON-7 AMB Questionnaire DICKSON-7 Date DICKSON - 7 assessed: 09/16/24 Source: Developed by Drs. López Faust, Julieta Hurd, Ayo Contreras and colleagues, with an educational lindy from [employer]. Review of Systems Const All systems reviewed & are unremarkable except as noted in HPI and below Card Denies chest pain at rest, Denies chest pain with activity, Denies edema, Denies irregular heart rhythm, Denies claudication, Denies dyspnea, Denies dyspnea on exertion, Denies orthopnea, Denies paroxysmal nocturnal dyspnea and Denies slow heart rate Resp Denies cough, Denies dyspnea and Denies dyspnea on exertion GI Denies abdominal pain, Denies change in bowel habits, Denies excessive flatus, Denies nausea and Denies vomiting Denies urinary hesitancy, Denies urinary incontinence and Denies urinary urgency Physical exam (Primary Care) Vital Signs: Last Vital Signs BP 132/70 11/10/24 15:18 BMI result Body Mass Index 31.6 BMI Assessment/Plan discussion: High BMI High, discussed plan: lifestyle, weight reduction, dietary and physical activity Tobacco/Smoking Status: Tobacco use Status Tobacco use date assessed 09/16/24 11/10/24 15:24 Patient Tobacco Use Status Never used Tobacco 11/10/24 15:24 e-Cigarette/Vaping Use Never Used 11/10/24 15:24 Thrive Assessment: Date of Thrive Assessment Date Thrive assessed 09/16/24 11/10/24 15:24 Resp Effort & Inspection: normal respiratory effort Auscultation: clear to auscultation bilaterally Cardio Jugular venous distension: no JVD Rate: regular rate Rhythm: regular rhythm Heart sounds: S1 normal heart sound present and S2 normal heart sound present Extrem General: Yes full ROM Results AMB Hemoglobin A1c AMB Hemoglobin A1c 6.8 % Last Edit by DEBRA Lin on 11/10/24 15:2 9 Results Reviewed Results Reviewed: Laboratory Last Values Hgb A1c (Clinic) 6.8 % (4.0-6.0) H 11/10/24 15:17 Coding Level of Care Code Est Pt Level 4 (17478) Complex EM visit Add On G2211 Diagnoses Stage 3a chronic kidney disease N18.31 Chronic kidney disease stage 3 subtype: stage 3a (GFR 45-59) Mild recurrent major depression F33.0 Type 2 diabetes mellitus with hyperglycemia, without long-term current use of insulin E11.65 Diabetes mellitus type: type 2 Diabetes mellitus adjunct faculty for medical terminology insulin use: without intermediate use Diabetes mellitus complication status: with hyperglycemia Essential hypertension I10 Hypertension type: essential hypertension Gastroesophageal reflux disease, unspecified whether esophagitis present K21.9 Esophagitis presence: esophagitis presence not specified Mixed hyperlipidemia E78.2 Time Spent (min) 23 Assessment & Plan Assessment & Plan (1) CKD (chronic kidney disease) stage 3, GFR 30-59 ml/min: Code(s): N18.30 - Chronic kidney disease, stage 3 unspecified Category: Medical Qualifiers: Chronic kidney disease stage 3 subtype: stage 3a (GFR 45-59) Qualified Code(s): N18.31 - Chronic kidney disease, stage 3a (2) Mild recurrent major depression: Code(s): F33.0 - Major depressive disorder, recurrent, mild Category: Medical (3) Diabetes mellitus: Code(s): E11.9 - Type 2 diabetes mellitus without complications Category: Medical Qualifiers: Diabetes mellitus type: type 2 Diabetes mellitus adjunct faculty for medical terminology insulin use: without intermediate use Diabetes mellitus complication status: with hyperglycemia Qualified Code(s): E11.65 - Type 2 diabetes mellitus with hyperglycemia (4) HTN (hypertension): Code(s): I10 - Essential (primary) hypertension Category: Medical Qualifiers: Hypertension type: essential hypertension Qualified Code(s): I10 - Essential (primary) hypertension (5) GERD (gastroesophageal reflux disease): Code(s): K21.9 - Gastro-esophageal reflux disease without esophagitis Category: Medical Qualifiers: Esophagitis presence: esophagitis presence not specified Qualified Code(s): K21.9 - Gastro-esophageal reflux disease without esophagitis (6) Mixed hyperlipidemia: Code(s): E78.2 - Mixed hyperlipidemia Category: Medical Plan Management for Type 2 Diabetes Mellitus involves increasing Trulicity dosage due to recent A1c findings. Chronic Kidney Disease monitoring will persist with regular renal assessments. Hyperlipidemia will be addressed by adding Ezetimibe to reach desired lipid targets. The current hypertension regimen remains stable. Psychiatric management for depressive and anxiety symptoms continues unchanged. The current GERD treatment plan is sustained, with scheduled follow-ups through Gastroenterology for Anderson's Esophagus. Anemia monitoring continues, with further lab evaluations anticipated as necessary. Continued engagement with specialists is planned. Patient was informed and verbally consented to the use of an ambient scribe for clinic note documentation during this visit. During the consultation, I discussed the rationale for increasing the Trulicity dosage to improve glycemic control with the patient's current A1c level. Hyperlipidemia management included the addition of Ezetimibe to help achieve lower LDL levels, with a discussion on the importance of lipid control. The stability of blood pressure and chronic renal function were noted, and ongoing monitoring was emphasized. We reviewed maintaining the current psychiatric treatment plan, as there are no current exacerbations of symptoms. The conversation also covered the continued use of existing medications to manage GERD and Anderson's Esophagus, with Gastroenterology follow-ups highlighted. The patient was advised of scheduled follow-ups and the importance of adhering to prescribed treatment plans. Orders: Orders Lipid Panel 4 Months E78.5 - Hyperlipidemia, unspecified Microalbumin, Random (w Creat) 4 Months R80.9 - Proteinuria, unspecified Complete Blood Count Auto Diff 4 Months D64.9 - Anemia, unspecified AMB Hemoglobin A1c Today E11.65 - Type 2 diabetes mellitus with hyperglycemia IRON PROFILE 4 Months D64.9 - Anemia, unspecified Vitamin B12 and Folate 4 Months E53.8 - Deficiency of other specified B group vitamins Vitamin D 25-OH Total 4 Months E55.9 - Vitamin D deficiency, unspecified Comprehensive [place]. Panel Fast 4 Months N18.31 - Chronic kidney disease, stage 3a Medications: New dulaglutide (Trulicity) 1.5 mg (0.5 mL) subcut QWEEK 2 mL 6RF 4 weeks ezetimibe 10 mg PO DAILY 90 tabs 1RF 90 days Refilled fenofibrate 160 mg PO BEDTIME 90 tabs 3RF 90 days E78.2 - Mixed hyperlipidemia atorvastatin 80 mg PO BEDTIME 90 tabs 1RF 90 days E78.2 - Mixed hyperlipidemia cholecalciferol (vitamin D3) 25 mcg PO DAILY 90 caps 1RF 90 days Discontinued levofloxacin Discontinued Reason: Order 750 mg PO DAILY 7 tabs 0RF dulaglutide (Trulicity) Discontinued Reason: Patient Completed Course 0.75 mg (0.5 mL) subcut QWEEK 90 days 6.5 mL 1RF E11.9 - Type 2 diabetes mellitus without complications famotidine Discontinued Reason: Patient Completed Course 40 mg PO BEDTIME 30 days 30 tabs 6RF Patient Instructions: - Increase Trulicity dosage as prescribed. - Continue current medications for hypertension and psychiatric conditions. - Start Ezetimibe 10 mg for cholesterol management. - Follow up with Gastroenterology as scheduled. - Contact office with any new or worsening symptoms. - Maintain regular follow-up appointments for ongoing condition management.
[2024-11-10 15:18] VITALS: BP 132/70; BMI 31.6
--- OUTSIDE RECORDS SUMMARY | 2024-11-10 17:14 | XMS_ITS | Clinical Summary ---
Author Organization [facility] Address [address] [place] [address] Care Team Providers Care Telephone Solicitor Name Role Phone Wilfredo De Jesus MD Primary Care Provider [phone] Allergies No known active allergies Medications Medication [...] this topic Medical Devices Implanted Type Area Telephone Engineer Device Identifier Shelf Expiration Date Model / Serial / Lot Joint Prosthesis Joint Prosthesis Knee Description:left Care Teams Telephone Solicitor Relationship Specialty Start Date End Date Wilfredo De Jesus MD PCP - General 05/07/23
--- OUTSIDE RECORDS SUMMARY | 2024-11-10 17:14 | XMS_ITS | Clinical Summary ---
Author Organization [facility] Address [address] [place] [address] Phone Care Team Providers Care Ornamental Rail Installer Name Role Phone Clara Salgado MD Primary Care Provider [phone] Allergies No known active allergies Medications acetaminophen [...] Overview (09/24/2021): Normal TTE 11/2017, follows with [facility]. Follows on a 6-month basis. Body [...] Overview (09/24/2021): No diagnostic study on file[place] [facility] [place]. Date 08/16/2017. SE 64% [...] patient's age to complete this topic Insurance [facility] ([id number]) [facility] ([id number]) Care Teams Ornamental Rail Installer Relationship Specialty Start Date End Date Clara Salgado MD [address] [place], [place] PCP - General Internal Medicine 08/30/21
--- OUTSIDE RECORDS SUMMARY | 2024-11-10 17:14 | XMS_ITS | Encounter Summary ---
Author Organization [facility] [facility] Address [address] [facility] 7[address] [place] [address] Care Team Providers Care Patent Legal Assistant Name Role Phone Unavailable Primary Care Provider [...]
--- OUTSIDE RECORDS SUMMARY | 2024-11-10 17:14 | XMS_ITS | Clinical Summary ---
Author Organization [employer] [facility] Address [address] [place] [address] 7[address] [place] [address] Care Team Providers Care Power Hammer Operator Name Role Phone Unavailable Primary Care [...] Relevant to Health Maintenance Insurance [facility] - [facility] DENTAL - [facility]
--- OUTSIDE RECORDS SUMMARY | 2024-11-10 17:14 | XMS_ITS | Encounter Summary ---
Author Organization [facility] Address [address] [place] [address] Care Team Providers Care Tread Cutter Name Role Phone Wilfredo De Jesus MD Primary Care Provider [phone] Encounter Details Date Type Department Care Team (Late st Contact Info) Description 07/10/2023 Telephone [facility] [address] [place] [address] Aleksandr Hill MD [address] [place] [address] [address] Social History Tobacco Use Types Packs/Day Years [...] Afternoon I spoke to Linden Patel At [facility] We are not in network with this plan. This plan ismostly for [place] providers and when being done out of state a prior authorization is required. I submitted auth form faxed to [phone] w/ consult there is a 14 day turn around time.He stated patient may deny and need to see an in state provider. CALL CALL REF # [id number] Please have patient sign an out of network waiver. Thank you documented in this encounter Plan of Treatment Not on file documented as of this encounter Visit Diagnoses Not on filedocumented in this encounter Care Teams Tread Cutter Relationship Specialty Start Date End Date Wilfredo De Jesus MD PCP - General 05/07/23 documented as of this encounter
--- OUTSIDE RECORDS SUMMARY | 2024-11-10 17:14 | XMS_ITS | Encounter Summary ---
Author Organization [facility] Address [address] [place] [address] Care Team Providers Care Five Roll Refiner Batch Mixer Name Role Phone Wilfredo De Jesus MD Primary Care Provider [phone] Reason for Visit * Reason Comments Med Change Request Encounter Details Date Type Department Care Team (Late st Contact Info) Description 05/30/2023 Refill [facility] [address] [facility] [address] [place] [address] Aleksandr Hill MD [address] [place] [address] [address] [place], [place] [id number] Anderson's esophagus with high grade dysplasia Social [...] PM EDT Spoke with Chela (Pharmacist) at [facility] in [place], [place] stated that Patient's insurance will NOT cover the Maalox Liquid suspension. Patient would have to get it over the counter for $ 8.00. Patient was notified documented in this encounter Plan of Treatment Not on file documented as of this encounter Visit Diagnoses Diagnosis Anderson's esophagus with high grade dysplasia documented in this encounter Care Teams Five Roll Refiner Batch Mixer Relationship Specialty Start Date End Date Wilfredo De Jesus MD PCP - General 05/07/23 documented as of this encounter
--- OUTSIDE RECORDS SUMMARY | 2024-11-10 17:14 | XMS_ITS | Encounter Summary ---
Author Organization [employer] [facility] Address [address] [facility] 7t [place] [address] Care Team Providers Care Sumac Tanner Name Role Phone Unavailable Primary Care Provider [...]
--- OUTSIDE RECORDS SUMMARY | 2024-11-10 17:14 | XMS_ITS | Data Portability ---
Author Organization [place] [facility], Allergy Address [address] [facility] [address] [place] [phone] Assessment Encounter Date Assessment Date Assessment LastModified by Organization Details LastModified Time 08/13/2024 08/13/2024 73 yo M never smoker, currently being treated for esophageal cancer, presents for evaluation of the throat. He had a CT scan of the neck with contrast last month at [facility] showing soft tissue fullness [...] piriform sinus, swelling noted on CT at [place], not appreciat ed on physical exam 2023 024 [facility] ([facility]), [address] [facility], [place], [address], 4 10:24:16 Medication Orders None recorded. Patient TargetsNo targets recorded. Patient InstructionsNo instructions recorded. Reason for Referral None Reported. Results Created Date Observation Date Name Description Value Unit Range Abnormal Flag Note LastModifiedBy Organization Detail LastModifiedTime 09/01/19 25 08/28/2024 MRI, head + neck + orbit s, w/wo contr ast [facility] Access ion Number : [id number] Sandra chan Name: Mohamud Tovar Record Number : [id number] Date of : 1950 Date of Exam: 2024 Referr ing Physic clem: Cordell Gomez [facility] n [place] [address], [place] [address] [place] [address] Exam: MR Orbits , Face, Neck (C-/C+ ) CPT 47347 Room Descri ption: [place] Siem Verio 3.0T HISTOR Y: Right pirifo rm sinus lesion . TECHNI QUE: Multip lanar multis equenc e MRI of the neck was obtain ed before and after the admini strati on of 15 cc of Dotare m. COMPAR PHYLLIS: CT scan of the neck 024 perfor med at [facility] . FINDIN GS: * The [...] asymme trical fullne ss of the right dumping machine operator ior pharyn geal muscul ature adjace nt [...] ent acute sinusi tis [facility] the [facility]p [facility] lakeisha singh. Electr onical ly Signed By: Donny Bolanos MD [facility] ([facility]) [address], [place], [address], 09/09/2024 09:08:49 Result Notes None recorded. 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 Procedures Surgical History Date Name Laterality Status Provider Name and Address Organization Details Recorded Time 08/13/20 24 Fiberoptic Laryngoscopy (Comprehensive) completed CORDELL RAMIREZ MD [address] [place] [address],[address], [address], [facility] 08/19/2024 07:19:29 Imaging Results Imaging Date Name Status LastModified by Organiz ation Details LastModified Time 08/28/2024 MRI, head + neck + orbits, w/wo contrast completed [facility] ([facility]) [address], [place], [address], 09/09/2024 09:08:49 Procedure Notes None recorded. Medical [...] Available Not Available No t Available FreeStyle [place] Lite kit USE DIRECTED TO TEST BLOOD [...] Updated DateTime 08/13/2024 154.94 cm 31.2 kg/m2 85383.74 g Katie Lindquist [place] - [facility] 08/13/2024 12:58:49 Social History None recorded. Functional Status None recorded. Mental Status None recorded. Family History Nothing Reported Notes:mother - DM father-DM Medical History Condition Response Cancer Y Asthma Y Sleep Disorder Y Past Encounters Encounter ID Performer Location Encounter Start Date Encounter Closed Date Diagnosis/Indication Diagnosis SNOMED-CT Code Diagnosis ICD10 Code Diagnosis Note [id number] CORDELL RAMIREZ MD [facility] [address] [address] 08/13/2024 12:32:26 08/13/2024 13:22:11 Neoplasm of uncertain behavior of pharynx 15382085 D37.05 Health Concerns Section Related Observation LastModified by Organization Detai ls LastModified Time None Recorded Concern Status LastModified by Organization Details LastModified Time None Recorded Advance Directives Directive None Recorded Payers Encounter Date Sequence Insurance Name Policy Number Policy Dunaway Covered Member ID Dunaway Member ID Guarantor Name 08/13/2024 1 [facility] - DOS ON OR AFTER 2022 - MEDICARE ADVANTAGE [place] (MEDICARE REPLACEMENT/ADV ANTAGE - PPO) Mohamud Carpenter [id number] Mohamud Carpenter Notes Date Note Type Note [...] pain. Sometimes trouble swallowing. CORDELL RAMIREZ MD [address] [place] [address], [address], [place] - [facility] 08/19/2024 07:23:40
== END 2024-11-10 15:43 | disposition home or self-care (01) ==
LOC: HO.HMCH 15:12
PROVIDERS: PCP Internal Medicine; Visit Provider Internal Medicine
DX: N18.31 Chronic kidney disease, stage 3a (principal); F33.0 Major depressive disorder, recurrent, mild; E11.65 Type 2 diabetes mellitus with hyperglycemia; I10 Essential (primary) hypertension; K21.9 Gastro-esophageal reflux disease without esophagitis; E78.2 Mixed hyperlipidemia

== ENCOUNTER → 2024-11-10 15:12 | Outpatient (BNVA) | payer OTHER, SELFPAY | PROVIDERS: PCP Internal Medicine; Visit Provider Internal Medicine | DX: I12.9 Hypertensive chronic kidney disease with stage 1 through stage 4 chronic kidney disease, or unspecified chronic kidney disease (principal); E11.22 Type 2 diabetes mellitus with diabetic chronic kidney disease; N18.31 Chronic kidney disease, stage 3a; E11.65 Type 2 diabetes mellitus with hyperglycemia; F33.0 Major depressive disorder, recurrent, mild; K21.9 Gastro-esophageal reflux disease without esophagitis; E78.2 Mixed hyperlipidemia | CPT/HCPCS: 83036; 99212 ==

== ENCOUNTER 2025-01-03 10:02 | Day surgery (SDC) | payer OTHER, SELFPAY ==
--- OUTSIDE RECORDS SUMMARY | 2024-12-23 15:25 | XMS_ITS | Encounter Summary ---
Author Organization [facility] Address [address] [facility] 7[address] [place] [address] Care Team Providers Care Enterprise Architect Manager Name Role Phone Unavailable Primary Care [...]
--- OUTSIDE RECORDS SUMMARY | 2024-12-23 15:25 | XMS_ITS | Data Portability ---
Author Organization [place] [facility], Allergy Address [address] [facility] [address] [place] [phone] Assessment Encounter Date Assessment Date Assessment LastModified by Organization Details LastModified Time 08/13/2024 08/13/2024 73 yo M never smoker, currently being treated for esophageal cancer, presents for evaluation of the throat. He had a CT scan of the neck with contrast last month at [facility] showing soft tissue [...] piriform sinus, swelling noted on CT at [place], not appreciat ed on physical exam 2023 0[facility] ([facility]), [address] [facility], [place], [address], 4 10:24:16 Medication Orders None recorded. Patient TargetsNo targets recorded. Patient InstructionsNo instructions recorded. Reason for Referral None Reported. Results Created Date Observation Date Name Description Value Unit Range Abnormal Flag Note LastModifiedBy Organization Detail LastModifiedTime 09/01/19 25 08/28/2024 MRI, head + neck + orbit s, w/wo contr ast [facility] Access ion Number : [id number] Sandra chan Name: Mohamud Tovar Record Number : [id number] Date of : 1950 Date of Exam: 2024 Referr ing Physic clem: Cordell Gomez [facility] n [place] [address], [place] [address] [place] [address] Exam: MR Orbits , Face, Neck (C-/C+ ) CPT 32848 Room Descri ption: [place] Siem Verio 3.0T HISTOR Y: Right pirifo rm sinus lesion . TECHNI QUE: Multip lanar multis equenc e MRI of the neck was obtain ed before and after the admini strati on of 15 cc of Dotare m. COMPAR PHYLLIS: CT scan of the neck 024 perfor med at [facility] . FINDIN GS: * The [...] asymme trical fullne ss of the right manufacturing mechanic ior pharyn geal muscul ature adjace nt [...] ent acute sinusi tis [facility]. Electr onical ly Signed By: Donny Bolanos MD [facility] ([facility]) [address], [place], [address], 09/09/2024 09:08:49 Result Notes None recorded. Problems Name Problem SNOMED Code Status Onset Date Resolution Date Notes Provider Name and Address Organization Details Recorded Time Neoplasm of uncertain behavior of pharynx 96898397 Active 024 CORDELL RAMIREZ MD [address] [place] [address],[place] [address], [place], [address] , [place] - [facility] 13:15:00 Problem Notes None recorded. Procedures Surgical History Date Name Laterality Status Provider Name and Address Organization Details Recorded Time 08/13/20 24 Fiberoptic Laryngoscopy (Comprehensive) completed CORDELL RAMIREZ MD [address] [place] [address],[address], [address], [facility] 08/19/2024 07:19:29 Imaging Results Imaging Date Name Status LastModified by Organiz ation Details LastModified Time 08/28/2024 MRI, head + neck + orbits, w/wo contrast completed [facility] ([facility]) [address], [place], [address], 09/09/2024 09:08:49 Procedure Notes None recorded. Medical [...] Available Not Available No t Available FreeStyle [place] Lite kit USE DIRECTED TO TEST BLOOD [...] Updated DateTime 08/13/2024 154.94 cm 31.2 kg/m2 63167.74 g Katie Lindquist [place] - [facility] 08/13/2024 12:58:49 Social History None recorded. Functional Status None recorded. Mental Status None recorded. Family History Nothing Reported Notes:mother - DM father-DM Medical History Condition Response Cancer Y Asthma Y Sleep Disorder Y Past Encounters Encounter ID Performer Location Encounter Start Date Encounter Closed Date Diagnosis/Indication Diagnosis SNOMED-CT Code Diagnosis ICD10 Code Diagnosis Note [id number] CORDELL RAMIREZ MD [facility] [address] [address] 08/13/2024 12:32:26 08/13/2024 13:22:11 Neoplasm of uncertain behavior of pharynx 09181080 D37.05 Health Concerns Section Related Observation LastModified by Organization Detai ls LastModified Time None Recorded Concern Status LastModified by Organization Details LastModified Time None Recorded Advance Directives Directive None Recorded Payers Encounter Date Sequence Insurance Name Policy Number Policy Dunaway Covered Member ID Dunaway Member ID Guarantor Name 08/13/2024 1 [facility] - DOS ON OR AFTER 2022 - MEDICARE [place]ANTAGE [place] ([place]ARE [place]ACEMENT/ADV ANTAGE - PPO) Mohamud Carpenter [id number] Mohamud Carpenter Notes Date Note Type Note [...] pain. Sometimes trouble swallowing. CORDELL RAMIREZ MD [address] [place] [address], [address], [place] [facility] 08/19/2024 07:23:40
--- OUTSIDE RECORDS SUMMARY | 2024-12-23 15:25 | XMS_ITS | Encounter Summary ---
Author Organization [facility] Address [address] [facility] 7t [place] [address] Care Team Providers Care Case Management Associate Name Role Phone Unavailable Primary Care Provider [...]
--- OUTSIDE RECORDS SUMMARY | 2024-12-23 15:25 | XMS_ITS | Clinical Summary ---
Author Organization [facility] Address [address] [place] [address] 7t [place] [address] Care Team Providers Care Hearing Impaired Teacher Name Role Phone Unavailable Primary Care Provider [...] Relevant to Health Maintenance Insurance DENTAL - [facility] DENTAL - [facility]
--- OUTSIDE RECORDS SUMMARY | 2024-12-23 15:26 | XMS_ITS | Clinical Summary ---
Author Organization [facility] Address [address] [place] [address] Care Team Providers Care Pediatric Dietician Name Role Phone Wilfredo De Jesus MD Primary Care Provider Unavaila ble Allergies No known active allergies Medications albuterol (PROVENTIL HFA; VENTOLIN HFA) 108 (90 Base) MCG/ACT inhaler INHALE 2 PUFFS EVERY 6 HOURS NEEDED FOR WHEEZING AND SHORTNESS OF BREATH. 04/29/20 23 Active betamethasone dipropionate (DIPROLENE) 0.05 % cream Apply topically as needed. 04/29/20 Active Vitamin D High Potency 25 MCG (1000 UT) capsule Take by mouth every morning. 03/24/20 23 Active citalopram (CeleXA) 20 MG tablet Take 1 tablet (20 mg total) by mouth every morning. 04/29/20 23 Active Trulicity 0.75 MG/0.5ML prefilled pen injection Inject under the skin once a week. Wednesdays04/21/20 23 Active Jardiance 25 MG tablet Take 1 tablet (25 mg total) by mouth every morning. 04/29/20 Active fenofibrate (TRIGLIDE) 160 MG tablet Take 1 tablet (160 mg total) by mouth nightly. 03/24/20 Active fluticasone-salm eterol (ADVAIR) 250-50 mcg/inh diskus inhaler INHALE 1 PUFF BY MOUTH TWICE DAILY. RINSE MOUTH AFTER USING. 04/29/20 Active losartan-hydroCH LOROthiazide (HYZAAR) 50-12.5 MG per tablet Take 1 tablet by mouth every morning. 04/29/20 Active Myrbetriq 50 MG ER tablet Take 1 tablet (50 mg total) by mouth nightly. 04/21/20 Active pregabalin (LYRICA) 150 MG capsule Take 1 capsule (150 mg total) by mouth every morning. Active PANTOprazole (PROTONIX) 40 MG EC tabletIndication s:Anderson's esophagus with high grade dysplasia,Gastro esophageal reflux disease, unspecified whether esophagitis present Take 1 tablet (40 mg total) by mouth 2 (two) times a day before breakfast and dinner. 180 tablet 3 05/29/20 Active Additional Information Patient taking differently:40 mg OralEvery morning, Reason: Other, Informant: Self, Reported on 07/24/2023 atorvastatin (LIPITOR) 80 MG tablet Take 1 tablet (80 mg total) by mouth nightly. 01/02/20 Active sucralfate (CARAFATE) 1 GM/10ML suspensionIndica tions:Anderson's esophagus with high grade dysplasia,Gastro esophageal reflux disease, unspecified whether esophagitis present Take 10 mL (1 g total) by mouth 4 (four) times a day before meals and nightly. On an empty stomach. 420 mL 3 10/07/19 Active FREESTYLE LITE strip USE DIRECTED TO TEST BLOOD SUGAR EVERY DAY 09/29/19 024 Discontin ued(Patie nt Discharge ) Active Problems No known active problems Family [...] Assigned at Male 07/29/2023 7:31 AM EST Legal Sex Male 7:49 AM EDT Gender Identity Male 07/29/2023 7:31 AM EST [...] this topic Medical Devices Implanted Type Area Die Reamer Device Identifier Shelf Expiration Date Model / Serial / Lot Joint Prosthesis Joint Prosthesis Knee Description:left Insurance [id number] [place] [address] [facility] MEDICARE OUT OF NETWORK RADHA VAUGHN [id number] MISC MGD MEDICARE OUT OF NETWORK RADHA VAUGHN [id number] Care Teams Pediatric Dietician Relationship Specialty Start Date End Date Wilfredo De Jesus MD PCP - General 05/07/23
--- OUTSIDE RECORDS SUMMARY | 2024-12-23 15:26 | XMS_ITS | Encounter Summary ---
Author Organization [facility] Address [address] [place] [address] Care Team Providers Care Hem Inspector Name Role Phone Wilfredo De Jesus MD Primary Care Provider Sabrina adame Encounter Details Date Type Department Care Team (Late st Contact Info) Description 07/10/2023 Telephone [facility], [address] [place] [phone] Aleksandr Hill MD [address] [place] [address] [address] Social History Tobacco Use Types Packs/Day Years [...] encounter Miscellaneous Notes * Telephone Encounter - Nesotr Palacios - 07/10/2023 2:02 PM EST Good Afternoon I spoke to Linden Patel At [facility] We are not in network with this plan. This plan ismostly for [place] providers and when being done out of state a prior authorization is required. I submitted auth form faxed to [phone] w/ consult there is a 14 day turn around time.He stated patient may deny and need to see an in state provider. CALL CALL REF # [id number] Please have patient sign an out of network waiver. Thank you documented in this encounter Plan of Treatment Not on file documented as of this encounter Visit Diagnoses Not on filedocumented in this encounter Care Teams Hem Inspector Relationship Specialty Start Date End Date Wilfredo De Jesus MD PCP - General 05/07/23 documented as of this encounter
--- OUTSIDE RECORDS SUMMARY | 2024-12-23 15:26 | XMS_ITS | Encounter Summary ---
Author Organization [facility] Address [address] [place] [address] Care Team Providers Care Prenatal Genetic Counselor Name Role Phone Wilfredo De Jesus MD Primary Care Provider Unavaila ble Reason for Visit * Reason Comments Med Change Request Encounter Details Date Type Department Care Team (Late st Contact Info) Description 05/30/2023 Refill [facility] [address] [facility] [address] [place] [address] Aleksandr Hill MD [address] [facility] [address] [place], [place] [phone] Anderson's esophagus with high grade dysplasia Social [...] EDT Spoke with Chela (Pharmacist) at [facility] in [place], [place] stated that Patient's insurance will NOT cover the Maalox Liquid suspension. Patient would have to get it over the counter for $ 8.00. Patient was notified documented in this encounter Plan of Treatment Not on file documented as of this encounter Visit Diagnoses Diagnosis Anderson's esophagus with high grade dysplasia documented in this encounter Care Teams Prenatal Genetic Counselor Relationship Specialty Start Date End Date Wilfredo De Jesus MD PCP - General 05/07/23 documented as of this encounter
--- OUTSIDE RECORDS SUMMARY | 2024-12-23 15:26 | XMS_ITS | Clinical Summary ---
Author Organization [facility] Address [address] [place] [address] Phone Care Team Providers Care Soil Biology Teacher Name Role Phone Clara Salgado MD Primary Care Provider [phone] Allergies No known active allergies Medications acetaminophen [...] Overview (09/24/2021): Normal TTE 11/2017, follows with [facility]. Follows on a 6-month basis. Body [...] Overview (09/24/2021): No diagnostic study on file. [facility] Polysomnogram treatment study. Date 08/16/2017. SE 64% [...] mellitus without complication 09/24/19 22 01/30/2023 Immunizations Immunization Administration Dates Next Due Influenza Split High [...] 05/10/2022, 11/05/2021, Additional history exists Influenza Vaccine (Season Ended) 2025 06/05/2018 Pneumococcal Vaccine: 50+ Years Completed 06/05/2018, 03/21/2017 Hepatitis B Vaccine Aged Out No longe r eligible based on patient's age to complete this topic Insurance [facility] ([id number]) [facility] ([id number]) Care Teams Soil Biology Teacher Relationship Specialty Start Date End Date Clara Salgado MD [address] [place], [place] PCP - General Internal Medicine 08/30/21
[2025-01-03 11:17] VITALS: BMI 31.4
[2025-01-03 11:23] VITALS: BP 139/65; PULSE 67; RESP 18; TEMP 36.8; O2SAT 97
--- NOTE | 2025-01-03 13:36 | P.OP_ITS ---
Operative Note Operative Note Date of Service: 01/03/25 Narrative: Preop diagnosis: 1. Left Carpal tunnel syndrome Postop diagnosis: same Procedure: 1. Left Carpal tunnel release Surgeon: Hortencia Lomas MD Drupal Php Developer: None Anesthesia: local block using 1% lidocaine with epinephrine Findings: Thickened transverse carpal ligament. EBL: Less than 5 mL Specimens: None Complications: None Disposition: Brought to recovery room in stable condition Plan: Follow-up for 10-14 days for wound check and suture removal Indications: The patient is a 74 years old, with left carpal tunnel syndrome that has been unresponsive to nonoperative management. The risks and benefits of operative treatment including but not limited to risk of damage to blood vessels, nerves, tendons, infection, persistent pain, persistent symptoms, or possible need for additional surgery were discussed with the patient and the patient wishes to proceed with surgery. Procedure: Once consent was obtained a local block was performed using a combination of 1% lidocaine with epinephrine. The patient was then brought back to the operating suite and placed on the operative table in supine position. The left upper extremity was prepped and draped in a standard surgical fashion. Once assured that we had a good block, a 2.0 cm longitudinal incision was made centered over the carpal tunnel. The incision was made through the skin to the subcutaneous tissues using a #15 blade. Dissection was made down to the level of the transverse carpal ligament with care being taken to protect the palmar cutaneous nerve. Once the transverse carpal ligament was clearly visualized, a longitudinal incision was made in the transverse carpal ligament 1st using a #15 blade, then using tenotomy scissors under direct visualization. Care was taken to look for and protect the motor branch of the median nerve when seen in this area. Once satisfied with our carpal tunnel release the wound was copiously irrigated with normal saline and hemostasis was obtained with a brief period of local pressure. The skin edges were reapproximated with some 5.0 nylon suture material and a sterile dressing was applied. The patient appears to have tolerated the procedure well and with no complicat ions. All digits were well vascularized at the conclusion of the case.
--- NOTE | 2025-01-03 13:36 | MHC.SHP ---
Pre-Procedural Eval Section A - 24 Hr Update-Section A only Date of Service: 01/03/25 The patient is an INPATIENT: No Changes since office visit: No Cold of Flu in the past 2 weeks, No New Medical Problems, No Changes in Medication and No Patient answered all questions The patient has been examined within 24 hours of the surgical procedure. The History & Physical has been completed within 30 days and I have reviewed it.: Yes Section B - Complete if H&P > 30 days Chief Complaint: Carpal tunnel syndrome, left upper limb Allergies: Allergies Allergy/AdvReac Type Severity Reaction Status Date / Time No Known Allergies Allergy Verified 01/03/25 11:26 [No Known Allergies*] Plan Diagnosis/Plan: Unchanged I have reviewed the history and physical and performed a pertinent physical examination on my patient. No changes have occurred unless specified. Time Spent With Patient Time: Total time managing care of this patient today ____ minutes.
[2025-01-03 14:02] VITALS: BP 133/70; PULSE 65; RESP 16; O2SAT 98
== END 2025-01-03 14:25 | disposition home or self-care (01) ==
PROVIDERS: PCP Internal Medicine; Visit Provider Orthopaedic Surgery
PROC: (CPT 64721; principal; 2025-01-03 12:30)
DX: G56.02 Carpal tunnel syndrome, left upper limb (principal); R20.0 Anesthesia of skin; E11.65 Type 2 diabetes mellitus with hyperglycemia; E11.10 Type 2 diabetes mellitus with ketoacidosis without coma; E11.22 Type 2 diabetes mellitus with diabetic chronic kidney disease; I12.9 Hypertensive chronic kidney disease with stage 1 through stage 4 chronic kidney disease, or unspecified chronic kidney disease; N18.31 Chronic kidney disease, stage 3a; C15.9 Malignant neoplasm of esophagus, unspecified; Z51.0 Encounter for antineoplastic radiation therapy; E78.2 Mixed hyperlipidemia; J45.909 Unspecified asthma, uncomplicated; F33.0 Major depressive disorder, recurrent, mild; Z98.890 Other specified postprocedural states
CPT/HCPCS: 64721; J0171; J2003

== ENCOUNTER → 2025-01-03 10:02 | Outpatient (BNV) | payer OTHER, SELFPAY | PROVIDERS: PCP Internal Medicine; Visit Provider Orthopaedic Surgery | DX: G56.02 Carpal tunnel syndrome, left upper limb (principal) | CPT/HCPCS: 64721 ==

== ENCOUNTER 2025-01-18 10:58 | Outpatient (AMB) | payer OTHER, SELFPAY ==
--- NOTE | 2025-01-18 11:33 | A.OFFVIS_ITS ---
Vital Signs 01/18/25 11:34 Height 5 ft 1 in Weight 166 lb BMI 31.4 Intake Visit Reasons: PO-Lt CTR 01/03/25 Intake Note: Mohamud 74yr old male presents today for his PO visit for his left CTR 01/03/[address] Lomas. States symptoms have improved and is doing well. Denies numbness or tingling. Sutures removed and steri strips applied. Deputy Sheriff Building Guard Required: Yes Deputy Sheriff Building Guard Language: Custom Shoe Designer And Maker Services: Deputy Sheriff Building Guard Present Deputy Sheriff Building Guard Name: Yaquelin DEBRA/RITU Allergies No Known Allergies [No Known Allergies*] Allergy (Verified 01/18/25 11:34) HPI HPI PO-Lt CTR 01/03/25: Details: Mohamud 74yr old male presents today for his PO visit for his left CTR 01/03/[address] Lomas. States symptoms have improved and is doing well. Denies redness or discharge of incision site on left wrist. Denies numbness or tingling. Sutures removed and steri strips applied. [facility] Medical History CKD (chronic kidney disease) stage 3, GFR 30-59 ml/min Mild recurrent major depression Chronic idiopathic constipation Anemia Polyarthralgia CKD (chronic kidney disease) Skin lesion Lumbar pain COVID-19 Mixed hyperlipidemia Chronic fatigue Diabetes mellitus Insomnia HTN (hypertension) Asthma Diabetic acidosis, type II Surgical History H/O colonoscopy History of carpal tunnel surgery of right wrist (~03/2021) History of eye surgery History of knee replacement procedure of left knee H/O prostate biopsy Family History Father Diabetes Hypertension Mother Diabetes Hypertension Maternal Grandmother Stomach cancer Social History Household Members: None Housing: Apartment Are you a primary health care facilities inspector to a significant other at home: No Do you presently have visiting nurse or other home services: No Alcohol intake: former Comment: counts correct Patient Tobacco Use Status: Never used Tobacco e-Cigarette/Vaping Use: Never Used Second Hand Smoke Exposure: No service: No Current occupational status: retired and disabled Cognitive needs: No Hearing needs: No Vision needs: Yes Review of Systems Const All systems reviewed & are unremarkable except as noted in HPI and below Physical Exam Vital Signs: BMI result Body Mass Index 31.4 Const General: no acute distress and alert Orientation/consciousness: patient oriented x3 Neuro General: patient oriented x3 Extrem Other: Evaluation of Left Upper Extremity: The patient is alert, oriented, and in no acute distress Neuro: Normal sensation in the median nerve distribution today in clinic. Normal sensation in the ulnar nerve distribution No thenar or intrinsic wasting Good APB muscle belly firing and good finger cross Vascular: Cap refill brisk Skin: Well approximated and well healing incision site noted over the volar left wrist No erythema, ecchymosis noted No discharge ROM: He can make a fist and extend all his digits No locking or catching Psych Appearance: grossly normal Affect: normal affect Attitude: cooperative Assessment & Plan Assessment & Plan (1) Carpal tunnel syndrome of left wrist: Code(s): G56.02 - Carpal tunnel syndrome, left upper limb Category: Medical Plan 1. Status post left carpal tunnel release With complete symptom resolution postoperatively DOS 01/03/2025 Patient appears to be recovering well postoperatively Patient is educated about the typical recovery course No acute follow-up needed, as patient is recovering very well Patient is amenable to this plan Follow-up as needed Coding Level of Care Code Global (79808) Diagnoses Carpal tunnel syndrome of left wrist G56.02
[2025-01-18 11:34] VITALS: BMI 31.4
== END 2025-01-18 11:45 | disposition home or self-care (01) ==
LOC: HO.HOS 10:59
PROVIDERS: PCP Internal Medicine
DX: G56.02 Carpal tunnel syndrome, left upper limb (principal)
CPT/HCPCS: 99024

== ENCOUNTER → 2025-01-18 10:58 | Outpatient (BNVA) | payer OTHER, SELFPAY | PROVIDERS: PCP Internal Medicine | DX: Z48.811 Encounter for surgical aftercare following surgery on the nervous system (principal); Z98.890 Other specified postprocedural states | CPT/HCPCS: 99212 ==

== ENCOUNTER 2025-01-24 07:23 | Outpatient (REF) | payer OTHER, SELFPAY ==
--- OUTSIDE RECORDS SUMMARY | 2025-01-24 07:26 | XMS_ITS | Encounter Summary ---
Author Organization [facility] Address [address] [place] [address] Care Team Providers Care Steam Flattener Name Role Phone Claudio Quach MD Primary Care Provider [phone] Community, Pcp Unavailable Unavailable Valeria George MD Primary Care Provider Unavail able Negrita Rehman MD Primary Care Provider Un available Valeria George MD Primary Care Provider Unavail able Wilfredo De Jesus MD Primary Care Provider [phone] Encounter Details Date Type Department Care Team Description 03/25/2017 Business Doc Medical Records [address] [place] [address] [id number] Abstract, Provider Social History Tobacco Use Types [...] on filedocumented in this encounter Care Teams Steam Flattener Relationship Specialty Start Date End Date Claudio Quach MD [address] [place] [address] [phone] PCP - General Internal Medicine 11/23/16 06/05/17 Valeria George MD [address] [place] [address] [id number] PCP - General Internal Medicine 06/06/17 10/26/18 Negrita Rehman MD [address] [place] [address] [id number] PCP - General Internal Medicine 10/27/18 12/09/18 Valeria George MD [address] [place], [place] [id number] PCP - General Internal Medicine 12/10/18 08/31/19 Wilfredo De Jesus MD [address] [place] [address] PCP - General Internal Medicine 09/01/19 [place] [address] Internal Medicine 11/23/16 documented as of this encounter
[2025-01-24 08:47] LABS: Alanine Aminotransferase 17 U/L (0-40); Albumin Level 4.6 g/dL (3.5-5.0); Alkaline Phosphatase 62 U/L (39-117); Anion Gap 13 (12-20); Aspartate Amino Transferase 20 U/L (5-37); Bilirubin Total 0.3 mg/dL (0.0-1.0); Blood Urea Nitrogen 32 mg/dL (9-16); Calcium 10.1 mg/dL (8.4-10.2); Carbon Dioxide 23 mmol/L (22-29); Chloride 110 mmol/L (96-108); Cholesterol 150 mg/dL (<200); Estimated Glomerular Filt Rate 43; Glucose Fasting 138 mg/dL (60-99); Glucose Random 139 mg/dL (60-115); HDL Cholesterol 46 mg/dL (>40); LDL Cholesterol Calculated 81 mg/dL (<100); Potassium 4.1 mmol/L (3.3-5.1); Sodium 142 mmol/L (135-145); Total Protein 7.2 g/dL (6.5-8.0); Triglycerides 117 mg/dL (<150)
[2025-01-24 08:52] LABS: Creatinine Urine 59.81 mg/dL; Microalbum/Creatinine Ratio Ur 50.1 ug/mg cr (<30)
[2025-01-24 09:06] LABS: Vitamin D 25-OH Total 32.3 ng/mL (>30)
== END 2025-01-24 07:24 | disposition home or self-care (01) ==
LOC: HO.LAB 07:23
PROVIDERS: PCP Internal Medicine; Visit Provider Internal Medicine Hypertension Specialist
DX: N18.31 Chronic kidney disease, stage 3a (principal); E55.9 Vitamin D deficiency, unspecified; E78.5 Hyperlipidemia, unspecified; R80.9 Proteinuria, unspecified
CPT/HCPCS: 36415; 80048; 80053; 80061; 82043; 82306; 82570

== ENCOUNTER 2025-01-26 12:45 | Outpatient (AMB) | payer OTHER, SELFPAY ==
--- OUTSIDE RECORDS SUMMARY | 2025-01-26 13:12 | XMS_ITS | Encounter Summary ---
Author Organization [facility] Address [address] [place] [address] Care Team Providers Care High Raw Sugar Boiler Name Role Phone Claudio Quach MD Primary Care Provider [phone] Community, Pcp Unavailable Unavailable Valeria George MD Primary Care Provider Unavail able Negrita Rehman MD Primary Care Provider Un available Valeria George MD Primary Care Provider Unavail able Wilfredo De Jesus MD Primary Care Provider [phone] Encounter Details Date Type Department Care Team Description 03/25/2017 Business Doc Medical Records [address] [place] [address] [id number] Abstract, Provider Social History Tobacco Use Types [...] on filedocumented in this encounter Care Teams High Raw Sugar Boiler Relationship Specialty Start Date End Date Claudio Quach MD [address] [place] [address] [phone] PCP - General Internal Medicine 11/23/16 06/05/17 Valeria George MD [address] [place] [phone] PCP - General Internal Medicine 06/06/17 10/26/18 Negrita Rehman MD [address] [place] [address] [phone] PCP - General Internal Medicine 10/27/18 12/09/18 Valeria George MD [address] [place], [place] [phone] PCP - General Internal Medicine 12/10/18 08/31/19 Wilfredo De Jesus MD [address] [place] [address] PCP - General Internal Medicine 09/01/19 [place] [address] Internal Medicine 11/23/16 documented as of this encounter
[2025-01-26 13:16] VITALS: BP 122/58; PULSE 62; O2SAT 95; BMI 31.9
--- NOTE | 2025-01-26 13:16 | A.OFFVIS_ITS ---
Vital Signs 01/26/25 13:16 Height 5 ft 1 in Weight 169 lb BMI 31.9 BP 122/58 L Blood Pressure Location Lt brachial Position Sitting Pulse 62 Pulse Source Pulse Oximeter Pulse Oximetry (%) 95 Oxygen Delivery Method Room Air Intake Visit Reasons: luigi Anchorman Required: Yes Anchorman Name: Meme Strong Johnnie Allergies No Known Allergies [No Known Allergies*] Allergy (Verified 01/18/25 11:34) HPI HPI luigi: Details: 73-year-old gentleman, nonsmoker, ?followed for underlying moderate persistent asthma and LUIGI on CPAP.? Patient continues on Wixela and albuterol MDI, now with good control of his symptoms. He previously was using CPAP with good control of his underlying obstructive sleep apnea, however recently his machine stopped working symptoms are not well controlled. His last sleep study has been over 3 years prior and his weight has significantly changed since. [facility] Medical History CKD (chronic kidney disease) stage 3, GFR 30-59 ml/min Mild recurrent major depression Chronic idiopathic constipation Anemia Polyarthralgia CKD (chronic kidney disease) Skin lesion Lumbar pain COVID-19 Mixed hyperlipidemia Chronic fatigue Diabetes mellitus Insomnia HTN (hypertension) Asthma Diabetic acidosis, type II Surgical History H/O colonoscopy History of carpal tunnel surgery of right wrist (~03/2021) History of eye surgery History of knee replacement procedure of left knee H/O prostate biopsy Family History Father Diabetes Hypertension Mother Diabetes Hypertension Maternal Grandmother Stomach cancer Social History Household Members: None Housing: Apartment Are you a primary client care specialist to a significant other at home: No Do you presently have visiting nurse or other home services: No Alcohol intake: former Comment: counts correct Patient Tobacco Use Status: Never used Tobacco e-Cigarette/Vaping Use: Never Used Second Hand Smoke Exposure: No service: No Current occupational status: retired and disabled Cognitive needs: No Hearing needs: No Vision needs: Yes Review of Systems Const Denies daytime sleepiness, Denies excessive sweating, Denies fatigue, Denies fever(s), Denies lethargy, Denies malaise, Denies night sweats, Denies snoring and Denies weight loss Eyes Denies blurry vision and Denies itchy eyes ENT Denies nasal congestion, Denies post nasal drip, Denies sinus pain, Denies sinus pressure and Denies other ( Thrush) Card Denies chest pain, Denies pedal edema, Denies dyspnea, Denies orthopnea and Denies paroxysmal nocturnal dyspnea Resp Denies cough, Denies hemoptysis, Denies excessive phlegm production, Denies dyspnea, Denies snoring and Denies wheezing GI Denies abdominal pain and Denies heartburn Musc Denies myalgias, Denies arthralgias and Denies joint swelling Skin/Breast Denies rash Neuro Denies memory loss and Denies seizure-like activity Psych Denies abnormal sleep pattern, Denies anxiety and Denies memory loss Endo Denies excessive sweating, Denies fatigue and Denies heat intolerance Winston/Lymph Denies easy bruising Aller/Immun Denies itchy eyes, Denies seasonal rhinorrhea and Denies wheezing Physical Exam Vital Signs: Last Vital Signs Pulse 62 01/26/25 13:16 BP 122/58 L 01/26/25 13:16 Pulse Ox 95 01/26/25 13:16 Oxygen Delivery Method Room Air 01/26/25 13:16 BMI result Body Mass Index 31.9 Const General: no acute distress and alert Nutritional Appearance: not obese Orientation/consciousness: Other orientation findings ( oriented) HEENT Head: Yes atraumatic Eyes General: appearance normal, both eyes and all related structures Sclerae: sclerae normal EOM: EOMs intact bilaterally Neck Neck: Yes supple Lymphatic: no lymphadenopathy noted Resp Effort & Inspection: normal respiratory effort and no use of accessory muscles Auscultation: clear to auscultation bilaterally Cardio Rate: regular rate Rhythm: regular rhythm Heart sounds: no gallops, no murmurs and no rubs Skin General skin exam: other ( warm) Extrem General: No clubbing, No cyanosis and No edema Assessment & Plan Assessment & Plan (1) Asthma: Code(s): J45.909 - Unspecified asthma, uncomplicated Category: Medical Qualifiers: Asthma severity: mild Asthma persistence: persistent Asthma complication type: uncomplicated Qualified Code(s): J45.30 - Mild persistent asthma, uncomplicated Plan: Well controlled on current regimen of Wixela, duo nebs, and albuterol MDI. C ontinue current regimen. (2) LUIGI (obstructive sleep apnea): Code(s): G47.33 - Obstructive sleep apnea (adult) (pediatric) Category: Medical Plan: Previously well controlled on CPAP, now his CPAP machine is no longer working. Patient also had his last sleep study over 3 years prior and he had significant weight changes. Will obtain new sleep study. Orders: Orders 2 RT home sleep study Today G47.33 - Obstructive sleep apnea (adult) (pediatric) Coding Level of Care Code Est Pt Level 4 (30376) Diagnoses Mild persistent asthma without complication J45.30 Asthma severity: mild Asthma persistence: persistent Asthma complication type: uncomplicated LUIGI (obstructive sleep apnea) G47.33
== END 2025-01-26 13:41 | disposition home or self-care (01) ==
LOC: HO.HPS 12:46
PROVIDERS: PCP Internal Medicine; Visit Provider Internal Medicine Pulmonary Disease
DX: J45.30 Mild persistent asthma, uncomplicated (principal); G47.33 Obstructive sleep apnea (adult) (pediatric)
CPT/HCPCS: 99214

== ENCOUNTER → 2025-01-26 12:45 | Outpatient (BNVA) | payer OTHER, SELFPAY | PROVIDERS: PCP Internal Medicine; Visit Provider Internal Medicine Pulmonary Disease | DX: J45.30 Mild persistent asthma, uncomplicated (principal); G47.33 Obstructive sleep apnea (adult) (pediatric) | CPT/HCPCS: 99212 ==

== ENCOUNTER 2025-02-01 10:38 | Outpatient (AMB) | payer OTHER, SELFPAY ==
[2025-02-01 10:44] VITALS: BP 118/62; PULSE 87; O2SAT 97; BMI 31.9
--- NOTE | 2025-02-01 10:44 | HO.NEPHOV_ITS ---
Vital Signs 02/01/25 10:44 Height 5 ft 1 in Weight 169 lb BMI 31.9 BP 118/62 Blood Pressure Location Lt brachial Position Sitting Pulse 87 Pulse Source Pulse Oximeter Pulse Oximetry (%) 97 Oxygen Delivery Method Room Air Intake Visit Reasons: January follow-up w/labs Conf Splitting Machine Tender Required: Yes Splitting Machine Tender Name: jae [id number] Accompanied by: Self / Same As Patient Allergies No Known Allergies [No Known Allergies*] Allergy (Verified 02/01/25 10:47) Medication List - Last Reconciled 02/01/25 by Saqib Shipley MD acetaminophen-codeine 120-12 mg/5 mL 5 mL PO Q6-8H [adult diapers pull-ups Use 1 daiper 3 to 4 times a day] albuterol sulfate 90 mcg/actuation 2 puffs inhalation Q6H PRN 30 days alcohol swabs 1 pad topical DAILY 90 days alum-mag hydroxide-simeth 200-200-20 mg/5 mL (Antacid-Antigas) mL PO atorvastatin 80 mg PO BEDTIME 90 days betamethasone valerate 0.1% 1 appl topical BID 30 days blood sugar diagnostic Use 1 test strip once a day blood-glucose meter (FreeStyle Lite Meter kit) As directed cholecalciferol (vitamin D3) 25 mcg PO DAILY 90 days citalopram (Celexa) 20 mg PO DAILY [diabetic shoes with inserts As directed] dulaglutide (Trulicity) 1.5 mg (0.5 mL) subcut QWEEK 4 weeks empagliflozin (Jardiance) 25 mg PO DAILY 90 days ezetimibe 10 mg PO DAILY 90 days fenofibrate 160 mg PO BEDTIME 90 days fluticasone propion-salmeterol 250-50 mcg/dose 1 ea PO BID ipratropium-albuterol 0.5 mg-3 mg(2.5 mg base)/3 mL 3 mL inhalation Q4-6H PRN 30 days lancets Use 1 lancet once a day latex gloves (Latex Gloves, Large) As directed loratadine 10 mg PO DAILY 90 days losartan 25 mg PO DAILY mirabegron ER (Myrbetriq) 50 mg PO DAILY pantoprazole 40 mg PO DAILY 90 days plecanatide (Trulance) 3 mg PO DAILY pregabalin (Lyrica) 150 mg PO BEDTIME sucralfate 10 mL PO [wipes As directed] HPI Comments Details: 72-year-old male with diabetes mellitus type 2, hypertension, mixed hyperlipidemia and mild depression with CKD is here for follow up. He is experiencing increased urination. No polydipsia. Here for regular follow-up. He has occasional leg swelling. No shortness of breath. 09/23/24 Had vague back pain - resolved;No related urinary symptoms 02/01/25 No new issues Meds noted PFSH Medical History CKD (chronic kidney disease) stage 3, GFR 30-59 ml/min Mild recurrent major depression Chronic idiopathic constipation Anemia Polyarthralgia CKD (chronic kidney disease) Skin lesion Lumbar pain COVID-19 Mixed hyperlipidemia Chronic fatigue Diabetes mellitus Insomnia HTN (hypertension) Asthma Diabetic acidosis, type II Surgical History H/O colonoscopy History of carpal tunnel surgery of right wrist (~03/2021) History of eye surgery History of knee replacement procedure of left knee H/O prostate biopsy Family History Father Diabetes Hypertension Mother Diabetes Hypertension Maternal Grandmother Stomach cancer Social History Household Members: None Housing: Apartment Are you a primary medicare sales executive to a significant other at home: No Do you presently have visiting nurse or other home services: No Alcohol intake: former Comment: counts correct Patient Tobacco Use Status: Never used Tobacco e-Cigarette/Vaping Use: Never Used Second Hand Smoke Exposure: No service: No Current occupational status: retired and disabled Cognitive needs: No Hearing needs: No Vision needs: Yes Physical Exam Vital Signs: Last Vital Signs Pulse 87 02/01/25 10:44 BP 118/62 02/01/25 10:44 Pulse Ox 97 02/01/25 10:44 Oxygen Delivery Method Room Air 02/01/25 10:44 BMI result Body Mass Index 31.9 Comfortable Neck supple no JVD. Lungs entry equal no rales. Heart S1-S2 heard no gallop or rub. Abdomen soft nontender. Neuro alert awake oriented. No asterixis. Extremities no edema. Results Reviewed Nephrology Results: Sodium 142 mmol/L (135-145) 01/24/25 Potassium 4.1 mmol/L (3.3-5.1) 01/24/25 Chloride 110 mmol/L (96-108) H 01/24/25 Carbon Dioxide 23 mmol/L (22-29) 01/24/25 BUN 32 mg/dL (9-16) H 01/24/25 Creatinine 1.58 mg/dL (0.5-1.4) H 01/24/25 Calcium 10.1 mg/dL (8.4-10.2) 01/24/25 Urine Creatinine 59.81 mg/dL 01/24/25 Assessment & Plan Assessment & Plan (1) CKD (chronic kidney disease) stage 3, GFR 30-59 ml/min: Code(s): N18.30 - Chronic kidney disease, stage 3 unspecified Category: Medical Qualifiers: Chronic kidney disease stage 3 subtype: stage 3a (GFR 45-59) Qualified Code(s): N18.31 - Chronic kidney disease, stage 3a Plan: CKD in a setting of hypertension diabetes mellitus. Baselien creatinine is around 1.4-1.3 mg/dL. Microalbumin Cr ratio of 56 Had been a bump in serum creatinine to 1.7-1.8. This is most likely due to hypoperfusion. Improved after stopping HCTZ- Cr down to 1.5 The blood pressure is well controlled Keep losartan and Jardiance for cardiorenal protection (2) HTN (hypertension): Code(s): I10 - Essential (primary) hypertension Category: Medical Qualifiers: Hypertension type: essential hypertension Qualified Code(s): I10 - Essential (primary) hypertension Plan: Blood pressure controlled. Stay on low-sodium diet. (3) Hypercalcemia: Code(s): E83.52 - Hypercalcemia Category: Medical Plan: Ca was 10.5 Repeat calcium was normal. No monoclonal gammopathy (4) Anemia: Code(s): D64.9 - Anemia, unspecified Category: Medical Plan: Mild and stable No indication for Epogen. Orders: Orders Creatinine Urine 4 Months N18.31 - Chronic kidney disease, stage 3a Basic Metabolic Panel 4 Months N18.31 - Chronic kidney disease, stage 3a Total Protein Urine Random 4 Months N18.31 - Chronic kidney disease, stage 3a UA and rflx microscopic 4 Months N18.31 - Chronic kidney disease, stage 3a Coding Level of Care Code Est Pt Level 4 (61777) Diagnoses Stage 3a chronic kidney disease N18.31 Chronic kidney disease stage 3 subtype: stage 3a (GFR 45-59) Essential hypertension I10 Hypertension type: essential hypertension Hypercalcemia E83.52 Anemia D64.9
--- OUTSIDE RECORDS SUMMARY | 2025-02-01 12:30 | XMS_ITS | Encounter Summary ---
Author Organization [facility] Address [address] [place] [address] Care Team Providers Care Subsurface Augmentee Operator Name Role Phone Claudio Quach MD Primary Care Provider Community, Pcp Unavailable Unavailable Valeria George MD Primary Care Provider Unavail able Negrita Rehman MD Primary Care Provider Un available Valeria George MD Primary Care Provider Unavail able Wilfredo De Jesus MD Primary Care Provider [phone] Encounter Details Date Type Department Care Team Description 03/25/2017 Business Doc Medical Records [address] [place] [address] [id number] Abstract, Provider Social History Tobacco Use Types [...] on filedocumented in this encounter Care Teams Subsurface Augmentee Operator Relationship Specialty Start Date End Date Claudio Quach MD [address] [place] [address] [phone] PCP - General Internal Medicine 11/23/16 06/05/17 Valeria George MD [address] [place] [address] [id number] PCP - General Internal Medicine 06/06/17 10/26/18 Negrita Rehman MD [address] [place] [address] 10106 PCP - General Internal Medicine 10/27/18 12/09/18 Valeria George MD [address] [place], [place] [phone] PCP - General Internal Medicine 12/10/18 08/31/19 Wilfredo De Jesus MD [address] [place] [address] PCP - General Internal Medicine 09/01/19 [place] [address] Internal Medicine 11/23/16 documented as of this encounter
== END 2025-02-01 10:56 | disposition home or self-care (01) ==
LOC: HO.HKA 10:39
PROVIDERS: PCP Internal Medicine; Visit Provider Internal Medicine Hypertension Specialist
DX: N18.31 Chronic kidney disease, stage 3a (principal); I10 Essential (primary) hypertension; E83.52 Hypercalcemia; D64.9 Anemia, unspecified
CPT/HCPCS: 99214

== ENCOUNTER → 2025-02-01 10:38 | Outpatient (BNVA) | payer OTHER, SELFPAY | PROVIDERS: PCP Internal Medicine; Visit Provider Internal Medicine Hypertension Specialist | DX: N18.31 Chronic kidney disease, stage 3a (principal); I10 Essential (primary) hypertension; E83.52 Hypercalcemia; D64.9 Anemia, unspecified | CPT/HCPCS: 99212 ==

== ENCOUNTER 2025-03-14 06:57 | Outpatient (REF) | payer OTHER, SELFPAY ==
--- OUTSIDE RECORDS SUMMARY | 2025-03-14 07:00 | XMS_ITS | Clinical Summary ---
Author Organization [facility] Address [address] [facility] [address] [place] [address] Phone Care Team Providers Care Chopping Machine Operator Name Role Phone Unknown, Unknown MD Primary Care Provider Unavai lable Allergies No known active allergies Medications senna (SENOKOT) 8.6 mg tablet Take 17.2 mg by mouth. 12/16/19 19 Active loratadine (CLARITIN) 10 mg tablet Take 10 mg by mouth. 07/07/20 18 Active pantoprazole (PROTONIX) 20 MG tablet Take 20 mg by mouth. 06/23/20 18 Active citalopram (CELEXA) 20 MG tablet Take 20 mg by mouth. 06/09/20 18 Active gabapentin (NEURONTIN) 300 MG capsule Take 300 mg by mouth. 06/05/20 18 Active metFORMIN (GLUCOPHAGE) 1000 MG tablet Take 1,000 mg by mouth. 10/08/19 19 Active ferrous furamate 324 mg (106 mg elemental) Tab Take by mouth. Active oxybutynin (DITROPAN-XL) 10 MG 24 hr tablet Take 10 mg by mouth. 01/21/20 19 Active pravastatin (PRAVACHOL) 40 MG tablet Take 40 mg by mouth. 10/08/19 19 Active multivitamin (TAB-A-BRITTA) per tablet Take 1 tablet by mouth. 10/08/19 19 Active dulaglutide (TRULICITY) 0.75 mg/0.5 mL subcutaneous injection INJECT ONE PEN (=0.75MG) SUBCUTANEOUSLY ONCE A WEEK DIRECTED 10/02/19 22 Active simethicone (MYLICON) 125 MG chewable tablet CHEW 1 TABLET BY MOUTH FOUR TIMES DAILY 05/29/20 20 Active TRUEPLUS LANCETS 33 gauge Misc TEST BLOOD SUGAR ONCE DAILY 09/13/19 22 Active simvastatin (ZOCOR) 40 MG tablet Take 40 mg by mouth daily. 09/13/19 Active losartan-hydroCH LOROthiazide (HYZAAR) 50-12.5 mg per tablet Take 1 tablet by mouth daily. 09/13/19 Active fluticasone propion-salmeter oL (ADVAIR DISKUS) 250-50 mcg/dose DISKUS INHALE 1 PUFF BY MOUTH TWICE DAILY. RINSE MOUTH AFTER USING. 09/13/19 Active fenofibrate (LOFIBRA) 54 MG tablet Take 54 mg by mouth. 09/13/19 Active albuterol 90 mcg/actuation inhaler INHALE 2 PUFFS BY MOUTH EVERY 6 HOURS NEEDED SHORTNESS OF BREATH OR FOR WHEEZING 09/13/19 Active betamethasone valerate 0.1 % ointment APPLY A THIN LAYER TO AFFECTED AREA(S) TWICE DAILY ONLY NEEDED. USE SPARINGLY 09/13/19 Active Active Problems Problem Noted Date Diagnosed Date Necrotizing scleritis of right eye Type 2 diabetes mellitus wit hout complication, without long-term current use of insulin Myopia with presbyopia, bilateral Social History Tobacco Use Types Packs/Day Years Used Date Smoking Tobacco: Never Smokeless Tobacco: Never Alcohol Use Standard Drinks/Week Comments Yes 0 (1 standard drink = 0.6 oz pur e alcohol) Education Answer Date Recorded Are you interested in more education? Not on lj e 12/20/2022 Are you concerned about learning? Not on file 12/20/2022 No 12/20/2022 No 12/20/2022 Digital Access Answer Date Recorded No 01/18/2023 No 01/18/2023 Reliable internet access at home? Not on file 01/18/2023 Device with a working camera? Not on file Sex and Gender Information Value Date Recorded Sex Assigned at Not on file Legal Sex Male 8:57 AM EDT Gender Identity Not on file Sexual Orientation Not on file Plan of Treatment Health Maintenance Due Date Last Done Comments BLOOD PRESSURE 1951 CREATININE LEVEL 1951 POTASSIUM LEVEL 1951 DEPRESSION SCREENING 1963 HEPATITIS C SCREENING 10/31/1969 COLOGUARD 10/31/1996 COLONOSCOPY 10/31/1996 COLORECTAL CANCER SCREENING 10/31/1996 FIT TEST 10/31/1996 FOBT 10/31/1996 SIGMOIDOSCOPY 10/31/1996 VIRTUAL COLONOSCOPY 10/31/1996 HEMOGLOBIN A1C 08/19/2020 02/18/2020 COVID-19 VACCINE ( season) 2024 05/29/2021, 11/21/2020, 10/24/2020 DIABETIC EYE EXAM 08/09/2025 08/09/2024, , 06/23/2023, Additional history exists RSV VACCINE (1 - 1-dose 75+ series) 10/31/2026 Adult Td,Tdap Booster 03/21/2027 03/21/2017 PNEUMOCOCCAL VACCINES (50+ years) Completed 06/05/2018, 03/21/2017, 05/26/2012 ZOSTER VACCINES Completed 08/31/2021, 06/22/2021 SMOKING STATUS SCREENING (Once After 26 Yrs) Completed 08/09/2024 HEPATITIS A VACCINES Aged Out No long er eligible based on patient's age to complete this topic HIB VACCINES Aged Out No longer eligi ble based on patient's age to complete this topic MENINGOCOCCAL VACCINES (ACWY) Aged Out No longer eligible based on patient's age to complete this topic MENINGOCOCCAL VACCINES (B) Aged Out N o longer eligible based on patient's age to complete this topic Medical Devices Not on file Insurance [facility] REPLACEMENT MEDICARE REPLACEMENT MEDICARE REPLACEMENT MEDICARE REPLACEMENT MEDICARE REPLACEMENT MEDICARE REPLACEMENT MEDICARE REPLACEMENT MEDICARE REPLACEMENT MEDICARE REPLACEMENT Care Teams Chopping Machine Operator Relationship Specialty Start Date End Date Unknown, Unknown, PCP - General 12/05/17 Additional Source Comments The information contained in this document represents components of the legal health record. It is not the complete legal health record.[facility]
--- OUTSIDE RECORDS SUMMARY | 2025-03-14 07:00 | XMS_ITS | Clinical Summary ---
Author Organization [facility] Address [address] [place] [address] Phone Care Team Providers Care Application Development Director Name Role Phone Clara Salgado MD Primary Care Provider [phone] Allergies No known active allergies Medications acetaminophen [...] Overview (09/24/2021): Normal TTE 11/2017, follows with [facility]. Follows on a 6-month basis. Body [...] Overview (09/24/2021): No diagnostic study on file. [facility] Polysomnogram treatment study. Date 08/16/2017. SE 64% [...] 11/05/2021, Additional history exists Influenza Vaccine (#1) 2025 06/05/2018 Pneumococcal Vaccine: 50+ Years Completed 06/05/2018, 03/21/2017 Hepatitis B Vaccine Aged Out No longe r eligible based on patient's age to complete this topic Insurance [facility] ([id number]) [facility] ([id number]) Care Teams Application Development Director Relationship Specialty Start Date End Date Clara Salgado MD [address] [place], [place] PCP - General Internal Medicine 08/30/21
--- OUTSIDE RECORDS SUMMARY | 2025-03-14 07:00 | XMS_ITS | Clinical Summary ---
Author Organization [facility] Address [address] [place] [address] Care Team Providers Care Dredge Pumper Name Role Phone Wilfredo De Jesus MD Primary Care Provider Unavaila ble Allergies No known active allergies Medications albuterol (PROVENTIL HFA; VENTOLIN HFA) 108 (90 Base) MCG/ACT inhaler INHALE 2 PUFFS EVERY 6 HOURS NEEDED FOR WHEEZING AND SHORTNESS OF BREATH. 04/29/20 23 Active betamethasone dipropionate (DIPROLENE) 0.05 % cream Apply topically as needed. 04/29/20 23 Active Vitamin D High Potency 25 MCG [...] 1 tablet by mouth every morning. 04/29/20 23 Active Myrbetriq 50 MG ER tablet Take [...] 64 10/07/2023 1:12 PM EST Temperature 36.3 C (97.3 F) 10/07/2023 11:59 AM EST Respiratory Rate 18 10/07/2023 1:11 PM EST [...] - Risk 60-74 years 1-dose series) 2011 COVID-19 Vaccine (3 - 2023-2 5 season) 2024 11/21/2020, 10/24/2020 Influenza Vaccine 03/25/2025 Hepatitis B Vaccines Aged Out No long er eligible based on patient's age to complete this topic Medical Devices Implanted Type Area Wide Area Network Systems Administrator Device Identifier Shelf Expiration Date Model / Serial / Lot Joint Prosthesis Joint Prosthesis Knee Description:left Insurance [id number] [place] [id number] [facility] [place] OUT OF NETWORK RADHA VAUGHN [id number] [facility] MEDICARE OUT OF NETWORK Care Teams Dredge Pumper Relationship Specialty Start Date End Date Wilfredo De Jesus MD PCP - General 05/07/23
--- OUTSIDE RECORDS SUMMARY | 2025-03-14 07:00 | XMS_ITS | Data Portability ---
Author Organization [place] [facility], [facility] Address [address] [address] Assessment Encounter Date Assessment Date Assessment LastModified by Organization Details LastModified Time 08/13/2024 08/13/2024 73 yo M never smoker, currently being treated for esophageal cancer, presents for evaluation of the throat. He had a CT scan of the neck with contrast last month at [facility] showing soft tissue fullness centered in the [...] piriform sinus, swelling noted on CT at [facility], not appreciat ed on physical exam 2023 [facility] ([facility] [address] [place], [address], 4 10:24:16 Medication Orders None recorded. Patient TargetsNo targets recorded. Patient InstructionsNo instructions recorded. Reason for Referral None Reported. Results Created Date Observation Date Name Description Value Unit Range Abnormal Flag Note LastModifiedBy Organization Detail LastModifiedTime 01/0808/28/2024 MRI, head + neck + orbit s, w/wo contr ast [facility] Access ion Number : [id number] Sandra chan Name: Suleman Carpenter Edwin Huangjosiane ely Record Number : [id number] Date of : 1950 Date of Exam: 2024 Referr ing Physic clem: Cordell Gomez [facility] [place] [address], [place] [address] [facility] [address] Exam: MR Orbits , Face, Neck (C-/C+ ) CPT 01827 Room Descri ption: [facility] 3.0T HISTOR Y: Right pirifo rm sinus lesion . TECHNI QUE: Multip lanar multis equenc e MRI of the neck was obtain ed before and after the admini strati on of 15 cc of Dotare m. COMPAR PHYLLIS: CT scan of the neck 024 formerly [facility] at [facility] . FINDIN GS: * The [...] asymme trical fullne ss of the right finishing supervisor ior pharyn geal muscul ature adjace nt to the medial margin of the greate r cornu of the thyroi d cartil age. If there is persis tent pain or sympto matolo gy relate d to this region , follow -up imagin g is recomm ended. 2. No cervic al lympha denopa thy. 3. Fluid within the maxill tiffanie sinuse s is nonspe cific, but could repres ent acute sinusi tis in the [facility]. Electr onical ly Signed By: Donny saucedo [facility] ([facility]) [address] [facility], [place], [address], 09/09/2024 09:08:49 Result Notes Documentation Provider Name and Address Organization Details Recorded Time Mri, Head + Neck + Orbits, W/wo Contrast : [facility] Accession Number: [id number] Patient Name: Mohamud Tovar Date of : 1950 Date of Exam: 08-28-2024 Referring Physician: Cordell Ramirez [facility] [address] [facility], [facility] [address] [place] [address] Exam: MR Orbits, Face, Neck (C-/C+) CPT 12005 Room Description: [facility] 3.0T HISTORY: Right piriform sinus lesion. TECHNIQUE: Multiplanar multisequence MRI of the neck was obtained before and after the administration of 15 cc of Dotarem. COMPARISON: CT scan of the neck 07/02/2024 performed at [facility]. FINDINGS: * The left piriform sinus remains better aerated than the right piriform sinus, but there is no definite mucosal or submucosal mass involving the right piriform sinus. There is asymmetrical fullness of the musculature medial to the superior cornua of the thyroid cartilage without abnormal enhancement. This is normal in signal on the axial T2-weighted images. The nasopharynx, oral cavity, oropharynx, and laryngeal structures are unremarkable. The government professor space, parapharyngeal space, submandibular space, and visceral space are unremarkable. There is no cervical lymphadenopathy or inflammatory changes of the neck. The submandibular and parotid glands are unremarkable. No marrow edema is noted. The visualized brain parenchyma is unremarkable. Fluid is present within the maxillary sinuses. IMPRESSION: 1. There is no discrete mass within the right piriform sinus which remains effaced. There is asymmetrical fullness of the right posterior pharyngeal musculature adjacent to the medial margin of the greater cornu of the thyroid cartilage. If there is persistent pain or symptomatology related to this region, follow-up imaging is recommended. 2. No cervical lymphadenopathy. 3. Fluid within the maxillary sinuses is nonspecific, but could represent acute sinusitis in the appropriate clinical setting. 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 Procedures Surgical History Date Name Laterality Status Provider Name and Address Organization Details Recorded Time 08/13/20 24 Fiberoptic Laryngoscopy (Comprehensive) completed CORDELL RAMIREZ MD [address] [place] [address],[place] [address], [place], [address], [facility] 08/19/2024 07:19:29 Imaging Results None recorded. Procedure Notes None recorded. Medical Equipment None [...] Available Not Available No t Available FreeStyle [place] Lite kit USE DIRECTED TO TEST BLOOD [...] Updated DateTime 08/13/2024 154.94 cm 31.2 kg/m2 91833.74 g Katie Lindquist [place] - [facility] 08/13/2024 12:58:49 Social History None recorded. Functional Status None recorded. Mental Status None recorded. Family History Nothing Reported Notes:mother - DM father-DM Medical History Condition Response Cancer Y Asthma Y Sleep Disorder Y Past Encounters Encounter ID Performer Location Encounter Start Date Encounter Closed Date Diagnosis/Indication Diagnosis SNOMED-CT Code Diagnosis ICD10 Code Diagnosis Note [id number] CORDELL RAMIREZ MD [facility] [address] [address] 08/13/2024 12:32:26 08/13/2024 13:22:11 Neoplasm of uncertain behavior of pharynx 26643710 D37.05 Health Concerns Section Related Observation LastModified by Organization Detai ls LastModified Time None Recorded Concern Status LastModified by Organization Details LastModified Time None Recorded Advance Directives Directive None Recorded Payers Insurance Date Sequence Insurance Name Policy Number Policy Dunaway Covered Member ID Dunaway Member ID Guarantor Name 08/19/2024 1 [facility] - DOS ON OR AFTER 2022 - MEDICARE ADVANTAGE [place] (MEDICARE REPLACEMENT/ADV ANTAGE - PPO) Mohamud Carpenter [id number] Mohamud Carpenter Notes Date Note Type Note [...] pain. Sometimes trouble swallowing. CORDELL RAMIREZ MD [address] [place] [address], [place], [address], [place] - [facility] 08/19/2024 07:23:40
--- OUTSIDE RECORDS SUMMARY | 2025-03-14 07:00 | XMS_ITS ---
Author Name [facility] Organization Unknown History of Medication Use Medication Directions Dispensed Refills Start Date End Date Stat FREESTYLE LITE strip USE DIRECTED TO TEST BLOOD SUGAR EVERY DAY 09/29/2023 active aluminum-magnesium hydroxide (MAALOX) 200-200 mg/5 mL suspension Take 7.5 mL by mouth 4 times daily (every 6 hours) as needed for heartburn. Take 15ml maalox and lidocaine mixture q6hrs prn 05/29/2023 10/15/2023 active PANTOprazole (PROTONIX) 40 MG EC tablet Take 1 tablet (40 mg total) by mouth 2 (two) times a day before breakfast and dinner. 04/29/2023 05/29/2023 active citalopram (CeleXA) 20 MG tablet Take 1 tablet (20 mg total) by mouth every morning. 04/29/2023 active Jardiance 25 MG tablet Take 1 tablet by mouth daily. 04/29/2023 active clotrimazole (MYCELEX) 10 MG phyllis DISSOLVE 1 LOZENGE IN MOUTH FIVE TIMES DAILY FOR 10 DAYS 04/09/2023 active Vitamin D High Potency 25 MCG (1000 UT) capsule Take by mouth every morning. 03/24/2023 active Encounters Encounter Type Encounter Reason Primary Diagnosis Location Date Ambulatory Anderson's esophagus with dysplasia, unspecified [facility]'s esophagus with dysplasia, unspecified [facility] 10/07/2023 Ambulatory Anderson's esophagus with dysplasia, unspecified Anderson's esophagus with dysplasia, unspecified [facility] 07/29/2023 Ambulatory [facility]'s esophagus with high grade dysplasia Anderson's esophagus with high grade dysplasia [facility] 05/29/2023 Ambulatory Anderson's esophagus with high grade dysplasia Anderson's esophagus with high grade dysplasia [facility] 05/12/2023 Care Team Organization Name Specialty Phone Email Start Date End Da te [facility] 05/12/2023 11/10/2024 [facility] 05/12/2023 05/12/2023 [facility]
[2025-03-14 07:13] LABS: MANUAL DIFF FLAG NO
[2025-03-14 07:33] LABS: Hematocrit 36.3 % (42.0-52.0); Hemoglobin 11.7 g/dl (14.0-18.0); Imm Gran Abs Auto 0.01 X10*3/uL (0.00-0.03); Imm Gran Pct Auto 0.2 % (0.0-0.4); Lymphocytes Absolute Auto 1.8 X10*3/uL (1.2-4.9); Mean Corpuscular HGB Conc 32.2 g/dl (31.0-36.0); Mean Corpuscular Hemoglobin 29.0 pg (27.0-33.0); Mean Corpuscular Volume 90.1 fL (80.0-98.0); NRBC Abs Auto 0.000 X10*3/uL (0.0-0.012); NRBC Pct Auto 0.0 /100WBC (0.0-0.2); Platelet Count 244 X10*3/uL (160-400); Red Blood Count 4.03 X10*6/uL (4.60-5.80); White Blood Count 5.4 X10*3/uL (4.8-10.8)
[2025-03-14 08:26] LABS: Alanine Aminotransferase 26 U/L (0-40); Albumin Level 4.3 g/dL (3.5-5.0); Alkaline Phosphatase 71 U/L (39-117); Anion Gap 12 (12-20); Aspartate Amino Transferase 22 U/L (5-37); Blood Urea Nitrogen 20 mg/dL (9-16); Calcium 9.2 mg/dL (8.4-10.2); Carbon Dioxide 22 mmol/L (22-29); Chloride 113 mmol/L (96-108); Cholesterol 187 mg/dL (<200); Estimated Glomerular Filt Rate 53; HDL Cholesterol 37 mg/dL (>40); Iron 64 mcg/dL (45-160); Percent Iron Saturation 24 % (15-50); Potassium 4.2 mmol/L (3.3-5.1); Sodium 143 mmol/L (135-145); Total Iron Binding Capacity 266 mcg/dL (228-428); Total Protein 7.0 g/dL (6.5-8.0); Triglycerides 239 mg/dL (<150); Unsaturated Iron Binding 202 ug/dL
[2025-03-14 08:29] LABS: Microalbum/Creatinine Ratio Ur 29.1 ug/mg cr (<30)
[2025-03-14 08:49] LABS: Folate 9.2 ng/mL (> or = 4.0); Vitamin B12 371 pg/mL (200-900)
== END 2025-03-14 06:58 | disposition home or self-care (01) ==
LOC: HO.LAB 06:57
PROVIDERS: PCP Internal Medicine; Visit Provider Internal Medicine
DX: E78.5 Hyperlipidemia, unspecified (principal); R80.9 Proteinuria, unspecified; D64.9 Anemia, unspecified; E53.8 Deficiency of other specified B group vitamins; E55.9 Vitamin D deficiency, unspecified; N18.31 Chronic kidney disease, stage 3a
CPT/HCPCS: 36415; 80053; 80061; 82043; 82306; 82570; 82607; 82746; 83540; 85025

== ENCOUNTER 2025-03-21 14:47 | Outpatient (AMB) | payer OTHER, SELFPAY ==
--- NOTE | 2025-03-21 14:52 | A.OFFPC_ITS ---
Vital Signs 03/21/25 14:53 Height 5 ft 1 in Weight 167 lb BMI 31.6 BP 122/72 Blood Pressure Location Lt brachial Position Sitting Intake Visit Reasons: dm Intake Note: Patient here for a follow up DM, referral requests Transport Analyst Required: No Accompanied by: Self / Same As Patient Allergies No Known Allergies (No Known Allergies*) Allergy (Verified 03/21/25 15:09) Medication List - Last Reconciled 03/21/25 by Clara Amaral MD acetaminophen-codeine 120-12 mg/5 mL 5 mL PO Q6-8H [adult diapers pull-ups Use 1 daiper 3 to 4 times a day] albuterol sulfate 90 mcg/actuation 2 puffs inhalation Q6H PRN 30 days alcohol swabs 1 pad topical DAILY 90 days alum-mag hydroxide-simeth 200-200-20 mg/5 mL (Antacid-Antigas) mL PO atorvastatin 80 mg PO BEDTIME 90 days betamethasone valerate 0.1% 1 appl topical BID 30 days blood sugar diagnostic Use 1 test strip once a day blood-glucose meter (FreeStyle Lite Meter kit) As directed cholecalciferol (vitamin D3) 25 mcg PO DAILY 90 days citalopram (Celexa) 20 mg PO DAILY [diabetic shoes with inserts As directed] dulaglutide (Trulicity) 1.5 mg (0.5 mL) subcut QWEEK 4 weeks empagliflozin (Jardiance) 25 mg PO DAILY 90 days ezetimibe 10 mg PO DAILY 90 days fenofibrate 160 mg PO BEDTIME 90 days fluticasone propion-salmeterol 250-50 mcg/dose 1 ea PO BID ipratropium-albuterol 0.5 mg-3 mg(2.5 mg base)/3 mL 3 mL inhalation Q4-6H PRN lancets Use 1 lancet once a day latex gloves (Latex Gloves, Large) As directed loratadine 10 mg PO DAILY 90 days losartan 25 mg PO DAILY mirabegron ER (Myrbetriq) 50 mg PO DAILY pantoprazole 40 mg PO DAILY 90 days plecanatide (Trulance) 3 mg PO DAILY pregabalin (Lyrica) 150 mg PO BEDTIME sucralfate 10 mL PO [wipes As directed] Tobacco use date assessed: 09/16/24 Fall risk assessment: No Falls in past year Last assessed Fall Risk: 03/21/25 Dental Screening Dental Screen Date: 03/21/25 Did you have a dental visit in the last 12 months?: No Did you have a dental problem in the last 6 months where you did not have access to dental care?: No Was dental information given to patient?: Patient has dentist HPI HPI Comments History of Present Illness Details The patient is a 74-year-old male presenting with a follow-up on his chronic conditions, including diabetes, hyperlipidemia, and hypertension. The patient has a history of Type 2 Diabetes Mellitus, which is currently well- controlled with a hemoglobin A1c of 6.4%. He is on Jardiance 25 mg for diabetes management. The patient also has hyperlipidemia, for which he is taking atorvastatin 80 mg and ezetimibe 10 mg. Despite medication, his LDL cholesterol remains slightly elevated. He has a diagnosis of depression and is currently managed with citalopram 20 mg. The patient has Anderson's Esophagus, which is being monitored with regular endoscopies. Recent endoscopy and biopsy results indicate improvement in his condition. He is also being treated for hypertension with losartan 25 mg. The patient reports symptoms of gastroesophageal reflux disease, for which he is taking pantoprazole and Carafate. COUNTS INCLUDE 234 BEDS AT THE [facility] Medical History (Updated 03/21/25 @ 15:41 by Clara Amaral MD) CKD (chronic kidney disease) stage 3, GFR 30-59 ml/min Mild recurrent major depression Chronic idiopathic constipation Anemia Polyarthralgia CKD (chronic kidney disease) Skin lesion Lumbar pain COVID-19 Mixed hyperlipidemia Chronic fatigue Diabetes mellitus Insomnia HTN (hypertension) Asthma Diabetic acidosis, type II Surgical History H/O colonoscopy History of carpal tunnel surgery of right wrist (~03/2021) History of eye surgery History of knee replacement procedure of left knee H/O prostate biopsy Family History Father Diabetes Hypertension Mother Diabetes Hypertension Maternal Grandmother Stomach cancer Social History Household Members: None Housing: Apartment Are you a primary customer care agent to a significant other at home: No Do you presently have visiting nurse or other home services: No Alcohol intake: former Comment: counts correct Patient Tobacco Use Status: Never used Tobacco e-Cigarette/Vaping Use: Never Used Second Hand Smoke Exposure: No service: No Current occupational status: retired and disabled Cognitive needs: No Hearing needs: No Vision needs: Yes Questionnaire PHQ-9 Over the last 2 weeks, how often have you been bothered by any of the following problems? 1. Little interest or pleasure in doing things: several days 2. Feeling down, depressed, or hopeless: more than half the days 3. Trouble falling or staying asleep, or sleeping too much: more than half the days 4. Feeling tired or having little energy: more than half the days 5. Poor appetite or overeating: more than half the days 6. Feeling bad about yourself - or that you are a failure or have let yourself or your family down: several days 7. Trouble concentrating on things, such as reading the newspaper or watching television: several days 8. Moving or speaking so slowly that other people could have noticed. Or the opposite - being so fidgety or restless that you have been moving around a lot more than usual: several days 9. Thoughts that you would be better off or of hurting yourself in some way: not at all Total score: 12 Depression Screening Interpretation: Positive Depression Screening Follow-up: Existing condition and Follow-up Visit Requested Depression Screening Done: Yes 69500 - PHQ-9 Billing: Yes Source: Developed by Drs. López Faust, Julieta Hurd, Ayo Contreras and colleagues, with an educational lindy from [employer]. Thrive Questionnaire Date Thrive assessed: 03/21/25 I am a: Patient What is your living situation today?: I have a steady place to live Within the past 12 months, did the food you bought not last and you didn't have the money to get more?: Often true Within the past 12 months, did you worry whether your food would run out before you got money to buy more?: Sometimes True Do you have trouble paying for medicines?: No Do you have trouble getting transportation to medical appointments?: No Do you have trouble paying your heating and electricity bill?: No Do you have trouble taking care of your child, family member or friend?: No Do you have trouble with day-to-day activities such as bathing, preparing meals, shopping, managing finances, etc.?: No Are you currently unemployed and looking for a job?: Yes Are you interested in more education?: No Please select the resources that you would like help with: None Currently or been in a relationship where the following occur: I choose not to answer THRIVE Score: 2 AUDIT C Alcohol Use Questionnaire (AUDIT-C) 1. How often do you have a drink containing alcohol?: Never Total Score: 0 Score Reviewed/Action Taken: No DICKSON-7 AMB Questionnaire DICKSON-7 Date DICKSON - 7 assessed: 03/21/25 Feeling nervous, anxious, or on edge: 2 = More than half the days Not being able to stop or control worryin = Several days Worrying too much about different things: 1 = Several days Trouble relaxin = Several days Being so restless that it is hard to sit still: 1 = Several days Becoming easily annoyed or irritable: 1 = Several days Feeling afraid as if something awful might happen: 1 = Several days Total DICKSON-7 score (0-4 normal; 5-9 mild; 10-14 moderate; 15-21 severe): 8 Source: Developed by Drs. López Faust, Julieta Hurd, Ayo Contreras and colleagues, with an educational lindy from [employer]. DICKSON-7 Assessment Billing DICKSON-7 Assessment Tool: DICKSON-7 Assessment 39932 Review of Systems Const All systems reviewed & are unremarkable except as noted in HPI and below Card Denies chest pain at rest, Denies chest pain with activity, Denies edema, Denies irregular heart rhythm, Denies claudication, Denies dyspnea, Denies dyspnea on exertion, Denies orthopnea, Denies paroxysmal nocturnal dyspnea and Denies slow heart rate Resp Denies cough, Denies dyspnea and Denies dyspnea on exertion GI Denies abdominal pain, Denies change in bowel habits, Denies excessive flatus, Denies nausea and Denies vomiting Denies urinary hesitancy, Denies urinary incontinence and Denies urinary urgency Musc Denies abnormal gait, Denies atrophy, Denies deformity and Denies limited range of motion Skin/Breast Denies bleeding lesions, Denies changing lesions and Denies rash Neuro Denies abnormal gait and Denies lack of coordination Physical exam (Primary Care) Vital Signs: Last Vital Signs BP 122/72 03/21/25 14:53 BMI result Body Mass Index 31.6 BMI Assessment/Plan discussion: High BMI High, discussed plan: lifestyle, weight reduction, dietary and physical activity Tobacco/Smoking Status: Tobacco use Status Tobacco use date assessed 09/16/24 03/21/25 14:54 Patient Tobacco Use Status Never used Tobacco 03/21/25 14:54 e-Cigarette/Vaping Use Never Used 03/21/25 14:54 PHQ-9: PHQ-9 Score PHQ-9: Total score 12 03/21/25 15:13 Depression Screening Interpretation: Positive Depression Screening Follow-up: Existing condition and Follow-up Visit Requested Thrive Assessment: Date of Thrive Assessment Date Thrive assessed 03/21/25 03/21/25 14:54 Currently or been in a relationship where the following occur: I choose not to answer Resp Effort & Inspection: normal respiratory effort Auscultation: clear to auscultation bilaterally Cardio Jugular venous distension: no JVD Rate: regular rate Rhythm: regular rhythm Heart sounds: S1 normal heart sound present and S2 normal heart sound present Extrem General: Yes full ROM Results AMB Hemoglobin A1c AMB Hemoglobin A1c 6.4 % Last Edit by DEBRA Lin on 03/21/25 15:0 6 Results Reviewed Results Reviewed: Laboratory Last Values Hgb A1c (Clinic) 6.4 % (4.0-6.0) H 03/21/25 14:50 Coding Level of Care Code Est Pt Level 4 (75135) Complex EM visit Add On G2211 Diagnoses Mild recurrent major depression F33.0 Essential hypertension I10 Type 2 diabetes mellitus with hyperglycemia, without long-term current use of insulin E11.65 Diabetes mellitus type: type 2 Diabetes mellitus correction insulin use: without buttermaker continuous churn use Diabetes mellitus complication status: with hyperglycemia Mixed hyperlipidemia E78.2 Gastroesophageal reflux disease, unspecified whether esophagitis present K21.9 Esophagitis presence: esophagitis presence not specified Additional Codes DICKSON-7 Assessment Billing - DICKSON-7 Assessment Tool: DICKSON-7 Assessment 98113 ([id number]) PHQ-9 - 12144 - PHQ-9 Billing: Yes ([id number]) Time Spent (min) 23 Assessment & Plan Assessment & Plan (1) Mild recurrent major depression: Code(s): F33.0 - Major depressive disorder, recurrent, mild Category: Medical (2) Essential hypertension: Code(s): I10 - Essential (primary) hypertension Category: Medical (3) Diabetes mellitus: Code(s): E11.9 - Type 2 diabetes mellitus without complications Category: Medical Qualifiers: Diabetes mellitus type: type 2 Diabetes mellitus correction insulin use: without buttermaker continuous churn use Diabetes mellitus complication status: with hyperglycemia Qualified Code(s): E11.65 - Type 2 diabetes mellitus with hyperglycemia (4) Mixed hyperlipidemia: Code(s): E78.2 - Mixed hyperlipidemia Category: Medical (5) GERD (gastroesophageal reflux disease): Code(s): K21.9 - Gastro-esophageal reflux disease without esophagitis Category: Medical Qualifiers: Esophagitis presence: esophagitis presence not specified Qualified Code(s): K21.9 - Gastro-esophageal reflux disease without esophagitis Plan The patient will continue with his current regimen for diabetes management, including Jardiance 25 mg, as his hemoglobin A1c is well-controlled. For hyperlipidemia, the patient will continue atorvastatin 80 mg and ezetimibe 10 mg, with a plan to monitor LDL levels closely. The patient will maintain his current treatment for depression with citalopram 20 mg. Regular monitoring of Anderson's Esophagus will continue with follow-up endoscopies as needed. Hypertension management will continue with losartan 25 mg. For gastroesophageal reflux disease, the patient will continue pantoprazole and Carafate, with a recommendation to monitor symptoms and adjust treatment if necessary. Patient was informed and verbally consented to the use of an ambient scribe for clinic note documentation during this visit. Orders: Orders Lipid Panel 6 Months E78.5 - Hyperlipidemia, unspecified AMB Hemoglobin A1c Today E11.65 - Type 2 diabetes mellitus with hyperglycemia Microalbumin, Random (w Creat) 6 Months R80.9 - Proteinuria, unspecified Vitamin D 25-OH Total 6 Months E55.9 - Vitamin D deficiency, unspecified Comprehensive [place]. Panel Fast 6 Months N18.31 - Chronic kidney disease, stage 3a Referrals Ophthalmology Referral E11.65 - Type 2 diabetes mellitus with hyperglycemia Medications: Refilled ezetimibe 10 mg PO DAILY 90 tabs 1RF 90 days fenofibrate 160 mg PO BEDTIME 90 tabs 3RF 90 days E78.2 - Mixed hyperlipidemia
[2025-03-21 14:53] VITALS: BP 122/72; BMI 31.6
--- OUTSIDE RECORDS SUMMARY | 2025-03-21 15:20 | XMS_ITS | Clinical Summary ---
Author Organization [employer] Address [address] [place] [address] [address] [place] [address] Care Team Providers Care Boiler Attendant Name Role Phone Unavailable Primary Care Provider [...] 11/21/2020, Additional history exists Influenza Vaccine (#1) 2025 2, 05/01/2021, 05/05/2020, Additional history exists DTaP/Tdap/Td [...] patient's age to complete this topic Meningococcal B Vaccine Aged Out No l onger eligible based on patient's age to complete [...] Relevant to Health Maintenance Insurance DENTAL - [facility] ALLIANCE DENTAL - [facility]
--- OUTSIDE RECORDS SUMMARY | 2025-03-21 15:20 | XMS_ITS | Clinical Summary ---
Author Organization [facility] Address [address] [facility] [facility] [address] [place] [address] Phone Care Team Providers Care Palliative Nurse Name Role Phone Unknown, Unknown MD Primary [...] topic Medical Devices Not on file Insurance [facility] MEDICARE REPLACEMENT MEDICARE REPLACEMENT MEDICARE REPLACEMENT MEDICARE REPLACEMENT MEDICARE REPLACEMENT MEDICARE REPLACEMENT MEDICARE REPLACEMENT MEDICARE REPLACEMENT MEDICARE REPLACEMENT Care Teams Palliative Nurse Relationship Specialty Start Date End Date Unknown, Unknown, PCP - General 12/05/17 Additional Source Comments The information contained in this document represents components of the legal health record. It is not the complete legal health record.[facility]
--- OUTSIDE RECORDS SUMMARY | 2025-03-21 15:21 | XMS_ITS | Clinical Summary ---
Author Organization [facility] Address [address] [place] [address] Care Team Providers Care Tobacco Educator Name Role Phone Wilfredo De Jesus MD Primary Care Provider Unavaila ble Allergies No known active allergies Medications albuterol (PROVENTIL HFA; VENTOLIN HFA) 108 (90 Base) MCG/ACT inhaler INHALE 2 PUFFS EVERY 6 HOURS NEEDED FOR WHEEZING AND SHORTNESS OF BREATH. 04/29/20 Active betamethasone dipropionate (DIPROLENE) 0.05 % cream [...] this topic Medical Devices Implanted Type Area Gluing Crew Leader Device Identifier Shelf Expiration Date Model / Serial / Lot Joint Prosthesis Joint Prosthesis Knee Description:left Insurance [id number] [place] [address] [facility] [place] OUT [place]WORK RADHA VAUGHN [id number] [facility] [place]WORK Care Teams Tobacco Educator Relationship Specialty Start Date End Date Wilfredo De Jesus MD PCP - General 05/07/23
--- OUTSIDE RECORDS SUMMARY | 2025-03-21 15:21 | XMS_ITS | Clinical Summary ---
Author Organization [facility] Address [address] [place] [address] Phone Care Team Providers Care Hardwood Floor Installation Helper Name Role Phone Clara Salgado MD Primary Care Provider [phone] Allergies No known active allergies Medications acetaminophen [...] Overview (09/24/2021): Normal TTE 11/2017, follows with [facility]. Follows on a 6-month basis. Body [...] Overview (09/24/2021): No diagnostic study on file. [facility] Polysomnogram treatment study. [...] patient's age to complete this topic Insurance [facility] ([id number]) [facility] ([id number]) Care Teams Hardwood Floor Installation Helper Relationship Specialty Start Date End Date Clara Salgado MD [address] [place], [place] PCP - General Internal Medicine 08/30/21
--- OUTSIDE RECORDS SUMMARY | 2025-03-21 15:21 | XMS_ITS | Data Portability ---
Author Organization [place] [facility], [facility] Address [address] [address] Assessment Encounter Date Assessment Date Assessment LastModified by Organization Details LastModified Time 08/13/2024 08/13/2024 73 yo M never smoker, currently being treated for esophageal cancer, presents for evaluation of the throat. He had a CT scan of the neck with contrast last month [place] [facility] showing soft tissue fullness centered in the [...] piriform sinus, swelling noted on CT at [place], not appreciat ed on physical exam 2023 [facility] ([facility]), [address] [place], [address], 4 10:24:16 Medication Orders None recorded. Patient TargetsNo targets recorded. Patient InstructionsNo instructions recorded. Reason for Referral None Reported. Results Created Date Observation Date Name Description Value Unit Range Abnormal Flag Note LastModifiedBy Organization Detail LastModifiedTime 01/0808/28/2024 MRI, head + neck + orbit s, w/wo contr ast [facility] Access ion Number : [id number] Sandra chan Name: Suleman Carpenter Edwin Huangjosiane ely Record Number : [id number] Date of : 1950 Date of Exam: 2024 Referr ing Physic clem: Cordell Gomez [facility] [place] [address], [place] [address] [place] [address] Exam: MR Orbits , Face, Neck (C-/C+ ) CPT 14367 Room Descri ption: [facility] Verio 3.0T HISTOR Y: Right pirifo rm sinus lesion . TECHNI QUE: Multip lanar multis equenc e MRI of the neck was obtain ed before and after the admini strati on of 15 cc of Dotare m. COMPAR PHYLLIS: CT scan of the neck 024 formerly [facility] med at [facility] . FINDIN GS: * The [...] asymme trical fullne ss of the right animal damage control agent ior pharyn geal muscul ature adjace nt [...] repres ent acute sinusi tis in [facility] sett[facility] g. Electr onical ly Signed By: Donny saucedo [facility] ([facility]) [address] [facility], [place], [address], 09/09/2024 09:08:49 Result Notes Documentation Provider Name and Address Organization Details Recorded Time Mri, Head + Neck + Orbits, W/wo Contrast : [facility] Accession Number: [id number] Patient Name: Mohamud Tovar Date of : 1950 Date of Exam: 08-28-2024 Referring Physician: Cordell Ramirez [facility] [address] [facility], [facility] [address] [place] [address] Exam: MR Orbits, Face, Neck (C-/C+) CPT 18631 Room Description: [facility] 3.0T HISTORY: Right piriform sinus lesion. TECHNIQUE: Multiplanar multisequence MRI of the neck was obtained before and after the administration of 15 cc of Dotarem. COMPARISON: CT scan of the neck 07/02/2024 performed at [facility]. FINDINGS: * The left piriform sinus remains [...] oropharynx, and laryngeal structures are unremarkable. The metallographer space, parapharyngeal space, submandibular space, and visceral [...] clinical setting. 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 Procedures Surgical History Date Name Laterality Status Provider Name and Address Organization Details Recorded Time 08/13/20 24 Fiberoptic Laryngoscopy (Comprehensive) completed CORDELL RAMIREZ MD [address] [place] [address],[place] [address], [place], [address], [facility] 08/19/2024 07:19:29 Imaging Results None recorded. Procedure [...] Available Not Available No t Available FreeStyle [place] Lite kit USE DIRECTED TO TEST BLOOD [...] Updated DateTime 08/13/2024 154.94 cm 31.2 kg/m2 89365.74 g Katie Lindquist [place] [facility] 08/13/2024 12:58:49 Social History None recorded. Functional Status None recorded. Mental Status None recorded. 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
== END 2025-03-21 15:23 | disposition home or self-care (01) ==
LOC: HO.HMCH 14:48
PROVIDERS: PCP Internal Medicine; Visit Provider Internal Medicine
DX: F33.0 Major depressive disorder, recurrent, mild (principal); I10 Essential (primary) hypertension; E11.65 Type 2 diabetes mellitus with hyperglycemia; E78.2 Mixed hyperlipidemia; K21.9 Gastro-esophageal reflux disease without esophagitis

== ENCOUNTER → 2025-03-21 14:47 | Outpatient (BNVA) | payer OTHER, SELFPAY | PROVIDERS: PCP Internal Medicine; Visit Provider Internal Medicine | DX: E11.65 Type 2 diabetes mellitus with hyperglycemia (principal); I10 Essential (primary) hypertension; K22.70 Barrett's esophagus without dysplasia; F33.0 Major depressive disorder, recurrent, mild; E78.2 Mixed hyperlipidemia; K21.9 Gastro-esophageal reflux disease without esophagitis | CPT/HCPCS: 83036; 96127; 99212 ==

== ENCOUNTER → 2025-04-07 12:46 | Outpatient (REF) | payer OTHER, SELFPAY ==
--- OUTSIDE RECORDS SUMMARY | 2025-04-07 13:30 | XMS_ITS | Clinical Summary ---
Author Organization [employer] Address [address] [place] [address] [address] [place] [address] Care Team Providers Care Garment Worker Name Role Phone Unavailable Primary Care Provider [...] Relevant to Health Maintenance Insurance DENTAL - [facility] ALLIANCE D[facility]AL - [facility]
--- OUTSIDE RECORDS SUMMARY | 2025-04-07 13:30 | XMS_ITS | Encounter Summary ---
Author Organization [facility] Address [address] [place] [address] Care Team Providers Care Accountant Certified Public Name Role Phone Claudio Quach MD Primary Care Provider [phone] Community, Pcp Unavailable Unavailable Valeria George MD Primary Care Provider Unavail able Negrita Rehman MD Primary Care Provider Un available Valeria George MD Primary Care Provider Unavail able Wilfredo De Jesus MD Primary Care Provider [phone] Encounter Details Date Type Department Care Team Description 03/25/2017 Business Doc Medical Records [address] [place] [id number] Abstract, Provider Social History Tobacco Use Types [...] on filedocumented in this encounter Care Teams Accountant Certified Public Relationship Specialty Start Date End Date Claudio Quach MD [address] [place] [address] PCP - General Internal Medicine 11/23/16 06/05/17 Valeria George MD [address] [place] [address] PCP - General Internal Medicine 06/06/17 10/26/18 Negrita Rehman MD [address] [place] [address] PCP - General Internal Medicine 10/27/18 12/09/18 Valeria George MD [address] [place], [place] [id number] PCP - General Internal Medicine 12/10/18 08/31/19 Wilfredo De Jesus MD [address] [place] [address] PCP - General Internal Medicine 09/01/19 [place] [address] Internal Medicine 11/23/16 documented as of this encounter
--- OUTSIDE RECORDS SUMMARY | 2025-04-07 13:30 | XMS_ITS | Encounter Summary ---
Author Organization [facility] Address [address] [place] [address] Care Team Providers Care Tip Printer Name Role Phone Wilfredo De Jesus MD Primary Care Provider Sabrina adame Encounter Details Date Type Department Care Team (Late st Contact Info) Description 07/10/2023 Telephone [facility], [address] [place] [id number] Aleksandr Hill MD [address] [place] [address] [address] Social History Tobacco Use Types Packs/Day Years [...] Afternoon I spoke to [facility] We are not in network with this plan. This plan ismostly for [place] providers and when being done out of state a prior authorization is required. I submitted auth form faxed to [phone] w/ consult there is a 14 day turn around time.He stated patient may deny and need to see an in state provider. CALL CALL REF # [id number] Please have patient sign an out of network waiver. Thank you documented in this encounter Plan of Treatment Not on file documented as of this encounter Visit Diagnoses Not on filedocumented in this encounter Care Teams Tip Printer Relationship Specialty Start Date End Date Wilfredo De Jesus MD PCP - General 05/07/23 documented as of this encounter
--- OUTSIDE RECORDS SUMMARY | 2025-04-07 13:30 | XMS_ITS | Clinical Summary ---
Author Organization [facility] Address [address] [place] [address] Phone Care Team Providers Care Coremaker Floor Name Role Phone Clara Salgado MD Primary Care Provider [phone] Allergies No known active allergies Medications acetaminophen [...] Overview (09/24/2021): Normal TTE 11/2017, follows with [facility]. Follows on a 6-month basis. Body [...] Overview (09/24/2021): No diagnostic study on file. [facility] Polysomnogram treatment study. Date 08/16/2017. SE [...] Weight 74.8 kg (164 lb 12.8 oz) 023 1:27 PM EDT Height - - Body [...] patient's age to complete this topic Insurance [facility] ([id number]) [address] [place] [id number] [facility] ([id number]) Care Teams Coremaker Floor Relationship Specialty Start Date End Date Clara Salgado MD [address] [place], [place] PCP - General Internal Medicine 08/30/21
== END ==
LOC: HO.SL 12:46
PROVIDERS: PCP Internal Medicine; Visit Provider Internal Medicine Pulmonary Disease
DX: G47.33 Obstructive sleep apnea (adult) (pediatric) (principal)
CPT/HCPCS: 95806

== ENCOUNTER → 2025-04-07 13:05 | Outpatient (BNV) | payer OTHER, SELFPAY | PROVIDERS: PCP Internal Medicine; Visit Provider Internal Medicine | DX: G47.33 Obstructive sleep apnea (adult) (pediatric) (principal) | CPT/HCPCS: 95806 ==

== ENCOUNTER 2025-05-23 07:29 | Outpatient (REF) | payer OTHER, SELFPAY ==
--- OUTSIDE RECORDS SUMMARY | 2025-05-23 07:33 | XMS_ITS | Encounter Summary ---
Author Organization [employer] [facility] Address [address] 7t [place] [address] Care Team Providers Care Film And Video Graphics Designer Name Role Phone Unavailable Primary Care Provider Unavailabl e Encounter Details Date Type Department Care Team (Latest Contact Info) Description 12/18/2018 Abstract [facility] Dental, Provider, DDS Social [...]
--- OUTSIDE RECORDS SUMMARY | 2025-05-23 07:33 | XMS_ITS | Encounter Summary ---
Author Organization [facility] Address [address] [place] [address] Care Team Providers Care Certified Drug Counselor Name Role Phone Wilfredo De Jesus MD Primary Care Provider [phone] Reason for Visit * Reason Comments Med Change Request Encounter Details Date Type Department Care Team (Late st Contact Info) Description 05/30/2023 Refill [facility] [address] [address] [place] [address] Aleksandr Hill MD [address] [place] [address] [address] [place], [place] [id number] Anderson's esophagus with high grade dysplasia Social [...] PM EDT Spoke with Chela (Pharmacist) at [facility] in [place], [place] stated that Patient's insurance will NOT cover the Maalox Liquid suspension. Patient would have to get it over the counter for $ 8.00. Patient was notified documented in this encounter Plan of Treatment Not on file documented as of this encounter Visit Diagnoses Diagnosis Anderson's esophagus with high grade dysplasia documented in this encounter Care Teams Certified Drug Counselor Relationship Specialty Start Date End Date Wilfredo De Jesus MD PCP - General 05/07/23 documented as of this encounter
--- OUTSIDE RECORDS SUMMARY | 2025-05-23 07:33 | XMS_ITS | Encounter Summary ---
Author Organization [facility] Address [address] [place] [address] Phone Care Team Providers Care Milk Drier Name Role Phone Unknown, Unknown Primary Care Provider Oral [place] Encounter Details Date Type Department Care Team (Late st Contact Info) Description 10/11/2020 Procedure [facility] [address] [place] [address] [place] [address] Social History Tobacco Use Types Packs/Day Years Used Date Smoking Tobacco: Never Assessed Sex and Gender Information Value Date Recorded Sex Assigned at Not on file Legal Sex Male 8:57 AM EDT Gender Identity Not on file Sexual Orientation Not on file documented as of this encounter Plan of Treatment Not on file documented as of this encounter Visit Diagnoses Not on filedocumented in this encounter Care Teams Milk Drier Relationship Specialty Start Date End Date Unknown, Unknown, PCP - General 12/05/17 documented as of this encounter Additional Source Comments The information contained in this document represents components of the legal health record. It is not the complete legal health record.[facility]
--- OUTSIDE RECORDS SUMMARY | 2025-05-23 07:33 | XMS_ITS | Encounter Summary ---
Author Organization [facility] Address [address] [place] [phone] Phone Care Team Providers Care Records Management Specialist Name Role Phone Unknown, Unknown Primary Care Provider Oral [place] Encounter Details Date Type Department Care Team (Latest Contact Info) Description 12/26/2017 Ancillary Orders [facility] [address] [place] [address] [place] [address] Mehul Kasper DO [address] [place] [address] Chest pain, unspecified type Social History Tobacco Use Types Packs/Day Years Used Date Smoking Tobacco: Never Assessed Sex and Gender Information Value Date Recorded Sex Assigned at Not on file Legal Sex Male 8:57 AM EDT Gender Identity Not on file Sexual Orientation Not on file documented as of this encounter Plan of Treatment Not on file documented as of this encounter Results * Holter Monitor 24 Hours (12/26/2017 10:26 AM EDT) Anatomical Region Laterality Modality Heart Other Narrative 12/26/2017 7:09 PM EDT 24-hour monitor: No symptoms reported. Baseline rhythm is sinus with a minimum heart rate 54 maximum 136 average 86 bpm. Occasional PACs present. Minor increase in frequency of PVCs, about 700 during the 24 hours. Impression: Except for minor increase in frequency of PVCs, normal 24-hour monitor. No symptoms reported. Mehul Kasper DO [facility] ORDERABLE S Final Result documented in this encounter Visit Diagnoses Diagnosis Chest pain, unspecified type Chest pain, unspecified type documented in this encounter Care Teams Records Management Specialist Relationship Specialty Start Date End Date Unknown, Unknown, MD PCP - General 12/05/17 documented as of this encounter Additional Source Comments The information contained in this document represents components of the legal health record. It is not the complete legal health record.[facility]
--- OUTSIDE RECORDS SUMMARY | 2025-05-23 07:33 | XMS_ITS | Clinical Summary ---
Author Organization [employer] Address [address] [place] [address] 7[address] [place] [address] Care Team Providers Care Laborer Concrete Plant Name Role Phone Unavailable Primary Care Provider [...] Additional history exists COVID-19 Vaccine ( season) 2025 01/01/2022, 05/29/2021, 11/21/2020, Additional history exists Influenza [...] to Health Maintenance Insurance DENTAL - [facility] DENTAL - [facility]
--- OUTSIDE RECORDS SUMMARY | 2025-05-23 07:33 | XMS_ITS | Clinical Summary ---
Author Organization [facility] Address [address] [place] [address] Care Team Providers Care Certification Engineer Name Role Phone Wilfredo De Jesus MD Primary Care Provider [phone] Allergies No known active allergies Medications albuterol (PROVENTIL HFA; VENTOLIN HFA) 108 (90 Base) MCG/ACT inhaler INHALE 2 PUFFS EVERY 6 HOURS NEEDED FOR WHEEZING AND SHORTNESS OF BREATH. 04/29/20 Active betamethasone dipropionate (DIPROLENE) 0.05 % cream Apply topically as needed. 04/29/20 Active Vitamin D High Potency 25 MCG (1000 UT) capsule Take by mouth every morning. 03/24/20 Active citalopram (CeleXA) 20 MG tablet Take 1 tablet (20 mg total) by mouth every morning. 04/29/20 Active Trulicity 0.75 MG/0.5ML prefilled pen injection Inject under the skin once a week. Wednesdays04/21/20 Active Jardiance 25 MG tablet Take 1 [...] Health Maintenance Due Date Last Done Comments Advance Care Planning 1950 Hepatitis C Virus Screening 1950 DTaP/Tdap/Td Vaccines (1 - Tdap) 10/31/1970 Colonoscopy 10/31/1996 Pneumococcal Vaccines 50+ (1 of 1 - PCV) 10/31/2001 Zoster (Shingles) Vaccine (1 of 2) 10/31/2001 RSV Vaccine 60 years and older and Patients (1 - Risk 60-74 years 1-dose series) 2011 Influenza Vaccine 03/25/2025 COVID-19 Vaccine (3 - 2024-2 6 season) 2025 11/21/2020, 10/24/2020 Hepatitis B Vaccines Aged Out No long er eligible based on patient's age to complete this topic Medical Devices Implanted Type Area Manager Professional Development Device Identifier Shelf Expiration Date Model / Serial / Lot Joint Prosthesis Joint Prosthesis Knee Description:left Insurance [id number] [place] [id number] [facility] MEDICARE OUT OF NETWORK [id number] [id number] [facility] MEDICARE OUT OF NETWORK RADHA [id number] [id number] Care Teams Certification Engineer Relationship Specialty Start Date End Date Wilfredo De Jesus MD PCP - General 05/07/23
--- OUTSIDE RECORDS SUMMARY | 2025-05-23 07:33 | XMS_ITS | Encounter Summary ---
Author Organization [facility] Address [address] [place] [address] Care Team Providers Care System Safety Manager Name Role Phone Wilfredo De Jesus MD Primary Care Provider [phone] Encounter Details Date Type Department Care Team (Late st Contact Info) Description 07/10/2023 Telephone [facility] [address] [place] [address] Aleksandr Hill MD [address] [place] [address] [address] Social History Tobacco Use Types Packs/Day Years [...] [facility] We are not in network with this plan. This plan ismostly for [place] providers and when being done out of state a prior authorization is required. I submitted auth form faxed to [phone] w/ consult there is a 14 day turn around time.He stated patient may deny and need to see an in state provider. CALL CALL REF # [id number] Please have patient sign an out of network waiver. Thank you documented in this encounter Plan of Treatment Not on file documented as of this encounter Visit Diagnoses Not on filedocumented in this encounter Care Teams System Safety Manager Relationship Specialty Start Date End Date Wilfredo De Jesus MD PCP - General 05/07/23 documented as of this encounter
--- OUTSIDE RECORDS SUMMARY | 2025-05-23 07:33 | XMS_ITS | Encounter Summary ---
Author Organization [employer] [facility] Address [address] [facility] 7[address] [place] [address] Care Team Providers Care Freight Sorter Name Role Phone Unavailable Primary Care Provider [...]
--- OUTSIDE RECORDS SUMMARY | 2025-05-23 07:33 | XMS_ITS | Clinical Summary ---
[facility] Organization [facility] Address [address] [place] [address] Phone Care Team Providers Care Associate Agent Insurance Sales Name Role Phone Clara Amaral MD Primary Care Provider [phone] Allergies No known active allergies Medications albuterol 2.5 mg /3 mL (0.083 %) nebulizer solution Inhale 1 Vial into the lungs. 03/17/20 18 Active atorvastatin (LIPITOR) 80 mg tablet TAKE 1 TABLET BY MOUTH AT BEDTIME 03/24/20 23 Active fluticasone-sa lmeterol (ADVAIR DISKUS) 250-50 mcg/dose diskus inhaler INHALE 1 PUFF BY MOUTH TWICE DAILY. RINSE MOUTH AFTER USING. 03/10/20 23 Active pantoprazole (PROTONIX) 40 mg EC tablet Take 1 Tablet by mouth 2 times daily (before meals). Take 1 tablet in a.m. on empty stomach, wait 30 minutes and then eat and then take all other medications as directed. Take before breakfast and supper 01/14/20 23 Active FREESTYLE LANCETS MISC Use to test blood sugar once daily 10/26/19 21 Active metFORMIN (GLUCOPHAGE) 1,000 mg tablet Take 1 Tab by mouth 2 times daily (with meals). 09/08/19 21 Active losartan-hydro CHLOROthiazide (HYZAAR) 50-12.5 mg per tablet Take 1 tablet by mouth daily. 12/24/19 20 Active blood sugar diagnostic (FreeStyle Lite Strips) test strip Use once daily 12/02/19 20 Active loratadine (CLARITIN) 10 mg tablet Take 1 Tab by mouth daily. 11/12/19 20 Active betamethasone valerate (VALISONE) 0.1 % ointment APPLY TO THE AFFECTED AREA(S) SPARINGLY TWICE DAILY 07/12/20 Active multivitamin with folic acid (TAB-A-BRITTA ORAL) Take 1 Tab by mouth daily. 09/17/19 Active diabetic supplies, [employer] [facility] BLOOD GLUCOSE MONITORING SUPPL (FREESTYLE LITE) DEVICE Use to test blood sugar once daily. 06/15/20 Active isopropyl alcohol-benzoc zhane 70-6 % pads, medicated 1 Each by Does not apply route daily. 05/18/20 Active citalopram (CeleXA) 20 mg tablet Take 1 Tab by mouth every morning. 05/18/20 Active ipratropium-al buteroL (DUONEB) 0.5-2.5 mg/3 mL nebulizer solution Inhale 3 mL into the lungs once for 1 dose. 03/17/20 Active miscellaneous medical supply [facility] Spacer/Aero Chamber Mouthpiece [facility] Inhale 1 Units into the lungs every 6 hours as needed (use with inhalers as directed). 02/20/20 Active lidocaine (LIDODERM) 5 % patch Apply 1 patch topically 1 (one) time each day. Remove & discard patch within 12 hours or as directed by MD. 30 each 04/28/20 25 Active methocarbamoL (ROBAXIN) 500 mg tablet Take 1 tablet (500 mg total) by mouth 2 (two) times a day for 10 days. 20 tablet 04/28/20 25 Active acetaminophen (TYLENOL) 325 mg tablet TAKE 2 TABLETS EVERY 6 HOURS NEEDED FOR PAIN 09/17/19 Discontinu ed(Therapy completed) methylPREDNISo lone (MedroL) 32 mg tablet Take 1 tablet (32 mg total) by mouth 1 (one) time each day for 4 days. Okay to change to other formulations as long as the milligram amounts are equivalent 4 tablet 04/28/20 25 025 acetaminophen (TYLENOL) 500 mg tablet Take 2 tablets (1,000 mg total) by mouth every 6 (six) hours if needed for mild pain for up to 10 days. 30 tablet 04/28/20 25 025 naproxen (NAPROSYN) 500 mg tablet Take 1 tablet (500 mg total) by mouth 2 (two) times a day with meals for 15 days. 30 tablet 04/28/20 25 025 Active Problems Problem Noted Date Diagnosed Date Abdominal bloating 08/26/2024 Candidiasis of esophagus ([facility] V24, [facility] V 28) 08/26/2024 Overview (08/26/2024): Noted on EGD on 09/30/2019 Depression 08/26/2024 Overview (08/26/2024): Follows with Dr. Perez from psychiatry Epigastric discomfort 08/26/2024 Hypertension 08/26/2024 Mixed hyperlipidemia 08/26/2024 Rectal bleeding 08/26/2024 Asthma 10/09/2021 CKD (chronic kidney disease) stage 3, GFR 30-59 ml/min ([facility] V24, [facility] V28) 10/09/2021 Insomnia 10/09/2021 Type 2 diabetes mellitus wit h renal manifestations ([facility] V24, [facility] V28) 10/09/2021 Gastroesophageal reflux disease without esophagi tis 09/17/2019 Pulmonary nodule 09/02/2019 Overview (08/26/2024): CT chest pending 08/2019 Mild persistent asthma with acute exacerbation 0 03/17/2018 Atypical chest pain 12/01/2017 Overview (08/26/2024): Normal TTE 11/2017, follows with [facility]. Follows on a 6-month basis. Obesity (BMI 30-39.9) 11/05/2017 Anderson's esophagus 05/15/2017 Overview (08/26/2024): EGD 12/2017: No dysplasia. Next endoscopy indicated approximately 2020. 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 Legaly blind R eye Osteoarthritis 05/15/2017 Overview (08/26/2024): C5-C7, R shoulder complete rotator cuff tear- unrepairable Tubular adenoma 05/15/2017 Overview (08/26/2024): 2008.Last Colonoscopy 2014. Rec f/u 5-7 yrs LUIGI (obstructive sleep apnea) 03/21/2017 Overview (08/26/2024): No diagnostic study on file. [facility]G Polysomnogram treatment study. Date 08/16/2017. SE 64% SM 71 %; spent 10 % of the study in REM. At the optimal pressure of CPAP @ 11; RDI 0.9 (AHI 0.9), Central apneas 0; Obstructive apneas 1; Mixed apneas 0; hypopneas 0; RERAs 0; and, average oxygen saturation was 95%. For the entire study, PLMs ~52. Diabetes mellitus type 2 wit h neurological manifestations (CMS/HCC V24, CMS/HCC V28) 02/24/2017 Overview (08/26/2024): Parasthesias of hands, h/o carpal tunnel Normocytic anemia 02/24/2017 Overview (08/26/2024): Normal iron studies, normal folate and B12. 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) History of alcohol abuse 02/21/2017 Overview (08/26/2024): Last drink 2013 Encounters Date Type Department Care Team Description 04/28/2025 8:16 AM EDT - 04/28/2025 9:25 AM EDT Emergency [facility] Emergency [address] [place] [address] Bryce Villeda MD Primary osteoarthritis of right shoulder (Primary Dx) Discharge Disposition: Home or Self Care 04/15/2025 Telephone [facility] Cardiology [facility] [address] [place] [address] Clara Amaral MD 04/08/2025 Telephone [facility] [address] [place] [address] Clara Amaral MD from Last 3 Months Immunizations Immunization Administration Dates Next Due Influenza trivalent, 0.5mL (Fluad) 65yo and olde r 06/05/2018 Moderna SARS-CoV-2 COVID-19, mRNA, LNP-S, preservative free 11/21/2020,10/24/2020 Pneumococcal conjugate 13 va lent (Prevnar 13, PCV13) 2mo and older 06/05/2018 Pneumococcal polysaccharide 23 valent (Pneumovax 23) 2yo and older 03/21/2017 Tdap Tetanus diptheria acell ular pertussis (Boostrix; Adacel) 7yo and older 03/21/2017 Surgical History Surgery Date Site/Laterality Comments COLONOSCOPY 09/06/2014 PROCEDURE: HISTORICAL COLONOSCOPY; COMMENT: Normal, but d/t h/o tubular adenoma repeat 5-7 yrs CATARACT EXTRACTION 2012 PROCEDURE: HISTORICAL CATARACT REMOVAL TOTAL KNEE ARTHROPLASTY 2010 Left PROCEDURE: HISTORICAL TOTAL KNEE REPLACE COLONOSCOPY 12/17/2010 PROCEDURE: HISTORICAL COLONOSCOPY; COMMENT: [place], no polyps. UPPER GASTROINTESTINAL ENDOSCOPY 01/16/2017 PROCEDURE: CO UPPER GI ENDOSCOPY PERFORMED; COMMENT: [facility], Dr. Tatyana Person: Gastric biopsies negative for H. 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 UPPER GASTROINTESTINAL ENDOSCOPY 12/2013 PROCEDURE: CO UPPER GI ENDOSCOPY PERFORMED; COMMENT: Dr. Tatyana Person, Flores esophagitis, Anderson's esophagus, minute areas of low-grade dysplasia. UPPER GASTROINTESTINAL ENDOSCOPY 11/2012 PROCEDURE: CO UPPER GI ENDOSCOPY PERFORMED; COMMENT: Dr. Tatyana Person, Anderson's esophagus with small focus indefinite for dysplasia. UPPER GASTROINTESTINAL ENDOSCOPY 05/02/2010 PROCEDURE: CO UPPER GI ENDOSCOPY PERFORMED; COMMENT: [place] Br[place], Anderson's esophagus, no dysplasia. COLONOSCOPY 10/13/2008 PROCEDURE: HISTORICAL COLONOSCOPY; COMMENT: [place], tubular adenoma 1. UPPER GASTROINTESTINAL ENDOSCOPY 10/07/2008 PROCEDURE: CO UPPER GI ENDOSCOPY PERFORMED; COMMENT: [place] Brouss[place], Anderson's esophagus, not clear if biopsies were done. COLONOSCOPY 09/2005 PROCEDURE: HISTORICAL COLONOSCOPY; COMMENT: [place], no polyps. UPPER GASTROINTESTINAL ENDOSCOPY 05/2005 PROCEDURE: CO UPPER GI ENDOSCOPY PERFORMED; COMMENT: [place], biopsies negative for Anderson's esophagus. UPPER GASTROINTESTINAL ENDOSCOPY 10/1997 PROCEDURE: CO UPPER GI ENDOSCOPY PERFORMED; COMMENT: [place], results not available. UPPER GASTROINTESTINAL ENDOSCOPY 01/06/2018 PROCEDURE: CO UPPER GI ENDOSCOPY PERFORMED; COMMENT: Rayne[facility]; 6 cm length of Anderson's; grade 1 esophageal varices; pathology: Foci of atypia. Second opinion: No dysplasia. COLONOSCOPY 04/21/2019 PROCEDURE: HISTORICAL COLONOSCOPY; COMMENT: Solitary 5 mm diminutive polyp removed from the sigmoid colon--- tubular adenoma. ESOPHAGOGASTRODUODENOSCOPY PROCEDURE: CO EGD TRANSORAL BIOPSY SINGLE/MULTIPLE; COMMENT: Performed on September 30, 2019 with CARPAL TUNNEL RELEASE 03/2021 Right PROCEDURE: HISTORICAL CARPAL TUNNEL REL OTHER SURGICAL HISTORY PROCEDURE: CO BIOPSY PROSTATE INCISIONAL ANY APPROACH Medical History Medical History Date Comments H/O gastroesophageal reflux (GERD) DX:H/O gastroesophageal reflux (GERD) Depression DX:Depression; C OMMENT: Follows with Dr. Perez from psychiatry Hypertension DX:Hypertension Tubular adenoma 05/15/2017 DX:Tubular adeno ma; COMMENT: Last Colonoscopy 2014. Rec f/u 5-7 yrs Total knee replacement status 05/15/2017 DX :Total knee replacement status; COMMENT: Left. 2010 Hiatal hernia 05/15/2017 DX:Hiatal hernia Osteoarthritis 05/15/2017 DX:Osteoarthriti s; COMMENT: C5-C7, R shoulder Carpal tunnel syndrome 05/15/2017 DX:Carpal tunnel syndrome; COMMENT: EMG 01/2017, follows with neurology Normocytic anemia 02/24/2017 DX:Normocytic anemia; COMMENT: Normal iron studies, normal folate and B12. 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 Legaly blind R eye History of alcohol abuse 02/21/2017 DX:Hist ory of alcohol abuse; COMMENT: Last drink 2013 LUIGI (obstructive sleep apnea) 03/21/2017 DX :LUIGI (obstructive sleep apnea); COMMENT: No diagnostic study on file. RBMG Polysomnogram treatment study. Date 08/16/2017. SE 64% SM 71 %; spent 10 % of the study in REM. At the optimal pressure of CPAP @ 11; RDI 0.9 (AHI 0.9), Central apneas 0; Obstructive apneas 1; Mixed apneas 0; hypopneas 0; RERAs 0; and, average oxygen saturation was 95%. For the entire study, PLMs -52. Obesity (BMI 30-39.9) 11/05/2017 DX:Obesity (BMI 30-39.9) Diabetes mellitus type 2 wit h neurological manifestations ([facility] V24, [facility] V28) 02/24/2017 DX:Diabetes mellitus type 2 with neurological manifestations ([facility]); COMMENT: Parasthesias of hands, h/o carpal tunnel Atypical chest pain 12/01/2017 DX:Atypical chest pain; COMMENT: Normal TTE 11/2017, follows with [facility] Anderson's esophagus 05/15/2017 DX:Anderson's esophagus; COMMENT: EGD 12/2017, follows with GI Asthma DX:Asthma Candidiasis of esophagus ([facility] V24, [facility] V28) DX:Candidiasis of esophagus ([facility]); COMMENT: Noted on EGD on 09/30/2019 Abdominal bloating DX:Abdominal bloating Epigastric discomfort DX:Epigast puma discomfort Rectal bleeding DX:Rectal bleedi ng Gassiness DX:Gassiness Insomnia 10/09/2021 DX:Insomnia Mixed hyperlipidemia DX:Mixed hy perlipidemia CKD (chronic kidney disease) stage 3, GFR 30-59 ml/min ([facility] V24, [facility] V28) 10/09/2021 DX:CKD (chronic kidney disea se) stage 3, GFR 30-59 ml/min ([facility]) Type 2 diabetes mellitus wit h renal manifestations ([facility] V24, [facility] V28) 10/09/2021 DX:Type 2 diabetes mellitus with renal manifestations ([facility]) Gastroesophageal reflux dise ase without esophagitis 09/17/2019 DX:Gastroesophageal reflux d isease without esophagitis Mild persistent asthma with acute exacerbation 03/17/2018 DX:Mild persistent asthma wi th acute exacerbation Pulmonary nodule 09/02/2019 DX:Pulmonary no dule; COMMENT: CT chest pending 08/2019 Family History Medical History Relation Name Comments Stomach cancer Brother Diabetes Father HTN Stomach cancer Maternal Grandmother Diabe ewelina Diabetes Mother HTN Relation Name Status Comments Brother Father Maternal Grandmother Mother Social History Tobacco Use Types Packs/Day Years Used Date Smoking Tobacco: Never Smokeless Tobacco: Never Alcohol Use Standard Drinks/Week Comments No 0 (1 standard drink = 0.6 oz pur e alcohol) Sex and Gender Information Value Date Recorded Sex Assigned at Not on file Legal Sex Male 4:32 AM EST Gender Identity Not on file Sexual Orientation Not on file Obstetrics History Last Filed Vital Signs Vital Sign Reading Time Taken Comments Blood Pressure 130/64 04/28/2025 7:30 AM EDT Pulse 82 04/28/2025 7:30 AM EDT Temperature 36.6 C (97.8 F) 04/28/2025 7:30 AM EDT Respiratory Rate 16 04/28/2025 7:30 AM EDT Oxygen Saturation 99% 04/28/2025 7:30 AM EDT Inhaled Oxygen Concentration - - Weight 75.8 kg (167 lb) 04/28/2025 7:30 AM EDT Height 154.9 cm (5' 1 ) 04/28/2025 7:30 AM EDT Body Mass Index 31.55 04/28/2025 7:30 AM EDT Plan of Treatment Health Maintenance Due Date Last Done Comments Diabetes: Annual Foot Exam 10/31/1961 Diabetes: Annual Retina Eye Exam 10/31/1961 RSV Immunization Adult Patients (1 - Risk 60-74 years 1-dose series) 2011 Diabetes: Annual GFR (Glomerular Filtration Rate) 02/17/2021 02/18/2020 Colorectal Cancer Screening: Colonoscopy 08/03/2022 Falls Risk Assessment 08/03/2022 Social Influencers of Health Screening 08/03/2022 Diabetes: Annual Urine Albumin-Creatinine Ratio (uACR) 08/08/2022 02/18/2020 Diabetes: Blood Sugar Control Test (HGBA1C) 08/08/2022 02/18/2020 Hypertension/CHF/CAD Annual BMP Blood Test 08/08/2022 02/18/2020 Depression Screening 08/25/2024 Cholesterol Screening (Lipid Panel) 02/17/2025 02/18/2020 COVID-19 Vaccine ( season) 2025 01/01/2022, 05/29/2021, 11/21/2020, Additional history exists Influenza Vaccine (#1) 2025 4, 05/06/2023, 05/16/2022, Additional history exists DTaP,Tdap,and Td Vaccines (2 - Td or Tdap) 03/21/2027 03/21/2017 Hepatitis C Screening Completed 06/06/2017 Pneumococcal Vaccine: 50+ Years Completed 06/05/2018, 03/21/2017, [...] on patient's age to complete this topic MMR Vaccines Aged Out No longer eligi ble based on patient's age to complete this topic Meningococcal ACWY Vaccine Aged Out N o longer eligible based on patient's age to complete this topic Meningococcal B Vaccine Aged Out No l onger eligible based on patient's age to complete this topic RSV Immunization Patients Under 20 months Aged Out No longer eligible based on patient's age to complete this topic Varicella Vaccines Aged Out No longer eligible based on patient's age to complete this topic Procedures Procedure Name Priority Date/Time Associated Diagnosis Comments ECG ANNOTATED 04/29/2025 XR SHOULDER 2+ VIEWS RIGHT STAT 04/28/2025 8:22 AM EDT ECG 12-LEAD STAT 04/28/2025 8:10 AM EDT URINE ALBUMIN CREATININE RATIO Routine 02/18/2020 ANNUAL BMP BLOOD TEST Routine 02/18/2020 HEMOGLOBIN A1C Routine 02/18/2020 LIPID PANEL Routine 02/18/2020 HEPATITIS C SCREENING Routine 06/06/2017 from Last 3 Months or Most Recently Relevant to Health Maintenance Results * ECG-Annotated (04/29/2025) us Provider Onbase ECG ORDERABLES Final Result * XR Shoulder 2+ Views Right (04/28/2025 8:22 AM EDT) Anatomical Region Laterality Modality Upper Extremities, Shoulder Right Radi ographic Imaging 04/28/2025 8:39 AM EDT Impressions 04/28/2025 8:40 AM EDT No fracture, dislocation, or other acute findings. Severe osteoarthritis of the glenohumeral joint and moderately severe osteoarthritis of the acromioclavicular joint. Code 71709 -------- FINAL REPORT -------- Dictated By: Aleksandr Bianchi Dictated Date: 04/28/2025 08:39 ET Assigned Physician: Aleksandr Bianchi Reviewed and Electronically Signed By: Aleksandr Bianchi Signed Date: 04/28/2025 08:40 ET Workstation ID: [id number] Transcribed By: Self Edit Transcribed Date: 04/28/2025 08:39 ET Narrative 04/28/2025 8:40 AM EDT HISTORY: The patient is a 74-year-old male with right shoulder pain, nontraumatic. FINDINGS: AP, right posterior oblique, and transscapular views of the right shoulder are obtained. The study demonstrates no fracture or dislocation. There is severe narrowing of the glenohumeral joint space with nearly krwo-ao-fajp appearance, and marginal osteophytes, consistent with severe osteoarthritis. There is also moderately severe osteoarthritis of the acromioclavicular joint. No soft tissue abnormality is seen. Procedure Note Aleksandr Bianchi MD - 04/28/2025 HISTORY: The patient is a 74-year-old male with right shoulder pain,nontraumatic. FINDINGS: AP, right posterior oblique, and transscapular views of theright shoulder are obtained. The study demonstrates no fracture ordislocation. There is severe narrowing of the glenohumeral joint spacewith nearly wnkr-[id number] appearance, and marginal osteophytes, consistentwith severe osteoarthritis. There is also moderately severe osteoarthritisof the acromioclavicular joint. No soft tissue abnormality is seen. IMPRESSION: No fracture, dislocation, or other acute findings. Severe osteoarthritisof the glenohumeral joint and moderately severe osteoarthritis of theacromioclavicular joint. Code 74243 -------- FINAL REPORT -------- Dictated By: Aleksandr Bianchi Dictated Date: 04/28/2025 08:39 ET Assigned Physician: Aleksandr Bianchi Reviewed and Electronically Signed By: Aleksandr Bianchi Signed Date: 04/28/2025 08:40 ET Workstation ID: [id number] Transcribed By: Self Edit Transcribed Date: 04/28/2025 08:39 ET Alonso GARCIA IMG XR PROCEDURES Final Res ult * 12-Lead ECG (04/28/2025 8:10 AM EDT) [facility] Ventricular Rate ECG 79 BPM GEMUSE Atrial Rate 79 BPM GEMUSE P-R Interval 182 ms GEMUSE QRS Duration 96 ms GEMUSE Q-T Interval 370 ms GEMUSE QTc 424 ms GEMUSE P Wave [place] 58 degrees GEMUSE R [place] -29 degrees GEMUSE T [place] 33 degrees GEMUSE ECG Interpretation Normal sinus rhythm Inferior infarct , age undetermined Abnormal ECG No previous ECGs available Confirmed by Lluvia WELCH JAMES ([id number]) on 04/28/2025 12:50:32 PM GEMUSE 04/28/2025 8:10 AM EDT 04/28/2025 12:50 PM EDT Bryce Villeda MD ECG ORDERABLES Final Result GEMUSE * Urine Albumin Creatinine Ratio (02/18/2020) Pathologist [facility] Urine Albumin Creatinine Ratio abstracted Result [facility] Historical Provider HEALTH MAINTENANCE Final Result * Annual BMP Blood Test (02/18/2020) [facility] Annual BMP Blood Test abstracted Historical Provider HEALTH MAINTENANCE Final Result * (ABNORMAL) Hemoglobin A1c (02/18/2020) [facility] Hemoglobin A1C 7.6(A) <=6.5 % Blood Venous blood specimen / Unknown Historical Provider LAB BLOOD ORDERABLES Jennifer l Result * (ABNORMAL) Lipid panel (02/18/2020) LDL/HDL Ratio 5(A) 0 - 4 Triglycerides 306(A) 0 - 150 mg/dL Cholesterol 203(A) 0 - 200 mg/dL HDL 41 >=40 mg/dL LDL Cholesterol 100 0 - 100 mg/dL Blood Venous blood specimen / Unknown Historical Provider LAB BLOOD ORDERABLES Jennifer l Result * Hepatitis C Screening (06/06/2017) Pathologist [facility] Hepatitis C Screening abstracted Historical Provider HEALTH MAINTENANCE Final Result from Last 3 Months or Most Recently Relevant to Health Maintenance Insurance KARMEN BREWER [id number] [facility] Member Subscriber Plan / Payer (Ef fective 2016-Present) Name:Mohamud Tovar Relation to Subscriber:Self Name:Mohamud Tovar Payer ID:[id number] Group ID:[id number] Type:Not on file Address: [place] [address] [address] [id number] Care Teams Associate Agent Insurance Sales Relationship Specialty Start Date End Date Clara Amaral MD [address] [place] [address] , [facility] [address] [facility] Physician Associ D/B/A: [facility] KARMEN Brewer PCP - General Internal Medicine 04/08/25
--- OUTSIDE RECORDS SUMMARY | 2025-05-23 07:33 | XMS_ITS | Encounter Summary ---
Author Organization [facility] Address [address] [place] [address] Phone Care Team Providers Care Sales And Marketing Intern Name Role Phone Unknown, Unknown Primary Care Provider Oral mesa Encounter Details Date Type Department Care Team (Latest Contact Info) Description 10/11/2020 Ancillary Orders [facility] [address] [place] [address] [place] [address] Mehul Kasper, DO [address] [place] [address] Chest pain, unspecified type Social History Tobacco [...] of this encounter Results * Holter Monitor 48 Hours (10/11/2020 11:51 AM EST) Anatomical Region Laterality Modality Heart Other Narrative 10/11/2020 12:39 PM EST 48-hour monitor: Baseline rhythm is sinus with a minimum heart rate of 56, maximum 128, average 88 bpm. There are no long pauses present. There are rare PACs and PVCs present. There is no diary submitted. There are no patient event markers. Impression normal 48-hour monitor. No diary submitted. No patient event markers. Procedure Note Manny Canas MD - 10/11/2020 48-hour monitor: Baseline rhythm is sinus with a minimum heart rate of 56,maximum 128, average 88 bpm. There are no long pauses present. There arerare PACs and PVCs present. There is no diary submitted. There are nopatient event markers. Impression normal 48-hour monitor. No diary submitted. No patient eventmarkers. Mehul Kasper DO [facility] ORDERABLE S Final Result documented in this encounter Visit Diagnoses Diagnosis Chest pain, unspecified type Chest pain, unspecified type documented in this encounter Care Teams Sales And Marketing Intern Relationship Specialty Start Date End Date Unknown, Unknown, PCP - General 12/05/17 documented as of this encounter Additional Source Comments The information contained in this document represents components of the legal health record. It is not the complete legal health record.[facility]
--- OUTSIDE RECORDS SUMMARY | 2025-05-23 07:33 | XMS_ITS | Clinical Summary ---
Author Organization [facility] Address [address] [place] [address] Phone Care Team Providers Care Procurement Officer Name Role Phone Clara Salgado MD Primary Care Provider [phone] Allergies No known active allergies Medications acetaminophen [...] Overview (09/24/2021): Normal TTE 11/2017, follows with [facility]. Follows on a 6-month basis. Body [...] Overview (09/24/2021): No diagnostic study on file. [facility] Polysomnogram treatment study. [...] patient's age to complete this topic Insurance [facility] ([id number]) [address] [place] [phone] [facility] ([id number]) Care Teams Procurement Officer Relationship Specialty Start Date End Date Clara Salgado MD [address] [place], [place] PCP - General Internal Medicine 08/30/21
--- OUTSIDE RECORDS SUMMARY | 2025-05-23 07:33 | XMS_ITS | Clinical Summary ---
Author Organization [facility] Address [address] [facility] [address] [place] [address] Phone Care Team Providers Care Scroll Machine Operator Name Role Phone Unknown, Unknown [...] VIRTUAL COLONOSCOPY 10/31/1996 HEMOGLOBIN A1C 08/19/2020 02/18/2020 INFLUENZA VACCINE (#1) 2025 , 05/05/2020, 07/21/2019, Additional history exists COVID-19 VACCINE (2024- season) 2025 05/29/2021, 11/21/2020, 10/24/2020 DIABETIC EYE EXAM 08/09/2025 [...] file [facility] RE[facility]ACEMENT RADHA VAUGHN [id number] MEDICARE REPLACEMENT MEDICARE REPLACEMENT MEDICARE REPLACEMENT MEDICARE REPLACEMENT MEDICARE REPLACEMENT MEDICARE REPLACEMENT MEDICARE REPLACEMENT MEDICARE REPLACEMENT MEDICARE REPLACEMENT Care Teams Scroll Machine Operator Relationship Specialty Start Date End Date Unknown, Unknown, PCP - General 12/05/17 Additional Source Comments The information contained in this document represents components of the legal health record. It is not the complete legal health record.[facility]
--- OUTSIDE RECORDS SUMMARY | 2025-05-23 07:34 | XMS_ITS | Data Portability ---
Author Organization [place] [facility], Allergy Address [address] [address] Assessment Encounter Date Assessment Date Assessment LastModified by Organization Details LastModified Time 08/13/2024 08/13/2024 73 yo M never smoker, currently being treated for esophageal cancer, presents for evaluation of the throat. He had a CT scan of the neck with contrast last month at [facility] showing soft tissue [...] piriform sinus, swelling noted on CT at [place], not appreciat ed on physical exam 2023 [facility] ([facility]), [address] [place], [address], 4 10:24:16 Medication Orders None recorded. Patient TargetsNo targets recorded. Patient InstructionsNo instructions recorded. Reason for Referral None Reported. Results Created Date Observation Date Name Description Value Unit Range Abnormal Flag Note LastModifiedBy Organization Detail LastModifiedTime 01/0808/28/2024 MRI, head + neck + orbit s, w/wo contr ast [facility] Access ion Number : [id number] Sandra chan Name: Suleman Carpenter Edwin Huangjosiane ely Record Number : [id number] Date of : 1950 Date of Exam: 2024 Referr ing Physic clem: Cordell Gomez [facility] [place] [address], [place] [address] [place] [address] Exam: MR Orbits , Face, Neck (C-/C+ ) CPT 10786 Room Descri ption: [facility] Verio 3.0T HISTOR Y: Right pirifo rm sinus lesion . TECHNI QUE: Multip lanar multis equenc e MRI of the neck was obtain ed before and after the admini strati on of 15 cc of Dotare m. COMPAR PHYLLIS: CT scan of the neck 024 [facility] . FINDIN GS: * The [...] asymme trical fullne ss of the right straddle bug operator ior pharyn geal muscul ature adjace [...] repres ent acute sinusi tis [facility] g. Electr onical ly Signed By: Donny saucedo [facility] ([facility]) [address] [facility], [place], [address], 09/09/2024 09:08:49 Result Notes Documentation Provider Name and Address Organization Details Recorded Time Mri, Head + Neck + Orbits, W/wo Contrast : [facility] Accession Number: [id number] Patient Name: Mohamud Tovar Date of : 1950 Date of Exam: 08-28-2024 Referring Physician: Cordell Ramirez [facility] [address] [facility], [facility] 100 [place] [address] Exam: MR Orbits, Face, Neck (C-/C+) CPT 97225 Room Description: [facility] 3.0T HISTORY: Right piriform sinus lesion. TECHNIQUE: Multiplanar multisequence MRI of the neck was obtained before and after the administration of 15 cc of Dotarem. COMPARISON: CT scan of the neck 07/02/2024 performed at [facility]. FINDINGS: * The left piriform sinus remains [...] oropharynx, and laryngeal structures are unremarkable. 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 13:15:00 Problem Notes None recorded. Procedures Surgical History Date Name Laterality Status Provider Name and Address Organization Details Recorded Time 08/13/20 24 Fiberoptic Laryngoscopy (Comprehensive) completed CORDELL RAMIREZ MD [address] [place] [address],[place] [address], [place], [address], [facility] 08/19/2024 07:19:29 Imaging Results None recorded. [...] Available Not Available No t Available FreeStyle [place] Lite kit USE DIRECTED TO TEST BLOOD [...] Updated DateTime 08/13/2024 154.94 cm 31.2 kg/m2 11682.74 g Katie Lindquist [place] - [facility] 08/13/2024 12:58:49 Social History None recorded. Functional Status None recorded. Mental Status None recorded. Family History Nothing Reported Notes:mother - DM father-DM Medical History Condition Response Cancer Y Asthma Y Sleep Disorder Y Past Encounters Encounter ID Performer Location Encounter Start Date Encounter Closed Date Diagnosis/Indication Diagnosis SNOMED-CT Code Diagnosis ICD10 Code Diagnosis IMO Codes Diagnosis Note [id number] CORDELL RAMIREZ MD [facility] [address] [address] 08/13/2024 12:32:26 08/13/2024 13:22:11 Neoplasm of uncertain behavior of pharynx 90068727 D37.05 Health Concerns Section Related Observation LastModified by Organization Detai ls LastModified Time None Recorded Concern Status LastModified by Organization Details LastModified Time None Recorded Advance Directives Directive None Recorded Payers Insurance Date Sequence Insurance Name Policy Number Policy Dunaway Covered Member ID Dunaway Member ID Guarantor Name 08/19/2024 1 [facility] - DOS ON OR AFTER 2022 - MEDICARE ADVANTAGE [place] (MEDICARE REPLACEMENT/ADV ANTAGE - PPO) Mohamud Carpenter [id number] Mohamud Carpenter Notes Date Note Type Note [...] pain. Sometimes trouble swallowing. CORDELL RAMIREZ MD [address] [place] [address], [place], [address], [place] [facility] 08/19/2024 07:23:40
[2025-05-23 08:43] LABS: Appearance Urine Clear; Glucose Urine UA 100 mg/dL (Negative); PH 5.5 (5.0-9.0); Specific Gravity - Urine 1.020 (1.005-1.025)
[2025-05-23 08:46] LABS: Anion Gap 9 (12-20); Blood Urea Nitrogen 23 mg/dL (9-16); Calcium 9.7 mg/dL (8.4-10.2); Carbon Dioxide 25 mmol/L (22-29); Chloride 113 mmol/L (96-108); Estimated Glomerular Filt Rate 47; Potassium 4.1 mmol/L (3.3-5.1); Sodium 143 mmol/L (135-145)
[2025-05-23 09:42] LABS: Total Protein Urine Random 13 mg/dL (<12)
== END 2025-05-23 07:30 | disposition home or self-care (01) ==
LOC: HO.LAB 07:29
PROVIDERS: PCP Internal Medicine; Visit Provider Internal Medicine Hypertension Specialist
DX: N18.31 Chronic kidney disease, stage 3a (principal)
CPT/HCPCS: 36415; 80048; 81003; 82570; 84156

== ENCOUNTER 2025-06-02 13:12 | Outpatient (AMB) | payer OTHER, SELFPAY ==
[2025-06-02 13:26] VITALS: BP 114/64; PULSE 81; O2SAT 96; BMI 31.4
--- NOTE | 2025-06-02 13:26 | HO.NEPHOV_ITS ---
Vital Signs 06/02/25 13:26 Height 5 ft 1 in Weight 166 lb BMI 31.4 BP 114/64 Blood Pressure Location Lt brachial Position Sitting Pulse 81 Pulse Source Pulse Oximeter Pulse Oximetry (%) 96 Oxygen Delivery Method Room Air Intake Visit Reasons: FU confirmed Stereo Equipment Salesperson Required: Yes Stereo Equipment Salesperson Name: [id number] Janet Accompanied by: Self / Same As Patient Allergies No Known Allergies (No Known Allergies*) Allergy (Verified 06/02/25 13:28) Medication List - Last Reconciled 06/02/25 by Saqib Shipley MD acetaminophen-codeine 120-12 mg/5 mL 5 mL PO Q6-8H [adult diapers pull-ups Use 1 daiper 3 to 4 times a day] albuterol sulfate 90 mcg/actuation 2 puffs inhalation Q6H PRN 30 days alcohol swabs 1 pad topical DAILY 90 days alum-mag hydroxide-simeth 200-200-20 mg/5 mL (Antacid-Antigas) mL PO atorvastatin 80 mg PO BEDTIME 90 days betamethasone valerate 0.1% 1 appl topical BID 30 days blood sugar diagnostic Use 1 test strip once a day blood-glucose meter (FreeStyle Lite Meter kit) As directed cholecalciferol (vitamin D3) 25 mcg PO DAILY 90 days citalopram (Celexa) 20 mg PO DAILY [diabetic shoes with inserts As directed] dulaglutide (Trulicity) 1.5 mg (0.5 mL) subcut QWEEK 4 weeks empagliflozin (Jardiance) 25 mg PO DAILY 90 days ezetimibe 10 mg PO DAILY 90 days fenofibrate 160 mg PO BEDTIME 90 days fluticasone propion-salmeterol 250-50 mcg/dose 1 ea PO BID ipratropium-albuterol 0.5 mg-3 mg(2.5 mg base)/3 mL 3 mL inhalation Q4-6H PRN lancets Use 1 lancet once a day latex gloves (Latex Gloves, Large) As directed loratadine 10 mg PO DAILY 90 days losartan 25 mg PO DAILY mirabegron ER (Myrbetriq) 50 mg PO DAILY pantoprazole 40 mg PO DAILY 90 days plecanatide (Trulance) 3 mg PO DAILY pregabalin (Lyrica) 150 mg PO BEDTIME sucralfate 10 mL PO [wipes As directed] HPI Comments Details: 72-year-old male with diabetes mellitus type 2, hypertension, mixed h yperlipidemia and mild depression with CKD is here for follow up. He is experiencing increased urination. No polydipsia. Here for regular follow-up. He has occasional leg swelling. No shortness of breath. 09/23/24 Had vague back pain - resolved;No related urinary symptoms 02/01/25;No new issues:Meds noted 06/02/25 - The patient is a 74-year-old male presenting with CKD - No new medications recently. - Reports slight weight gain. - Salt intake is moderate. - Denies dyspnea. - Blood pressure is controlled. [facility] Medical History (Updated 04/07/25 @ 09:48 by Clara Amaral MD) CKD (chronic kidney disease) stage 3, GFR 30-59 ml/min Mild recurrent major depression Chronic idiopathic constipation Anemia Polyarthralgia CKD (chronic kidney disease) Skin lesion Lumbar pain COVID-19 Mixed hyperlipidemia Chronic fatigue Diabetes mellitus Insomnia HTN (hypertension) Asthma Diabetic acidosis, type II Surgical History H/O colonoscopy History of carpal tunnel surgery of right wrist (~03/2021) History of eye surgery History of knee replacement procedure of left knee H/O prostate biopsy Family History Father Diabetes Hypertension Mother Diabetes Hypertension Maternal Grandmother Stomach cancer Social History Household Members: None Housing: Apartment Are you a primary care transition mgr to a significant other at home: No Do you presently have visiting nurse or other home services: No Alcohol intake: former Comment: counts correct Patient Tobacco Use Status: Never used Tobacco e-Cigarette/Vaping Use: Never Used Second Hand Smoke Exposure: No service: No Current occupational status: retired and disabled Cognitive needs: No Hearing needs: No Vision needs: Yes Physical Exam Vital Signs: Last Vital Signs Pulse 81 06/02/25 13:26 BP 114/64 06/02/25 13:26 Pulse Ox 96 06/02/25 13:26 Oxygen Delivery Method Room Air 06/02/25 13:26 BMI result Body Mass Index 31.4 Comfortable Neck supple no JVD. Lungs entry equal no rales. Heart S1-S2 heard no gallop or rub. Abdomen soft nontender. Neuro alert awake oriented. No asterixis. Extremities no edema. Results Reviewed Nephrology Results: Hgb, (14.0-18.0) 11.7 g/dl L 03/14/25 WBC, (4.8-10.8) 5.4 X10*3/uL 03/14/25 Plt Count, (160-400) 244 X10*3/uL 03/14/25 Sodium, (135-145) 143 mmol/L 05/23/25 Potassium, (3.3-5.1) 4.1 mmol/L 05/23/25 Chloride, (96-108) 113 mmol/L H 05/23/25 Carbon Dioxide, (22-29) 25 mmol/L 05/23/25 BUN, (9-16) 23 mg/dL H 05/23/25 Creatinine, (0.5-1.4) 1.46 mg/dL H 05/23/25 Calcium, (8.4-10.2) 9.7 mg/dL 05/23/25 Urine Protein, (Neg-Trace) Negative mg/dL 05/23/25 Urine Creatinine 99.74 mg/dL 05/23/25 Assessment & Plan Assessment & Plan (1) CKD (chronic kidney disease) stage 3, GFR 30-59 ml/min: Code(s): N18.30 - Chronic kidney disease, stage 3 unspecified Category: Medical Qualifiers: Chronic kidney disease stage 3 subtype: stage 3a (GFR 45-59) Qualified Code(s): N18.31 - Chronic kidney disease, stage 3a Plan: CKD in a setting of hypertension diabetes mellitus. Baselien creatinine is around 1.4-1.3 mg/dL. Microalbumin Cr ratio of 56 h/o bump in serum creatinine to 1.7-1.8. This is most likely due to hypoperfusion. Improved after stopping HCTZ- Cr down to 1.5 The blood pressure is well controlled Keep losartan and Jardiance for cardiorenal protection (2) HTN (hypertension): Code(s): I10 - Essential (primary) hypertension Category: Medical Qualifiers: Hypertension type: essential hypertension Qualified Code(s): I10 - Essential (primary) hypertension Plan: Blood pressure controlled. Stay on low-sodium diet. (3) Hypercalcemia: Code(s): E83.52 - Hypercalcemia Category: Medical Plan: Ca was 10.5 Repeat calcium was normal. No monoclonal gammopathy (4) Anemia: Code(s): D64.9 - Anemia, unspecified Category: Medical Plan: Mild and stable No indication for Epogen. Orders: Orders Creatinine Urine 6 Months N18.31 - Chronic kidney disease, stage 3a Total Protein Urine Random 6 Months N18.31 - Chronic kidney disease, stage 3a UA and rflx microscopic 6 Months N18.31 - Chronic kidney disease, stage 3a Basic Metabolic Panel 6 Months N18.31 - Chronic kidney disease, stage 3a Coding Level of Care Code Est Pt Level 4 (94357) Diagnoses Stage 3a chronic kidney disease N18.31 Chronic kidney disease stage 3 subtype: stage 3a (GFR 45-59) Essential hypertension I10 Hypertension type: essential hypertension Hypercalcemia E83.52 Anemia D64.9
== END 2025-06-02 13:38 | disposition home or self-care (01) ==
LOC: HO.HKA 13:13
PROVIDERS: PCP Internal Medicine; Visit Provider Internal Medicine Hypertension Specialist
DX: N18.31 Chronic kidney disease, stage 3a (principal); I10 Essential (primary) hypertension; E83.52 Hypercalcemia; D64.9 Anemia, unspecified
CPT/HCPCS: 99214

== ENCOUNTER → 2025-06-02 13:12 | Outpatient (BNVA) | payer OTHER, SELFPAY | PROVIDERS: PCP Internal Medicine; Visit Provider Internal Medicine Hypertension Specialist | DX: N18.31 Chronic kidney disease, stage 3a (principal); I10 Essential (primary) hypertension; E83.52 Hypercalcemia; D64.9 Anemia, unspecified | CPT/HCPCS: 99212 ==

== ENCOUNTER 2025-06-21 10:47 | Outpatient (AMB) | payer OTHER, SELFPAY ==
[2025-06-21 10:52] VITALS: BP 122/62; PULSE 72; O2SAT 98; BMI 31.6
--- NOTE | 2025-06-21 10:52 | MHC.OFFVIS ---
Vital Signs 06/21/25 10:52 Height 5 ft 1 in Weight 167 lb BMI 31.6 BP 122/62 Blood Pressure Location Lt brachial Position Sitting Pulse 72 Pulse Source Pulse Oximeter Pulse Oximetry (%) 98 Oxygen Delivery Method Room Air Intake Visit Reasons: Obstructive sleep apnea Hand Stamper Required: Yes Hand Stamper Name: Meme Strong Johnnie Information Interpreted: non-clinical & clinical Allergies No Known Allergies (No Known Allergies*) Allergy (Verified 06/21/25 10:57) HPI HPI Obstructive sleep apnea: Details: 74-year-old gentleman, nonsmoker, ?followed for underlying moderate persistent asthma and LUIGI on CPAP.? Patient continues on Wixela and albuterol MDI, now with good control of his asthma symptoms. Patient has received his new CPAP machine and now his sleep apnea symptoms are well controlled. He denies recent exacerbations. [facility] Medical History (Updated 04/07/25 @ 09:48 by Clara Amaral MD) CKD (chronic kidney disease) stage 3, GFR 30-59 ml/min Mild recurrent major depression Chronic idiopathic constipation Anemia Polyarthralgia CKD (chronic kidney disease) Skin lesion Lumbar pain COVID-19 Mixed hyperlipidemia Chronic fatigue Diabetes mellitus Insomnia HTN (hypertension) Asthma Diabetic acidosis, type II Surgical History H/O colonoscopy History of carpal tunnel surgery of right wrist (~03/2021) History of eye surgery History of knee replacement procedure of left knee H/O prostate biopsy Family History Father Diabetes Hypertension Mother Diabetes Hypertension Maternal Grandmother Stomach cancer Social History Household Members: None Housing: Apartment Are you a primary career development counselor to a significant other at home: No Do you presently have visiting nurse or other home services: No Alcohol intake: former Comment: counts correct Patient Tobacco Use Status: Never used Tobacco e-Cigarette/Vaping Use: Never Used Second Hand Smoke Exposure: No service: No Current occupational status: retired and disabled Cognitive needs: No Hearing needs: No Vision needs: Yes Review of Systems Const Denies daytime sleepiness, Denies excessive sweating, Denies fatigue, Denies fever(s), Denies lethargy, Denies malaise, Denies night sweats, Denies snoring and Denies weight loss Eyes Denies blurry vision and Denies itchy eyes ENT Denies nasal congestion, Denies post nasal drip, Denies sinus pain, Denies sinus pressure and Denies other ( Thrush) Card Denies chest pain, Denies pedal edema, Denies dyspnea, Denies orthopnea and Denies paroxysmal nocturnal dyspnea Resp Denies cough, Denies hemoptysis, Denies excessive phlegm production, Denies dyspnea, Denies snoring and Denies wheezing GI Denies abdominal pain and Denies heartburn Musc Denies myalgias, Denies arthralgias and Denies joint swelling Skin/Breast Denies rash Neuro Denies memory loss and Denies seizure-like activity Psych Denies abnormal sleep pattern, Denies anxiety and Denies memory loss Endo Denies excessive sweating, Denies fatigue and Denies heat intolerance Winston/Lymph Denies easy bruising Aller/Immun Denies itchy eyes, Denies seasonal rhinorrhea and Denies wheezing Physical Exam Vital Signs: Last Vital Signs Pulse 72 06/21/25 10:52 BP 122/62 06/21/25 10:52 Pulse Ox 98 06/21/25 10:52 Oxygen Delivery Method Room Air 06/21/25 10:52 BMI result Body Mass Index 31.6 Const General: no acute distress and alert Nutritional Appearance: not obese Orientation/consciousness: Other orientation findings ( oriented) HEENT Head: Yes atraumatic Eyes General: appearance normal, both eyes and all related structures Sclerae: sclerae normal EOM: EOMs intact bilaterally Neck Neck: Yes supple Lymphatic: no lymphadenopathy noted Resp Effort & Inspection: normal respiratory effort and no use of accessory muscles Auscultation: clear to auscultation bilaterally Cardio Rate: regular rate Rhythm: regular rhythm Heart sounds: no gallops, no murmurs and no rubs Skin General skin exam: other ( warm) Extrem General: No clubbing, No cyanosis and No edema Assessment & Plan Assessment & Plan (1) Asthma: Code(s): J45.909 - Unspecified asthma, uncomplicated Category: Medical Qualifiers: Asthma severity: mild Asthma persistence: persistent Asthma complication type: uncomplicated Qualified Code(s): J45.30 - Mild persistent asthma, uncomplicated Plan: Well controlled on current regimen Breo, albuterol MDI, and duo nebs. Continue current regimen. (2) LUIGI on CPAP: Code(s): G47.33 - Obstructive sleep apnea (adult) (pediatric); Z99.89 - Dependence on other enabling machines and devices Category: Medical Plan: Therapy and compliance report reviewed - patient is benefitting from and is compliant with noninvasive positive pressure ventilation treatment, using it greater than 70% of the time, more than 4 hours per night. Continue current CPAP therapy. Coding Level of Care Code Est Pt Level 4 (53481) Diagnoses Mild persistent asthma without complication J45.30 Asthma severity: mild Asthma persistence: persistent Asthma complication type: uncomplicated LUIGI on CPAP G47.33; Z99.89
--- OUTSIDE RECORDS SUMMARY | 2025-06-21 13:51 | XMS_ITS | Clinical Summary ---
Author Organization [facility] Address [address] [place] [address] Phone Care Team Providers Care Dowel Pointer Name Role Phone Unknown, Unknown MD Primary [...] topic Medical Devices Not on file [facility] RADHA VAUGHN [id number] MEDICARE REPLACEMENT MEDICARE REPLACEMENT MEDICARE REPLACEMENT MEDICARE REPLACEMENT MEDICARE REPLACEMENT MEDICARE REPLACEMENT MEDICARE REPLACEMENT MEDICARE REPLACEMENT MEDICARE REPLACEMENT Care Teams Dowel Pointer Relationship Specialty Start Date End Date Unknown, Unknown, PCP - General 12/05/17 Additional Source Comments The information contained in this document represents components of the legal health record. It is not the complete legal health record.[facility]
--- OUTSIDE RECORDS SUMMARY | 2025-06-21 13:52 | XMS_ITS | Clinical Summary ---
Author Organization [facility] Address [address] [place] [address] Phone Care Team Providers Care Manager Of Radiology Name Role Phone Clara Amaral MD Primary Care Provider [phone] Allergies No known active allergies Medications albuterol 2.5 mg /3 mL (0.083 %) nebulizer solution Inhale 1 Vial into the lungs. 8 Active atorvastatin (LIPITOR) 80 mg tablet TAKE 1 TABLET BY MOUTH AT BEDTIME 3 Active fluticasone-ora meterol (ADVAIR DISKUS) 250-50 mcg/dose diskus inhaler INHALE 1 PUFF BY MOUTH TWICE DAILY. RINSE MOUTH AFTER USING. 3 Active pantoprazole (PROTONIX) 40 mg EC tablet Take 1 Tablet by mouth 2 times daily (before meals). Take 1 tablet in a.m. on empty stomach, wait 30 minutes and then eat and then take all other medications as directed. Take before breakfast and supper 3 Active FREESTYLE LANCETS MISC Use to test blood sugar once daily 1 Active metFORMIN (GLUCOPHAGE) 1,000 mg tablet Take 1 Tab by mouth 2 times daily (with meals). 1 Active losartan-hydroC HLOROthiazide (HYZAAR) 50-12.5 mg per tablet Take 1 tablet by mouth daily. 0 Active blood sugar diagnostic (FreeStyle Lite Strips) test strip Use once daily 0 Active loratadine (CLARITIN) 10 mg tablet Take 1 Tab by mouth daily. 0 Active betamethasone valerate (VALISONE) 0.1 % ointment APPLY TO THE AFFECTED AREA(S) SPARINGLY TWICE DAILY 9 Active multivitamin with folic acid (TAB-A-BRITTA ORAL) Take 1 Tab by mouth daily. 0 Active diabetic supplies, [place]. [facility] [place] BLOOD GLUCOSE MONITORING SUPPL (FREESTYLE LITE) DEVICE Use to test blood sugar once daily. 9 Active isopropyl alcohol-benzoca ine 70-6 % pads, medicated 1 Each by Does not apply route daily. 9 Active citalopram (CeleXA) 20 mg tablet Take 1 Tab by mouth every morning. 9 Active ipratropium-alb uteroL (DUONEB) 0.5-2.5 mg/3 mL nebulizer solution Inhale 3 mL into the lungs once for 1 dose. 8 Active miscellaneous medical supply [facility] [place] Spacer/Aero Chamber Mouthpiece [facility] Inhale 1 Units into the lungs every 6 hours as needed (use with inhalers as directed). 8 Active methocarbamoL (ROBAXIN) 500 mg tablet Take 1 tablet (500 mg total) by mouth 2 (two) times a day for 10 days. 20 tablet 5 Active lidocaine (LIDODERM) 5 % patch Apply 1 patch topically 1 (one) time each day. Remove & discard patch within 12 hours or as directed by MD. 30 each 5 05/28/20 25 Active Problems Problem Noted Date Diagnosed Date Abdominal bloating 08/26/2024 Candidiasis of esophagus ([facility] V24, [facility] V 28) 08/26/2024 Overview (08/26/2024): Noted on EGD on 09/30/2019 Depression 08/26/2024 Overview (08/26/2024): Follows with Dr. Perez from psychiatry Epigastric discomfort 08/26/2024 Hypertension 08/26/2024 Mixed hyperlipidemia 08/26/2024 Rectal bleeding 08/26/2024 Asthma 10/09/2021 CKD (chronic kidney disease) stage 3, GFR 30-59 ml/min ([facility] V24, [facility] V28) 10/09/2021 Insomnia 10/09/2021 Type 2 diabetes mellitus wit h renal manifestations ([facility] V24, [facility] V28) 10/09/2021 Gastroesophageal reflux disease without esophagi tis 09/17/2019 Pulmonary nodule 09/02/2019 Overview (08/26/2024): CT chest pending 08/2019 Mild persistent asthma with acute exacerbation 0 03/17/2018 Atypical chest pain 12/01/2017 Overview (08/26/2024): Normal TTE 11/2017, follows with [facility]. Follows on a 6-month basis. Obesity [...] Overview (08/26/2024): No diagnostic study on file. [facility] Polysomnogram treatment study. Date 08/16/2017. [...] mellitus type 2 wit h neurological manifestations ([facility] V24, [facility] V28) 02/24/2017 Overview (08/26/2024): Parasthesias of hands, h/o carpal tunnel Normocytic anemia 02/24/2017 Overview (08/26/2024): Normal iron studies, normal folate and B12. 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) History of alcohol abuse 02/21/2017 Overview (08/26/2024): Last drink 2013 Encounters Date Type Department Care Team Description 04/28/2025 8:16 AM EDT - 04/28/2025 9:25 AM EDT Emergency [facility] Emergency [address] [place] [id number] Bryce Villeda MD Primary osteoarthritis of right shoulder (Primary Dx) Discharge Disposition: Home or Self Care 04/15/2025 Telephone [facility] [address] [place] [address] [place] [address] Clara Amaral MD 04/08/2025 Telephone [place] [address] [place] [address] Clara Amaral MD from Last 3 Months [...] REPLACE COLONOSCOPY 12/17/2010 PROCEDURE: HISTORICAL COLONOSCOPY; COMMENT: [place], no polyps. UPPER GASTROINTESTINAL ENDOSCOPY 01/16/2017 PROCEDURE: [place] UPPER GI ENDOSCOPY PERFORMED; COMMENT: [facility], Dr. Tatyana Person: Gastric biopsies negative for H. 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 UPPER GASTROINTESTINAL ENDOSCOPY 12/2013 PROCEDURE: [place] UPPER GI ENDOSCOPY PERFORMED; COMMENT: Dr. Tatyana Person, Flores esophagitis, Anderson's esophagus, minute areas of low-grade dysplasia. UPPER GASTROINTESTINAL ENDOSCOPY 11/2012 PROCEDURE: FL UPPER GI ENDOSCOPY PERFORMED; COMMENT: Dr. Tatyana Person, Anderson's esophagus with small focus indefinite for dysplasia. UPPER GASTROINTESTINAL ENDOSCOPY 05/02/2010 PROCEDURE: FL UPPER GI ENDOSCOPY PERFORMED; COMMENT: [place], Anderson's esophagus, no dysplasia. COLONOSCOPY 10/13/2008 PROCEDURE: HISTORICAL COLONOSCOPY; COMMENT: [facility], tubular adenoma 1. UPPER GASTROINTESTINAL ENDOSCOPY 10/07/2008 PROCEDURE: FL UPPER GI ENDOSCOPY PERFORMED; COMMENT: [facility], Anderson's esophagus, not clear if biopsies were done. COLONOSCOPY 09/2005 PROCEDURE: HISTORICAL COLONOSCOPY; COMMENT: [place], no polyps. UPPER GASTROINTESTINAL ENDOSCOPY 05/2005 PROCEDURE: FL UPPER GI ENDOSCOPY PERFORMED; COMMENT: [facility], biopsies negative for Anderson's esophagus. UPPER GASTROINTESTINAL ENDOSCOPY 10/1997 PROCEDURE: FL UPPER GI ENDOSCOPY PERFORMED; COMMENT: [facility], results not available. UPPER GASTROINTESTINAL ENDOSCOPY 01/06/2018 PROCEDURE: FL UPPER GI ENDOSCOPY PERFORMED; COMMENT: Rayne[facility]; 6 cm length of Anderson's; grade 1 esophageal varices; pathology: Foci of atypia. Second opinion: No dysplasia. COLONOSCOPY 04/21/2019 PROCEDURE: HISTORICAL COLONOSCOPY; COMMENT: Solitary 5 mm diminutive polyp removed from the sigmoid colon--- tubular adenoma. ESOPHAGOGASTRODUODENOSCOPY PROCEDURE: FL EGD TRANSORAL BIOPSY SINGLE/MULTIPLE; COMMENT: Performed on September 30, 2019 with CARPAL TUNNEL RELEASE 03/2021 Right PROCEDURE: HISTORICAL CARPAL TUNNEL REL OTHER SURGICAL HISTORY PROCEDURE: [place] BIOPSY PROSTATE INCISIONAL ANY APPROACH Medical History [...] apnea); COMMENT: No diagnostic study on file. [facility] Polysomnogram treatment study. Date 08/16/2017. [...] neurological manifestations (CMS/HCC V24, CMS/HCC V28) 02/24/2017 DX:Diabetes mellitus type 2 with neurological manifestations (HCC); COMMENT: Parasthesias of hands, h/o carpal tunnel Atypical chest pain 12/01/2017 DX:Atypical chest pain; COMMENT: Normal TTE 11/2017, follows with [facility] Anderson's esophagus 05/15/2017 DX:Anderson's esophagus; COMMENT: EGD 12/2017, follows with GI Asthma DX:Asthma Candidiasis of esophagus (CM S/HCC V24, CMS/HCC V28) DX:Candidiasis of esophagus (HCC); COMMENT: Noted on EGD on 09/30/2019 Abdominal bloating DX:Abdominal bloating Epigastric discomfort DX:Epigast puma discomfort Rectal bleeding DX:Rectal bleedi ng Gassiness DX:Gassiness Insomnia 10/09/2021 DX:Insomnia Mixed hyperlipidemia DX:Mixed hy perlipidemia CKD (chronic kidney disease) stage 3, GFR 30-59 ml/min ([facility] [place] [facility] [place]) 10/09/2021 DX:CKD (chronic kidney disea se) stage 3, GFR 30-59 ml/min ([facility]) Type 2 diabetes mellitus wit h renal manifestations ([facility] [place]24, [facility] V28) 10/09/2021 DX:Type 2 diabetes mellitus with renal manifestations ([facility]) Gastroesophageal reflux dise ase without esophagitis 09/17/2019 [...] 04/28/2025 7:30 AM EDT Plan of Treatment Upcoming Encounters Date Type Department Care Team (Late st Contact Info) Description 09/09/2025 2:30 PM EST Office Visit Gastroenterology - [address] [place] [address] Tye Mclain MD [facility] [place] [address] Health Maintenance Due Date Last Done Comments Colorectal Cancer Screening: Colonoscopy 1950 Diabetes: Annual Foot Exam 10/31/1961 Diabetes: Annual Retina Eye Exam 10/31/1961 RSV Immunization Adult Patients (1 - Risk 50-74 years 1-dose series) 10/31/2001 Diabetes: Annual GFR (Glomerular Filtration Rate) 02/17/2021 02/18/2020 Falls Risk Assessment 08/03/2022 Medicare Annual Wellness Visit 08/03/2022 Social Influencers of Health Screening 08/03/2022 [...] Results * ECG-Annotated (04/29/2025) us Provider Onbase MD ECG ORDERABLES Final Result * XR Shoulder 2+ Views Right (04/28/2025 8:22 AM EDT) Anatomical Region Laterality Modality Upper Extremities, Shoulder Right Radi ographic Imaging 04/28/2025 8:39 AM EDT Impressions 04/28/2025 8:40 AM EDT No fracture, dislocation, or other acute findings. Severe osteoarthritis of the glenohumeral joint and moderately severe osteoarthritis of the acromioclavicular joint. Code 48504 -------- FINAL REPORT -------- Dictated By: Aleksandr Bianchi Dictated Date: 04/28/2025 08:39 ET Assigned Physician: Aleksandr Bianchi Reviewed and Electronically Signed By: Aleksandr Bianchi Signed Date: 04/28/2025 08:40 ET Workstation ID: [id number] Transcribed By: Self Edit Transcribed Date: 04/28/2025 08:39 ET Narrative 04/28/2025 8:40 AM EDT HISTORY: The patient is a 74-year-old male with right shoulder pain, nontraumatic. FINDINGS: AP, right posterior oblique, and transscapular views of the right shoulder are obtained. The study demonstrates no fracture or dislocation. There is severe narrowing of the glenohumeral joint space with nearly qkzq-[id number] appearance, and marginal osteophytes, consistent with severe [...] narrowing of the glenohumeral joint spacewith nearly hyfp-pd-[id number] appearance, and marginal osteophytes, consistentwith severe osteoarthritis. There is also moderately severe osteoarthritisof the acromioclavicular joint. No soft tissue abnormality is seen. IMPRESSION: No fracture, dislocation, or other acute findings. Severe osteoarthritisof the glenohumeral joint and moderately severe osteoarthritis of theacromioclavicular joint. Code 38502 -------- FINAL REPORT -------- Dictated By: Aleksandr Bianchi Dictated Date: 04/28/2025 08:39 ET Assigned Physician: Aleksandr Bianchi Reviewed and Electronically Signed By: Aleksandr Bianchi Signed Date: 04/28/2025 08:40 ET Workstation ID: [id number] Transcribed By: Self Edit Transcribed Date: 04/28/2025 08:39 ET Result [facility] Alonso GARCIA IMG XR PROCEDURES Final Res ult * 12-Lead ECG (04/28/2025 8:10 AM EDT) [facility] Ventricular Rate ECG 79 BPM GEMUSE Atrial Rate 79 BPM GEMUSE P-R Interval 182 ms GEMUSE QRS Duration 96 ms GEMUSE Q-T Interval 370 ms GEMUSE QTc 424 ms GEMUSE P Wave Abie 58 degrees GEMUSE R Abie -29 degrees GEMUSE T Abie 33 degrees GEMUSE ECG Interpretation Normal sinus rhythm Inferior infarct , age undetermined Abnormal ECG No previous ECGs available Confirmed by Lluvia WELCH JAMES ([id number]) on 04/28/2025 12:50:32 PM GEMUSE 04/28/2025 8:10 AM EDT 04/28/2025 12:50 PM EDT Result [facility] Bryce Villeda MD ECG ORDERABLES Final Result GEMUSE * Urine Albumin Creatinine Ratio (02/18/2020) [facility] Urine Albumin Creatinine Ratio abstracted Result [facility] Historical Provider HEALTH MAINTENANCE Final Result * Annual BMP Blood Test (02/18/2020) [facility] Annual BMP Blood Test abstracted Result [facility] Historical Provider HEALTH MAINTENANCE Final Result * (ABNORMAL) Hemoglobin A1c (02/18/2020) [facility] Hemoglobin A1C 7.6(A) <=6.5 % Blood Venous blood specimen / Unknown Result [facility] Historical Provider LAB BLOOD ORDERABLES Jennifer l Result * (ABNORMAL) Lipid panel (02/18/2020) [facility] LDL/HDL Ratio 5(A) 0 - 4 Triglycerides 306(A) 0 - 150 mg/dL Cholesterol 203(A) 0 - 200 mg/dL HDL 41 >=40 mg/dL LDL Cholesterol 100 0 - 100 mg/dL Blood Venous blood specimen / Unknown Historical Provider LAB BLOOD ORDERABLES Jennifer l Result * Hepatitis C Screening (06/06/2017) Hepatitis C Screening abstracted Historical Provider HEALTH MAINTENANCE Final Result from Last 3 Months or Most Recently Relevant to Health Maintenance Insurance KARMEN BREWER [id number] [facility] [employer] Member Subscriber Plan / Payer ( fective 2016-Present) Name:Mohamud Tovar Relation to Subscriber:Self Name:Mohamud Tovar Payer ID:[id number] Group ID:[id number] Type:Not on file Address: [address] [place] [address] [facility] [employer] Member Subscriber Plan / Payer ( fective 2024-Present) Name:Mohamud Tovar Relation to Subscriber:Self Name:Mohamud Tovar Payer ID:[id number] Group ID:[id number] Type:Not on file Address: [address] [place] [address] Care Teams Manager Of Radiology Relationship Specialty Start Date End Date Clara Amaral MD [address] [place] [address] , [facility] [address] [facility] D[facility] KARMEN Brewer PCP - General Internal Medicine 04/08/25
--- OUTSIDE RECORDS SUMMARY | 2025-06-21 13:52 | XMS_ITS | Encounter Summary ---
Author Organization [facility] Address [address] [place] [address] Phone Care Team Providers Care Traffic Counter Name Role Phone Unknown, Unknown Primary Care Provider Oral mesa Encounter Details Date Type Department Care Team (Late st Contact Info) Description 10/11/2020 Procedure [facility] [address] [place] [address] [place] [address] Social History Tobacco Use Types Packs/Day Years [...] on filedocumented in this encounter Care Teams Traffic Counter Relationship Specialty Start Date End Date Unknown, Unknown, PCP - General 12/05/17 documented as of this encounter Additional Source Comments The information contained in this document represents components of the legal health record. It is not the complete legal health record.[facility]
--- OUTSIDE RECORDS SUMMARY | 2025-06-21 13:52 | XMS_ITS | Encounter Summary ---
Author Organization [facility] Address [address] [place] [address] Phone Care Team Providers Care Technical Sales Engineer Name Role Phone Unknown, Unknown Primary Care Provider Oral mesa Encounter Details Date Type Department Care Team (Latest Contact Info) Description 10/11/2020 Ancillary Orders [facility] [address] [place] [address] [place] [address] Mehul Kasper, DO [address] [place] [address] Chest pain, unspecified type Social History Tobacco [...] type documented in this encounter Care Teams Technical Sales Engineer Relationship Specialty Start Date End Date Unknown, Unknown, PCP - General 12/05/17 documented as of this encounter Additional Source Comments The information contained in this document represents components of the legal health record. It is not the complete legal health record.[facility]
--- OUTSIDE RECORDS SUMMARY | 2025-06-21 13:52 | XMS_ITS | Encounter Summary ---
Author Organization [facility] Address [address] [place] [address] Care Team Providers Care Comptometer Operator Name Role Phone Wilfredo De Jesus MD Primary Care Provider [phone] Encounter Details Date Type Department Care Team (Late st Contact Info) Description 07/10/2023 Telephone [facility] [address] [place] [address] Aleksandr Hill MD [address] [place] [address] [address] Social History Tobacco Use Types Packs/Day Years [...] I spoke to Linden Patel [facility] We are not in network with this plan. This plan ismostly for [place] providers and when being done out of state a prior authorization is required. I submitted auth form faxed to [phone] w/ consult there is a 14 day turn around time.He stated patient may deny and need to see an in state provider. CALL CALL REF # [id number] Please have patient sign an out of network waiver. Thank you documented in this encounter Plan of Treatment Not on file documented as of this encounter Visit Diagnoses Not on filedocumented in this encounter Care Teams Comptometer Operator Relationship Specialty Start Date End Date Wilfredo De Jesus MD PCP - General 05/07/23 documented as of this encounter
--- OUTSIDE RECORDS SUMMARY | 2025-06-21 13:52 | XMS_ITS | Encounter Summary ---
Author Organization [facility] Address [address] [place] [address] Care Team Providers Care Dining Manager Name Role Phone Wilfredo De Jesus MD Primary Care Provider [phone] Reason for Visit * Reason Comments Med Change Request Encounter Details Date Type Department Care Team (Late st Contact Info) Description 05/30/2023 Refill [facility] [address] [place] [address] Aleksandr Hill MD [address] [place] [address] [address] [place], [place] [id number] Anderson's esophagus with high grade dysplasia Social [...] (Pharmacist) at [facility] in [place], [place] stated that Patient's insurance will NOT cover the Maalox Liquid suspension. Patient would have to get it over the counter for $ 8.00. Patient was notified documented in this encounter Plan of Treatment Not on file documented as of this encounter Visit Diagnoses Diagnosis Anderson's esophagus with high grade dysplasia documented in this encounter Care Teams Dining Manager Relationship Specialty Start Date End Date Wilfredo De Jesus MD PCP - General 05/07/23 documented as of this encounter
--- OUTSIDE RECORDS SUMMARY | 2025-06-21 13:52 | XMS_ITS | Encounter Summary ---
Author Organization [employer] [facility] Address [address] [place] [address] Care Team Providers Care Individualized Education Plan Aide Name Role Phone Unavailable Primary Care Provider [...]
--- OUTSIDE RECORDS SUMMARY | 2025-06-21 13:52 | XMS_ITS | Encounter Summary ---
Author Organization [employer] [facility] Address [address] [place] [address] Care Team Providers Care C D Reactor Operator Name Role Phone Unavailable Primary Care [...]
--- OUTSIDE RECORDS SUMMARY | 2025-06-21 13:52 | XMS_ITS | Clinical Summary ---
Author Organization [employer] Address [address] [place] [address] [address] [place] [address] Care Team Providers Care Shampoo Technician Name Role Phone Unavailable Primary Care Provider [...] Relevant to Health Maintenance Insurance DENTAL - [facility] DENTAL - [facility]
--- OUTSIDE RECORDS SUMMARY | 2025-06-21 13:52 | XMS_ITS | Encounter Summary ---
Author Organization [facility] Address [address] [place] [address] Phone Care Team Providers Care Clerical Manager Name Role Phone Unknown, Unknown Primary Care Provider Oral mesa Encounter Details Date Type Department Care Team (Latest Contact Info) Description 12/26/2017 Ancillary Orders [facility] [address] [place] [address] [place] [address] Mehul Kasper DO [address] [place] [address] Chest pain, unspecified type Social History Tobacco [...] type documented in this encounter Care Teams Clerical Manager Relationship Specialty Start Date End Date Unknown, Unknown, MD PCP - General 12/05/17 documented as of this encounter Additional Source Comments The information contained in this document represents components of the legal health record. It is not the complete legal health record.[facility]
--- OUTSIDE RECORDS SUMMARY | 2025-06-21 13:52 | XMS_ITS | Clinical Summary ---
Author Organization [facility] Address [address] [place] [address] Care Team Providers Care Transformer Coil Winder Name Role Phone Wilfredo De Jesus MD Primary Care Provider [phone] Allergies No known active allergies Medications albuterol [...] 50+ (1 of 1 - PCV) 10/31/2001 RSV Vaccine 50 years and older and Patients (1 - Risk 50-74 years 1-dose series) 10/31/2001 Zoster (Shingles) Vaccine (1 of 2) 10/31/2001 Influenza Vaccine 03/25/2025 COVID-19 Vaccine (3 - 2024-2 6 season) 2025 11/21/2020, 10/24/2020 Hepatitis B Vaccines Aged Out No long er eligible based on patient's age to complete this topic Medical Devices Implanted Type Area Obstetrical Tech Device Identifier Shelf Expiration Date Model / Serial / Lot Joint Prosthesis Joint Prosthesis Knee Description:left Insurance [id number] [place] [id number] [facility] MEDICARE OUT OF NETWORK [id number] [id number] [facility] MEDICARE OUT OF NETWORK [place] [id number] Care Teams Transformer Coil Winder Relationship Specialty Start Date End Date Wilfredo De Jesus MD PCP - General 05/07/23
--- OUTSIDE RECORDS SUMMARY | 2025-06-21 13:53 | XMS_ITS | Data Portability ---
Author Organization [place] - [facility], Allergy Address [address] [address] Assessment Encounter Date Assessment Date Assessment LastModified by Organization Details LastModified Time 08/13/2024 08/13/2024 73 yo M never smoker, currently being treated for esophageal cancer, presents for evaluation of the throat. He had a CT scan of the neck with contrast last month at [facility] [place] showing soft tissue fullness [...] piriform sinus, swelling noted on CT at [place], not appreciat ed on physical exam 2023 024 [facility] ([facility]), [address] [place], [address], 4 10:24:16 Medication Orders None recorded. Patient TargetsNo targets recorded. Patient InstructionsNo instructions recorded. Reason for Referral None Reported. Results Created Date Observation Date Name Description Value Unit Range Abnormal Flag Note LastModifiedBy Organization Detail LastModifiedTime 01/0808/28/2024 MRI, head + neck + orbit s, w/wo contr ast [facility]- [facility] Access ion Number : [id number] Sandra chan Name: Suleman Carpenter Edwin Huangjosiane ely Record Number : [id number] Date of : 1950 Date of Exam: 2024 Referr ing Physic clem: Cordell Gomez [facility] [place] [facility] [place] [address], [place] 100 [place] [address] Exam: MR Orbits , Face, Neck (C-/C+ ) CPT 45883 Room Descri ption: [facility] Verio 3.0T HISTOR Y: Right pirifo rm sinus lesion . TECHNI QUE: Multip lanar multis equenc e MRI of the neck was obtain ed before and after the admini strati on of 15 cc of Dotare m. COMPAR PHYLLIS: CT scan of the neck 024 [facility] med at [facility] . FINDIN GS: * [...] asymme trical fullne ss of the right welfare eligibility worker ior pharyn geal muscul ature adjace nt [...] repres ent acute sinusi tis in the [facility] settin g. Electr onical ly Signed By: Donny saucedo [facility] ([facility]) [address] [facility], [place], [address], 09/09/2024 09:08:49 Result Notes Documentation Provider Name and Address Organization Details Recorded Time Mri, Head + Neck + Orbits, W/wo Contrast : [facility] Accession Number: [id number] Patient Name: Mohamud Tovar Date of : 1950 Date of Exam: 08-28-2024 Referring Physician: Cordell Ramirez [facility] 100 [facility], [facility] 100 [place] [address] Exam: MR Orbits, Face, Neck (C-/C+) CPT 57814 Room Description: [facility] 3.0T HISTORY: Right piriform sinus lesion. TECHNIQUE: Multiplanar multisequence MRI of the neck was obtained before and after the administration of 15 cc of Dotarem. COMPARISON: CT scan of the neck 07/02/2024 performed at [facility]. FINDINGS: * The left piriform sinus remains [...] oropharynx, and laryngeal structures are unremarkable. The licensed real estate broker space, parapharyngeal space, submandibular space, and visceral [...] clinical setting. 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 Procedures Surgical History Date Name Laterality Status Provider Name and Address Organization Details Recorded Time 08/13/20 24 Fiberoptic Laryngoscopy (Comprehensive) completed CORDELL RAMIREZ MD [address] [place] [address],[place] [address], [place], [address], [facility] 08/19/2024 07:19:29 Imaging Results None recorded. [...] Available Not Available No t Available FreeStyle [place] Lite kit USE DIRECTED TO TEST BLOOD [...] Updated DateTime 08/13/2024 154.94 cm 31.2 kg/m2 87926.74 g Katie Lindquist [place] - [facility] 08/13/2024 12:58:49 Social History None recorded. Functional Status None recorded. Mental Status None recorded. Family History Nothing Reported Notes:mother - DM father-DM Medical History Condition Response Cancer Y Asthma Y Sleep Disorder Y Past Encounters Encounter ID Performer Location Encounter Start Date Encounter Closed Date Diagnosis/Indication Diagnosis SNOMED-CT Code Diagnosis ICD10 Code Diagnosis IMO Codes Diagnosis Note [id number] CORDELL RAMIREZ MD [facility] of [address] [address] 08/13/2024 12:32:26 08/13/2024 13:22:11 Neoplasm of uncertain behavior of pharynx 03356953 D37.05 Health Concerns Section Related Observation LastModified by Organization Detai ls LastModified Time None Recorded Concern Status LastModified by Organization Details LastModified Time None Recorded Advance Directives Directive None Recorded Payers Insurance Date Sequence Insurance Name Policy Number Policy Dunaway Covered Member ID Dunaway Member ID Guarantor Name 08/19/2024 1 [facility] - DOS ON OR AFTER 2022 - MEDICARE ADVANTAGE [place] (MEDICARE REPLACEMENT/ADV ANTAGE - PPO) Mohamud Carpenter [id number] Mohamud Carpenter Notes Date Note Type Note [...] pain. Sometimes trouble swallowing. CORDELL RAMIREZ MD [address] [place] [address], [place], [address], [place] - [facility] 08/19/2024 07:23:40
== END 2025-06-21 11:15 | disposition home or self-care (01) ==
LOC: HO.HPS 10:48
PROVIDERS: PCP Internal Medicine; Visit Provider Internal Medicine Pulmonary Disease
DX: J45.30 Mild persistent asthma, uncomplicated (principal); G47.33 Obstructive sleep apnea (adult) (pediatric); Z99.89 Dependence on other enabling machines and devices
CPT/HCPCS: 99214

== ENCOUNTER → 2025-06-21 10:47 | Outpatient (BNVA) | payer OTHER, SELFPAY | PROVIDERS: PCP Internal Medicine; Visit Provider Internal Medicine Pulmonary Disease | DX: J45.30 Mild persistent asthma, uncomplicated (principal); G47.33 Obstructive sleep apnea (adult) (pediatric); Z99.89 Dependence on other enabling machines and devices | CPT/HCPCS: 99212 ==

== ENCOUNTER 2025-08-08 13:20 | Outpatient (AMB) | payer OTHER, SELFPAY ==
[2025-08-08 13:49] VITALS: BP 110/70; PULSE 75; TEMP 36.2; O2SAT 97; BMI 32.2
--- NOTE | 2025-08-08 13:49 | MHC.PC.OV ---
Vital Signs 08/08/25 13:49 Height 5 ft 1 in Weight 170 lb 4 oz BMI 32.2 BP 110/70 Blood Pressure Location Lt brachial Position Sitting Pulse 75 Pulse Source Pulse Oximeter Temp 97.1 F Temp Source Temporal Artery Scan Pulse Oximetry (%) 97 Oxygen Delivery Method Room Air Intake Visit Reasons: follow up Personnel Records Clerk Required: Yes Personnel Records Clerk Language: Faroese Information Interpreted: non-clinical & clinical Manufacturing Supervisor 2Nd Shift: Not Required per policy Accompanied by: Self / Same As Patient Allergies No Known Allergies (No Known Allergies*) Allergy (Verified 08/08/25 14:09) Medication List - Last Reconciled 08/08/25 by Clara Amaral MD acetaminophen-codeine 120-12 mg/5 mL 5 mL PO Q6-8H [adult diapers pull-ups Use 1 daiper 3 to 4 times a day] albuterol sulfate 90 mcg/actuation 2 puffs inhalation Q6H PRN 30 days alcohol swabs 1 pad topical DAILY 90 days alum-mag hydroxide-simeth 200-200-20 mg/5 mL (Antacid-Antigas) mL PO atorvastatin 80 mg PO BEDTIME 90 days betamethasone valerate 0.1% 1 appl topical BID 30 days blood sugar diagnostic Use 1 test strip once a day blood-glucose meter (FreeStyle Lite Meter kit) As directed cholecalciferol (vitamin D3) 25 mcg PO DAILY 90 days citalopram (Celexa) 20 mg PO DAILY [diabetic shoes with inserts As directed] dulaglutide (Trulicity) 1.5 mg (0.5 mL) subcut QWEEK 4 weeks empagliflozin (Jardiance) 25 mg PO DAILY 90 days ezetimibe 10 mg PO DAILY 90 days fenofibrate 160 mg PO BEDTIME 90 days fluticasone propion-salmeterol 250-50 mcg/dose 1 ea PO BID ipratropium-albuterol 0.5 mg-3 mg(2.5 mg base)/3 mL 3 mL inhalation Q4-6H PRN lancets Use 1 lancet once a day latex gloves (Latex Gloves, Large) As directed loratadine 10 mg PO DAILY 90 days losartan 25 mg PO DAILY mirabegron ER (Myrbetriq) 50 mg PO DAILY pantoprazole 40 mg PO DAILY 90 days plecanatide (Trulance) 3 mg PO DAILY pregabalin (Lyrica) 150 mg PO BEDTIME sucralfate 10 mL PO [wipes As directed] Tobacco use date assessed: 08/08/25 Fall risk assessment: No Falls in past year Last assessed Fall Risk: 08/08/25 Dental Screening Dental Screen Date: 03/21/25 HPI HPI Comments History of Present Illness Details The patient is a 74 year old male presenting for chronic disease management. His latest hemoglobin A1c was 6.7%. Last cholesterol check was slightly high. The patient reports a cough at night. He also has swelling, which could be a side effect of one of his blood pressure medications. He has hypertension and blood pressure is within goal. 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 He has no known allergies. His current medications include an inhaler, atorvastatin 80 mg, vitamin D, citalopram, Trulicity, Jardiance 25 mg, ezetimibe 10 mg, losartan 25 mg, Myrbetriq, pantoprazole, Trulance, Lyrica (pregabalin), sucralfate, and Claritin. He missed a previous appointment with his foot doctor. [facility] Medical History (Updated 08/08/25 @ 15:57 by Clara Amaral MD) CKD (chronic kidney disease) stage 3, GFR 30-59 ml/min Mild recurrent major depression Chronic idiopathic constipation Anemia Polyarthralgia CKD (chronic kidney disease) Skin lesion Lumbar pain COVID-19 Mixed hyperlipidemia Chronic fatigue Diabetes mellitus Insomnia HTN (hypertension) Asthma Diabetic acidosis, type II Surgical History H/O colonoscopy History of carpal tunnel surgery of right wrist (~03/2021) History of eye surgery History of knee replacement procedure of left knee H/O prostate biopsy Family History Father Diabetes Hypertension Mother Diabetes Hypertension Maternal Grandmother Stomach cancer Social History Household Members: None Housing: Apartment Are you a primary career and transition teacher to a significant other at home: No Do you presently have visiting nurse or other home services: No Alcohol intake: former Comment: counts correct Patient Tobacco Use Status: Never used Tobacco e-Cigarette/Vaping Use: Never Used Second Hand Smoke Exposure: No service: No Current occupational status: retired and disabled Cognitive needs: No Hearing needs: No Vision needs: Yes Questionnaire Thrive Questionnaire Date Thrive assessed: 03/21/25 I am a: Patient What is your living situation today?: I have a steady place to live Within the past 12 months, did the food you bought not last and you didn't have the money to get more?: Often true Within the past 12 months, did you worry whether your food would run out before you got money to buy more?: Sometimes True Do you have trouble paying for medicines?: No Do you have trouble getting transportation to medical appointments?: No Do you have trouble paying your heating and electricity bill?: No Do you have trouble taking care of your child, family member or friend?: No Do you have trouble with day-to-day activities such as bathing, preparing meals, shopping, managing finances, etc.?: No Are you currently unemployed and looking for a job?: Yes Are you interested in more education?: No Please select the resources that you would like help with: None Currently or been in a relationship where the following occur: I choose not to answer THRIVE Score: 2 DICKSON-7 AMB Questionnaire DICKSON-7 Date DICKSON - 7 assessed: 03/21/25 Source: Developed by Drs. López Faust, Julieta Hurd, Ayo Contreras and colleagues, with an educational lindy from [employer]. Review of Systems Const All systems reviewed & are unremarkable except as noted in HPI and below Card Denies chest pain at rest, Denies chest pain with activity, Denies edema, Denies irregular heart rhythm, Denies claudication, Denies dyspnea, Denies dyspnea on exertion, Denies orthopnea, Denies paroxysmal nocturnal dyspnea and Denies slow heart rate Resp Denies cough, Denies dyspnea and Denies dyspnea on exertion Physical exam (Primary Care) Vital Signs: Last Vital Signs Temp 97.1 F 08/08/25 13:49 Pulse 75 08/08/25 13:49 BP 110/70 08/08/25 13:49 Pulse Ox 97 08/08/25 13:49 Oxygen Delivery Method Room Air 08/08/25 13:49 BMI result Body Mass Index 32.2 BMI Assessment/Plan discussion: High BMI High, discussed plan: lifestyle, weight reduction, dietary and physical activity Tobacco/Smoking Status: Tobacco use Status Tobacco use date assessed 08/08/25 08/08/25 13:58 Patient Tobacco Use Status Never used Tobacco 08/08/25 13:58 e-Cigarette/Vaping Use Never Used 08/08/25 13:58 Thrive Assessment: Date of Thrive Assessment Date Thrive assessed 03/21/25 08/08/25 13:58 Currently or been in a relationship where the following occur: I choose not to answer Resp Effort & Inspection: normal respiratory effort Auscultation: clear to auscultation bilaterally Cardio Jugular venous distension: no JVD Rate: regular rate Rhythm: regular rhythm Heart sounds: S1 normal heart sound present and S2 normal heart sound present Extrem General: Yes full ROM Results AMB Hemoglobin A1c AMB Hemoglobin A1c 6.7 % Last Edit by DEBRA Malone on 08/08/25 14:13 Results Reviewed Results Reviewed: Laboratory Last Values Hgb A1c (Clinic) 6.7 % (4.0-6.0) H 08/08/25 13:47 Coding Level of Care Code Add On Preventative Visit Only Diagnoses Mild recurrent major depression F33.0 Essential hypertension I10 Type 2 diabetes mellitus with hyperglycemia, without long-term current use of insulin E11.65 Diabetes mellitus type: type 2 Diabetes mellitus intermodal truck driver insulin use: without intermodal truck driver use Diabetes mellitus complication status: with hyperglycemia Mixed hyperlipidemia E78.2 Cough R05.9 Anderson esophagus K22.70 Time Spent (min) 23 Assessment & Plan Assessment & Plan (1) Mild recurrent major depression: Code(s): F33.0 - Major depressive disorder, recurrent, mild Category: Medical (2) Essential hypertension: Code(s): I10 - Essential (primary) hypertension Category: Medical (3) Diabetes mellitus: Code(s): E11.9 - Type 2 diabetes mellitus without complications Category: Medical Qualifiers: Diabetes mellitus type: type 2 Diabetes mellitus senior care insulin use: without senior care use Diabetes mellitus complication status: with hyperglycemia Qualified Code(s): E11.65 - Type 2 diabetes mellitus with hyperglycemia (4) Mixed hyperlipidemia: Code(s): E78.2 - Mixed hyperlipidemia Category: Medical (5) Cough: Code(s): R05.9 - Cough, unspecified Category: Medical (6) Anderson esophagus: Code(s): K22.70 - Anderson's esophagus without dysplasia Category: Medical Plan Plan 1. Diabetes mellitus type 2 The patient's fenofibrate will be discontinued as his triglycerides are not at 500, which is the threshold for this medication. Continue Trulicity and Jardiance. A1c goal is equal or less than 7%. 2. Hyperlipidemia A cholesterol panel will be checked again in four months due to a previously elevated result. LDL goal is less than 70. 3. Cough An X-ray will be ordered to evaluate his cough. 4. Essential hypertension Continue losartan. Blood pressure goal is equal or less than 130/80. 5. Mild major depression Continue SSRIs. Follow-up with psychiatry. Orders: Orders AMB Hemoglobin A1c Today E11.65 - Type 2 diabetes mellitus with hyperglycemia Vitamin D 25-OH Total Today E55.9 - Vitamin D deficiency, unspecified Comprehensive [place]. Panel Fast Today I10 - Essential (primary) hypertension XR chest 2V Today R05.9 - Cough, unspecified Lipid Panel Today E78.5 - Hyperlipidemia, unspecified Microalbumin, Random (w Creat) Today R80.9 - Proteinuria, unspecified Vitamin B12 and Folate Today E53.8 - Deficiency of other specified B group vitamins Medications: Refilled [diabetic shoes with inserts] As directed 1 ea 0RF E11.65 - Type 2 diabetes mellitus with hyperglycemia fluticasone propion-salmeterol 250-50 mcg/dose 1 ea PO BID 60 ea 6RF J45.30 - Mild persistent asthma, uncomplicated Discontinued fenofibrate Discontinued Reason: Patient Completed Course 160 mg PO BEDTIME 90 days 90 tabs 3RF E78.2 - Mixed hyperlipidemia
--- OUTSIDE RECORDS SUMMARY | 2025-08-08 19:18 | XMS_ITS | Clinical Summary ---
Author Organization [facility] Address [address] [facility] [address] [place] [address] Phone Care Team Providers Care Bindery Helper Name Role Phone Unknown, Unknown MD Primary [...] topic Medical Devices Not on file Insurance [facility] REPLACEMENT RADHA VAUGHN [id number] MEDICARE REPLACEMENT MEDICARE REPLACEMENT MEDICARE REPLACEMENT MEDICARE REPLACEMENT MEDICARE REPLACEMENT MEDICARE REPLACEMENT MEDICARE REPLACEMENT MEDICARE REPLACEMENT MEDICARE REPLACEMENT Care Teams Bindery Helper Relationship Specialty Start Date End Date Unknown, Unknown, PCP - General 12/05/17 Additional Source Comments The information contained in this document represents components of the legal health record. It is not the complete legal health record.[facility]
--- OUTSIDE RECORDS SUMMARY | 2025-08-08 19:18 | XMS_ITS | Data Portability ---
Author Organization [place] - [facility], Allergy Address [address] [address] Assessment Encounter Date Assessment Date Assessment LastModified by Organization Details LastModified Time 08/13/2024 08/13/2024 73 yo M never smoker, currently being treated for esophageal cancer, presents for evaluation of the throat. He had a CT scan of the neck with contrast last [place] [facility] [place] showing soft tissue fullness centered in the [...] piriform sinus, swelling noted on CT at [place], not appreciat ed on physical exam 2023 024 [facility] ([facility]), [address] [place], [address], 4 10:24:16 Medication Orders None recorded. Patient TargetsNo targets recorded. Patient InstructionsNo instructions recorded. Reason for Referral None Reported. Results Created Date Observation Date Name Description Value Unit Range Abnormal Flag Note LastModifiedBy Organization Detail LastModifiedTime 01/0808/28/2024 MRI, head + neck + orbit s, w/wo contr ast [facility] Access ion Number : [id number] Sandra chan Name: Suleman Carpenter Edwin Huangjosiane ely Record Number : [id number] Date of : 1950 Date of Exam: 2024 Referr ing Physic clem: Cordell Gomez [facility] [place] [facility] [place] [address], [place] 100 [place] [address] Exam: MR Orbits , Face, Neck (C-/C+ ) CPT 72623 Room Descri ption: [facility] Verio 3.0T HISTOR Y: Right pirifo rm sinus lesion . TECHNI QUE: Multip lanar multis equenc e MRI of the neck was obtain ed before and after the admini strati on of 15 cc of Dotare m. COMPAR PHYLLIS: CT scan of the neck 024 [facility] med at [facility] . FINDIN GS: * The [...] asymme trical fullne ss of the right paste up artist ior pharyn geal muscul ature adjace nt [...] repres ent [facility]i [facility]. Electr onical ly Signed By: Donny saucedo [facility] ([facility]) [address] [facility], [place], [address], 09/09/2024 09:08:49 Result Notes Documentation Provider Name and Address Organization Details Recorded Time Mri, Head + Neck + Orbits, W/wo Contrast : [facility] Accession Number: [id number] Patient Name: Mohamud Tovar Date of : 1950 Date of Exam: 08-28-2024 Referring Physician: Cordell Ramirez [facility] 100 [facility], [facility] 100 [place] [address] Exam: MR Orbits, Face, Neck (C-/C+) CPT 54167 Room Description: [facility] 3.0T HISTORY: Right piriform sinus lesion. TECHNIQUE: Multiplanar multisequence MRI of the neck was obtained before and after the administration of 15 cc of Dotarem. COMPARISON: CT scan of the neck 07/02/2024 performed at [facility]. FINDINGS: * The left piriform sinus [...] oropharynx, and laryngeal structures are unremarkable. The tube coater space, parapharyngeal space, submandibular space, and visceral [...] clinical setting. Electronically Signed By: Donny fowler [place] - [facility] 09/09/2024 09:08:49 Problems Name Problem SNOMED Code Status Onset Date Resolution Date Notes Provider Name and Address Organization Details Recorded Time Neoplasm of uncertain behavior of pharynx 10195453 Active 024 CORDELL RAMIREZ MD [address] [place] [address],[place] [address], [place], [address] , [facility] 13:15:00 Problem Notes None recorded. Procedures Surgical History Date Name Laterality Status Provider Name and Address Organization Details Recorded Time 08/13/20 24 Fiberoptic Laryngoscopy (Comprehensive) completed CORDELL RAMIREZ MD [address] [place] [address],[place] [address], [place], [address], [facility] 08/19/2024 07:19:29 Imaging Results None recorded. Procedure [...] Available Not Available No t Available FreeStyle [place] Lite kit USE DIRECTED TO TEST BLOOD [...] Updated DateTime 08/13/2024 154.94 cm 31.2 kg/m2 34346.74 g Katie Lindquist [place] - [facility] 08/13/2024 12:58:49 Social History None recorded. Functional Status None recorded. Mental Status None recorded. Family History Nothing Reported Notes:mother - DM father-DM Medical History Condition Response Cancer Y Asthma Y Sleep Disorder Y Past Encounters Encounter ID Performer Location Encounter Start Date Encounter Closed Date Diagnosis/Indication Diagnosis SNOMED-CT Code Diagnosis ICD10 Code Diagnosis IMO Codes Diagnosis Note [id number] CORDELL RAMIREZ MD [facility] of [address] [address] 08/13/2024 12:32:26 08/13/2024 13:22:11 Neoplasm of uncertain behavior of pharynx 80296927 D37.05 Health Concerns Section Related Observation LastModified by Organization Detai ls LastModified Time None Recorded Concern Status LastModified by Organization Details LastModified Time None Recorded Advance Directives Directive None Recorded Payers Insurance Date Sequence Insurance Name Policy Number Policy Dunaway Covered Member ID Dunaway Member ID Guarantor Name 08/19/2024 1 [facility] - DOS ON OR AFTER 2022 - MEDICARE ADVANTAGE [place] ([place]ICARE REPLACEMENT/ADV ANTAGE - PPO) Mohamud Carpenter [id number] Mohamud Carpenter Notes Date Note Type Note [...] pain. Sometimes trouble swallowing. CORDELL RAMIREZ MD [address] [place] [address], [place], [address], [place] [facility] 08/19/2024 07:23:40
--- OUTSIDE RECORDS SUMMARY | 2025-08-08 19:18 | XMS_ITS | Clinical Summary ---
Author Organization [employer] Address [address] [place] [address] [address] [place] [address] Care Team Providers Care Leaf Size Picker Name Role Phone Unavailable Primary Care Provider [...] 60 years or older (1 - Risk 50-74 years 1-dose series) 10/31/2001 Dental Oral Exam 07/23/2019 01/19/2019, , 07/05/2016, [...] Health Maintenance Insurance DENTAL - [facility] DENTAL [facility]
--- OUTSIDE RECORDS SUMMARY | 2025-08-08 19:18 | XMS_ITS | Encounter Summary ---
Author Organization [facility] Address [address] [place] [address] Phone Care Team Providers Care Benzene Worker Name Role Phone Unknown, Unknown Primary Care Provider Oral mesa Encounter Details Date Type Department Care Team (Latest Contact Info) Description 12/26/2017 Ancillary Orders [facility] [address] [place] [address] [place] [address] Mehul Kasper DO [address] [place] [address] Chest pain, unspecified type Social History Tobacco [...] type documented in this encounter Care Teams Benzene Worker Relationship Specialty Start Date End Date Unknown, Unknown, MD PCP - General 12/05/17 documented as of this encounter Additional Source Comments The information contained in this document represents components of the legal health record. It is not the complete legal health record.[facility]
--- OUTSIDE RECORDS SUMMARY | 2025-08-08 19:18 | XMS_ITS | Encounter Summary ---
Author Organization [facility] Address [address] 7t [place] [address] Care Team Providers Care Senior Solutions Consultant Name Role Phone Unavailable Primary Care Provider [...]
--- OUTSIDE RECORDS SUMMARY | 2025-08-08 19:18 | XMS_ITS | Clinical Summary ---
Author Organization [facility] Address [address] [place] [address] Care Team Providers Care Grounds Cleaner Name Role Phone Wilfredo De Jesus MD Primary Care Provider [phone] Allergies No known active allergies Medications albuterol [...] this topic Medical Devices Implanted Type Area Registered Nurse Teacher Device Identifier Shelf Expiration Date Model / Serial / Lot Joint Prosthesis Joint Prosthesis Knee Description:left Insurance [address] [place] [address] [facility] MEDICARE OUT OF NETWORK [address] [id number] [facility] [place] MEDICARE OUT OF NETWORK [place] [id number] Care Teams Grounds Cleaner Relationship Specialty Start Date End Date Wilfredo De Jesus MD PCP - General 05/07/23
--- OUTSIDE RECORDS SUMMARY | 2025-08-08 19:18 | XMS_ITS | Encounter Summary ---
Author Organization [facility] Address [address] [place] [address] Phone Care Team Providers Care Retail Event Assistant Name Role Phone Unknown, Unknown Primary Care Provider Oral mesa Encounter Details Date Type Department Care Team (Latest Contact Info) Description 10/11/2020 Ancillary Orders [facility] [address] [place] [address] [place] [address] Mehul Kasper, DO [address] [place] [address] Chest pain, unspecified type Social History Tobacco [...] type documented in this encounter Care Teams Retail Event Assistant Relationship Specialty Start Date End Date Unknown, Unknown, PCP - General 12/05/17 documented as of this encounter Additional Source Comments The information contained in this document represents components of the legal health record. It is not the complete legal health record.[facility]
--- OUTSIDE RECORDS SUMMARY | 2025-08-08 19:18 | XMS_ITS | Encounter Summary ---
Author Organization [facility] Address [address] [facility] [facility] 7[address] [place] [address] Care Team Providers Care Digital Media Designer Name Role Phone Unavailable Primary Care [...]
--- OUTSIDE RECORDS SUMMARY | 2025-08-08 19:18 | XMS_ITS | Clinical Summary ---
Author Organization [facility] [employer] [facility] Address [address] [place] [address] Phone Care Team Providers Care Bonderizer Name Role Phone Clara Amaral MD Primary Care Provider [phone] Allergies No known active allergies Medications albuterol [...] mouth daily. 0 Active diabetic supplies, miscellan. [facility] BLOOD GLUCOSE MONITORING SUPPL (FREESTYLE LITE) DEVICE [...] 1 dose. 8 Active miscellaneous medical supply [facility] Spacer/Aero Chamber Mouthpiece [facility] Inhale 1 Units into the lungs every 6 hours as needed (use with inhalers as directed). 8 Active methocarbamoL (ROBAXIN) 500 mg tablet Take 1 tablet (500 mg total) by mouth 2 (two) times a day for 10 days. 20 tablet 5 Active Active Problems Problem Noted Date Diagnosed Date Abdominal bloating 08/26/2024 Candidiasis of esophagus 08/26/2024 Overview (08/26/2024): Noted on EGD on 09/30/2019 Depression 08/26/2024 Overview (08/26/2024): Follows with Dr. Perez from psychiatry Epigastric discomfort 08/26/2024 Hypertension 08/26/2024 Mixed hyperlipidemia 08/26/2024 Rectal bleeding 08/26/2024 Asthma 10/09/2021 CKD (chronic kidney disease) stage 3, GFR 30-59 ml/min 10/09/2021 Insomnia 10/09/2021 Type 2 diabetes mellitus with renal manifestatio ns 10/09/2021 Gastroesophageal reflux disease without esophagi tis 09/17/2019 Pulmonary nodule 09/02/2019 Overview (08/26/2024): CT chest pending 08/2019 Mild persistent asthma with acute exacerbation 0 03/17/2018 Atypical chest pain 12/01/2017 Overview (08/26/2024): Normal TTE 11/2017, follows with [facility]. Follows on a 6-month basis. Obesity [...] study, PLMs ~52. Diabetes mellitus type 2 with neurological manif estations 02/24/2017 Overview (08/26/2024): Parasthesias of hands, h/o carpal tunnel Normocytic anemia 02/24/2017 Overview (08/26/2024): Normal iron studies, normal folate and B12. 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 UPPER GASTROINTESTINAL ENDOSCOPY 01/16/2017 PROCEDURE: [place] UPPER GI ENDOSCOPY PERFORMED; COMMENT: [facility], Dr. Tatyana Person: Gastric biopsies negative for H. 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 UPPER GASTROINTESTINAL ENDOSCOPY 12/2013 PROCEDURE: [place] UPPER GI ENDOSCOPY PERFORMED; COMMENT: Dr. Tatyana Person, Flores esophagitis, Anderson's esophagus, minute areas of low-grade dysplasia. UPPER GASTROINTESTINAL ENDOSCOPY 11/2012 PROCEDURE: [place] UPPER GI ENDOSCOPY PERFORMED; COMMENT: Dr. Tatyana Person, Anderson's esophagus with small focus indefinite for dysplasia. UPPER GASTROINTESTINAL ENDOSCOPY 05/02/2010 PROCEDURE: [place] UPPER GI ENDOSCOPY PERFORMED; COMMENT: [place] Broussard, Justin's esophagus, no dysplasia. COLONOSCOPY 10/13/2008 PROCEDURE: HISTORICAL COLONOSCOPY; COMMENT: [place], tubular adenoma 1. UPPER GASTROINTESTINAL ENDOSCOPY 10/07/2008 PROCEDURE: [place] UPPER GI ENDOSCOPY PERFORMED; COMMENT: [place] Broussard, Anderson's esophagus, not clear if biopsies were done. COLONOSCOPY 09/2005 PROCEDURE: HISTORICAL COLONOSCOPY; COMMENT: [place] Broussard, no polyps. UPPER GASTROINTESTINAL ENDOSCOPY 05/2005 PROCEDURE: [place] UPPER GI ENDOSCOPY PERFORMED; COMMENT: [place] Broussard, biopsies negative for Anderson's esophagus. UPPER GASTROINTESTINAL ENDOSCOPY 10/1997 PROCEDURE: [place] UPPER GI ENDOSCOPY PERFORMED; COMMENT: [place] Broussard, results not available. UPPER GASTROINTESTINAL ENDOSCOPY 01/06/2018 PROCEDURE: [place] UPPER GI ENDOSCOPY PERFORMED; COMMENT: Rayne[facility]; 6 cm length of Anderson's; grade 1 esophageal varices; pathology: Foci of atypia. Second opinion: No dysplasia. COLONOSCOPY 04/21/2019 PROCEDURE: HISTORICAL COLONOSCOPY; COMMENT: Solitary 5 mm diminutive polyp removed from the sigmoid colon--- tubular adenoma. ESOPHAGOGASTRODUODENOSCOPY PROCEDURE: VT EGD TRANSORAL BIOPSY SINGLE/MULTIPLE; COMMENT: Performed on September 30, 2019 with CARPAL TUNNEL RELEASE 03/2021 Right PROCEDURE: HISTORICAL CARPAL TUNNEL REL OTHER SURGICAL HISTORY PROCEDURE: [place] BIOPSY PROSTATE INCISIONAL ANY APPROACH Medical History [...] mellitus type 2 wit h neurological manifestations ([facility] V24, [facility] V28) 02/24/2017 DX:Diabetes mellitus type 2 with neurological manifestations ([facility]); COMMENT: Parasthesias of hands, h/o carpal tunnel Atypical chest pain 12/01/2017 DX:Atypical chest pain; COMMENT: Normal TTE 11/2017, follows with [facility] Anderson's esophagus 05/15/2017 DX:Anderson's esophagus; COMMENT: EGD 12/2017, follows with GI Asthma DX:Asthma Candidiasis of esophagus ([facility] V24, [facility] V28) DX:Candidiasis of esophagus ([facility]); COMMENT: Noted on EGD on 09/30/2019 Abdominal bloating DX:Abdominal bloating Epigastric discomfort DX:Epigast puma discomfort Rectal bleeding DX:Rectal bleedi ng Gassiness DX:Gassiness Insomnia 10/09/2021 DX:Insomnia Mixed hyperlipidemia DX:Mixed hy perlipidemia CKD (chronic kidney disease) stage 3, GFR 30-59 ml/min ([facility] V24, [facility] V28) 10/09/2021 DX:CKD (chronic kidney disea se) stage 3, GFR 30-59 ml/min ([facility]) Type 2 diabetes mellitus wit h renal manifestations ([facility] V24, [facility] V28) 10/09/2021 DX:Type 2 diabetes mellitus with renal manifestations ([facility]) Gastroesophageal reflux dise ase without esophagitis 09/17/2019 [...] PM EST Office Visit Gastroenterology - [address] [phone] Tye Mclain MD [address] [place] [id number] Health Maintenance Due Date Last Done Comments [...] (Lipid Panel) 02/17/2025 02/18/2020 COVID-19 Vaccine ( - season) 2025 01/01/2022, 05/29/2021, 11/21/2020, Additional history exists Influenza Vaccine (#1) 2025 , 05/06/2023, 05/16/2022, Additional history exists DTaP,Tdap,and Td [...] Procedure Name Priority Date/Time Associated Diagnosis Comments HM URINE ALBUMIN CREATININE RATIO Routine 02/18/2020 ANNUAL BMP BLOOD TEST Routine 02/18/2020 HEMOGLOBIN A1C Routine 02/18/2020 LIPID PANEL Routine 02/18/2020 HEPATITIS C SCREENING Routine 06/06/2017 from Last 3 Months or Most Recently Relevant to Health Maintenance Results * Urine Albumin Creatinine Ratio (02/18/2020) Pathologist [facility] Urine Albumin Creatinine Ratio abstracted Result [facility] Provider HEALTH MAINTENANCE Final Result * Annual BMP Blood Test (02/18/2020) Pathologist [facility] Annual BMP Blood Test abstracted Result [facility] HEALTH MAINTENANCE Final Result * (ABNORMAL) Hemoglobin A1c (02/18/2020) Pathologist [facility] Hemoglobin A1C 7.6(A) <=6.5 % Blood Venous blood specimen / Unknown Result [facility] Provider LAB BLOOD ORDERABLES Jennifer l Result * (ABNORMAL) Lipid panel (02/18/2020) [facility] LDL/HDL Ratio 5(A) 0 - 4 Triglycerides 306(A) 0 - 150 mg/dL Cholesterol 203(A) 0 - 200 mg/dL HDL 41 >=40 mg/dL LDL Cholesterol 100 0 - 100 mg/dL Blood Venous blood specimen / Unknown Result [facility] Provider LAB BLOOD ORDERABLES Jennifer l Result * Hepatitis C Screening (06/06/2017) Pathologist [facility] Hepatitis C Screening abstracted Result [facility] Provider HEALTH MAINTENANCE Final Result from Last 3 Months or Most Recently Relevant to Health Maintenance Insurance [facility] [employer] Member Subscriber Plan / Payer (Ef fective 2024-Present) Name:Mohamud Tovar Relation to Subscriber:Self Name:Mohamud Tovar Payer ID:[id number] Group ID:[id number] Type:Not on file Address: [place] [address] [place] [id number] Care Teams Bonderizer Relationship Specialty Start Date End Date Clara Amaral MD [address] , [address] [facility] Associ D/B/A: [facility] KARMEN Brewer PCP - General Internal Medicine 04/08/25
--- OUTSIDE RECORDS SUMMARY | 2025-08-08 19:18 | XMS_ITS | Encounter Summary ---
Author Organization [facility] Address [address] [place] [address] Phone Care Team Providers Care Mixing House Operator Name Role Phone Unknown, Unknown Primary Care Provider Oral mesa Encounter Details Date Type Department Care Team ([facility] st Contact Info) Description 10/11/2020 Procedure [facility] [address] [place] [address] [place] [address] Social History Tobacco Use Types Packs/Day Years [...] on filedocumented in this encounter Care Teams Mixing House Operator Relationship Specialty Start Date End Date Unknown, Unknown, PCP - General 12/05/17 documented as of this encounter Additional Source Comments The information contained in this document represents components of the legal health record. It is not the complete legal health record.[facility]
== END 2025-08-08 14:21 | disposition home or self-care (01) ==
LOC: HO.HMCH 13:21
PROVIDERS: PCP Internal Medicine; Visit Provider Internal Medicine
DX: F33.0 Major depressive disorder, recurrent, mild (principal); I10 Essential (primary) hypertension; E11.65 Type 2 diabetes mellitus with hyperglycemia; E78.2 Mixed hyperlipidemia; R05.9 Cough, unspecified; K22.70 Barrett's esophagus without dysplasia

== ENCOUNTER → 2025-08-08 13:20 | Outpatient (BNVA) | payer OTHER, SELFPAY | PROVIDERS: PCP Internal Medicine; Visit Provider Internal Medicine | DX: E11.65 Type 2 diabetes mellitus with hyperglycemia (principal); E78.2 Mixed hyperlipidemia; F33.0 Major depressive disorder, recurrent, mild; I10 Essential (primary) hypertension; R05.9 Cough, unspecified; K22.70 Barrett's esophagus without dysplasia | CPT/HCPCS: 83036; 99212 ==

== ENCOUNTER 2025-08-09 10:17 | Outpatient (REF) | payer OTHER, SELFPAY ==
--- NOTE | ~2025-08-09 | XR_ITS ---
EXAMINATION: XR CHEST 2 VIEWS HISTORY: R05.9 - Cough, unspecified COMPARISON: Comparison is made with the prior examination dated 04/11/2024. FINDINGS: PA and lateral views of the chest are submitted. The lungs are expanded and clear. There is no pleural effusion, pneumothorax, or pulmonary vascular congestion. The heart is normal in size. There is degenerative disc disease of the spine. XR/XR chest 2V IMPRESSION: No acute cardiopulmonary abnormality. Electronically signed by: López Marks MD 08/09/2025 10:31 AM L[facility]
--- OUTSIDE RECORDS SUMMARY | 2025-08-09 12:51 | XMS_ITS | Clinical Summary ---
Author Organization [facility] Address [address] [place] [address] Care Team Providers Care Heavy Forging Machine Operator Name Role Phone Wilfredo De Jesus MD Primary Care Provider [phone] Allergies No known active allergies Medications albuterol [...] this topic Medical Devices Implanted Type Area Disability Program Navigator Device Identifier Shelf Expiration Date Model / Serial / Lot Joint Prosthesis Joint Prosthesis Knee Description:left Insurance [address] [place] [address] [facility] [place]IC[place] OUT OF NETWORK [address] [id number] [facility] MEDICARE OUT OF NETWORK [place]HA [place]AUGH[place] [id number] Care Teams Heavy Forging Machine Operator Relationship Specialty Start Date End Date Wilfredo De Jesus MD PCP - General 05/07/23
--- OUTSIDE RECORDS SUMMARY | 2025-08-09 12:51 | XMS_ITS | Clinical Summary ---
Author Organization [facility] [employer] [facility] Address [address] [place] [address] Phone Care Team Providers Care Chemistry Technician Name Role Phone Clara Amaral MD Primary Care Provider [phone] Allergies No known active allergies Medications albuterol [...] mouth daily. 0 Active diabetic supplies, miscellan. [facility] BLOOD GLUCOSE MONITORING SUPPL [...] 1 dose. [address] supply [facility] Spacer/Aero Chamber Mouthpiece [facility] Inhale 1 Units into the lungs every [...] Overview (08/26/2024): Normal TTE 11/2017, follows with [facility]. Follows on a 6-month basis. Obesity [...] Type Department Care Team Description 06/23/2025 Telephone [facility] [address] [place] [address] StarrMinh Henry MD from Last [...] no polyps. UPPER GASTROINTESTINAL ENDOSCOPY 01/16/2017 PROCEDURE: [place] UPPER GI ENDOSCOPY PERFORMED; COMMENT: [facility], Dr. Tatyana Person: Gastric biopsies negative for H. 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 UPPER GASTROINTESTINAL ENDOSCOPY 12/2013 PROCEDURE: [place] UPPER GI ENDOSCOPY PERFORMED; COMMENT: Dr. Tatyana Person, Flores esophagitis, Anderson's esophagus, minute areas of low-grade dysplasia. UPPER GASTROINTESTINAL ENDOSCOPY 11/2012 PROCEDURE: [place] UPPER GI ENDOSCOPY PERFORMED; COMMENT: Dr. Tatyana Person, Anderson's esophagus with small focus indefinite for dysplasia. UPPER GASTROINTESTINAL ENDOSCOPY 05/02/2010 PROCEDURE: [place] UPPER GI ENDOSCOPY PERFORMED; COMMENT: [place] Broussard, Justin's esophagus, no dysplasia. COLONOSCOPY 10/13/2008 PROCEDURE: HISTORICAL COLONOSCOPY; COMMENT: [place], tubular adenoma 1. UPPER GASTROINTESTINAL ENDOSCOPY 10/07/2008 PROCEDURE: [place] UPPER GI ENDOSCOPY PERFORMED; COMMENT: [place] Broussard, Anderson's esophagus, not clear if biopsies were done. COLONOSCOPY 09/2005 PROCEDURE: HISTORICAL COLONOSCOPY; COMMENT: [place] Broussard, no polyps. UPPER GASTROINTESTINAL ENDOSCOPY 05/2005 PROCEDURE: [place] UPPER GI ENDOSCOPY PERFORMED; COMMENT: Virginia Broussard, biopsies negative for Adnerson's esophagus. UPPER GASTROINTESTINAL ENDOSCOPY 10/1997 PROCEDURE: [place] UPPER GI ENDOSCOPY PERFORMED; COMMENT: Virginia Broussard, results not available. UPPER GASTROINTESTINAL ENDOSCOPY 01/06/2018 PROCEDURE: [place] UPPER GI ENDOSCOPY PERFORMED; COMMENT: Rayne@[facility]; 6 cm length of Anderson's; grade 1 esophageal varices; pathology: Foci of atypia. Second opinion: No dysplasia. COLONOSCOPY 04/21/2019 PROCEDURE: HISTORICAL COLONOSCOPY; COMMENT: Solitary 5 mm diminutive polyp removed from the sigmoid colon--- tubular adenoma. ESOPHAGOGASTRODUODENOSCOPY PROCEDURE: [place] EGD TRANSORAL BIOPSY SINGLE/MULTIPLE; COMMENT: Performed on September 30, 2019 with CARPAL TUNNEL RELEASE 03/2021 Right PROCEDURE: HISTORICAL CARPAL TUNNEL REL OTHER SURGICAL HISTORY PROCEDURE: [place] BIOPSY PROSTATE INCISIONAL ANY APPROACH Medical History [...] mellitus type 2 wit h neurological manifestations ([facility] V24, [facility] V28) 02/24/2017 DX:Diabetes mellitus type 2 with neurological manifestations ([facility]); COMMENT: Parasthesias of hands, h/o carpal tunnel Atypical chest pain 12/01/2017 DX:Atypical chest pain; COMMENT: Normal TTE 11/2017, follows with [facility] Anderson's esophagus 05/15/2017 DX:Anderson's esophagus; COMMENT: EGD 12/2017, follows with GI Asthma DX:Asthma Candidiasis of esophagus ([facility] V24, [facility] V28) DX:Candidiasis of esophagus ([facility]); COMMENT: Noted on EGD on 09/30/2019 Abdominal bloating DX:Abdominal bloating Epigastric discomfort DX:Epigast puma discomfort Rectal bleeding DX:Rectal bleedi ng Gassiness DX:Gassiness Insomnia 10/09/2021 DX:Insomnia Mixed hyperlipidemia DX:Mixed hy perlipidemia CKD (chronic kidney disease) stage 3, GFR 30-59 ml/min ([facility] V24, [facility] V28) 10/09/2021 DX:CKD (chronic kidney disea se) stage 3, GFR 30-59 ml/min ([facility]) Type 2 diabetes mellitus wit h renal manifestations ([facility] V24, [facility] V28) 10/09/2021 DX:Type 2 diabetes mellitus [...] PM EST Office Visit Gastroenterology - [address] [phone] Tye Mclain MD [address] [place] [address] Health Maintenance Due Date Last Done Comments [...] * Urine Albumin Creatinine Ratio (02/18/2020) Pathologist [facility] Urine Albumin Creatinine Ratio abstracted Result [facility] Provider HEALTH MAINTENANCE Final Result * Annual BMP Blood Test (02/18/2020) Pathologist [facility] Annual BMP Blood Test abstracted Result [facility] HEALTH MAINTENANCE Final Result * (ABNORMAL) Hemoglobin A1c (02/18/2020) Pathologist [facility] Hemoglobin A1C 7.6(A) <=6.5 % Blood Venous blood specimen / Unknown Result [facility] Provider LAB BLOOD ORDERABLES Jennifer l Result * (ABNORMAL) Lipid panel (02/18/2020) [facility] LDL/HDL Ratio 5(A) 0 - 4 Triglycerides 306(A) 0 - 150 mg/dL Cholesterol 203(A) 0 - 200 mg/dL HDL 41 >=40 mg/dL LDL Cholesterol 100 0 - 100 mg/dL Blood Venous blood specimen / Unknown Result [facility] Provider LAB BLOOD ORDERABLES Jennifer l Result * Hepatitis C Screening (06/06/2017) Pathologist [facility] Hepatitis C Screening abstracted Result [facility] Provider HEALTH MAINTENANCE Final Result from Last 3 Months or Most Recently Relevant to Health Maintenance Insurance [facility] Member Subscriber Plan / Payer (Ef fective 2024-Present) Name:Mohamud Tovar Relation to Subscriber:Self Name:Mohamud Tovar Payer ID:[id number] Group ID:[id number] Type:Not on file Address: [place] [address] [place] [id number] Care Teams Chemistry Technician Relationship Specialty Start Date End Date Clara Amaral MD [address] [facility] , [address] [facility]ician Associ D/B/A: [facility] KARMEN Brewer PCP - General Internal Medicine 04/08/25
--- OUTSIDE RECORDS SUMMARY | 2025-08-09 12:51 | XMS_ITS | Clinical Summary ---
Author Organization [facility] Address [address] [facility] [address] [address] [place] [address] Phone Care Team Providers Care B2B Sales Consultant Name Role Phone Unknown, Unknown MD Primary [...] topic Medical Devices Not on file Insurance [facility] MEDICARE REPLACEMENT [place] [id number] MEDICARE REPLACEMENT MEDICARE REPLACEMENT MEDICARE REPLACEMENT MEDICARE REPLACEMENT MEDICARE REPLACEMENT MEDICARE REPLACEMENT MEDICARE REPLACEMENT MEDICARE REPLACEMENT MEDICARE REPLACEMENT Care Teams B2B Sales Consultant Relationship Specialty Start Date End Date Unknown, Unknown, PCP - General 12/05/17 Additional Source Comments The information contained in this document represents components of the legal health record. It is not the complete legal health record.[facility]
--- OUTSIDE RECORDS SUMMARY | 2025-08-09 12:51 | XMS_ITS | Encounter Summary ---
Author Organization [facility] Address [address] [place] [address] Phone Care Team Providers Care Platform Stapler Name Role Phone Unknown, Unknown Primary Care Provider Oral mesa Encounter Details Date Type Department Care Team ([facility] st Contact Info) Description 10/11/2020 Procedure [facility] [address] [place] [address] [place] [address] Social History Tobacco Use Types Packs/Day Years [...] on filedocumented in this encounter Care Teams Platform Stapler Relationship Specialty Start Date End Date Unknown, Unknown, PCP - General 12/05/17 documented as of this encounter Additional Source Comments The information contained in this document represents components of the legal health record. It is not the complete legal health record.[facility]
--- OUTSIDE RECORDS SUMMARY | 2025-08-09 12:51 | XMS_ITS | Encounter Summary ---
Author Organization [facility] Address [address] [place] [address] Phone Care Team Providers Care Security Vehicle Patrol Officer Name Role Phone Unknown, Unknown Primary Care Provider Oral mesa Encounter Details Date Type Department Care Team (Latest Contact Info) Description 12/26/2017 Ancillary Orders [facility] [address] [place] [address] [place] [address] Mehul Kasper DO [address] [place] [address] Chest pain, unspecified type Social History Tobacco [...] type documented in this encounter Care Teams Security Vehicle Patrol Officer Relationship Specialty Start Date End Date Unknown, Unknown, MD PCP - General 12/05/17 documented as of this encounter Additional Source Comments The information contained in this document represents components of the legal health record. It is not the complete legal health record.[facility]
--- OUTSIDE RECORDS SUMMARY | 2025-08-09 12:51 | XMS_ITS | Encounter Summary ---
Author Organization [facility] Address [address] [place] [address] Phone Care Team Providers Care De Alcoholizer Name Role Phone Unknown, Unknown Primary Care Provider [place] Encounter Details Date Type Department Care Team (Latest Contact Info) Description 10/11/2020 Ancillary Orders [facility] [address] [place] [address] [place] [address] Mehul Kasper, DO [address] [place] [address] Chest pain, unspecified type Social History Tobacco [...] type documented in this encounter Care Teams De Alcoholizer Relationship Specialty Start Date End Date Unknown, Unknown, PCP - General 12/05/17 documented as of this encounter Additional Source Comments The information contained in this document represents components of the legal health record. It is not the complete legal health record.[facility]
== END 2025-08-09 10:18 | disposition home or self-care (01) ==
LOC: HO.XRAY 10:17
PROVIDERS: PCP Internal Medicine; Visit Provider Internal Medicine
DX: R05.9 Cough, unspecified (principal)
CPT/HCPCS: 71046

== ENCOUNTER → 2025-08-09 10:22 | Outpatient (BNV) | payer OTHER, SELFPAY | PROVIDERS: PCP Internal Medicine; Visit Provider Radiology Diagnostic Radiology | DX: R05.9 Cough, unspecified (principal) | CPT/HCPCS: 71046 ==